=== PATIENT | female | born 1930 | race Hispanic/Latino ===

== ENCOUNTER 2016-12-17 11:24 | Inpatient (IN) | payer MEDICARE, OTHER ==
[2016-12-17 11:29] VITALS: BMI 26.4
[2016-12-17] MEDS ORDERED: Sodium Chloride 0.9% 500 ML IV STA (11:52)
--- NOTE | 2016-12-17 12:02 | ED PDOC ---
HPI: Back Time Seen by Provider: 12/17/16 11:39 Chief Complaint (Nursing): Back Pain Chief Complaint (Provider): Back Pain History Per: Patient, Family History/Exam Limitations: no limitations Onset/Duration Of Symptoms: Hrs Current Symptoms Are (Timing): Still Present Quality Of Discomfort: "Pain" Severity: Moderate Previous Symptoms: Back Pain Associated Symptoms: None Additional Complaint(s): Patient is a 86 year old female who presents to ED via EMS and accompanied by daughter for evaluation of back pain s/p fall today. Patient states she bent forward to pick something up, felt sudden onset dizziness which resulted in her falling backwards. Reports she struck her lower back on the ground and had her head lodged between a wine rack and chair. Denies LOC, vision changes, numbness or headache. Notes a few day history of generalized weakness and fatigue which patient attributes to not sleeping right due to pain. As per daughter, several weeks of pelvic pain evaluated by PMD and referred to U/S for possible pelvic prolapse. Had chest pain burning yesterday. Took ativan and went to sleep for it. Of note, daughter is requesting that patient receive her pelvic ultrasound ordered by PMD " seeing how she is in the ED anyways." Past Medical History Reviewed: Historical Data, Nursing Documentation, Vital Signs Vital Signs: Last Vital Signs Temp 98.2 F 12/17/16 11:27 Pulse 56 L 12/17/16 11:27 Resp 16 12/17/16 11:27 BP 123/57 L 12/17/16 11:27 Pulse Ox 95 12/17/16 11:27 - Medical History PMH: Anemia, Anxiety, Arthritis, Asthma, CAD, CHF, COPD, Depression, Diverticulitis, GERD, HTN, Hypercholesterolemia, Hypothyroidism, Malignancy ( Colon Cancer), Chronic Kidney Disease Denies: HIV - Surgical History Surgical History: Appendectomy, Cholecystectomy, 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, 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), 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 - Family History Family History: States: Unknown Family Hx - Living Arrangements Living Arrangements: With Family - Social History Alcohol: None Drugs: Denies - Immunization History Hx Tetanus Toxoid Vaccination: No Hx Influenza Vaccination: Yes (04/2014) Hx Pneumococcal Vaccination: Yes (2010) - Home Medications Home Medications: Ambulatory Orders Medication Instructions Recorded Albuterol HFA [Ventolin HFA 90 1 puff INH RQ6 PRN #0 inhaler 10/22/15 mcg/actuation (8 g)] Aspirin [Aspirin Chewable] 81 mg PO DAILY #0 chew 10/22/15 Clopidogrel [Plavix] 75 mg PO DAILY #0 tab 10/22/15 Docusate [Colace] 100 mg PO BID #0 cap 10/22/15 Fluticasone/Salmeterol 100/50 1 puff IH RQ12 #0 puff 10/22/15 [Advair Diskus 100/50] Metoprolol Tartrate [Lopressor] 12.5 mg PO DAILY #0 tab 10/22/15 Atorvastatin [Lipitor] 40 mg PO HS 06/27/16 Dexlansoprazole [Dexilant] 60 mg PO DAILY 06/27/16 LORazepam [Ativan] 1 mg PO HS PRN 06/27/16 Oxycodone HCl/Acetaminophen 1 tab PO Q8 PRN 06/27/16 [Percocet 10-325 mg Tablet] cefTRIAXone 1 gm [Rocephin 1 gram 1 gm IVPB DAILY #5 bag 06/29/16 IVPB] Levothyroxine [Synthroid] 150 mcg PO ACB tab 06/30/16 Montelukast [Singulair] 10 mg PO DAILY tab 06/30/16 - Allergies Allergies/Adverse Reactions: Allergies Allergy/AdvReac Type Severity Reaction Status Date / Time No Known Allergies Allergy Verified 06/27/16 18:19 Review of Systems ROS Statement: Except As Marked, All Systems Reviewed And Found Negative Constitutional: Positive for: Weakness (generalized ) Eyes: Negative for: Vision Change Cardiovascular: Positive for: Chest Pain. Negative for: Palpitations Respiratory: Negative for: Shortness of Breath Gastrointestinal: Negative for: Nausea, Vomiting, Abdominal Pain Musculoskeletal: Positive for: Back Pain. Negative for: Neck Pain Neurological: Positive for: Weakness, Dizziness (resolved ). Negative for: Numbness, Headache Physical Exam - Reviewed Nursing Documentation Reviewed: Yes Vital Signs Reviewed: Yes - Physical Exam Appears: Positive for: Non-toxic, No Acute Distress Head Exam: Positive for: ATRAUMATIC, NORMAL INSPECTION, NORMOCEPHALIC Skin: Positive for: Normal Color, Warm, DRY Eye Exam: Positive for: Normal appearance, PERRL ENT: Positive for: Normal ENT Inspection. Negative for: Nasal Congestion, Pharyngeal Erythema Neck: Positive for: Normal, Painless ROM, Supple Cardiovascular/Chest: Positive for: Regular Rate, Rhythm. Negative for: Murmur Respiratory: Positive for: Normal Breath Sounds. Negative for: Respiratory Distress Gastrointestinal/Abdominal: Positive for: Normal Exam, Soft. Negative for: Tenderness Back: Positive for: Normal Inspection, Other (mild lower lumbar tenderness ). Negative for: L CVA Tenderness, R CVA Tenderness Extremity: Positive for: Normal ROM, Other (4/5 strength of all extremities). Negative for: Tenderness, Pedal Edema, Deformity Neurologic/Psych: Positive for: Alert, tool setter II-XII (grossly intact ), Oriented. Negative for: Motor/Sensory Deficits - Laboratory Results Result Diagrams: 12/17/16 12:21 12/17/16 12:21 Interpretation Of Abn Labs: 43/2.2 bun/cr - ECG ECG: Positive for: Interpreted By Me, Viewed By Me ECG Rhythm: Positive for: Sinus Bradycardia O2 Sat by Pulse Oximetry: 95 (RA) Pulse Ox Interpretation: Normal - Radiology X-Ray: Read By Radiologist X-Ray Interpretation: No Acute Disease - CT Scan/US ct Other Rad Studies (CT/US): Read By Radiologist Other Rad Interpretation: no acute - Progress ED Course And Treament: 1411: Stable. Pain free. Tolerated PO. Will need admit for dizziness and bradycardia. Chest pain atypical eval as well. Dr. Orion Hendrickson aware and will admit. Medical Decision Making Medical Decision Making: Time: 1145 Initial impression: Fall r/o fracture Initial plan: -- CT-head -- EKG -- CMP -- Troponin -- CBC -- PT/PTT -- CXR -- Lumbar Spine -- NSF -- U/S Scribe Attestation: Documented by Patricia Bullock acting as a scribe for Bobo Adorno MD. Scribe Attestation: All medical record entries made by the Scribe were at my direction and personally dictated by me. I have reviewed the chart and agree that the record accurately reflects my personal performance of the history, physical exam, medical decision making, and the department course for this patient. I have also personally directed, reviewed, and agree with the discharge instructions and disposition. Disposition - Clinical Impression Clinical Impression: Dizziness, Chest pain, Bradycardia - Patient ED Disposition Is Patient to be Admitted: Yes Counseled Patient/Family Regarding: Studies Performed, Diagnosis - Disposition Disposition Time: 14:12 Condition: FAIR - Pt Status Changed To: Hospital Disposition Of: Observation - POA Present On Arrival: None, Falls Or Trauma
[2016-12-17 12:36] LABS: BASO % 0.8 % (0.0-2.0); EOS # 0.2 K/uL (0.0-0.7); EOS % 3.2 % (0.0-4.0); HEMATOCRIT 33.6 % (34.0-47.0); LYMPH # 2.3 K/uL (1.0-4.3); LYMPH % 36.3 % (20.0-40.0); MEAN CELL VOLUME 89.9 fl (81.0-99.0); MEAN CORPUSCULAR HEMOGLOBIN 29.4 pg (27.0-31.0); MEAN CORPUSCULAR HGB CONC 32.7 g/dL (33.0-37.0); MEAN PLATELET VOLUME 7.9 fl (7.2-11.7); MONO # 0.7 K/uL (0.0-0.8); MONO % 10.6 % (0.0-10.0); NEUT # 3.1 K/uL (1.8-7.0); NEUT % 49.1 % (50.0-75.0); NRBC % 0.1 % (0.0-0.0); RED CELL DISTRIBUTION WIDTH 17.8 % (11.5-14.5); WHITE BLOOD COUNT 6.2 K/uL (4.8-10.8)
[2016-12-17 12:48] LABS: ALB/GLOB RATIO 1.1 (1.0-2.1); ALKALINE PHOSPHATASE 75 U/L (38-126); ALT/SGPT 18 U/L (9-52); AST/SGOT 46 U/L (14-36); BLOOD UREA NITROGEN 43 mg/dl (7-17); CALCIUM 8.9 mg/dL (8.4-10.2); CARBON DIOXIDE 21 mmol/L (22-30); CHLORIDE 107 mmol/L (98-107); GFR AFRICAN-AMERICAN 26; GLUCOSE,RANDOM 101 mg/dL (65-105); SODIUM 141 mmol/l (132-148); TOTAL PROTEIN 8.2 G/DL (6.3-8.2)
[2016-12-17 12:50] LABS: POTASSIUM 5.7 MMOL/L (3.6-5.0)
[2016-12-17 12:54] LABS: PARTIAL THROMBOPLASTIN TIME 28.2 Seconds (25.6-37.1)
--- NOTE | 2016-12-17 13:20 | RAD ---
HISTORY: Trauma. Portable study 12:05. COMPARISON: 06/27/2016. FINDINGS: LUNGS: No active pulmonary disease. PLEURA: No significant pleural effusion identified, no pneumothorax apparent. CARDIOVASCULAR: No radiographic findings to suggest acute or significant cardiovascular disease. OSSEOUS STRUCTURES: No significant abnormalities. VISUALIZED UPPER ABDOMEN: Normal. OTHER FINDINGS: None. IMPRESSION: No active disease. No significant interval change compared to the prior examination(s).
--- NOTE | 2016-12-17 13:21 | RAD ---
PROCEDURE: Radiographs of the Lumbar Spine. HISTORY: Posttraumatic back pain COMPARISON: No prior. FINDINGS: BONES: Normal alignment. No listhesis. No fracture. DISC SPACES: Unremarkable. OTHER FINDINGS: Multilevel facet arthropathy. Calcified nonaneurysmal abdominal aorta. IMPRESSION: No acute findings related to/accounting for the clinical presentation.
--- NOTE | 2016-12-17 13:33 | CT ---
PROCEDURE: CT HEAD WITHOUT CONTRAST. HISTORY: headache COMPARISON: Noncontrast head CT performed 06/09/16 TECHNIQUE: Axial computed tomography images were obtained through the head/brain without intravenous contrast. Radiation dose: Total exam DLP = 734.20 mGy-cm. This CT exam was performed using one or more of the following dose reduction techniques: Automated exposure control, adjustment of the mA and/or kV according to patient size, and/or use of iterative reconstruction technique. FINDINGS: HEMORRHAGE: No intracranial hemorrhage. BRAIN: Diffuse atrophy with prominence of the ventricles and sulci noted. No mass effect or edema. Intracranial atherosclerotic calcifications. Moderate scattered periventricular and subcortical white matter hypodensities, which are nonspecific, but often seen with chronic microvascular ischemic disease. Please note that MRI with diffusion imaging is more sensitive in the detection of acute ischemic event. VENTRICLES: No hydrocephalus. CALVARIUM: Unremarkable. PARANASAL SINUSES: Partial opacification of the posterior left ethmoid air cells and limited included portions of the left maxillary sinus. The visualized paranasal sinuses appear otherwise clear. MASTOID AIR CELLS: Unremarkable as visualized. No inflammatory changes. OTHER FINDINGS: None. IMPRESSION: Generalized atrophy. Moderate nonspecific white matter changes. Opacification of the posterior left ethmoid air cells and limited included portions of the left maxillary sinus. The paranasal sinuses appear otherwise clear.
[2016-12-17] MEDS ORDERED: Oxycodone/Acetaminophen 5/325 mg Tab PO ONE ×2 (13:58→22:13)
--- NOTE | 2016-12-17 16:55 | CP.PCM.HP ---
History of Present Illness - History of Present Illness History of Present Illness: Hospitalist Admission H&P (Patient was seen at 3:30 PM 12/17/16 ER Bed #20 with Daughter Eve present) PMD: Dr. Nolasco CODE STATUS: DNR/DNI. NO living will/advance directive. Daughter Eve has been designated by patient as her Health Care Proxy CHIEF COMPLAINT: Fall, Chest Pain, Dizziness, Pelvic Pain 86 year old female with an extensive medical history (please see medical history below) who presents via EMS with chief complaint of having fall, chest pain, dizziness, and pelvic pain. Patient explains that for the past few weeks now she has been experiencing pain in the pelvic area and had blood coming out of her vagina a few weeks ago (but did not tell her daughter and did not come to the hospital). She states that in the past she has had a procedure done to "lift" her bladder. Whenever she feels this pain in the pelvic area this causes dizziness which she describes as unsteadiness on her feet like being on boat ( she uses a walker at home to get around). She went to see her Pig Furnace Operator on 12/16/16 and had a H[employer] exam performed and was given a prescription to have an Ultrasound done and explains that after the exam her pain worsened. This morning the patient was bending forward to knot picker cloth something off the floor and this caused dizziness which lead to the unsteadiness on her feet/sensation of being on boat that lead to her falling backwards onto her back with hitting her head between a chair and a wine rack. There was NO loss of consciousness. She pressed the emergency services button on the mechanism around her neck. Twenty minutes later, EMS arrived at her door but could not get through therefore patient was able to crawl on her knees and open the door. She was then brought here to [facility] ER. Also of note patient stated that she was having nausea and dry heaving last night with burning in the center of her chest that was nonradiating and Daughter explains that this was a similar type of presentation when the patient had prior DE back in June 2016. Currently upon FULL ROS there is NO chest pain, NO palpitations, NO SOB/Cough/ Wheezing, NO abdominal pain, NO n/v/d/c (has bowel movements everyday and they are hard but not black/bloody), NO lightheadedness/dizzines at the time of my exam, NO headaches, NO new changes in vision (but explains that she has bilateral cataracts), NO eye pain, NO new changes in hearing/ear pain, NO edema , NO paresthesias PMHx: CAD (DE in June 2016 with stent x 1 at [facility] and stents x 2 in 2010), COPD/Asthma, CHF?, Diverticulosis, HTN, HLD, Hypothyroidism (s/p Thyroidectomy) , Anxiety/Depression, Colon CA (treated with resection only, NO Chemo/Radiation) , Anemia of Chronic Disease, GERD, CKD Stage 3, Hemorrhagic Cystitis (for which she was admitted to [facility] on 06/27/16 through 06/30/16), Urinary Incontinence, Bowel Incontinence PSHx: Thyroidectomy (for multiple thyroid nodules), Appendectomy, Colectomy, Cholecystectomy, 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, Bladder Procedure, B/L Knee Replacement ALL: NKDA Medications: Singulair 10 mg PO 1x/day, Synthroid 200 mcg PO 1x/day, Lobetolol/ HCTZ 50/12.5 mg PO 1x/day, Ativan 1 mg PO QHS PRN Anxiety/Insomnia, Advair 100/ 50 mcg 1 puff Q12H, Colace 100 mg PO 1x/day, Dexilant 60 mg PO 1x/day, Plavix 75 mg PO 1x/day, Lipitor 40 mg PO QHS, ASA 325 mg PO 1x/day, Albuterol HFA 1 puff Q6H PRN SOB/Wheezing Social Hx:Lives alone, NO tobacco, NO alcohol, NO illicit drugs Present on Admission - Present on Admission Any Indicators Present on Admission: Yes History of DVT/PE: No History of Uncontrolled Diabetes: No Urinary Catheter: No Decubitus Ulcer Present: No Review of Systems - Review of Systems Review of Systems: Please see HPI above Past Patient History - Infectious Disease Hx of Infectious Diseases: None - Past Medical History & Family History Past Medical History?: Yes - Past Social History Smoking Status: Former Smoker - CARDIAC Hx Congestive Heart Failure: Yes Hx Hypercholesterolemia: Yes Hx Hypertension: Yes - PULMONARY Hx Asthma: Yes Hx Chronic Obstructive Pulmonary Disease (COPD): Yes - NEUROLOGICAL Hx Neurological Disorder: No - HEENT Other/Comment: HARD OF HEARING - RENAL Hx Chronic Kidney Disease: Yes - ENDOCRINE/METABOLIC Hx Hypothyroidism: Yes - HEMATOLOGICAL/ONCOLOGICAL Hx Anemia: Yes Hx Human Immunodeficiency Virus (HIV): No - INTEGUMENTARY Hx Dermatological Problems: No - MUSCULOSKELETAL/RHEUMATOLOGICAL Hx Arthritis: Yes - GASTROINTESTINAL Hx Diverticulitis: Yes - GENITOURINARY/GYNECOLOGICAL Hx Genitourinary Disorders: Yes - PSYCHIATRIC Hx Anxiety: Yes Hx Depression: Yes Hx Substance Use: No - SURGICAL HISTORY Hx Appendectomy: Yes Hx Cholecystectomy: Yes 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, 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) Hx 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: Yes - ANESTHESIA Hx Anesthesia: Yes Hx Anesthesia Reactions: No Hx Malignant Hyperthermia: No Meds Allergies/Adverse Reactions: Allergies Allergy/AdvReac Type Severity Reaction Status Date / Time No Known Allergies Allergy Verified 06/27/16 18:19 Physical Exam - Constitutional Appears: Non-toxic, No Acute Distress - Head Exam Head Exam: ATRAUMATIC, NORMAL INSPECTION, NORMOCEPHALIC - Eye Exam Eye Exam: EOMI, Normal appearance, PERRL Pupil Exam: NORMAL ACCOMODATION, PERRL Additional comments: Pupils were pinpoint but were reactive to light - ENT Exam ENT Exam: Mucous Membranes Moist, Normal Exam, Normal External Ear Exam, Normal Oropharynx - Neck Exam Additional comments: NO cervical/supraclavicular/submandibular lymphadenopathy NO bilateral carotid bruits - Respiratory Exam Additional comments: RML to RLL AND LLL field inspiratory crackles - Cardiovascular Exam Additional comments: HEART SOUNDS COULD NOT BE APPRECIATED AT THE TIME OF MY EXAM EKG shows NSR at 50 bpm as read by me and the EKG is unchanged to one done on . - GI/Abdominal Exam Additional comments: BSx4, Soft, NT, ND, NO HSM, NO guarding/rebound tenderness - Extremities Exam Additional comments: Pulses are strong and equal NO edema Capillary refill is 2 seconds NO cyanosis Severely deformed toes bilaterally Results - Vital Signs Recent Vital Signs: Last Vital Signs Temp 98.2 F 12/17/16 11:27 Pulse 56 L 12/17/16 11:27 Resp 16 12/17/16 11:27 BP 123/57 L 12/17/16 11:27 Pulse Ox 95 12/17/16 14:13 - Labs Result Diagrams: 12/17/16 12:21 12/17/16 14:10 Labs: Laboratory Results - last 24 hr 12/17/16 14:10 Potassium 4.9 Assessment & Plan (1) Atypical chest pain Assessment and Plan: Observe in the telemetry unit F/U Troponin and EKG at 6:30 PM and 1:30 AM Consult Grape Grower Dr. Columba Patton whom Daughter states patient sees as an outpatient Status: Acute (2) Fall Assessment and Plan: Likely secondary to the dizziness secondary to the Pelvic Pain Lumbar Spine X Ray showed NO acute findings CT Head showed generalized atrophy, moderate nonspecific white matter changes, opacification of the posterior left ethmoid air cells and left maxillary sinus Chest X Ray did not show any active disease F/U Bilateral Carotid U/S Status: Acute (3) Prolapse of bladder Status: Acute (4) Bladder prolapse Assessment and Plan: F/U Pelvic/Vaginal U/S F/U recommendations Pig Furnace Operator Dr. Lujan Status: Chronic (5) Acute on chronic renal insufficiency Assessment and Plan: Patient is being followed by [employer] Coordinator Dr. Carranza as an outpatient but she does not come to [facility] F/U Nephrology Consult Dr. Tucker F/U Bilateral Renal U/S, Urine Protein/Cr, Phosphorous, Uric Acid, Vitamin D level: studies that Dr. Carranza wanted patient to have done as per Rx given to patient NS at 75 mL per hour Status: Acute (6) History of COPD Status: Acute (7) COPD (chronic obstructive pulmonary disease) Assessment and Plan: Advair 100/50 mcg 1 puff 2x/day Albuterol 1 puff Q6H PRN SOB/Wheezing Singulair 10 mg PO 1x/day Status: Chronic (8) CAD (coronary artery disease) Assessment and Plan: Hold the Lopressor/HCTZ for now considering the elevated BUN/Cr Metoprolol 50 mg PO 1x/day and HOLD for SBP < 100 and/or HR < 60 Plavix 75 mg PO 1x/day Lipitor 40 mg PO QHS ASA 325 mg PO 1x/day Status: Chronic (9) Hypertension Assessment and Plan: Metoprolol 50 mg PO 1x/day and HOLD for SBP < 100 and/or HR < 60 Status: Chronic Priority: Medium (10) Hyperlipidemia Assessment and Plan: Lipitor 40 mg PO QHS F/U Lipid Panel Status: Chronic (11) Hypothyroid Assessment and Plan: Synthroid 200 mcg PO 1x/day F/U TSH and T4 Status: Chronic (12) GERD (gastroesophageal reflux disease) Assessment and Plan: Patient is on Dexilant at home however this is not carried here Pepcid 20 mg PO 2x/day (NO Protonix as this would interfere with the Plavix that the patient is on) Status: Chronic (13) Anemia of chronic disease Assessment and Plan: Monitor Hgb/Hct Status: Chronic (14) Prophylactic measure Assessment and Plan: Colace 100 mg PO 2x/day Pepcid 20 mg PO 2x/day NO anticoagulation for DVT Prophylaxis considering the history of Hematuria, Anemia of Chronic Disease, therefore Bilateral SCDs Heart Healthy 2 gm Na Diet Status: Acute
--- NOTE | 2016-12-17 17:29 | US ---
Carotid ultrasound Indication: Fall and dizziness Technique: Grayscale, color, and duplex Doppler imaging of the bilateral carotid and vertebral arteries. Findings: Tortuous vasculature. There is soft calcified plaque present bilaterally. Peak systolic velocities are as follows (cm/sec) Right: CCA - proximal 61.7 CCA- distal 59.5 ECA 80.4 ICA - proximal 78.1 ICA - mid 94.7 ICA - distal 69.2 Vertebral- antegrade 48.9 ICA/CCA- 1.6 Left: CCA - proximal 82.8 CCA- distal 57.3 ECA 86.2 ICA - proximal 90.9 ICA - mid 67.1 ICA - distal 74.9 Vertebral- antegrade 37.5 ICA/CCA- 1.6 Impression: No evidence of hemodynamically significant stenosis. Findings as above. Measurement of carotid stenosis is based on velocity parameters that correlate measurement of carotid stenosis is based on velocity parameters that correlate the residual internal carotid diameter with that of the more distal vessel in accordance with the [place] symptomatic carotid endarterectomy Trial (NASCET).
--- NOTE | 2016-12-17 17:33 | US ---
PROCEDURE: Ultrasound of the Kidneys HISTORY: Acute on Chronic Renal Failure COMPARISON: CT abdomen pelvis without oral or IV contrast performed 10/17/15 TECHNIQUE: Sonogram of the kidneys. FINDINGS: RIGHT KIDNEY: Measures: 7.6 x 3.1 x 3.5 cm. Echogenic renal parenchyma. No hydronephrosis, extracting renal calculus, or cyst identified. LEFT KIDNEY: Measures: 8.4 x 3.4 x 3.8 cm. Echogenic renal parenchyma. No hydronephrosis, extracting renal calculus, or cyst identified. OTHER FINDINGS: Decompressed urinary bladder precludes adequate evaluation. Bilateral ureteral jets are not identified. IMPRESSION: Diminutive echogenic bilateral kidneys; correlate for medical renal disease. Decompressed urinary bladder precludes adequate evaluation. Bilateral ureteral jets are not identified.
--- NOTE | 2016-12-17 17:37 | US ---
HISTORY: pelvic pain; uterine prolapse COMPARISON: None available. TECHNIQUE: Transabdominal pelvic ultrasound FINDINGS: UTERUS: Measures 5.5 x 1.7 x 2.8 cm. Anteverted. Uterus is located very low within the pelvis inferior to the urinary bladder compatible with provided history of prolapse. ENDOMETRIUM: Not well-visualized, measures approximately 3 mm in diameter. RIGHT OVARY: Not visualized. LEFT OVARY: Not visualized. FREE FLUID: No significant free fluid noted. OTHER FINDINGS: None. IMPRESSION: Markedly limited transabdominal study. Evidence of uterine prolapse. Bilateral ovaries are not visualized.
--- NOTE | 2016-12-17 19:26 | CARD ---
APPROVED REPORT EKG Measurement Heart [id number] CO [id number] <Conclusion> Sinus bradycardia Otherwise normal ECG
[2016-12-17] MEDS: Fluticasone-Salmeterol 100-50mcg Diskus IH SCH ×2 (19:37→21:17)
[2016-12-17] MEDS: Sodium Chloride 0.9% 1,000 ML IV SCH (19:40)
[2016-12-18] MEDS ORDERED: Oxycodone/Acetaminophen 5/325 mg Tab PO ONE ×2 (01:04→14:02)
[2016-12-18] MEDS ORDERED: Levothyroxine 100 MCG TAB PO SCH (06:30)
[2016-12-18 07:20] LABS: BASO % 0.6 % (0.0-2.0); EOS # 0.2 K/uL (0.0-0.7); EOS % 2.6 % (0.0-4.0); HEMATOCRIT 28.8 % (34.0-47.0); LYMPH # 3.2 K/uL (1.0-4.3); LYMPH % 45.3 % (20.0-40.0); MEAN CELL VOLUME 90.7 fl (81.0-99.0); MEAN CORPUSCULAR HEMOGLOBIN 29.3 pg (27.0-31.0); MEAN CORPUSCULAR HGB CONC 32.3 g/dL (33.0-37.0); MEAN PLATELET VOLUME 7.5 fl (7.2-11.7); MONO # 0.6 K/uL (0.0-0.8); MONO % 8.3 % (0.0-10.0); NEUT % 43.2 % (50.0-75.0); RED CELL DISTRIBUTION WIDTH 17.7 % (11.5-14.5)
[2016-12-18 07:33] LABS: BLOOD UREA NITROGEN 39 mg/dl (7-17); CALCIUM 8.1 mg/dL (8.4-10.2); CARBON DIOXIDE 22 mmol/L (22-30); CHLORIDE 108 mmol/L (98-107); CHOLESTEROL 103 mg/dL (0-199); GFR AFRICAN-AMERICAN 22; GLUCOSE,RANDOM 109 mg/dL (65-105); PHOSPHOROUS 4.3 mg/dl (2.5-4.5); POTASSIUM 4.4 MMOL/L (3.6-5.0); SODIUM 141 mmol/l (132-148); URIC ACID 7.2 mg/Dl (2.2-7.5)
--- NOTE | 2016-12-18 07:50 | CP.PCM.CON ---
History of Present Illness - History of Present Illness History of Present Illness: Full Note Dictated. Pelvic Pain (recent vaginal bleeding) H/O Recurrent UTIs (for years) H/O Diverticulitis Stable CAD (S/P Cor Stenting, on ASA+Clopidogrel) COPD Depression Stable from cardiac point of view Past Patient History - Infectious Disease Hx of Infectious Diseases: None - Past Medical History & Family History Past Medical History?: Yes - Past Social History Smoking Status: Former Smoker - CARDIAC Hx Congestive Heart Failure: Yes Hx Hypercholesterolemia: Yes Hx Hypertension: Yes - PULMONARY Hx Asthma: Yes Hx Chronic Obstructive Pulmonary Disease (COPD): Yes - NEUROLOGICAL Hx Neurological Disorder: No - HEENT Other/Comment: HARD OF HEARING - RENAL Hx Chronic Kidney Disease: Yes - ENDOCRINE/METABOLIC Hx Hypothyroidism: Yes - HEMATOLOGICAL/ONCOLOGICAL Hx Anemia: Yes Hx Human Immunodeficiency Virus (HIV): No - INTEGUMENTARY Hx Dermatological Problems: No - MUSCULOSKELETAL/RHEUMATOLOGICAL Hx Arthritis: Yes - GASTROINTESTINAL Hx Diverticulitis: Yes - GENITOURINARY/GYNECOLOGICAL Hx Genitourinary Disorders: Yes - PSYCHIATRIC Hx Anxiety: Yes Hx Depression: Yes Hx Substance Use: No - SURGICAL HISTORY Hx Appendectomy: Yes Hx Cholecystectomy: Yes 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, 10 years [employer]) Hx 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: Yes - ANESTHESIA Hx Anesthesia: Yes Hx Anesthesia Reactions: No Hx Malignant Hyperthermia: No Meds Allergies/Adverse Reactions: Allergies Allergy/AdvReac Type Severity Reaction Status Date / Time No Known Allergies Allergy Verified 06/27/16 18:19 - Medications Medications: Current Medications Albuterol (Ventolin Hfa 90 Mcg/Actuation (8 G)) 1 puff INH RQ6 PRN PRN Reason: Wheezing Aspirin (Ecotrin) 325 mg PO DAILY [facility] Atorvastatin Calcium (Lipitor) 40 mg PO [facility] Last Admin: 12/17/16 21:19 Dose: 40 mg Clopidogrel Bisulfate (Plavix) 75 mg PO DAILY [facility] Last Admin: 12/17/16 17:29 Dose: 75 mg Docusate Sodium (Colace) 100 mg PO BID [facility] Last Admin: 12/17/16 21:18 Dose: 100 mg Sodium Chloride (Sodium Chloride 0.9%) 1,000 mls @ 75 mls/hr IV .[id number] [facility] Stop: 12/18/16 16:01 Last Admin: 12/17/16 19:40 Dose: 75 mls/hr Levothyroxine Sodium (Synthroid) 200 mcg PO DAILY@0630 [facility] Lorazepam (Ativan) 1 mg PO HS PRN PRN Reason: Insomnia Last Admin: 12/17/16 22:05 Dose: 1 mg Metoprolol Tartrate (Lopressor) 50 mg PO DAILY [facility] Montelukast Sodium (Singulair) 10 mg PO HS [facility] Fluticasone/Salmeterol (Advair Diskus 100/50) 1 puff IH Q12 [facility] Last Admin: 12/17/16 21:17 Dose: 1 puff Results - Vital Signs Recent Vital Signs: Last Vital Signs Temp 97.6 F 12/18/16 05:14 Pulse 61 12/18/16 05:14 Resp 20 12/18/16 05:14 BP 102/66 12/18/16 05:14 Pulse Ox 96 12/18/16 05:14 - Labs Result Diagrams: 12/18/16 06:30 12/18/16 06:30 Labs: Laboratory Results - last 24 hr 12/17/16 12/17/16 12/18/16 14:10 18:30 00:30 WBC RBC Hgb Hct MCV MCH MCHC RDW Plt Count MPV Neut % (Auto) Lymph % (Auto) [place] % (Auto) Eos % (Auto) Baso % (Auto) Neut # Lymph # [place] # Eos # Baso # Sodium Potassium 4.9 Chloride Carbon Dioxide Anion Gap BUN Creatinine Est GFR ( Amer) Est GFR (Non-Af Amer) Random Glucose Uric Acid Calcium Phosphorus Troponin I < 0.0120 < 0.0120 Triglycerides Cholesterol HDL Cholesterol 12/18/16 12/18/16 06:30 06:30 WBC 7.0 RBC 3.17 L Hgb 9.3 L Hct 28.8 L MCV 90.7 MCH 29.3 MCHC 32.3 L RDW 17.7 H Plt Count 216 MPV 7.5 Neut % (Auto) 43.2 L Lymph % (Auto) 45.3 H [place] % (Auto) 8.3 Eos % (Auto) 2.6 Baso % (Auto) 0.6 Neut # 3.0 Lymph # 3.2 [place] # 0.6 Eos # 0.2 Baso # 0.0 Sodium 141 Potassium 4.4 Chloride 108 H Carbon Dioxide 22 Anion Gap 15 BUN 39 H Creatinine 2.5 H Est GFR ( Amer) 22 Est GFR (Non-Af Amer) 18 Random Glucose 109 H Uric Acid 7.2 Calcium 8.1 L Phosphorus 4.3 Troponin I Triglycerides 56 Cholesterol 103 HDL Cholesterol 52
[2016-12-18] MEDS ORDERED: Oxycodone/Acetaminophen 5/325 mg Tab PO PRN (09:02)
--- NOTE | 2016-12-18 09:13 | CP.PCM.PCO ---
Physician Communication Note - Physician Communication Note Physician Communication Note: Bilateral Hip/Pelvis X Ray Ordered.Percocet 1 tab Q8H PRN Pain Hips Ordered
[2016-12-18] MEDS: Fluticasone-Salmeterol 100-50mcg Diskus IH SCH ×2 (09:55→21:20)
[2016-12-18] MEDS: Aspirin 325 mg EC Tablets PO SCH (09:55)
[2016-12-18] MEDS: Sodium Chloride 0.9% 1,000 ML IV SCH (09:58)
--- NOTE | 2016-12-18 10:25 | CON ---
DATE: 12/18/2016 She is hospitalized under the hospitalist's care in room 407, bed 1. HISTORY OF PRESENT ILLNESS: This 86-year-old female is known to me over 6-7 years. She came to the Emergency Room after having fallen at home. She gives history of severe lower abdominal pain and als o gives history of having had some vaginal bleeding for 4-5 days preceding this event. She had seen her residence counselor about 2 days before arriving in the ER and was told to get an ultrasound of the abd omen. She has a prior history of recurrent urinary tract infections for a number of years and sofia hospitalizations and multiple procedures. She also has a history of diverticulitis in the past. She is an ex-smoker with a history of hypertension who required urgent coronary stenting 5-6 years ba ck when she arrived in the hospital having an acute myocardial infarction. She subsequently has requ ired further coronary stenting in June of last year and she has been taking an aspirin and clopid ogrel on a daily basis following insertion of a stent in June. The patient also has severe COPD and history of hypertension. She has never manifested congestive cardiac failure. She is despondent after her has after a protracted illness during which he was virtually bed bound . At times, she has been erratic in taking her medications, has bilateral cataracts, but is extremel y scared of having cataract surgery. She also is erratic with her food intake and has lost a fair am ount of weight and has general debility with unsteady gait as a result of it. PHYSICAL EXAMINATION: GENERAL: Shows an elderly lady who is alert and awake, recognizes me readily and is able to communic ate readily. VITAL SIGNS: Afebrile with a pulse rate of 70 beats per minute, regular and a blood pressure of 126/ 80 mmHg. NECK: Her jugular venous pressure was not elevated. EXTREMITIES: There was no edema of the lower extremities. The pedal pulses were extremely feeble. Extremities were warm. Nailbeds were pink. There was no central or peripheral cyanosis. There was no clubbing. HEART: The apex was palpable vaguely in the fifth space. The first and second heart sounds were nor mal. There was no murmur or gallop. LUNGS: There were no rales. ABDOMEN: Soft. There was no guarding or rigidity. There was a vague sense of tenderness in the sup rapubic area. No masses were palpable. There were no abdominal bruits. Her electrocardiogram showed sinus rhythm with a normal EKG pattern. There were no ST-T abnormalitie s or Q-waves. LABORATORY DATA: Showed hemoglobin and hematocrit were 9.3 g and 28.8%, respectively. Her MCV was n ormal. BUN and creatinine were 43 and 2.2 mg%. Her troponins were consistently negative x 3 for any evidence of myocyte injury. Review of her creatinine over the last multiple visits stretching back to 2013 shows a consistently elevated creatinine, mostly in the range of 1.6-2.5. Her GFR is 21 mL p er minute. Review of this as well shows that it has been as low as 19 mL in the past which could be a result of poor fluid intake. The patient accordingly has been hydrated and a followup estimate of BUN, creatinine would be obtained. In the meantime, there is no evidence of acute coronary syndrome or ongoing myocardial ischemia and the patient is stable from cardiovascular point of view. Kali Patton MD cc: 23 TT: 12/18/2016 10:24:51 Confirmation # [id number] Dictation # [id number] tn
--- NOTE | 2016-12-18 11:48 | CP.PCM.PN ---
Subjective - Date & Time of Evaluation Date of Evaluation: 12/18/16 Time of Evaluation: 11:00 - Subjective Subjective: No fever Chest pain resolved no cough no SOB complains of hip pain and pelvic pain + dysuria no vaginal bleeding at present no abd pain, no N/V Objective - Vital Signs/Intake and Output Vital Signs (last 24 hours): Temp Pulse Resp BP Pulse Ox 98.0 F 64 20 118/78 98 12/18/16 08:01 12/18/16 08:01 12/18/16 08:01 12/18/16 08:01 12/18/16 08:01 - Medications Medications: Current Medications Albuterol (Ventolin Hfa 90 Mcg/Actuation (8 G)) 1 puff INH RQ6 PRN PRN Reason: Wheezing Aspirin (Ecotrin) 325 mg PO DAILY [facility] Last Admin: 12/18/16 09:55 Dose: 325 mg Atorvastatin Calcium (Lipitor) 40 mg PO HS [facility] Last Admin: 12/17/16 21:19 Dose: 40 mg Clopidogrel Bisulfate (Plavix) 75 mg PO DAILY [facility] Last Admin: 12/18/16 09:56 Dose: 75 mg Docusate Sodium (Colace) 100 mg PO BID [facility] Last Admin: 12/18/16 09:55 Dose: 100 mg Sodium Chloride (Sodium Chloride 0.9%) 1,000 mls @ 75 mls/hr IV .[id number] [facility] Stop: 12/18/16 16:01 Last Admin: 12/18/16 09:58 Dose: 75 mls/hr Levothyroxine Sodium (Synthroid) 225 mcg PO DAILY@0630 [facility] Lorazepam (Ativan) 1 mg PO HS PRN PRN Reason: Insomnia Last Admin: 12/17/16 22:05 Dose: 1 mg Metoprolol Tartrate (Lopressor) 50 mg PO DAILY [facility] Montelukast Sodium (Singulair) 10 mg PO HS [facility] Oxycodone/Acetaminophen (Percocet 5/325 Mg Tab) 1 tab PO Q8 PRN PRN Reason: Pain, severe (8-10) Stop: 12/21/16 17:01 Last Admin: 12/18/16 09:53 Dose: 1 tab Fluticasone/Salmeterol (Advair Diskus 100/50) 1 puff IH Q12 [facility] Last Admin: 12/18/16 09:55 Dose: 1 puff - Labs Labs: 12/18/16 06:30 12/18/16 06:30 PT 11.3 Seconds (9.8-13.1) 12/17/16 12:21 INR 1.0 (0.9-1.2) 12/17/16 12:21 APTT 28.2 Seconds (25.6-37.1) 12/17/16 12:21 - Constitutional Appears: No Acute Distress, Chronically Ill - Head Exam Head Exam: NORMAL INSPECTION - Eye Exam Eye Exam: EOMI, Normal appearance Pupil Exam: NORMAL ACCOMODATION - ENT Exam ENT Exam: Mucous Membranes Moist, Normal External Ear Exam - Neck Exam Neck Exam: Full ROM. absent: Meningismus - Respiratory Exam Respiratory Exam: NORMAL BREATHING PATTERN. absent: Rales, Wheezes, Respiratory Distress - Cardiovascular Exam Cardiovascular Exam: REGULAR RHYTHM, +S1, +S2 - GI/Abdominal Exam GI & Abdominal Exam: Soft, Normal Bowel Sounds. absent: Tenderness - Extremities Exam Extremities Exam: Normal Capillary Refill. absent: Calf Tenderness, Pedal Edema - Back Exam Back Exam: Full ROM. absent: CVA tenderness (L), CVA tenderness (R) - Neurological Exam Neurological Exam: Alert, Awake, CN II-XII Intact, Oriented x3 Neuro motor strength exam: Left Upper Extremity: 5, Right Upper Extremity: 5, Left Lower Extremity: 5, Right Lower Extremity: 5 - Psychiatric Exam Psychiatric exam: Normal Affect, Normal Mood - Skin Skin Exam: Dry, Normal Color, Warm Assessment and Plan - Assessment and Plan (Free Text) Assessment: 86 year old female with an extensive medical history who presents via EMS with chief complaint of having fall, chest pain, dizziness, and pelvic pain. Patient explains that for the past few weeks now she has been experiencing pain in the pelvic area and had blood coming out of her vagina a few weeks ago (but did not tell her daughter and did not come to the hospital). She states that in the past she has had a procedure done to "lift" her bladder. Whenever she feels this pain in the pelvic area this causes dizziness which she describes as unsteadiness on her feet like being on boat (she uses a walker at home to get around). (1) Atypical chest pain, ACS ruled out , CP prob musculoskeltal pain from fall no EKG change Trop x 3 negative Consult Needle Loom Operator Helper Dr. 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 Lujan Status: Chronic (4) Acute on chronic renal insufficiency Patient is being followed by Social Services Counselor Dr. Carranza as an outpatient but she does not come to [facility] Nephrology Consult Dr. Tucker Renal Sonogram : medical renal dis (5) COPD (chronic obstructive pulmonary disease), chronic Advair 100/50 mcg 1 puff 2x/day Albuterol 1 puff Q6H PRN SOB/Wheezing Singulair 10 mg PO 1x/day Status: Chronic (6) CAD (coronary artery disease) Hold the Lopressor/HCTZ for now considering the elevated BUN/Cr Metoprolol 50 mg PO 1x/day and HOLD for SBP < 100 and/or HR < 60 Plavix 75 mg PO 1x/day Lipitor 40 mg PO QHS ASA 325 mg PO 1x/day Status: Chronic (7) Hypertension Metoprolol 50 mg PO 1x/day and HOLD for SBP < 100 and/or HR < 60 Status: Chronic Priority: Medium (8) Hyperlipidemia Lipitor 40 mg PO QHS (9) Hypothyroid Synthroid 200 mcg PO 1x/day TSH 28 Status: Chronic (10) GERD (gastroesophageal reflux disease) Patient is on Dexilant at home however this is not carried here Pepcid 20 mg PO 2x/day (NO Protonix as this would interfere with the Plavix that the patient is on) Status: Chronic (11) Anemia of chronic disease Monitor Hgb/Hct Status: Chronic (14) Prophylactic measure Colace 100 mg PO 2x/day Pepcid 20 mg PO 2x/day NO anticoagulation for DVT Prophylaxis considering the history of Hematuria, Anemia of Chronic Disease, therefore Bilateral SCDs Heart Healthy 2 gm Na Diet Status: Acute
--- NOTE | 2016-12-18 13:02 | CP.PCM.CON ---
History of Present Illness - History of Present Illness History of Present Illness: 86 y/o female with Hx/o CAD,coronary artery stenting, CHF, HTN, Hypothyroidism. HLD was brought to ER after she fell at home & developed low back pain. Renal consult is requested for evaluation of abnormal kidney function. Pt denied any kidney problem in the past except for frequent urinary tract infections No Hx/o DM Past Patient History - Infectious Disease Hx of Infectious Diseases: None - Past Medical History & Family History Past Medical History?: Yes - Past Social History Smoking Status: Former Smoker - CARDIAC Hx Congestive Heart Failure: Yes Hx Hypercholesterolemia: Yes Hx Hypertension: Yes - PULMONARY Hx Asthma: Yes Hx Chronic Obstructive Pulmonary Disease (COPD): Yes - NEUROLOGICAL Hx Neurological Disorder: No - HEENT Other/Comment: HARD OF HEARING - RENAL Hx Chronic Kidney Disease: Yes - ENDOCRINE/METABOLIC Hx Hypothyroidism: Yes - HEMATOLOGICAL/ONCOLOGICAL Hx Anemia: Yes Hx Human Immunodeficiency Virus (HIV): No - INTEGUMENTARY Hx Dermatological Problems: No - MUSCULOSKELETAL/RHEUMATOLOGICAL Hx Arthritis: Yes - GASTROINTESTINAL Hx Diverticulitis: Yes - GENITOURINARY/GYNECOLOGICAL Hx Genitourinary Disorders: Yes - PSYCHIATRIC Hx Anxiety: Yes Hx Depression: Yes Hx Substance Use: No - SURGICAL HISTORY Hx Appendectomy: Yes Hx Cholecystectomy: Yes 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, 10 years [employer]) Hx 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: Yes - ANESTHESIA Hx Anesthesia: Yes Hx Anesthesia Reactions: No Hx Malignant Hyperthermia: No Meds Allergies/Adverse Reactions: Allergies Allergy/AdvReac Type Severity Reaction Status Date / Time No Known Allergies Allergy Verified 06/27/16 18:19 - Medications Medications: Current Medications Albuterol (Ventolin Hfa 90 Mcg/Actuation (8 G)) 1 puff INH RQ6 PRN PRN Reason: Wheezing Aspirin (Ecotrin) 325 mg PO DAILY [facility] Last Admin: 12/18/16 09:55 Dose: 325 mg Atorvastatin Calcium (Lipitor) 40 mg PO HS [facility] Last Admin: 12/17/16 21:19 Dose: 40 mg Clopidogrel Bisulfate (Plavix) 75 mg PO DAILY [facility] Last Admin: 12/18/16 09:56 Dose: 75 mg Docusate Sodium (Colace) 100 mg PO BID [facility] Last Admin: 12/18/16 09:55 Dose: 100 mg Sodium Chloride (Sodium Chloride 0.9%) 1,000 mls @ 75 mls/hr IV .[id number] [facility] Stop: 12/18/16 16:01 Last Admin: 12/18/16 09:58 Dose: 75 mls/hr Levothyroxine Sodium (Synthroid) 225 mcg PO DAILY@0630 [facility] Lorazepam (Ativan) 1 mg PO HS PRN PRN Reason: Insomnia Last Admin: 12/17/16 22:05 Dose: 1 mg Metoprolol Tartrate (Lopressor) 50 mg PO DAILY [facility] Montelukast Sodium (Singulair) 10 mg PO HS [facility] Oxycodone/Acetaminophen (Percocet 5/325 Mg Tab) 1 tab PO Q8 PRN PRN Reason: Pain, severe (8-10) Stop: 12/21/16 17:01 Last Admin: 12/18/16 09:53 Dose: 1 tab Fluticasone/Salmeterol (Advair Diskus 100/50) 1 puff IH Q12 [facility] Last Admin: 12/18/16 09:55 Dose: 1 puff Physical Exam - Constitutional Appears: No Acute Distress - Head Exam Head Exam: ATRAUMATIC, NORMOCEPHALIC - Eye Exam Additional comments: sclera anicteric - ENT Exam ENT Exam: Mucous Membranes Dry - Neck Exam Additional comments: Neck supple - Respiratory Exam Additional comments: Lungs clear B/L - Cardiovascular Exam Cardiovascular Exam: REGULAR RHYTHM - GI/Abdominal Exam GI & Abdominal Exam: Soft Additional comments: Nontender - Extremities Exam Additional comments: No edema or cyanosis Results - Vital Signs Recent Vital Signs: Last Vital Signs Temp 97.8 F 12/18/16 12:27 Pulse 71 12/18/16 12:27 Resp 20 12/18/16 12:27 BP 118/68 12/18/16 12:27 Pulse Ox 100 12/18/16 12:27 - Labs Result Diagrams: 12/18/16 06:30 12/18/16 06:30 Labs: Laboratory Results - last 24 hr 12/17/16 12/17/16 12/18/16 14:10 18:30 00:30 WBC RBC Hgb Hct MCV MCH MCHC RDW Plt Count MPV Neut % (Auto) Lymph % (Auto) [place] % (Auto) Eos % (Auto) Baso % (Auto) Neut # Lymph # [place] # Eos # Baso # Sodium Potassium 4.9 Chloride Carbon Dioxide Anion Gap BUN Creatinine Est GFR ( Amer) Est GFR (Non-Af Amer) Random Glucose Uric Acid Calcium Phosphorus Troponin I < 0.0120 < 0.0120 Triglycerides Cholesterol LDL Cholesterol Direct HDL Cholesterol Thyroxine (T4) TSH 3rd Generation 12/18/16 12/18/16 06:30 06:30 WBC 7.0 RBC 3.17 L Hgb 9.3 L Hct 28.8 L MCV 90.7 MCH 29.3 MCHC 32.3 L RDW 17.7 H Plt Count 216 MPV 7.5 Neut % (Auto) 43.2 L Lymph % (Auto) 45.3 H [place] % (Auto) 8.3 Eos % (Auto) 2.6 Baso % (Auto) 0.6 Neut # 3.0 Lymph # 3.2 [place] # 0.6 Eos # 0.2 Baso # 0.0 Sodium 141 Potassium 4.4 Chloride 108 H Carbon Dioxide 22 Anion Gap 15 BUN 39 H Creatinine 2.5 H Est GFR ( Amer) 22 Est GFR (Non-Af Amer) 18 Random Glucose 109 H Uric Acid 7.2 Calcium 8.1 L Phosphorus 4.3 Troponin I Triglycerides 56 Cholesterol 103 LDL Cholesterol Direct < 30 HDL Cholesterol 52 Thyroxine (T4) 5.20 L TSH 3rd Generation 28.70 H Assessment & Plan - Assessment and Plan (Free Text) Assessment: Azotemia. Not sure at this time if this acute or CRF There is no documented hypotensive episode on arrival to ER Hyothyroidism uncontrolled/?noncompliance CAD, CHF stable Plan: urine spot lyted Renal US Agree with IV fluids. pt appears dry.
--- NOTE | 2016-12-18 13:13 | RAD ---
HISTORY: S/P Fall. Continued Pain in the Hips COMPARISON: No prior FINDINGS: BONES: Normal. No fracture. JOINTS: Mild bilateral degenerative changes with spur formation and joint space narrowing. SOFT TISSUE: Normal. OTHER FINDINGS: None . IMPRESSION: No acute fracture. Degenerative changes.
[2016-12-18] MEDS ORDERED: Oxycodone/Acetaminophen 5/325 mg Tab PO SCH (16:00)
[2016-12-18] MEDS: Albuterol HFA 90 mcg/actuation (8 g) INH PRN (18:40)
[2016-12-18 22:03] LABS: RBC URINE 5 /hpf (0-3); URINE BACTERIA MANY (<OCC); URINE BILIRUBIN NEGATIVE (NEGATIVE); URINE BLOOD MODERATE (NEGATIVE); URINE COLOR AMBER (YELLOW); URINE GLUCOSE (UA) NEG (Normal); URINE KETONE NEGATIVE (NEGATIVE); URINE LEUKOCYTE ESTERASE LARGE Leu/uL (Negative); URINE PROTEIN 30 mg/dL (NEGATIVE); URINE UROBILINOGEN 0.2-1.0 mg/dL (0.2-1.0); WBC CLUMPS MANY /hpf; WBC URINE 965 /hpf (0-5)
[2016-12-18] MEDS: Oxycodone/Acetaminophen 5/325 mg Tab PO PRN (22:08)
[2016-12-19] MEDS: Levothyroxine 75 MCG TAB PO SCH (05:54)
[2016-12-19] MEDS: Oxycodone/Acetaminophen 5/325 mg Tab PO PRN (06:14)
[2016-12-19 08:50] LABS: HEMATOCRIT 27.1 % (34.0-47.0); MEAN CELL VOLUME 90.1 fl (81.0-99.0); MEAN CORPUSCULAR HEMOGLOBIN 29.3 pg (27.0-31.0); MEAN CORPUSCULAR HGB CONC 32.5 g/dL (33.0-37.0); RED CELL DISTRIBUTION WIDTH 17.9 % (11.5-14.5); WHITE BLOOD COUNT 5.5 K/uL (4.8-10.8)
[2016-12-19] MEDS: Fluticasone-Salmeterol 100-50mcg Diskus IH SCH ×2 (08:50→21:24)
[2016-12-19] MEDS: Aspirin 325 mg EC Tablets PO SCH (08:52)
[2016-12-19 09:00] LABS: POTASSIUM 4.1 MMOL/L (3.6-5.0)
--- NOTE | 2016-12-19 10:46 | CP.PCM.PN ---
Subjective - Date & Time of Evaluation Date of Evaluation: 12/19/16 Time of Evaluation: 10:00 - Subjective Subjective: No fever still some hip discomfort complains of intermittent pelvic pain/perineal pain no vaginal bleeding no abd pain no SOB no CP Objective - Vital Signs/Intake and Output Vital Signs (last 24 hours): Temp Pulse Resp BP Pulse Ox 97.6 F 53 L 18 103/58 L 96 12/19/16 08:00 12/19/16 08:55 12/19/16 08:00 12/19/16 08:55 12/19/16 08:00 - Medications Medications: Current Medications Albuterol (Ventolin Hfa 90 Mcg/Actuation (8 G)) 1 puff INH RQ6 PRN PRN Reason: Wheezing Last Admin: 12/18/16 18:40 Dose: 1 puff Aspirin (Ecotrin) 325 mg PO DAILY [facility] Last Admin: 12/19/16 08:52 Dose: 325 mg Atorvastatin Calcium (Lipitor) 40 mg PO HS [facility] Last Admin: 12/18/16 21:21 Dose: 40 mg Clopidogrel Bisulfate (Plavix) 75 mg PO DAILY [facility] Last Admin: 12/19/16 08:52 Dose: 75 mg Diphenhydramine HCl (Benadryl) 25 mg PO Q6 PRN PRN Reason: to give with percocet Last Admin: 12/19/16 06:14 Dose: 25 mg Docusate Sodium (Colace) 100 mg PO BID [facility] Last Admin: 12/19/16 08:50 Dose: 100 mg Ceftriaxone Sodium 1 gm/ (Sodium Chloride) 100 mls @ 100 mls/hr IVPB DAILY [facility] Levothyroxine Sodium (Synthroid) 225 mcg PO DAILY@0630 [facility] Last Admin: 12/19/16 05:54 Dose: 225 mcg Lorazepam (Ativan) 1 mg PO HS PRN PRN Reason: Insomnia Last Admin: 12/17/16 22:05 Dose: 1 mg Metoprolol Tartrate (Lopressor) 50 mg PO DAILY [facility] Last Admin: 12/19/16 08:55 Dose: 50 mg Montelukast Sodium (Singulair) 10 mg PO HS [facility] Last Admin: 12/18/16 21:21 Dose: 10 mg Morphine Sulfate (Morphine) 1 mg IVP Q6 PRN PRN Reason: Pain, severe (8-10) Last Admin: 12/18/16 16:58 Dose: 1 mg Oxycodone/Acetaminophen (Percocet 5/325 Mg Tab) 1 tab PO Q6 PRN PRN Reason: Pain, moderate (4-7) Stop: 12/21/16 16:01 Last Admin: 12/19/16 06:14 Dose: 1 tab Fluticasone/Salmeterol (Advair Diskus 100/50) 1 puff IH Q12 [facility] Last Admin: 12/19/16 08:50 Dose: 1 puff - Labs Labs: 12/19/16 06:30 12/19/16 06:30 PT 11.3 Seconds (9.8-13.1) 12/17/16 12:21 INR 1.0 (0.9-1.2) 12/17/16 12:21 APTT 28.2 Seconds (25.6-37.1) 12/17/16 12:21 - Constitutional Appears: No Acute Distress, Chronically Ill - Head Exam Head Exam: NORMAL INSPECTION - Eye Exam Eye Exam: EOMI, Normal appearance Pupil Exam: NORMAL ACCOMODATION - ENT Exam ENT Exam: Mucous Membranes Moist, Normal External Ear Exam - Neck Exam Neck Exam: Full ROM. absent: Meningismus - Respiratory Exam Respiratory Exam: NORMAL BREATHING PATTERN. absent: Rales, Wheezes, Respiratory Distress - Cardiovascular Exam Cardiovascular Exam: REGULAR RHYTHM, +S1, +S2 - GI/Abdominal Exam GI & Abdominal Exam: Soft, Normal Bowel Sounds. absent: Tenderness - Extremities Exam Extremities Exam: Normal Capillary Refill. absent: Calf Tenderness, Pedal Edema - Back Exam Back Exam: Full ROM. absent: CVA tenderness (L), CVA tenderness (R) - Neurological Exam Neurological Exam: Alert, Awake, CN II-XII Intact, Oriented x3 Neuro motor strength exam: Left Upper Extremity: 5, Right Upper Extremity: 5, Left Lower Extremity: 5, Right Lower Extremity: 5 - Psychiatric Exam Psychiatric exam: Normal Affect, Normal Mood - Skin Skin Exam: Dry, Normal Color, Warm Assessment and Plan - Assessment and Plan (Free Text) Assessment: 86 year old female with an extensive medical history who presents via EMS with chief complaint of having fall, chest pain, dizziness, and pelvic pain. Patient explains that for the past few weeks now she has been experiencing pain in the pelvic area and had blood coming out of her vagina a few weeks ago (but did not tell her daughter and did not come to the hospital). Whenever she feels this pain in the pelvic area this causes dizziness which she describes as unsteadiness on her feet like being on boat (she uses a walker at home to get around). (1) Atypical chest pain, ACS ruled out , CP prob musculoskeltal pain from fall no EKG change Trop x 3 negative Consult [employer] Supervisor Dr. Columba Patton- felt CP noncardiac (2) Fall Likely secondary to the dizziness secondary to the Pelvic Pain Lumbar Spine X Ray , Hip and Plevic Xray showed NO acute findings CT Head showed generalized atrophy, moderate nonspecific white matter changes, opacification of the posterior left ethmoid air cells and left maxillary sinus Chest X Ray did not show any active disease Bilateral Carotid U/S: negative PT consulted rec TCU (3) Uterine prolapse Pelvic Sono shows uterine prolapse hx of some vaginal bleeding a few wks ago, no further bleeding [employer] St[employer] Dr. Lujan- pt seen by Dr Canales - further work up as outpt (4) Acute on chronic renal insufficiency Patient is being followed by [employer] Dr. Carranza as an outpatient but she does not come to [facility] Nephrology Consult Dr. Tucker Renal Sonogram : medical renal dis (5) COPD (chronic obstructive pulmonary disease), chronic Advair 100/50 mcg 1 puff 2x/day Albuterol 1 puff Q6H PRN SOB/Wheezing Singulair 10 mg PO 1x/day Status: Chronic (6) CAD (coronary artery disease) Hold the Lopressor/HCTZ for now considering the elevated BUN/Cr Metoprolol 50 mg PO 1x/day and HOLD for SBP < 100 and/or HR < 60 Plavix 75 mg PO 1x/day Lipitor 40 mg PO QHS ASA 325 mg PO 1x/day Status: Chronic (7) Hypertension Metoprolol 50 mg PO 1x/day and HOLD for SBP < 100 and/or HR < 60 Status: Chronic Priority: Medium (8) Hyperlipidemia Lipitor 40 mg PO QHS (9) Hypothyroid Synthroid 200 mcg PO 1x/day- will increase to 225 mcg daily TSH 28 Status: Chronic (10) GERD (gastroesophageal reflux disease) Patient is on Dexilant at home however this is not carried here Pepcid 20 mg PO 2x/day (NO Protonix as this would interfere with the Plavix that the patient is on) Status: Chronic (11) Anemia of chronic disease Monitor Hgb/Hct Status: Chronic (14) Prophylactic measure Lovenox Colace 100 mg PO 2x/day Pepcid 20 mg PO 2x/day Heart Healthy 2 gm Na Diet Status: Acute
--- NOTE | 2016-12-19 12:09 | CP.PCM.PN ---
Subjective - Date & Time of Evaluation Date of Evaluation: 12/19/16 Time of Evaluation: 12:07 - Subjective Subjective: feels better still with on and off low pelvic pain but not right now, denies any vaginal bleeding Objective - Vital Signs/Intake and Output Vital Signs (last 24 hours): Temp Pulse Resp BP Pulse Ox 98.0 F 55 L 20 104/48 L 95 12/19/16 11:59 12/19/16 11:59 12/19/16 11:59 12/19/16 11:59 12/19/16 11:59 - Medications Medications: Current Medications Albuterol (Ventolin Hfa 90 Mcg/Actuation (8 G)) 1 puff INH RQ6 PRN PRN Reason: Wheezing Last Admin: 12/18/16 18:40 Dose: 1 puff Aspirin (Ecotrin) 325 mg PO DAILY [facility] Last Admin: 12/19/16 08:52 Dose: 325 mg Atorvastatin Calcium (Lipitor) 40 mg PO HS [facility] Last Admin: 12/18/16 21:21 Dose: 40 mg Clopidogrel Bisulfate (Plavix) 75 mg PO DAILY [facility] Last Admin: 12/19/16 08:52 Dose: 75 mg Diphenhydramine HCl (Benadryl) 25 mg PO Q6 PRN PRN Reason: to give with percocet Last Admin: 12/19/16 06:14 Dose: 25 mg Docusate Sodium (Colace) 100 mg PO BID [facility] Last Admin: 12/19/16 08:50 Dose: 100 mg Ceftriaxone Sodium 1 gm/ (Sodium Chloride) 100 mls @ 100 mls/hr IVPB DAILY [facility] Levothyroxine Sodium (Synthroid) 225 mcg PO DAILY@0630 [facility] Last Admin: 12/19/16 05:54 Dose: 225 mcg Lorazepam (Ativan) 1 mg PO HS PRN PRN Reason: Insomnia Last Admin: 12/17/16 22:05 Dose: 1 mg Metoprolol Tartrate (Lopressor) 50 mg PO DAILY [facility] Last Admin: 12/19/16 08:55 Dose: 50 mg Montelukast Sodium (Singulair) 10 mg PO HS [facility] Last Admin: 12/18/16 21:21 Dose: 10 mg Morphine Sulfate (Morphine) 1 mg IVP Q6 PRN PRN Reason: Pain, severe (8-10) Last Admin: 12/18/16 16:58 Dose: 1 mg Oxycodone/Acetaminophen (Percocet 5/325 Mg Tab) 1 tab PO Q6 PRN PRN Reason: Pain, moderate (4-7) Stop: 12/21/16 16:01 Last Admin: 12/19/16 06:14 Dose: 1 tab Phenazopyridine HCl (Pyridium) 100 mg PO TID [facility] Last Admin: 12/19/16 12:00 Dose: 100 mg Fluticasone/Salmeterol (Advair Diskus 100/50) 1 puff IH Q12 [facility] Last Admin: 12/19/16 08:50 Dose: 1 puff - Labs Labs: 12/19/16 06:30 12/19/16 06:30 PT 11.3 Seconds (9.8-13.1) 12/17/16 12:21 INR 1.0 (0.9-1.2) 12/17/16 12:21 APTT 28.2 Seconds (25.6-37.1) 12/17/16 12:21 - Constitutional Appears: No Acute Distress - Head Exam Head Exam: ATRAUMATIC - Neck Exam Neck Exam: Normal Inspection - Respiratory Exam Respiratory Exam: NORMAL BREATHING PATTERN - GI/Abdominal Exam Additional comments: Abd soft not distended no rebound and no guarding Old scar - Exam External exam: NORMAL EXTERNAL EXAM Additional comments: no sign of active bleeding - Extremities Exam Additional comments: no calf tenderness - Neurological Exam Neurological Exam: Awake Assessment and Plan - Assessment and Plan (Free Text) Plan: sono showing normal size uterus but low in pelvic area endometrium not thick, ovaries not visualized and no fluid in pelvic area. For possible EUA in near future once cleared from medical stand point Dr Lujan will re-evaluate in am.
--- NOTE | 2016-12-19 14:42 | CP.PCM.PN ---
Subjective - Date & Time of Evaluation Date of Evaluation: 12/19/16 Time of Evaluation: 01:45 - Subjective Subjective: Feels better today Objective - Vital Signs/Intake and Output Vital Signs (last 24 hours): Temp Pulse Resp BP Pulse Ox 98.0 F 55 L 20 104/48 L 95 12/19/16 11:59 12/19/16 11:59 12/19/16 11:59 12/19/16 11:59 12/19/16 11:59 - Medications Medications: Current Medications Albuterol (Ventolin Hfa 90 Mcg/Actuation (8 G)) 1 puff INH RQ6 PRN PRN Reason: Wheezing Last Admin: 12/18/16 18:40 Dose: 1 puff Aspirin (Ecotrin) 325 mg PO DAILY [facility] Last Admin: 12/19/16 08:52 Dose: 325 mg Atorvastatin Calcium (Lipitor) 40 mg PO HS [facility] Last Admin: 12/18/16 21:21 Dose: 40 mg Clopidogrel Bisulfate (Plavix) 75 mg PO DAILY [facility] Last Admin: 12/19/16 08:52 Dose: 75 mg Diphenhydramine HCl (Benadryl) 25 mg PO Q6 PRN PRN Reason: to give with percocet Last Admin: 12/19/16 06:14 Dose: 25 mg Docusate Sodium (Colace) 100 mg PO BID [facility] Last Admin: 12/19/16 08:50 Dose: 100 mg Ceftriaxone Sodium 1 gm/ (Sodium Chloride) 100 mls @ 100 mls/hr IVPB DAILY [facility] Last Admin: 12/19/16 12:36 Dose: 100 mls/hr Levothyroxine Sodium (Synthroid) 225 mcg PO DAILY@0630 [facility] Last Admin: 12/19/16 05:54 Dose: 225 mcg Lorazepam (Ativan) 1 mg PO HS PRN PRN Reason: Insomnia Last Admin: 12/17/16 22:05 Dose: 1 mg Metoprolol Tartrate (Lopressor) 50 mg PO DAILY [facility] Last Admin: 12/19/16 08:55 Dose: 50 mg Montelukast Sodium (Singulair) 10 mg PO HS [facility] Last Admin: 12/18/16 21:21 Dose: 10 mg Morphine Sulfate (Morphine) 1 mg IVP Q6 PRN PRN Reason: Pain, severe (8-10) Last Admin: 12/18/16 16:58 Dose: 1 mg Oxycodone/Acetaminophen (Percocet 5/325 Mg Tab) 1 tab PO Q6 PRN PRN Reason: Pain, moderate (4-7) Stop: 12/21/16 16:01 Last Admin: 12/19/16 06:14 Dose: 1 tab Phenazopyridine HCl (Pyridium) 100 mg PO TID [facility] Last Admin: 12/19/16 12:00 Dose: 100 mg Fluticasone/Salmeterol (Advair Diskus 100/50) 1 puff IH Q12 [facility] Last Admin: 12/19/16 08:50 Dose: 1 puff - Labs Labs: 12/19/16 06:30 12/19/16 06:30 PT 11.3 Seconds (9.8-13.1) 12/17/16 12:21 INR 1.0 (0.9-1.2) 12/17/16 12:21 APTT 28.2 Seconds (25.6-37.1) 12/17/16 12:21 - Respiratory Exam Additional comments: Lungs clear - Cardiovascular Exam Cardiovascular Exam: REGULAR RHYTHM - Extremities Exam Additional comments: No edema Assessment and Plan - Assessment and Plan (Free Text) Assessment: Acute on renal failure. Creat isfunction is improving CAD CHF stable Plan: Continue to monitor renal function
--- NOTE | 2016-12-19 14:43 | CARD ---
APPROVED REPORT EKG Measurement Heart [id number] <Conclusion> Sinus bradycardia Otherwise normal ECG
--- NOTE | 2016-12-19 14:47 | CARD ---
APPROVED REPORT EKG Measurement Heart [id number] VA [id number] <Conclusion> Poor data quality, interpretation may be adversely affected Normal sinus rhythm Normal ECG
[2016-12-19] MEDS ORDERED: Enoxaparin 30 mg Syringe SC STA (14:48)
[2016-12-20] MEDS: Levothyroxine 75 MCG TAB PO SCH (06:19)
--- NOTE | 2016-12-20 09:19 | CP.PCM.PN ---
Subjective - Date & Time of Evaluation Date of Evaluation: 12/20/16 Time of Evaluation: :17 - Subjective Subjective: pattient feels better today still has pain on urination Objective - Vital Signs/Intake and Output Vital Signs (last 24 hours): Temp Pulse Resp BP Pulse Ox 97.6 F 64 20 126/54 L 95 12/20/16 08:00 12/20/16 08:00 12/20/16 08:00 12/20/16 08:00 12/20/16 08:00 - Medications Medications: Current Medications Albuterol (Ventolin Hfa 90 Mcg/Actuation (8 G)) 1 puff INH RQ6 PRN PRN Reason: Wheezing Last Admin: 12/18/16 18:40 Dose: 1 puff Aspirin (Aspirin Chewable) 81 mg PO DAILY [facility] Atorvastatin Calcium (Lipitor) 40 mg PO HS [facility] Last Admin: 12/19/16 21:24 Dose: 40 mg Clopidogrel Bisulfate (Plavix) 75 mg PO DAILY [facility] Last Admin: 12/19/16 08:52 Dose: 75 mg Diphenhydramine HCl (Benadryl) 25 mg PO Q6 PRN PRN Reason: to give with percocet Last Admin: 12/19/16 06:14 Dose: 25 mg Docusate Sodium (Colace) 100 mg PO BID [facility] Last Admin: 12/19/16 17:09 Dose: 100 mg Enoxaparin Sodium (Lovenox) 30 mg SC DAILY [facility] PRN Reason: Protocol Ceftriaxone Sodium 1 gm/ (Sodium Chloride) 100 mls @ 100 mls/hr IVPB DAILY [facility] Last Admin: 12/19/16 12:36 Dose: 100 mls/hr Levothyroxine Sodium (Synthroid) 225 mcg PO DAILY@0630 [facility] Last Admin: 12/20/16 06:19 Dose: 225 mcg Lorazepam (Ativan) 1 mg PO HS PRN PRN Reason: Insomnia Last Admin: 12/17/16 22:05 Dose: 1 mg Metoprolol Tartrate (Lopressor) 50 mg PO DAILY [facility] Last Admin: 12/19/16 08:55 Dose: 50 mg Montelukast Sodium (Singulair) 10 mg PO HS [facility] Last Admin: 12/19/16 21:24 Dose: 10 mg Morphine Sulfate (Morphine) 1 mg IVP Q6 PRN PRN Reason: Pain, severe (8-10) Last Admin: 12/19/16 21:51 Dose: 1 mg Oxycodone/Acetaminophen (Percocet 5/325 Mg Tab) 1 tab PO Q6 PRN PRN Reason: Pain, moderate (4-7) Stop: 12/21/16 16:01 Last Admin: 12/19/16 06:14 Dose: 1 tab Phenazopyridine HCl (Pyridium) 100 mg PO TID [facility] Last Admin: 12/19/16 17:10 Dose: 100 mg Fluticasone/Salmeterol (Advair Diskus 100/50) 1 puff IH Q12 [facility] Last Admin: 12/19/16 21:24 Dose: 1 puff - Labs Labs: 12/19/16 06:30 12/19/16 06:30 PT 11.3 Seconds (9.8-13.1) 12/17/16 12:21 INR 1.0 (0.9-1.2) 12/17/16 12:21 APTT 28.2 Seconds (25.6-37.1) 12/17/16 12:21 - Eye Exam Additional comments: v.s stable afebrile. Assessment and Plan - Assessment and Plan (Free Text) Assessment: stable hd3 Plan: continue present care will continue meds and will attempt eua when cleared
[2016-12-20] MEDS: Fluticasone-Salmeterol 100-50mcg Diskus IH SCH ×2 (09:29→21:38)
[2016-12-20] MEDS: Enoxaparin 30 mg Syringe SC SCH (09:35)
--- NOTE | 2016-12-20 11:31 | CP.PCM.PN ---
Subjective - Date & Time of Evaluation Date of Evaluation: 12/20/16 Time of Evaluation: 11:29 - Subjective Subjective: Patient and bed not in acute distress Appeared to be comfortable No shortness of breath no difficulty breathing Objective - Vital Signs/Intake and Output Vital Signs (last 24 hours): Temp Pulse Resp BP Pulse Ox 97.6 F 64 20 126/54 L 95 12/20/16 08:00 12/20/16 08:00 12/20/16 08:00 12/20/16 08:00 12/20/16 08:00 - Medications Medications: Current Medications Albuterol (Ventolin Hfa 90 Mcg/Actuation (8 G)) 1 puff INH RQ6 PRN PRN Reason: Wheezing Last Admin: 12/18/16 18:40 Dose: 1 puff Aspirin (Aspirin Chewable) 81 mg PO DAILY [facility] Last Admin: 12/20/16 09:29 Dose: 81 mg Atorvastatin Calcium (Lipitor) 40 mg PO HS [facility] Last Admin: 12/19/16 21:24 Dose: 40 mg Clopidogrel Bisulfate (Plavix) 75 mg PO DAILY [facility] Last Admin: 12/20/16 09:29 Dose: 75 mg Diphenhydramine HCl (Benadryl) 25 mg PO Q6 PRN PRN Reason: to give with percocet Last Admin: 12/19/16 06:14 Dose: 25 mg Docusate Sodium (Colace) 100 mg PO BID [facility] Last Admin: 12/20/16 09:39 Dose: 100 mg Enoxaparin Sodium (Lovenox) 30 mg SC DAILY [facility] PRN Reason: Protocol Last Admin: 12/20/16 09:35 Dose: 30 mg Ceftriaxone Sodium 1 gm/ (Sodium Chloride) 100 mls @ 100 mls/hr IVPB DAILY [facility] Last Admin: 12/19/16 12:36 Dose: 100 mls/hr Levothyroxine Sodium (Synthroid) 225 mcg PO DAILY@0630 [facility] Last Admin: 12/20/16 06:19 Dose: 225 mcg Lorazepam (Ativan) 1 mg PO HS PRN PRN Reason: Insomnia Last Admin: 12/17/16 22:05 Dose: 1 mg Metoprolol Tartrate (Lopressor) 50 mg PO DAILY [facility] Last Admin: 12/19/16 08:55 Dose: 50 mg Montelukast Sodium (Singulair) 10 mg PO HS [facility] Last Admin: 12/19/16 21:24 Dose: 10 mg Morphine Sulfate (Morphine) 1 mg IVP Q6 PRN PRN Reason: Pain, severe (8-10) Last Admin: 12/19/16 21:51 Dose: 1 mg Oxycodone/Acetaminophen (Percocet 5/325 Mg Tab) 1 tab PO Q6 PRN PRN Reason: Pain, moderate (4-7) Stop: 12/21/16 16:01 Last Admin: 12/19/16 06:14 Dose: 1 tab Phenazopyridine HCl (Pyridium) 100 mg PO TID [facility] Last Admin: 12/20/16 09:36 Dose: 100 mg Fluticasone/Salmeterol (Advair Diskus 100/50) 1 puff IH Q12 [facility] Last Admin: 12/20/16 09:29 Dose: 1 puff - Labs Labs: 12/19/16 06:30 12/19/16 06:30 PT 11.3 Seconds (9.8-13.1) 12/17/16 12:21 INR 1.0 (0.9-1.2) 12/17/16 12:21 APTT 28.2 Seconds (25.6-37.1) 12/17/16 12:21 - Constitutional Appears: No Acute Distress - ENT Exam ENT Exam: Mucous Membranes Moist - Respiratory Exam Respiratory Exam: NORMAL BREATHING PATTERN. absent: Chest Wall Tenderness - Cardiovascular Exam Cardiovascular Exam: REGULAR RHYTHM. absent: Rubs - GI/Abdominal Exam GI & Abdominal Exam: Normal Bowel Sounds - Extremities Exam Extremities Exam: absent: Calf Tenderness - Back Exam Back Exam: absent: CVA tenderness (L), CVA tenderness (R) - Neurological Exam Neurological Exam: Alert Assessment and Plan (1) Acute on chronic renal insufficiency Assessment & Plan: Serum creatinine coming down slightly and showed some improvement in kidney function End of the Kidney Noted to Be Somewhat Echogenic Kidney Continue monitoring and with gentle forcing fluid by mouth. Patient and urine culture urinalysis showed bacteria among other things. Status: Acute
--- NOTE | 2016-12-20 11:39 | CP.PCM.PN ---
Subjective - Date & Time of Evaluation Date of Evaluation: 12/20/16 Time of Evaluation: 11:30 - Subjective Subjective: Patient seen and examined bedside . Complaining of pelvic pain , constipation . Denies any more vaginal bleeding, abdominal pain. Hemodynamically stable, afebrile. No acute issues overnight. Objective - Vital Signs/Intake and Output Vital Signs (last 24 hours): Temp Pulse Resp BP Pulse Ox 97.6 F 64 20 126/54 L 95 12/20/16 08:00 12/20/16 08:00 12/20/16 08:00 12/20/16 08:00 12/20/16 08:00 - Medications Medications: Current Medications Albuterol (Ventolin Hfa 90 Mcg/Actuation (8 G)) 1 puff INH RQ6 PRN PRN Reason: Wheezing Last Admin: 12/18/16 18:40 Dose: 1 puff Aspirin (Aspirin Chewable) 81 mg PO DAILY [facility] Last Admin: 12/20/16 09:29 Dose: 81 mg Atorvastatin Calcium (Lipitor) 40 mg PO HS [facility] Last Admin: 12/19/16 21:24 Dose: 40 mg Clopidogrel Bisulfate (Plavix) 75 mg PO DAILY [facility] Last Admin: 12/20/16 09:29 Dose: 75 mg Diphenhydramine HCl (Benadryl) 25 mg PO Q6 PRN PRN Reason: to give with percocet Last Admin: 12/19/16 06:14 Dose: 25 mg Docusate Sodium (Colace) 100 mg PO BID [facility] Last Admin: 12/20/16 09:39 Dose: 100 mg Enoxaparin Sodium (Lovenox) 30 mg SC DAILY [facility] PRN Reason: Protocol Last Admin: 12/20/16 09:35 Dose: 30 mg Ceftriaxone Sodium 1 gm/ (Sodium Chloride) 100 mls @ 100 mls/hr IVPB DAILY [facility] Last Admin: 12/19/16 12:36 Dose: 100 mls/hr Levothyroxine Sodium (Synthroid) 225 mcg PO DAILY@0630 [facility] Last Admin: 12/20/16 06:19 Dose: 225 mcg Lorazepam (Ativan) 1 mg PO HS PRN PRN Reason: Insomnia Last Admin: 12/17/16 22:05 Dose: 1 mg Metoprolol Tartrate (Lopressor) 50 mg PO DAILY [facility] Last Admin: 12/19/16 08:55 Dose: 50 mg Montelukast Sodium (Singulair) 10 mg PO HS [facility] Last Admin: 12/19/16 21:24 Dose: 10 mg Morphine Sulfate (Morphine) 1 mg IVP Q6 PRN PRN Reason: Pain, severe (8-10) Last Admin: 12/19/16 21:51 Dose: 1 mg Oxycodone/Acetaminophen (Percocet 5/325 Mg Tab) 1 tab PO Q6 PRN PRN Reason: Pain, moderate (4-7) Stop: 12/21/16 16:01 Last Admin: 12/19/16 06:14 Dose: 1 tab Phenazopyridine HCl (Pyridium) 100 mg PO TID [facility] Last Admin: 12/20/16 09:36 Dose: 100 mg Fluticasone/Salmeterol (Advair Diskus 100/50) 1 puff IH Q12 [facility] Last Admin: 12/20/16 09:29 Dose: 1 puff - Labs Labs: 12/19/16 06:30 12/19/16 06:30 PT 11.3 Seconds (9.8-13.1) 12/17/16 12:21 INR 1.0 (0.9-1.2) 12/17/16 12:21 APTT 28.2 Seconds (25.6-37.1) 12/17/16 12:21 - Constitutional Appears: Non-toxic, No Acute Distress - Head Exam Head Exam: ATRAUMATIC, NORMAL INSPECTION, NORMOCEPHALIC - Eye Exam Eye Exam: EOMI, Normal appearance, PERRL Pupil Exam: NORMAL ACCOMODATION - ENT Exam ENT Exam: Mucous Membranes Moist, Normal Exam - Neck Exam Neck Exam: Full ROM, Normal Inspection - Respiratory Exam Respiratory Exam: Clear to Ausculation Bilateral, NORMAL BREATHING PATTERN. absent: Rales, Rhonchi, Wheezes - Cardiovascular Exam Cardiovascular Exam: REGULAR RHYTHM, RRR, +S1, +S2. absent: JVD - GI/Abdominal Exam GI & Abdominal Exam: Soft, Normal Bowel Sounds. absent: Distended, Guarding, Tenderness, Rebound - Rectal Exam Rectal Exam: Deferred - Extremities Exam Extremities Exam: Full ROM, Normal Capillary Refill, Normal Inspection. absent : Calf Tenderness, Pedal Edema - Back Exam Back Exam: NORMAL INSPECTION - Neurological Exam Neurological Exam: Alert, Awake, CN II-XII Intact, Oriented x3 - Psychiatric Exam Psychiatric exam: Normal Affect, Normal Mood - Skin Skin Exam: Dry, Pallor, Warm Assessment and Plan - Assessment and Plan (Free Text) Assessment: 86 year old female with an extensive medical history presented via EMS with chief complaint of fall, chest pain, dizziness, and pelvic pain. Patient explains that for the past few weeks now she has been experiencing pain in the pelvic area and had blood coming out of her vagina a few weeks ago (but did not tell her daughter and did not come to the hospital). Whenever she feels this pain in the pelvic area this causes dizziness which she describes as unsteadiness on her feet like being on boat (she uses a walker at home to get around). She fell at home so decided to come to hospital for evaluation. All imaging including CT head , spine, pelvic xray showed no acute pathology or fracture. Her UA was significant for WBC clumps and bacteria so she was started on IV rocephin for UTI.Ob& area field worker consulted to evaluate her uterine prolapse and vaginal bleed .Planned for 1. Atypical chest pain, ACS ruled out , CP prob musculoskeltal pain from fall no EKG change Trop x 3 negative Consult Director Of Search Engine Marketing Dr. Columba Patton- felt CP noncardiac Continue ASA, plavix, statin 2.Fall Likely secondary to the dizziness secondary to the Pelvic Pain Lumbar Spine X Ray , Hip and Plevic Xray showed NO acute findings CT Head showed generalized atrophy, moderate nonspecific white matter changes, opacification of the posterior left ethmoid air cells and left maxillary sinus Chest X Ray did not show any active disease Bilateral Carotid U/S: negative PT consulted rec TCU 3. Uterine prolapse Pelvic Sono shows uterine prolapse hx of some vaginal bleeding a few wks ago, no further bleeding Soaker Meat consulted and plans to perform vaginal exam under general anesthesia 4. Acute on chronic renal insufficiency Stage IV Patient is being followed by Manager Trade Dr. Carranza as an outpatient but she does not come to [facility] Nephrology Consult Dr. Tucker Renal Sonogram : medical renal dis 5. COPD (chronic obstructive pulmonary disease), chronic stable Advair 100/50 mcg 1 puff 2x/day Albuterol 1 puff Q6H PRN SOB/Wheezing Singulair 10 mg PO 1x/day 6. CAD (coronary artery disease) stable Hold the Lopressor/HCTZ for now considering the elevated BUN/Cr on Metoprolol , ASa, plavix, lipitor 7. Hypertension controlled 8.Hyperlipidemia Lipitor 40 mg PO QHS 9. Hypothyroid uncontrolled TSH 28 increased synthroid to 225 mcg daily from 200 mcg 10 GERD (gastroesophageal reflux disease) Patient is on Dexilant at home however this is not carried here Pepcid 20 mg PO 2x/day 11. Anemia of chronic disease stable 12. Prophylactic measure Lovenox Colace 100 mg PO 2x/day Pepcid 20 mg PO 2x/day Heart Healthy 2 gm Na Diet Will give fleet enama for constipation
--- NOTE | 2016-12-20 13:20 | PQF GENQUE ---
This form is a permanent part of the medical record 12/20/16 Dr. Sanchez, Please clarify if the history of CHF is ruled in or ruled out. If ruled in please clarify the type. Documentation in the H&P under PMH states CHF ?. Medications include: Lopressor. ECHO from 10/18/2015: LV normal size, LV function normal, EF 55-60%, LV diastolic function is normal. Cardiology consult: " She has never manifested congestive cardiac failure" Clarification of your documentation is requested to better reflect the severity of illness and intensity of treatment of your patient. PHYSICIAN'S RESPONSE As per cardiology CHF is ruled out Based on your medical judgment of the clinical indicators outlined above please clarify the following: [] Practitioner response [] If unable to determine, please check the box, sign and date. Present On Admission (POA) Indicator: [] Present at the time of admission [] Not present at the time of admission [] Clinically Undetermined In responding to this query, please exercise your independent professional judgment. The fact that a question is asked does not imply that any particular answer is desired or expected. Thank you for your clarification on this documentation. If you have any questions please call:extension [phone] Medical Records Dept * Thank you, Katya Hooper RN CDMP MTDD
[2016-12-20] MEDS: Albuterol HFA 90 mcg/actuation (8 g) INH PRN (14:42)
[2016-12-20] MEDS ORDERED: Chlorhexidine Gluconate 1 APPL/PKT TP ONE (16:08)
[2016-12-21] MEDS: Levothyroxine 75 MCG TAB PO SCH (06:17)
[2016-12-21] MEDS: Fluticasone-Salmeterol 100-50mcg Diskus IH SCH (09:22)
[2016-12-21] MEDS ORDERED: Ferric Subsulfate Sol(60 mL) ONE (09:45)
[2016-12-21] MEDS ORDERED: Propofol 10 mg/ml Inj (20 ML) ONE (10:12)
[2016-12-21] MEDS ORDERED: Midazolam 2 MG/2 ML VIAL ONE (10:12)
[2016-12-21] MEDS ORDERED: Lidocaine Hydrochloride 5 ML INJ ONE (10:13)
[2016-12-21] MEDS ORDERED: Sodium Chloride 0.9% 500 ML IV ONE (10:26)
[2016-12-21] MEDS ORDERED: Sodium Chloride 0.9% 1,000 ML IV SCH (11:15)
--- NOTE | 2016-12-21 11:35 | CP.PCM.DIS ---
Provider - Provider Date of Admission: 12/18/16 14:14 Attending physician: Orion Hendrickson MD Primary care physician: Declan Xiong Consults: Cardiology consult Ob & central office repairer supervisor consult Nephrology consult Time Spent in preparation of Discharge (in minutes): 20 Hospital Course - Lab Results Lab Results: Micro Results 12/19/16 17:20 Urine,Clean Catch Urine Culture - Final Escherichia Coli Most Recent Lab Values WBC 5.5 K/uL (4.8-10.8) 12/19/16 06:30 RBC 3.01 Mil/uL (3.80-5.20) L 12/19/16 06:30 Hgb 8.8 g/dL (12.0-16.0) L 12/19/16 06:30 Hct 27.1 % (34.0-47.0) L 12/19/16 06:30 MCV 90.1 fl (81.0-99.0) 12/19/16 06:30 MCH 29.3 pg (27.0-31.0) 12/19/16 06:30 MCHC 32.5 g/dL (33.0-37.0) L 12/19/16 06:30 RDW 17.9 % (11.5-14.5) H 12/19/16 06:30 Plt Count 220 K/uL (130-400) 12/19/16 06:30 MPV 7.5 fl (7.2-11.7) 12/18/16 06:30 Neut % (Auto) 43.2 % (50.0-75.0) L 12/18/16 06:30 Lymph % (Auto) 45.3 % (20.0-40.0) H 12/18/16 06:30 [place] % (Auto) 8.3 % (0.0-10.0) 12/18/16 06:30 Eos % (Auto) 2.6 % (0.0-4.0) 12/18/16 06:30 Baso % (Auto) 0.6 % (0.0-2.0) 12/18/16 06:30 Neut # 3.0 K/uL (1.8-7.0) 12/18/16 06:30 Lymph # 3.2 K/uL (1.0-4.3) 12/18/16 06:30 [place] # 0.6 K/uL (0.0-0.8) 12/18/16 06:30 Eos # 0.2 K/uL (0.0-0.7) 12/18/16 06:30 Baso # 0.0 K/uL (0.0-0.2) 12/18/16 06:30 PT 11.3 Seconds (9.8-13.1) 12/17/16 12:21 INR 1.0 (0.9-1.2) 12/17/16 12:21 APTT 28.2 Seconds (25.6-37.1) 12/17/16 12:21 Sodium 139 mmol/l (132-148) 12/19/16 06:30 Potassium 4.1 MMOL/L (3.6-5.0) 12/19/16 06:30 Chloride 109 mmol/L (98-107) H 12/19/16 06:30 Carbon Dioxide 21 mmol/L (22-30) L 12/19/16 06:30 Anion Gap 13 (10-20) 12/19/16 06:30 BUN 31 mg/dl (7-17) H 12/19/16 06:30 Creatinine 2.2 mg/dL (0.7-1.2) H 12/19/16 06:30 Est GFR ( Amer) 26 12/19/16 06:30 Est GFR (Non-Af Amer) 21 12/19/16 06:30 Random Glucose 83 mg/dL (65-105) 12/19/16 06:30 Uric Acid 7.2 mg/Dl (2.2-7.5) 12/18/16 06:30 Calcium 8.0 mg/dL (8.4-10.2) L 12/19/16 06:30 Phosphorus 4.3 mg/dl (2.5-4.5) 12/18/16 06:30 Total Bilirubin 1.0 mg/dl (0.2-1.3) 12/17/16 12:21 AST 46 U/L (14-36) H D 12/17/16 12:21 ALT 18 U/L (9-52) 12/17/16 12:21 Alkaline Phosphatase 75 U/L (38-126) 12/17/16 12:21 Troponin I < 0.0120 ng/mL (0.00-0.120) 12/18/16 00:30 Total Protein 8.2 G/DL (6.3-8.2) 12/17/16 12:21 Albumin 4.4 g/dL (3.5-5.0) 12/17/16 12:21 Globulin 3.9 gm/dL (2.2-3.9) 12/17/16 12:21 Albumin/Globulin Ratio 1.1 (1.0-2.1) 12/17/16 12:21 Triglycerides 56 mg/DL (0-149) 12/18/16 06:30 Cholesterol 103 mg/dL (0-199) 12/18/16 06:30 LDL Cholesterol Direct < 30 mg/dL (0-129) 12/18/16 06:30 HDL Cholesterol 52 MG/DL (30-70) 12/18/16 06:30 25-OH Vitamin D Total 13.9 NG/ML (30.0-100.0) L 12/18/16 06:30 Thyroxine (T4) 5.20 ug/dl (5.5-11.0) L 12/18/16 06:30 TSH 3rd Generation 21.70 mIU/ML (0.46-4.68) H 12/20/16 06:30 Urine Color Colleen (YELLOW) 12/18/16 21:40 Urine Clarity Turbid (Clear) 12/18/16 21:40 Urine pH 6.0 (5.0-8.0) 12/18/16 21:40 Ur Specific [place] 1.008 (1.003-1.030) 12/18/16 21:40 Urine Protein 30 mg/dL (NEGATIVE) 12/18/16 21:40 Urine Glucose (UA) Neg mg/dL (Normal) 12/18/16 21:40 Urine Ketones Negative mg/dL (NEGATIVE) 12/18/16 21:40 Urine Blood Moderate (NEGATIVE) 12/18/16 21:40 Urine Nitrate Negative (NEGATIVE) 12/18/16 21:40 Urine Bilirubin Negative (NEGATIVE) 12/18/16 21:40 Urine Urobilinogen 0.2-1.0 mg/dL (0.2-1.0) 12/18/16 21:40 Ur Leukocyte Esterase Large Ingrid/uL (Negative) 12/18/16 21:40 Urine RBC (Auto) 5 /hpf (0-3) H 12/18/16 21:40 Urine WBC Clumps (Auto) Many /hpf (NONE) H 12/18/16 21:40 Urine Microscopic WBC 965 /hpf (0-5) H 12/18/16 21:40 Ur Squamous Epith Cells 5 /hpf (0-5) 12/18/16 21:40 Urine Bacteria Many (<OCC) H 12/18/16 21:40 Urine Yeast (Budding) Few /hpf (NEGATIVE) H 12/18/16 21:40 - Hospital Course Hospital Course: 86 year old female with an extensive medical history presented via EMS with chief complaint of fall, chest pain, dizziness, and pelvic pain. Patient explained that for the past few weeks she has been experiencing pain in the pelvic area and had blood coming out of her vagina a few weeks ago (but did not tell her daughter and did not come to the hospital). Whenever she feels this pain in the pelvic area she feels dizzy which she describes as unsteadiness on her feet like being on boat (she uses a walker at home to get around). She fell at home so decided to come to hospital for evaluation. All imaging including CT head , spine, pelvic xray showed no acute pathology or fracture. Her UA was significant for WBC clumps and bacteria so she was started on IV rocephin for UTI.Ob& special investigator consulted to evaluate for possible uterine prolapse and vaginal bleed .Patient underwent Vaginal exam under general anesthesia today that revealed normal size uterus, no bleeding but severe bladder prolapse.At present patient is stable. Will consult urologist Dr. Harrison . Continue Rocephin IV for UTI. Will transfer patient to TCU for physical therapy and IV antibiotics 1. Atypical chest pain, ACS ruled out , CP prob musculoskeltal pain from fall no EKG change Trop x 3 negative Consult Electrical Systems Drafter Dr. Columba Patton- nicolás CP noncardiac Continue ASA, plavix, statin 2.Fall Likely secondary to the dizziness secondary to the Pelvic Pain Lumbar Spine X Ray , Hip and Plevic Xray showed NO acute findings CT Head showed generalized atrophy, moderate nonspecific white matter changes, opacification of the posterior left ethmoid air cells and left maxillary sinus Chest X Ray did not show any active disease Bilateral Carotid U/S: negative PT consulted rec TCU 3. Uterine prolapse ruled out --- Urinary bladder prolapse identified Pelvic Sono showed uterine prolapse hx of some vaginal bleeding a few wks ago, no further bleeding Deep Submergence Vehicle Operator consulted and performed vaginal exam under general anesthesia that showed urinary bladder prolapse Will call evaluation with DR. Harrison her urologist Will continue IV rocephin for her UTI 4. UTI urine cultures positive for E. Coli sensitive to rocephin Continue IV rocephin 5. Acute on chronic renal insufficiency Stage IV Patient is being followed by Manager [employer] Dr. Carranza as an outpatient but she does not come to [facility] Nephrology Consult Dr. Tucker Renal Sonogram : medical renal dis 6. COPD (chronic obstructive pulmonary disease), chronic stable Advair 100/50 mcg 1 puff 2x/day Albuterol 1 puff Q6H PRN SOB/Wheezing Singulair 10 mg PO 1x/day 7. CAD (coronary artery disease) stable Hold the Lopressor/HCTZ for now considering the elevated BUN/Cr on Metoprolol , ASa, plavix, lipitor 8. Hypertension controlled 9.Hyperlipidemia Lipitor 40 mg PO QHS 10. Hypothyroid uncontrolled TSH 28 increased synthroid to 225 mcg daily from 200 mcg 11 GERD (gastroesophageal reflux disease) Patient is on Dexilant at home however this is not carried here Pepcid 20 mg PO 2x/day 12. Anemia of chronic disease stable 13. Prophylactic measure Lovenox Colace 100 mg PO 2x/day Pepcid 20 mg PO 2x/day Heart Healthy 2 gm Na Diet fleet enema for constipation given Discharge Exam - Head Exam Head Exam: ATRAUMATIC, NORMAL INSPECTION, NORMOCEPHALIC - Eye Exam Eye Exam: EOMI, Normal appearance, PERRL Pupil Exam: NORMAL ACCOMODATION - ENT Exam ENT Exam: Mucous Membranes Moist, Normal Exam - Neck Exam Neck exam: Full Rom, Normal Inspection - Respiratory Exam Respiratory Exam: Clear to PA & Lateral, NORMAL BREATHING PATTERN. absent: Rhonchi, Wheezes - Cardiovascular Exam Cardiovascular Exam: REGULAR RHYTHM, RRR, +S1, +S2. absent: JVD - GI/Abdominal Exam GI & Abdominal Exam: Normal Bowel Sounds, Soft. absent: Distended, Guarding, Rebound, Tenderness - Rectal Exam Rectal Exam: Deferred - Extremities Exam Extremities exam: normal inspection, pedal pulses present - Back Exam Back exam: NORMAL INSPECTION - Neurological Exam Neurological exam: Alert, CN II-XII Intact, Oriented x3 - Psychiatric Exam Psychiatric exam: Normal Affect - Skin Skin Exam: Dry, Pallor, Warm Discharge Plan - Follow Up Plan Condition: STABLE Disposition: TRANSF TO SNF Patient education suggested?: No Referrals: Elva Harrison MD [Medical Doctor] -
[2016-12-21 12:05] VITALS: O2SAT 95
[2016-12-21 12:12] VITALS: TEMP 97.4
--- NOTE | 2016-12-21 13:04 | CP.PCM.PN ---
Subjective - Date & Time of Evaluation Date of Evaluation: 12/21/16 Time of Evaluation: 13:03 - Subjective Subjective: Patient and bed appeared to be comfortable With her daughter at the bedside No chest pain Physical exam Chest clear no rales Heart no rubs Abdomen soft Extremity no edema Patient and plan Kidney function improving slightly patient need follow-up as outpatient. The daughter is aware that her mother has a chronic kidney disease and she will have to [place] for follow-up Objective - Vital Signs/Intake and Output Vital Signs (last 24 hours): Temp Pulse Resp BP Pulse Ox 97.4 F L 53 L 20 134/54 L 95 12/21/16 12:00 12/21/16 12:00 12/21/16 12:00 12/21/16 12:00 12/21/16 12:00 Intake and Output: 12/21/16 12/21/16 06:59 18:59 Intake Total 250 300 Output Total 200 Balance 250 100 - Medications Medications: Current Medications Albuterol (Ventolin Hfa 90 Mcg/Actuation (8 G)) 1 puff INH RQ6 PRN PRN Reason: Wheezing Last Admin: 12/20/16 14:42 Dose: 1 puff Aspirin (Aspirin Chewable) 81 mg PO DAILY [facility] Last Admin: 12/20/16 09:29 Dose: 81 mg Atorvastatin Calcium (Lipitor) 40 mg PO HS [facility] Last Admin: 12/20/16 21:38 Dose: 40 mg Clopidogrel Bisulfate (Plavix) 75 mg PO DAILY [facility] Last Admin: 12/20/16 09:29 Dose: 75 mg Diphenhydramine HCl (Benadryl) 25 mg PO Q6 PRN PRN Reason: to give with percocet Last Admin: 12/19/16 06:14 Dose: 25 mg Docusate Sodium (Colace) 100 mg PO BID [facility] Last Admin: 12/21/16 08:58 Dose: 100 mg Enoxaparin Sodium (Lovenox) 30 mg SC DAILY [facility] PRN Reason: Protocol Last Admin: 12/20/16 09:35 Dose: 30 mg Ceftriaxone Sodium 1 gm/ (Sodium Chloride) 100 mls @ 100 mls/hr IVPB DAILY [facility] Last Admin: 12/21/16 08:58 Dose: 100 mls/hr Sodium Chloride (Sodium Chloride 0.9%) 1,000 mls @ 100 mls/hr IV .Q10H [facility] Levothyroxine Sodium (Synthroid) 225 mcg PO DAILY@0630 [facility] Last Admin: 12/21/16 06:17 Dose: Not Given Lorazepam (Ativan) 1 mg PO HS PRN PRN Reason: Insomnia Last Admin: 12/17/16 22:05 Dose: 1 mg Metoprolol Tartrate (Lopressor) 50 mg PO DAILY [facility] Last Admin: 12/21/16 09:01 Dose: 50 mg Montelukast Sodium (Singulair) 10 mg PO HS [facility] Last Admin: 12/20/16 21:38 Dose: 10 mg Morphine Sulfate (Morphine) 1 mg IVP Q6 PRN PRN Reason: Pain, severe (8-10) Last Admin: 12/19/16 21:51 Dose: 1 mg Oxycodone/Acetaminophen (Percocet 5/325 Mg Tab) 1 tab PO Q6 PRN PRN Reason: Pain, moderate (4-7) Stop: 12/21/16 16:01 Last Admin: 12/19/16 06:14 Dose: 1 tab Phenazopyridine HCl (Pyridium) 100 mg PO TID [facility] Last Admin: 12/21/16 08:59 Dose: 100 mg Fluticasone/Salmeterol (Advair Diskus 100/50) 1 puff IH Q12 [facility] Last Admin: 12/21/16 09:22 Dose: 1 puff - Labs Labs: 12/19/16 06:30 12/19/16 06:30 PT 11.3 Seconds (9.8-13.1) 12/17/16 12:21 INR 1.0 (0.9-1.2) 12/17/16 12:21 APTT 28.2 Seconds (25.6-37.1) 12/17/16 12:21 Assessment and Plan (1) Acute on chronic renal insufficiency Status: Acute
[2016-12-21] MEDS: Enoxaparin 30 mg Syringe SC SCH (13:12)
[2016-12-21 13:16] VITALS: BP 117/69; PULSE 55; RESP 18
[2016-12-21 14:45] LABS: CREATININE, RANDOM URINE 40.7 mg/dL
[2016-12-21 14:49] LABS: RBC URINE 160 /hpf (0-3); URINE BACTERIA MOD (<OCC); URINE BILIRUBIN NEGATIVE (NEGATIVE); URINE BLOOD LARGE (NEGATIVE); URINE COLOR AMBER (YELLOW); URINE GLUCOSE (UA) NEG (Normal); URINE KETONE NEGATIVE (NEGATIVE); URINE LEUKOCYTE ESTERASE LARGE Leu/uL (Negative); URINE PROTEIN NEGATIVE (NEGATIVE); WBC CLUMPS FEW /hpf; WBC URINE 202 /hpf (0-5)
[2016-12-22 10:28] LABS: CHLORIDE URINE 115 mmol/L (32-290)
--- NOTE | 2016-12-23 15:08 | OP ---
PROCEDURE DATE: 12/21/2016 PREOPERATIVE DIAGNOSES: 1. Pelvic pain. 2. Enlarged bladder, possible neurogenic bladder. PROCEDURE: Examination under anesthesia. No other procedure was done. FINDINGS: Enlarged bladder. SURGEON: Mk Lujan M.D. STAKING PRESS OPERATOR: Dr. Stinson. DESCRIPTION OF PROCEDURE: With the patient in the dorsal lithotomy position under general anesthesia , the patient was prepped and draped in usual sterile manner. There was no Hernandez at the time. The p atient was examined under anesthesia and in doing so, the bladder was found to be enlarged. After th at finding, the bladder was drained and there was about 200 mL of urine which was very cloudy. After this was done, the procedure was finished and the patient was awakened. There was no evidence of an y prolapsed uterus. Her bladder was just very distended and appeared to be a neurogenic bladder. Mk Lujan MD cc: 22 TT: 12/23/2016 15:07:30 tn
== END 2016-12-21 15:49 | DRG 760 ==
LOC: H.ER 11:24 → OBSVTOIN 14:09 → H.ERHOLD 14:09 → INTOOBSV 14:09 → H.TEL 17:57 → OBSVTOIN 12-18 14:14 → H.TEL 12-19 20:15
PROVIDERS: ADMIT Family Medicine; ATTEND Family Medicine
PROC: 0TJB8ZZ Inspection of Bladder, Via Natural or Artificial Opening Endoscopic (ICD-10-PCS; principal; 2016-12-21 10:00)
DX: N81.10 Cystocele, unspecified (principal); N39.0 Urinary tract infection, site not specified; J44.9 Chronic obstructive pulmonary disease, unspecified; N18.4 Chronic kidney disease, stage 4 (severe); N17.9 Acute kidney failure, unspecified; N31.9 Neuromuscular dysfunction of bladder, unspecified; D63.8 Anemia in other chronic diseases classified elsewhere; B96.20 Unspecified Escherichia coli [E. coli] as the cause of diseases classified elsewhere; E78.00 Pure hypercholesterolemia, unspecified; E89.0 Postprocedural hypothyroidism; F32.9 Major depressive disorder, single episode, unspecified; I12.9 Hypertensive chronic kidney disease with stage 1 through stage 4 chronic kidney disease, or unspecified chronic kidney disease; I25.10 Atherosclerotic heart disease of native coronary artery without angina pectoris; Z95.5 Presence of coronary angioplasty implant and graft; I25.2 Old myocardial infarction; E78.5 Hyperlipidemia, unspecified; K21.9 Gastro-esophageal reflux disease without esophagitis; Z85.038 Personal history of other malignant neoplasm of large intestine; F41.9 Anxiety disorder, unspecified; J45.909 Unspecified asthma, uncomplicated; R07.89 Other chest pain; R79.89 Other specified abnormal findings of blood chemistry

== ENCOUNTER 2016-12-21 15:41 | Inpatient (IN) | payer OTHER ==
[2016-12-21] MEDS ORDERED: Oxycodone/Acetaminophen 5/325 mg Tab PO PRN (16:50)
[2016-12-21] MEDS ORDERED: Albuterol HFA 90 mcg/actuation (8 g) INH PRN (16:50)
[2016-12-21] MEDS ORDERED: Tuberculin 5 Units/0.1 ml Inj ID ONE (16:58)
[2016-12-21 20:02] VITALS: RESP 20
[2016-12-21] MEDS: Fluticasone-Salmeterol 100-50mcg Diskus IH SCH (21:30)
[2016-12-22] MEDS: Levothyroxine 75 MCG TAB PO SCH (06:33)
[2016-12-22 06:43] LABS: BASO # 0.1 K/uL (0.0-0.2); EOS # 0.2 K/uL (0.0-0.7); EOS % 4.4 % (0.0-4.0); HEMATOCRIT 30.5 % (34.0-47.0); LYMPH # 2.6 K/uL (1.0-4.3); LYMPH % 46.6 % (20.0-40.0); MEAN CELL VOLUME 90.5 fl (81.0-99.0); MEAN CORPUSCULAR HEMOGLOBIN 28.9 pg (27.0-31.0); MEAN PLATELET VOLUME 7.3 fl (7.2-11.7); MONO # 0.5 K/uL (0.0-0.8); MONO % 8.8 % (0.0-10.0); NEUT # 2.2 K/uL (1.8-7.0); NEUT % 39.2 % (50.0-75.0); NRBC % 0.1 % (0.0-0.0); RED CELL DISTRIBUTION WIDTH 17.8 % (11.5-14.5); WHITE BLOOD COUNT 5.6 K/uL (4.8-10.8)
[2016-12-22 07:19] LABS: CALCIUM 8.8 mg/dL (8.4-10.2); POTASSIUM 4.2 MMOL/L (3.6-5.0)
[2016-12-22] MEDS: Enoxaparin 30 mg Syringe SC SCH (08:51)
[2016-12-22] MEDS: Fluticasone-Salmeterol 100-50mcg Diskus IH SCH ×2 (08:52→22:21)
[2016-12-22] MEDS ORDERED: cefTRIAXone IV 1 gm in Dextros 50 ML BAG IVPB SCH (09:00)
[2016-12-22] MEDS: cefTRIAXone IV 1 gm in Dextros 50 ML IVPB SCH (09:12)
--- NOTE | 2016-12-22 12:55 | CP.PCM.HP ---
History of Present Illness - History of Present Illness History of Present Illness: 86 yo female with history of COPD, CAD, HTN, HLD, Anemia, CKD, Urinary and Bladder incontinence initially admitted because of a fall, chest pain and pelvic pain. Work ups were positive for UTI. Gyne consult was called to rule out uterine prolapse and transient vaginal bleed in the history. Pelvic exam revealed severe bladder prolapse and negative uterine bleeding. Patient was put on IV Rocephin and transferred to TCU for continuation of IV antibiotics and PT. Will get urology consult. Present on Admission - Present on Admission Any Indicators Present on Admission: No History of DVT/PE: No History of Uncontrolled Diabetes: No Urinary Catheter: No Decubitus Ulcer Present: No Review of Systems - Review of Systems All systems: reviewed and no additional remarkable complaints except (aside from those mentioned above, 12 point system review were negative by me) Past Patient History - Infectious Disease Hx of Infectious Diseases: None - Past Medical History & Family History Past Medical History?: Yes - Past Social History Smoking Status: Former Smoker Chewing Tobacco Use: No Cigar Use: No Alcohol: None Drugs: Denies - CARDIAC Hx Congestive Heart Failure: Yes Hx Hypercholesterolemia: Yes Hx Hypertension: Yes - PULMONARY Hx Asthma: Yes Hx Chronic Obstructive Pulmonary Disease (COPD): Yes - NEUROLOGICAL Hx Neurological Disorder: No - HEENT Other/Comment: HARD OF HEARING - RENAL Hx Chronic Kidney Disease: Yes Other/Comment: blader prolapse - ENDOCRINE/METABOLIC Hx Hypothyroidism: Yes - HEMATOLOGICAL/ONCOLOGICAL Hx AIDS: No Hx Anemia: Yes Hx Human Immunodeficiency Virus (HIV): No - INTEGUMENTARY Hx Dermatological Problems: No - MUSCULOSKELETAL/RHEUMATOLOGICAL Hx Arthritis: Yes Hx Falls: Yes - GASTROINTESTINAL Hx Diverticulitis: Yes - GENITOURINARY/GYNECOLOGICAL Hx Genitourinary Disorders: Yes - PSYCHIATRIC Hx Anxiety: Yes Hx Depression: Yes Hx Substance Use: No - SURGICAL HISTORY Hx Appendectomy: Yes Hx Cholecystectomy: Yes 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 absent: Rhonchi, Wheezes - Cardiovascular Exam Cardiovascular Exam: REGULAR RHYTHM, +S1, +S2 - GI/Abdominal Exam GI & Abdominal Exam: Soft. absent: Tenderness - Rectal Exam Rectal Exam: Deferred - Extremities Exam Extremities exam: Negative for: calf tenderness - Back Exam Back exam: absent: tenderness - Neurological Exam Neurological exam: Alert, Oriented x3 - Psychiatric Exam Psychiatric exam: Normal Affect - Skin Skin Exam: Dry, Intact Results - Vital Signs Recent Vital Signs: Last Vital Signs Temp 97.9 F 12/22/16 10:00 Pulse 62 12/22/16 10:47 Resp 20 12/22/16 10:00 BP 110/56 L 12/22/16 10:47 Pulse Ox 98 12/22/16 10:47 - Labs Result Diagrams: 12/22/16 06:29 12/22/16 06:29 Labs: Laboratory Results - last 24 hr 12/22/16 12/22/16 06:29 06:29 WBC 5.6 RBC 3.37 L Hgb 9.8 L Hct 30.5 L MCV 90.5 MCH 28.9 MCHC 32.0 L RDW 17.8 H Plt Count 264 MPV 7.3 Neut % (Auto) 39.2 L Lymph % (Auto) 46.6 H Edmunds % (Auto) 8.8 Eos % (Auto) 4.4 H Baso % (Auto) 1.0 Neut # 2.2 Lymph # 2.6 Edmunds # 0.5 Eos # 0.2 Baso # 0.1 Sodium 142 Potassium 4.2 Chloride 109 H Carbon Dioxide 22 Anion Gap 15 BUN 23 H Creatinine 1.9 H Est GFR ( Amer) 30 Est GFR (Non-Af Amer) 25 Random Glucose 82 Calcium 8.8 Assessment & Plan (1) Atypical chest pain Status: Acute (2) Fall Status: Acute (3) Bladder prolapse Status: Acute (4) UTI (urinary tract infection) Status: Acute (5) Acute on chronic renal insufficiency Status: Acute (6) COPD (chronic obstructive pulmonary disease) Status: Chronic (7) CAD (coronary artery disease) Status: Chronic (8) HTN (hypertension) Status: Chronic (9) HLD (hyperlipidemia) Status: Chronic (10) Hypothyroid Status: Chronic (11) GERD (gastroesophageal reflux disease) Status: Chronic (12) Anemia Status: Chronic Priority: Medium (13) DVT prophylaxis Status: Acute - Assessment and Plan (Free Text) Assessment: 86 yo female with history of COPD, CAD, HTN, HLD, Anemia, CKD, Urinary and Bladder incontinence initially admitted because of a fall, chest pain and pelvic pain. Work ups were positive for UTI. Gyne consult was called to rule out uterine prolapse and transient vaginal bleed in the history. Pelvic exam revealed severe bladder prolapse and negative uterine bleeding. Patient was put on IV Rocephin and transferred to TCU for continuation of IV antibiotics and PT. Will get urology consult. 1. Atypical chest pain, ACS ruled out no ischemic EKG changes 3 sets of Trops negative for ischemic event as per cardiology consult, Dr. Sandoval, CP noncardiac Continue ASA, Plavix and statin 2.Fall Likely secondary to the dizziness and pelvic pain LS Spine, Hip and Plevic Xrays showed no acute findings CT Head showed generalized atrophy, moderate nonspecific white matter changes, opacification of the posterior left ethmoid air cells and left maxillary sinus Chest X Ray did not show any active disease Bilateral Carotid U/S: negative continue PT 3. Urinary bladder prolapse Supervisor Offset Plate Preparation consulted and performed vaginal exam under general anesthesia and revealed urinary bladder prolapse Will call urology consult with Dr Harrison 4. UTI urine cultures positive for E. Coli sensitive to Rocephin Continue IV Rocephin 5. Acute on chronic renal insufficiency Stage IV on nephrology consult with Dr. Carranza as an outpatient nephrology consult with Dr. Tucker appreciated Renal Sonogram: medical renal dis 6. COPD (chronic obstructive pulmonary disease) asymptomatic Advair 100/50 mcg 1 puff 2x/day Albuterol 1 puff Q6H PRN SOB/Wheezing Singulair 10 mg PO daily 7. CAD (coronary artery disease) asymptomatic on Metoprolol, ASA, Plavix, Lipitor 8. Hypertension BP controlled continue Metoprolol Lisinopril and HCTZ DC because of renal insufficiency 9.Hyperlipidemia Lipitor 40 mg PO QHS 10. Hypothyroid uncontrolled TSH 28 Synthroid increased to 225 mcg daily from 200 mcg 11. GERD (gastroesophageal reflux disease) Patient was on Dexilant at home which is NF Pepcid 20 mg PO BID 12. Anemia of chronic disease stable 13. DVT prophylaxis Lovenox 30mg SC daily
[2016-12-23] MEDS: Levothyroxine 75 MCG TAB PO SCH (06:25)
[2016-12-23] MEDS: cefTRIAXone IV 1 gm in Dextros 50 ML IVPB SCH (08:41)
[2016-12-23] MEDS: Enoxaparin 30 mg Syringe SC SCH (08:42)
[2016-12-23] MEDS: Fluticasone-Salmeterol 100-50mcg Diskus IH SCH ×2 (08:44→21:51)
[2016-12-24] MEDS: Levothyroxine 75 MCG TAB PO SCH (06:26)
[2016-12-24] MEDS: cefTRIAXone IV 1 gm in Dextros 50 ML IVPB SCH (08:58)
[2016-12-24] MEDS: Enoxaparin 30 mg Syringe SC SCH (08:58)
[2016-12-24] MEDS: Fluticasone-Salmeterol 100-50mcg Diskus IH SCH ×2 (08:58→22:01)
[2016-12-24] MEDS ORDERED: Oxycodone/Acetaminophen 5/325 mg Tab PO PRN (20:46)
[2016-12-25] MEDS: Levothyroxine 75 MCG TAB PO SCH (06:00)
[2016-12-25] MEDS: cefTRIAXone IV 1 gm in Dextros 50 ML IVPB SCH (09:25)
[2016-12-25] MEDS: Enoxaparin 30 mg Syringe SC SCH (09:26)
[2016-12-25] MEDS: Fluticasone-Salmeterol 100-50mcg Diskus IH SCH ×2 (09:28→21:04)
[2016-12-26] MEDS: Levothyroxine 75 MCG TAB PO SCH (06:35)
[2016-12-26] MEDS: Fluticasone-Salmeterol 100-50mcg Diskus IH SCH ×2 (08:52→22:00)
[2016-12-26] MEDS: cefTRIAXone IV 1 gm in Dextros 50 ML IVPB SCH (08:53)
[2016-12-26] MEDS: Enoxaparin 30 mg Syringe SC SCH (18:23)
[2016-12-27] MEDS: Levothyroxine 75 MCG TAB PO SCH (06:36)
[2016-12-27] MEDS: Fluticasone-Salmeterol 100-50mcg Diskus IH SCH ×2 (09:39→21:27)
[2016-12-27] MEDS: Enoxaparin 30 mg Syringe SC SCH (09:39)
[2016-12-27] MEDS: cefTRIAXone IV 1 gm in Dextros 50 ML IVPB SCH (09:45)
[2016-12-27] MEDS ORDERED: Alum-Mag Hydrox-Simethicone Susp (30 mL) PO ONE (13:33)
[2016-12-28] MEDS: Levothyroxine 75 MCG TAB PO SCH (06:15)
[2016-12-28] MEDS: Enoxaparin 30 mg Syringe SC SCH ×2 (08:27→08:30)
[2016-12-28] MEDS: Fluticasone-Salmeterol 100-50mcg Diskus IH SCH ×2 (08:27→21:28)
[2016-12-28] MEDS ORDERED: Oxycodone/Acetaminophen 5/325 mg Tab PO PRN (14:51)
[2016-12-28] MEDS ORDERED: Alum-Mag Hydrox-Simethicone Susp (30 mL) PO PRN (18:35)
--- NOTE | 2016-12-28 18:50 | CP.PCM.PN ---
Subjective - Date & Time of Evaluation Date of Evaluation: 12/28/16 Time of Evaluation: 14:30 - Subjective Subjective: Hospitalist Progress Note (Patient was seen and examined at 2:30 PM 12/28/16 [id number]) 86 year old female with an extensive medical history presented to [facility] via EMS with chief complaint of fall, chest pain, dizziness, and pelvic pain. Patient explained at that time that for the past few weeks she has been experiencing pain in the pelvic area and had blood coming out of her vagina a few weeks ago (but did not tell her daughter and did not come to the hospital). Whenever she feels this pain in the pelvic area she feels dizzy which she describes as unsteadiness on her feet like being on boat (she uses a walker at home to get around). She fell at home so decided to come to hospital for evaluation. All imaging including CT head, spine, pelvic xray showed no acute pathology or fracture. Her UA was significant for WBC clumps and bacteria so she was started on IV Rocephin for UTI. Student Accounts Manager was consulted to evaluate for possible uterine prolapse and vaginal bleed. Patient underwent vaginal exam under general anesthesia that revealed normal size uterus, no bleeding, but severe bladder prolapse. She remained stable and was therefore discharged to [facility] TCU for further management and PT/OT on 12/21/16. Please see individual Assessment and Plan below for further details. Review of Systems: Moved her bowels yesterday and they were NON bloody/NON black Substernal burning sensation after her meals: further questioning reveals that patient lays back down in bed after her meals and she was instructed to remain upright in bedside chair for at least 1 hour and this was also explained today to Nurse Ríos NO burning/pain with urination NO other complaints upon FULL ROS Physical Exam - Constitutional Appears: Non-toxic, No Acute Distress - Head Exam Head Exam: ATRAUMATIC, NORMAL INSPECTION, NORMOCEPHALIC - Eye Exam Eye Exam: EOMI, Normal appearance, PERRL Pupil Exam: NORMAL ACCOMODATION, PERRL Additional comments: Pupils were pinpoint but were reactive to light - ENT Exam ENT Exam: Mucous Membranes Moist, Normal Exam, Normal External Ear Exam, Normal Oropharynx - Neck Exam Additional comments: NO cervical/supraclavicular/submandibular lymphadenopathy NO bilateral carotid bruits - Respiratory Exam Additional comments: RML to RLL AND LLL field inspiratory crackles - Cardiovascular Exam Additional comments: HEART SOUNDS ARE FAINT: NS1 and NS2, NO M/R/G - GI/Abdominal Exam Additional comments: BSx4, Soft, NT, ND, NO HSM, NO guarding/rebound tenderness - Extremities Exam Additional comments: Pulses are strong and equal NO edema Capillary refill is 2 seconds NO cyanosis Severely deformed toes bilaterally 1. Hx Atypical Chest Pain, ACS ruled out , CP prob musculoskeltal pain from fall , Hx of CAD No EKG change Trop x [address] Columba Patton evaluated patient and felt that the chest pain was non- cardiac ASA 81 mg PO 1x/day Plavix 75 mg PO 1x/day Atorvastatin 40 mg PO QHS Metoprolol 50 mg PO 1x/day 2. Hx Fall Likely secondary to the dizziness secondary to the Pelvic Pain Lumbar Spine X Ray , Hip and Plevic Xray showed NO acute findings CT Head showed generalized atrophy, moderate nonspecific white matter changes, opacification of the posterior left ethmoid air cells and left maxillary sinus Chest X Ray did not show any active disease Bilateral Carotid U/S: negative PT/OT in TCU 3. Uterine prolapse ruled out and Urinary bladder prolapse identified Pelvic Sono showed uterine prolapse Hx of some vaginal bleeding a few weeks ago, no further bleeding, and Hgb/Hct stable Student Accounts Manager Dr. Lujan was consulted and performed vaginal exam under general anesthesia that showed urinary bladder prolapse I spoke with my colleague Hospitalist Dr. Robertson who confirmed that she had an extensive conversation with the patient and her family prior to her discharge to [facility] TCU, and patient at the time declined further treatment/procedure for this issue and at the time of my exam is still holding off for now but would like to follow up with up Robotic CASE LINER Surgeon after her discharge from TCU. 4. Hx UTI Urine culture positive for E. Coli sensitive to Rocephin with which patient was treated from 12/19/16 through 12/26/16. 5. 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 Carranza as an outpatient but she does not come to [facility] Nephrology Dr. Tucker saw patient during her admission to medical floor Renal Sonogram : medical renal disease Follow up with Dr. Carranza after discharge from TCU 6. Hx COPD (chronic obstructive pulmonary disease), chronic Advair 100/50 mcg 1 puff 2x/day Albuterol 1 puff Q6H PRN SOB/Wheezing Singulair 10 mg PO 1x/day 7. Hx CAD (coronary artery disease) Please see Assessment and Plan #1 above 8. Hx Hypertension Metoprolol 50 mg PO 1x/day Home medication of Losartan/HCTZ was held secondary to the elevated BUN/Cr upon admission and as blood pressure has been under control on Metoprolol they were not restarted. 9. Hx Hyperlipidemia Atorvastatin 40 mg PO QHS 10. Hx Hypothyroid Uncontrolled as TSH was elevated at 28.70 and T4 was low at 5.20 Therefore Synthroid was increased from 200 mcg PO 1x/day to 225 mcg PO 1x/day She will need to have TSH and T4 repeated roughly 2 to 3 weeks after discharge from TCU 11. Hx GERD (gastroesophageal reflux disease) Patient is on Dexilant at home however this is not carried here Pepcid 20 mg PO 2x/day 12. Anemia of Chronic Disease HgB/Hct are stable 13. Prophylactic measure Lovenox 40 mg SC 1x/day Colace 100 mg PO 2x/day Pepcid 20 mg PO 2x/day Heart Healthy 2 gm Na Diet Percocet 5/325 mg PO Q6H PRN Pelvic Pain Ativan 1 mg PO QHS PRN Sleep Zofran 4 mg IV Q6H PRN N/V Orion Hendrickson D.O. Objective - Vital Signs/Intake and Output Vital Signs (last 24 hours): Temp Pulse Resp BP Pulse Ox 98.4 F 68 20 120/65 95 12/28/16 16:58 12/28/16 16:58 12/28/16 16:58 12/28/16 16:58 12/28/16 16:58 - Medications Medications: Current Medications Al Hydrox/Mg Hydrox/Simethicone (Maalox Plus 30 Ml) 30 ml PO PRN PRN PRN Reason: Indigestion / Heartburn Albuterol (Ventolin Hfa 90 Mcg/Actuation (8 G)) 1 puff INH RQ6 PRN PRN Reason: Wheezing Aspirin (Aspirin Chewable) 81 mg PO DAILY TAY Last Admin: 12/28/16 08:28 Dose: 81 mg Atorvastatin Calcium (Lipitor) 40 mg PO HS TAY Last Admin: 12/27/16 21:28 Dose: 40 mg Clopidogrel Bisulfate (Plavix) 75 mg PO DAILY [facility] Last Admin: 12/28/16 08:28 Dose: 75 mg Diphenhydramine HCl (Benadryl) 25 mg PO Q6 PRN PRN Reason: to give with percocet Last Admin: 12/25/16 10:09 Dose: 25 mg Docusate Sodium (Colace) 100 mg PO BID [facility] Last Admin: 12/28/16 16:44 Dose: 100 mg Enoxaparin Sodium (Lovenox) 30 mg SC DAILY [facility] PRN Reason: Protocol Last Admin: 12/28/16 08:30 Dose: Not Given Levothyroxine Sodium (Synthroid) 225 mcg PO DAILY@0630 [facility] Last Admin: 12/28/16 06:15 Dose: 225 mcg Lorazepam (Ativan) 1 mg PO HS PRN PRN Reason: Sleep Last Admin: 12/27/16 21:28 Dose: 1 mg Metoprolol Tartrate (Lopressor) 50 mg PO DAILY [facility] Last Admin: 12/28/16 08:26 Dose: 50 mg Montelukast Sodium (Singulair) 10 mg PO HS [facility] Last Admin: 12/27/16 21:28 Dose: 10 mg Ondansetron HCl (Zofran Inj) 4 mg IVP Q6 PRN PRN Reason: Nausea/Vomiting Last Admin: 12/23/16 13:45 Dose: 4 mg Oxycodone/Acetaminophen (Percocet 5/325 Mg Tab) 1 tab PO Q6 PRN PRN Reason: Pain, moderate (4-7) Stop: 12/31/16 14:52 Phenazopyridine HCl (Pyridium) 100 mg PO TID [facility] Last Admin: 12/28/16 16:45 Dose: 100 mg Fluticasone/Salmeterol (Advair Diskus 100/50) 1 puff IH Q12 [facility] Last Admin: 12/28/16 08:27 Dose: 1 puff - Labs Labs: 12/22/16 06:29 12/22/16 06:29
[2016-12-29] MEDS: Levothyroxine 75 MCG TAB PO SCH (06:18)
[2016-12-29 08:35] VITALS: TEMP 97.7; O2SAT 98
[2016-12-29] MEDS: Fluticasone-Salmeterol 100-50mcg Diskus IH SCH (08:46)
[2016-12-29] MEDS: Enoxaparin 30 mg Syringe SC SCH ×2 (08:49→08:55)
[2016-12-29 08:50] VITALS: BP 103/59; PULSE 68
--- NOTE | 2016-12-29 11:20 | CP.PCM.DIS ---
Provider - Provider Date of Admission: 12/21/16 16:21 Attending physician: Bella Sanchez MD Primary care physician: Dr. Nolasco Time Spent in preparation of Discharge (in minutes): 40 Hospital Course - Lab Results Lab Results: Most Recent Lab Values WBC 5.6 K/uL (4.8-10.8) 12/22/16 06:29 RBC 3.37 Mil/uL (3.80-5.20) L 12/22/16 06:29 Hgb 9.8 g/dL (12.0-16.0) L 12/22/16 06:29 Hct 30.5 % (34.0-47.0) L 12/22/16 06:29 MCV 90.5 fl (81.0-99.0) 12/22/16 06:29 MCH 28.9 pg (27.0-31.0) 12/22/16 06:29 MCHC 32.0 g/dL (33.0-37.0) L 12/22/16 06:29 RDW 17.8 % (11.5-14.5) H 12/22/16 06:29 Plt Count 264 K/uL (130-400) 12/22/16 06:29 MPV 7.3 fl (7.2-11.7) 12/22/16 06:29 Neut % (Auto) 39.2 % (50.0-75.0) L 12/22/16 06:29 Lymph % (Auto) 46.6 % (20.0-40.0) H 12/22/16 06:29 [place] % (Auto) 8.8 % (0.0-10.0) 12/22/16 06:29 Eos % (Auto) 4.4 % (0.0-4.0) H 12/22/16 06:29 Baso % (Auto) 1.0 % (0.0-2.0) 12/22/16 06:29 Neut # 2.2 K/uL (1.8-7.0) 12/22/16 06:29 Lymph # 2.6 K/uL (1.0-4.3) 12/22/16 06:29 [place] # 0.5 K/uL (0.0-0.8) 12/22/16 06:29 Eos # 0.2 K/uL (0.0-0.7) 12/22/16 06:29 Baso # 0.1 K/uL (0.0-0.2) 12/22/16 06:29 Sodium 142 mmol/l (132-148) 12/22/16 06:29 Potassium 4.2 MMOL/L (3.6-5.0) 12/22/16 06:29 Chloride 109 mmol/L (98-107) H 12/22/16 06:29 Carbon Dioxide 22 mmol/L (22-30) 12/22/16 06:29 Anion Gap 15 (10-20) 12/22/16 06:29 BUN 23 mg/dl (7-17) H 12/22/16 06:29 Creatinine 1.9 mg/dL (0.7-1.2) H 12/22/16 06:29 Est GFR ( Amer) 30 12/22/16 06:29 Est GFR (Non-Af Amer) 25 12/22/16 06:29 Random Glucose 82 mg/dL (65-105) 12/22/16 06:29 Calcium 8.8 mg/dL (8.4-10.2) 12/22/16 06:29 - Hospital Course Hospital Course: Hospitalist Discharge Summary (Patient was seen and examined at 10:30 AM 706-1) 86 year old female with an extensive medical history presented to [facility] via EMS with chief complaint of fall, chest pain, dizziness, and pelvic pain. Patient explained at that time that for the past few weeks she has been experiencing pain in the pelvic area and had blood coming out of her vagina a few weeks ago (but did not tell her daughter and did not come to the hospital). Whenever she feels this pain in the pelvic area she feels dizzy which she describes as unsteadiness on her feet like being on boat (she uses a walker at home to get around). She fell at home so decided to come to hospital for evaluation. All imaging including CT head, spine, pelvic xray showed no acute pathology or fracture. Her UA was significant for WBC clumps and bacteria so she was started on IV Rocephin for UTI. Paper Sample Clerk was consulted to evaluate for possible uterine prolapse and vaginal bleed. Patient underwent vaginal exam under general anesthesia that revealed normal size uterus, no bleeding, but severe bladder prolapse. She remained stable and was therefore discharged to [facility] TCU for further management and PT/OT on 12/21/16. Please see individual Assessment and Plan below for further details. Review of Systems: Moved her bowels this morning and they were NON bloody/NON black Substernal burning sensation after her meals: further questioning reveals that patient lays back down in bed after her meals and she was instructed to remain upright in bedside chair for at least 1 hour, no more episodes since 12/28/16 NO burning/pain with urination NO other complaints upon FULL ROS Physical Exam - Constitutional Appears: Non-toxic, No Acute Distress - Head Exam Head Exam: ATRAUMATIC, NORMAL INSPECTION, NORMOCEPHALIC - Eye Exam Eye Exam: EOMI, Normal appearance, PERRL Pupil Exam: NORMAL ACCOMODATION, PERRL Additional comments: Pupils were pinpoint but were reactive to light - ENT Exam ENT Exam: Mucous Membranes Moist, Normal Exam, Normal External Ear Exam, Normal Oropharynx - Neck Exam Additional comments: NO cervical/supraclavicular/submandibular lymphadenopathy NO bilateral carotid bruits - Respiratory Exam Additional comments: RML to RLL AND LLL field inspiratory crackles - Cardiovascular Exam Additional comments: HEART SOUNDS ARE FAINT: NS1 and NS2, NO M/R/G - GI/Abdominal Exam Additional comments: BSx4, Soft, NT, ND, NO HSM, NO guarding/rebound tenderness - Extremities Exam Additional comments: Pulses are strong and equal NO edema Capillary refill is 2 seconds NO cyanosis Severely deformed toes bilaterally 1. Hx Atypical Chest Pain, ACS ruled out , CP prob musculoskeltal pain from fall , Hx of CAD No EKG change Trop x [address] Columba Patton evaluated patient and felt that the chest pain was non- cardiac She will continue the following: ASA 81 mg PO 1x/day Plavix 75 mg PO 1x/day Atorvastatin 40 mg PO QHS Metoprolol 50 mg PO 1x/day 2. Hx Fall Likely secondary to the dizziness secondary to the Pelvic Pain Lumbar Spine X Ray , Hip and Plevic Xray showed NO acute findings CT Head showed generalized atrophy, moderate nonspecific white matter changes, opacification of the posterior left ethmoid air cells and left maxillary sinus Chest X Ray did not show any active disease Bilateral Carotid U/S: negative PT/OT in TCU She has been referred to [facility] for Home Health Aide and Home PT 3. Uterine prolapse ruled out and Urinary bladder prolapse identified Pelvic Sonogram showed uterine prolapse Hx of some vaginal bleeding a few weeks ago, no further bleeding, and Hgb/Hct stable Paper Sample Clerk Dr. Lujan was consulted and performed vaginal exam under general anesthesia that showed urinary bladder prolapse I spoke with my colleague Hospitalist Dr. Robertson who confirmed that she had an extensive conversation with the patient and her family prior to her discharge to [facility] TCU, and patient at the time declined further treatment/procedure for this issue and at the time of my exam is still holding off for now but would like to follow up with up Robotic MANAGER CATEGORY Surgeon Dr. Gallegos after her discharge from TCU to discuss this issue further. 4. Hx UTI Urine culture positive for E. Coli sensitive to Rocephin with which patient was treated from 12/19/16 through 12/26/16. NO more burning/pain with urination She will continue the Pyridium 100 mg PO 3x/day 5. Hx Acute on Chronic Renal Insufficiency Stage IV Patient is being followed by Cordage Sales Representative Dr. Carranza as an outpatient but she does not come to [facility] Nephrology Dr. Tucker saw patient during her admission to medical floor Renal Sonogram : medical renal disease Follow up with Dr. Carranza after discharge from TCU 6. Hx COPD (chronic obstructive pulmonary disease), chronic She will continue the following: Advair 100/50 mcg 1 puff 2x/day Albuterol 1 puff Q6H PRN SOB/Wheezing Singulair 10 mg PO 1x/day 7. Hx CAD (coronary artery disease) Please see Assessment and Plan #1 above 8. Hx Hypertension Metoprolol 50 mg PO 1x/day Home medication of Losartan/HCTZ was held secondary to the elevated BUN/Cr upon admission and as blood pressure has been under control on Metoprolol they were not restarted and patient instructed to discontinue the Losartan/HCTZ 9. Hx Hyperlipidemia Atorvastatin 40 mg PO QHS 10. Hx Hypothyroid Uncontrolled as TSH was elevated at 28.70 and T4 was low at 5.20 Therefore Synthroid was increased from 200 mcg PO 1x/day to 225 mcg PO 1x/day She will need to have TSH and T4 repeated roughly 2 to 3 weeks after discharge from TCU through her PMD Dr. Nolasco's office 11. Hx GERD (gastroesophageal reflux disease) She will continue Dexilant 60 mg PO 1x/day 12. Anemia of Chronic Disease HgB/Hct are stable 13. Prophylactic measure Percocet 5/325 mg PO Q12H PRN Pelvic Pain Benadryl 25 mg PO Q12H PRN itchiness after Percocet Ativan 1 mg PO QHS PRN Sleep The following instructions were provided to patient in the form of this Discharge Summary: 1). Schedule follow up with Primary Care Physician Dr. Nolasco to take place in the next 7 to 10 days. Please bring this Discharge Summary with you to your appointment for Dr. Nolasco's review. 2). Schedule follow up with you Kidney Physician Dr. Carranza to take place in the next 7 to 10 days. Please bring this Discharge Summary with you to your appointment for Dr. Carranza's review. 3). Schedule appointment with MANAGER CATEGORY Surgeon Dr. Gallegos to take place in the next 7 to 10 days by calling his office at [phone] for an appointment to discuss options for Bladder Prolapse correction. 4). grinder set up operator jig the following prescriptions from your [facility] [phone] located at [address] [place] [address] [place] [address]. Further refills must be obtained through your Primary Care Physician Dr. Nolasco: Plavix 75 mg 1 tablet by mouth 1x/day Atorvastatin 40 mg 1 tablet by mouth 1x/day in the evening Metoprolol 50 mg 1 tablet by mouth 1x/day Advair 100/50 mcg 1 puff inhalation by mouth 2x/day Albuterol Inhaler 1 puff inhalation by mouth every 6 hours only as needed for shortness of breath and/or wheezing Singulair 10 mg 1 tablet by mouth 1x/day Synthroid 225 mcg 1 tablet by mouth 1x/day in the morning Pyridium 100 mg 1 tablet by mouth 3x/day 5). The following medications were given to as prescriptions to be filled your pharmacy as they could not be transmitted to the pharmacy electronically: Percocet 5/325 mg 1 tablet by mouth every 12 hours ONLY NEEDED FOR SEVERE PAIN Aspirin 325 mg 1 tablet by mouth 1x/day Dexilant 60 mg 1 tablet by mouth 1x/day Ativan 1 mg 1 tablet by mouth at bedtime only as needed for sleep 6). You may take over the counter Benadryl 25 mg 1 tablet as needed for itchiness if it occurs after taking Percocet 7). DO NOT TAKE Losartan/HCTZ that you have at home. 8). All of the medications that you need to take have been provided to you through your pharmacy and/or prescription. 9). Some one from [facility] will be contacting you in the next few days to help set up Home Physical Therapy and Home Health Aid. If you do not hear from them in a few days please call [phone]. 10). Please take care and be well. Orion Hendrickson D.O. Discharge Exam - Head Exam Head Exam: ATRAUMATIC Discharge Plan - Discharge Medications Prescriptions: Albuterol HFA [Ventolin HFA 90 mcg/actuation (8 g)] 1 puff INH RQ6 PRN #1 inhaler PRN Reason: Wheezing Aspirin [Aspirin Chewable] 325 mg PO DAILY #30 Atorvastatin [Lipitor] 40 mg PO HS #30 tab Clopidogrel [Plavix] 75 mg PO DAILY #30 tab Fluticasone/Salmeterol 100/50 [Advair Diskus 100/50] 1 puff IH Q12 #1 puff Levothyroxine [Synthroid] 225 mcg PO DAILY@0630 #30 tab LORazepam [Ativan] 1 mg PO HS PRN #30 tab PRN Reason: Sleep Metoprolol Tartrate [Lopressor] 50 mg PO DAILY #30 tab Montelukast [Singulair] 10 mg PO DAILY #30 tab Phenazopyridine [Pyridium] 100 mg PO TID #90 tab - Follow Up Plan Condition: GOOD Disposition: HOME/ ROUTINE Instructions: Chest Pain (DC), Urinary Tract Infection in Women (DC), Urinary Tract Infection in Men (DC), Renal Failure Diet (DC), Open Herniorrhaphy (DC), Laparoscopic Herniorrhaphy (DC), Fall Prevention for Older Adults (GEN), Inguinal Hernia (DC), Dysuria (GEN), Hypertension (DC), Hypertension (GEN), Fall Prevention (DC)
== END 2016-12-29 15:40 | disposition home or self-care (01) | DRG 690 ==
LOC: H.TCU 16:21
PROVIDERS: ADMIT Hospitalist; ATTEND Hospitalist
PROC: F07Z9FZ Gait Training/Functional Ambulation Treatment using Assistive, Adaptive, Supportive or Protective Equipment (ICD-10-PCS; principal; 2016-12-21)
PROC: F07L6FZ Therapeutic Exercise Treatment of Musculoskeletal System - Lower Back / Lower Extremity using Assistive, Adaptive, Supportive or Protective Equipment (ICD-10-PCS; 2016-12-21)
PROC: F08Z4ZZ Home Management Treatment (ICD-10-PCS; 2016-12-21)
DX: N39.0 Urinary tract infection, site not specified (principal); N18.4 Chronic kidney disease, stage 4 (severe); D63.8 Anemia in other chronic diseases classified elsewhere; J44.9 Chronic obstructive pulmonary disease, unspecified; I12.9 Hypertensive chronic kidney disease with stage 1 through stage 4 chronic kidney disease, or unspecified chronic kidney disease; B96.20 Unspecified Escherichia coli [E. coli] as the cause of diseases classified elsewhere; E03.9 Hypothyroidism, unspecified; E78.5 Hyperlipidemia, unspecified; I25.10 Atherosclerotic heart disease of native coronary artery without angina pectoris; K21.9 Gastro-esophageal reflux disease without esophagitis; N81.10 Cystocele, unspecified; Z95.5 Presence of coronary angioplasty implant and graft; R07.89 Other chest pain; R32 Unspecified urinary incontinence

== ENCOUNTER 2017-01-02 12:02 | Inpatient (IN) | payer MEDICARE, OTHER ==
[2017-01-02 12:02] VITALS: BMI 26.4
[2017-01-02] MEDS ORDERED: Sodium Chloride 0.9% 1,000 ML IV STA (12:18)
[2017-01-02 12:52] LABS: VENOUS BLOOD GAS BASE EXCESS 2.4 mmol/L (0.0-2.0); VENOUS BLOOD GAS PCO2 49 mmHg (40-60); VENOUS BLOOD PH 7.37 (7.32-7.43)
[2017-01-02 12:52] LABS: ALB/GLOB RATIO 1.2 (1.0-2.1); BILIRUBIN,TOTAL 0.9 mg/dl (0.2-1.3); CALCIUM 9.1 mg/dL (8.4-10.2); MAGNESIUM 2.2 MG/DL (1.6-2.3); PHOSPHOROUS 4.1 mg/dl (2.5-4.5); POTASSIUM 4.4 MMOL/L (3.6-5.0); TOTAL PROTEIN 8.2 G/DL (6.3-8.2)
[2017-01-02 12:54] LABS: BASO # 0.1 K/uL (0.0-0.2); BASO % 0.6 % (0.0-2.0); EOS # 0.1 K/uL (0.0-0.7); EOS % 0.5 % (0.0-4.0); HEMATOCRIT 31.4 % (34.0-47.0); LYMPH % 9.4 % (20.0-40.0); MEAN CELL VOLUME 91.4 fl (81.0-99.0); MEAN CORPUSCULAR HEMOGLOBIN 29.6 pg (27.0-31.0); MEAN CORPUSCULAR HGB CONC 32.4 g/dL (33.0-37.0); MEAN PLATELET VOLUME 7.3 fl (7.2-11.7); MONO # 0.7 K/uL (0.0-0.8); MONO % 6.7 % (0.0-10.0); NEUT # 8.6 K/uL (1.8-7.0); NEUT % 82.8 % (50.0-75.0); PLATELET COUNT 251 K/uL (130-400); RED CELL DISTRIBUTION WIDTH 17.7 % (11.5-14.5); WHITE BLOOD COUNT 10.3 K/uL (4.8-10.8)
[2017-01-02 13:06] LABS: PARTIAL THROMBOPLASTIN TIME 23.9 Seconds (25.6-37.1)
[2017-01-02 13:08] LABS: RBC URINE 42 /hpf (0-3); URINE BACTERIA MOD (<OCC); URINE BILIRUBIN NEGATIVE (NEGATIVE); URINE BLOOD MODERATE (NEGATIVE); URINE COLOR AMBER (YELLOW); URINE GLUCOSE (UA) NEG (Normal); URINE KETONE NEGATIVE (NEGATIVE); URINE LEUKOCYTE ESTERASE LARGE Leu/uL (Negative); URINE PROTEIN 100 mg/dL (NEGATIVE); WBC CLUMPS MANY /hpf; WBC URINE 1496 /hpf (0-5)
--- NOTE | 2017-01-02 13:14 | ED PDOC ---
HPI: General Adult Time Seen by Provider: 01/02/17 12:07 Chief Complaint (Nursing): Trauma Chief Complaint (Provider): fall, fever History Per: Patient, Family History/Exam Limitations: no limitations Current Symptoms Are (Timing): Still Present Severity: Moderate Recently: Hospitalized Additional Complaint(s): 86yo female recently hospitalized for UTI, presents to ED with daughter who found patient on floor this morning. Patient states she fell around 10am but precise timeline unclear. Denies hitting head but poor recall of events. Feels weak and thirsty, denies abd pain, neck pain, chest pain, SOB, cough or back pain. Past Medical History Reviewed: Historical Data, Nursing Documentation, Vital Signs Vital Signs: Last Vital Signs Temp 98.7 F 01/04/17 08:07 Pulse 79 01/04/17 09:19 Resp 19 01/04/17 08:07 BP 113/66 01/04/17 09:19 Pulse Ox 95 01/04/17 08:07 - Medical History PMH: Anemia, Anxiety, Arthritis, Asthma, CAD, CHF, COPD, Depression, Diverticulitis, GERD, HTN, Hypercholesterolemia, Hypothyroidism, Malignancy ( Colon Cancer), Chronic Kidney Disease Denies: HIV - Surgical History Surgical History: Appendectomy, Cholecystectomy, 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, 10 years [employer]), 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 - Family History Family History: States: Unknown Family Hx - Living Arrangements Living Arrangements: Alone - Social History Current smoker - smoking cessation education provided: No Alcohol: None - Immunization History Hx Tetanus Toxoid Vaccination: No Hx Influenza Vaccination: Yes (04/2014) Hx Pneumococcal Vaccination: Yes (2010) - Home Medications Home Medications: Ambulatory Orders Medication Instructions Recorded Albuterol HFA [Ventolin HFA 90 1 puff INH RQ6 PRN #1 inhaler 12/29/16 mcg/actuation (8 g)] Aspirin [Aspirin Chewable] 325 mg PO DAILY #30 12/29/16 Atorvastatin [Lipitor] 40 mg PO HS #30 tab 12/29/16 Clopidogrel [Plavix] 75 mg PO DAILY #30 tab 12/29/16 Fluticasone/Salmeterol 100/50 1 puff IH Q12 #1 puff 12/29/16 [Advair Diskus 100/50] LORazepam [Ativan] 1 mg PO HS PRN #30 tab 06/21/17 Levothyroxine [Synthroid] 225 mcg PO DAILY@0630 #30 tab 12/29/16 Metoprolol Tartrate [Lopressor] 50 mg PO DAILY #30 tab 12/29/16 Montelukast [Singulair] 10 mg PO DAILY #30 tab 12/29/16 Phenazopyridine [Pyridium] 100 mg PO TID #90 tab 12/29/16 - Allergies Allergies/Adverse Reactions: Allergies Allergy/AdvReac Type Severity Reaction Status Date / Time No Known Allergies Allergy Verified 12/21/16 16:18 Review of Systems Constitutional: Positive for: Chills, Weakness, Malaise Eyes: Negative for: Pain, Vision Change ENT: Negative for: Nose Pain, Nose Discharge, Throat Pain Cardiovascular: Negative for: Chest Pain, Palpitations Gastrointestinal: Negative for: Nausea, Vomiting, Abdominal Pain Genitourinary Female: Positive for: Pelvic Pain. Negative for: Dysuria, Frequency Musculoskeletal: Positive for: Arm Pain. Negative for: Neck Pain, Shoulder Pain , Back Pain, Leg Pain Skin: Negative for: Rash, Lesions, Jaundice Neurological: Positive for: Weakness, Confusion (mild per family), Dizziness. Negative for: Numbness, Altered Mental Status, Headache Psych: Positive for: Anxiety. Negative for: Depression Physical Exam - Reviewed Nursing Documentation Reviewed: Yes Vital Signs Reviewed: Yes - Physical Exam Appears: Positive for: Non-toxic (elderly, dry appearing), No Acute Distress Head Exam: Positive for: ATRAUMATIC, NORMAL INSPECTION, NORMOCEPHALIC Skin: Positive for: Normal Color, Warm, DRY Eye Exam: Positive for: EOMI, Normal appearance, PERRL ENT: Positive for: Normal ENT Inspection, Other (dry mucous membranes) Neck: Positive for: Normal, Painless ROM Cardiovascular/Chest: Positive for: Regular Rate, Rhythm Respiratory: Positive for: CNT, Normal Breath Sounds Pulses-Radial (L): 2+ Pulses-Radial (R): 2+ Gastrointestinal/Abdominal: Positive for: Bowel Sounds, Soft. Negative for: Tenderness, Guarding Back: Positive for: Normal Inspection Extremity: Positive for: Normal ROM, Other (no pelvic tenderness) Neurologic/Psych: Positive for: Alert. Negative for: Oriented (mildly confused) , Motor/Sensory Deficits, Aphasia - Laboratory Results Result Diagrams: 01/04/17 05:20 01/04/17 05:20 - ECG O2 Sat by Pulse Oximetry: 95 Medical Decision Making Medical Decision Making: Workup was initiated for sepsis given recent hospitalization and now fever. Lactate/bloodwork, cultures, IVF and CXR ordered. Head CT ordered given fall/ found on floor. Results reviewed. Labs reveal ongoing anemia, worsening renal function, evidence of UTI with lactate >1.5 Rocephin initiated for UTI. D/w Dr Almanzar for admission. Repeat lactate pending at time of admission. Disposition - Clinical Impression Clinical Impression: UTI (urinary tract infection), Renal insufficiency, Fall, Sepsis - Patient ED Disposition Is Patient to be Admitted: Yes Counseled Patient/Family Regarding: Studies Performed, Diagnosis - Disposition Disposition Time: 13:20 Condition: GUARDED - Pt Status Changed To: Hospital Disposition Of: Inpatient - Admit Certification Admit to Inpatient:: After my assessment, the patient will require hospitalization for at least two midnights. This is because of the severity of symptoms shown, intensity of services needed, and/or the medical risk in this patient being treated as an outpatient. - POA Present On Arrival: Poor Glycemic Control
[2017-01-02 13:28] LABS: EOSINOPHIL 2 % (0-7); NEUTROPHIL 79 % (42-75); TOTAL CELLS COUNTED 100
--- NOTE | 2017-01-02 14:02 | RAD ---
HISTORY: Fever COMPARISON: Comparison chest 12/17/2016 FINDINGS: LUNGS: The interstitial markings are slightly increased and coarsened possibly in part due to low lung volumes however concomitant mild sequela of reactive/inflammatory airway disease and or viral illness not excluded. There may also be some minimal bibasilar atelectasis. PLEURA: No significant pleural effusion identified, no pneumothorax apparent. CARDIOVASCULAR: Normal. OSSEOUS STRUCTURES: Mild degenerative changes both shoulder girdles. VISUALIZED UPPER ABDOMEN: Normal. OTHER FINDINGS: None. IMPRESSION: The interstitial markings are slightly increased and coarsened possibly in part due to low lung volumes however concomitant mild sequela of reactive/inflammatory airway disease and or viral illness not excluded. There may also be some minimal bibasilar atelectasis.
--- NOTE | 2017-01-02 14:20 | RAD ---
PROCEDURE: Pelvis 01/02/2017 HISTORY: Status post fall COMPARISON: Comparison made with radiographs of the pelvis and both hips 12/18/2016 [address] made [address] CT scan of the abdomen and pelvis dated 07/25/2015. Findings: The current study reveals no evidence of acute displaced fracture nor dislocation. . Both femoral heads are appropriately located within the respective acetabula. Degenerative changes both hip joints with slight joint space narrowing, subchondral sclerosis and spurring along the acetabular rims. If symptoms persist or occult fracture suspected clinically consider followup on the CT scan or MRI. . SI joints are patent. Mild degenerative changes of the lower lumbar spine. Note again made of what appear to represent of elliptical shaped on ring of radiopaque sutures overlying the left left upper true pelvis. Impression: No acute fractures. Degenerative osteoarthritis both hip joints. See above discussion for additional findings and details. Impression: No evidence of acute displaced fracture nor dislocation. If symptoms persist or occult fracture suspected clinically consider followup CT scan or MRI. Arthritic changes both hips and degenerative spondylosis lumbar spine.
--- NOTE | 2017-01-02 14:20 | CP.PCM.HP ---
History of Present Illness - History of Present Illness History of Present Illness: 86 yo female with history of COPD, CAD, HTN, HLD, CKD, Anemia and Severe Bladder prolapse recently discharged on 12/29/2016 after getting managed for frequent falls and UTI brought back because of falling and unable to get up on her own. Patient had been falling daily since 2 days after getting back home. She claimed she has been falling because of dizziness and generalized weakness. She denied having fever or chills. Also denied dysuria or abdominal or back pain. She denied LOC but admitted unable to get up without assistance. Present on Admission - Present on Admission Any Indicators Present on Admission: No History of DVT/PE: No History of Uncontrolled Diabetes: No Urinary Catheter: No Decubitus Ulcer Present: No Review of Systems - Review of Systems All systems: reviewed and no additional remarkable complaints except (aside from those mentioned above, 12 point system review were negative by me) Past Patient History - Infectious Disease Hx of Infectious Diseases: None - Past Medical History & Family History Past Medical History?: Yes - Past Social History Smoking Status: Former Smoker Alcohol: None Home Situation {Lives}: Alone - CARDIAC Hx Congestive Heart Failure: Yes Hx Hypercholesterolemia: Yes Hx Hypertension: Yes - PULMONARY Hx Asthma: Yes Hx Chronic Obstructive Pulmonary Disease (COPD): Yes - NEUROLOGICAL Hx Neurological Disorder: No - HEENT Other/Comment: HARD OF HEARING - RENAL Hx Chronic Kidney Disease: Yes - ENDOCRINE/METABOLIC Hx Hypothyroidism: Yes - HEMATOLOGICAL/ONCOLOGICAL Hx Anemia: Yes Hx Human Immunodeficiency Virus (HIV): No - INTEGUMENTARY Hx Dermatological Problems: No - MUSCULOSKELETAL/RHEUMATOLOGICAL Hx Arthritis: Yes - GASTROINTESTINAL Hx Diverticulitis: Yes - GENITOURINARY/GYNECOLOGICAL Hx Genitourinary Disorders: Yes - PSYCHIATRIC Hx Anxiety: Yes Hx Depression: Yes - SURGICAL HISTORY Hx Appendectomy: Yes Hx Cholecystectomy: Yes 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, 10 years [employer]) Hx 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: Yes - ANESTHESIA Hx Anesthesia: Yes Hx Anesthesia Reactions: No Hx Malignant Hyperthermia: No Meds Allergies/Adverse Reactions: Allergies Allergy/AdvReac Type Severity Reaction Status Date / Time No Known Allergies Allergy Verified 12/21/16 16:18 Physical Exam - Constitutional Appears: No Acute Distress, Chronically Ill - Head Exam Head Exam: ATRAUMATIC - Eye Exam Eye Exam: absent: Scleral icterus - ENT Exam ENT Exam: Mucous Membranes Moist - Neck Exam Neck exam: Negative for: Meningismus - Respiratory Exam Respiratory Exam: absent: Rhonchi, Wheezes, Respiratory Distress - Cardiovascular Exam Cardiovascular Exam: REGULAR RHYTHM, +S1, +S2 - GI/Abdominal Exam GI & Abdominal Exam: Soft. absent: Tenderness - Rectal Exam Rectal Exam: Deferred - Extremities Exam Extremities exam: Negative for: calf tenderness - Back Exam Back exam: absent: tenderness - Neurological Exam Neurological exam: Alert, Oriented x3 - Psychiatric Exam Psychiatric exam: Normal Affect - Skin Skin Exam: Dry, Intact Results - Vital Signs Recent Vital Signs: Last Vital Signs Temp 99.1 F 01/02/17 13:24 Pulse 83 01/02/17 12:06 Resp 18 01/02/17 12:06 BP 109/49 L 01/02/17 12:06 Pulse Ox 95 01/02/17 13:16 - Labs Result Diagrams: 01/02/17 12:31 01/02/17 12:31 Labs: Laboratory Results - last 24 hr 01/02/17 01/02/17 01/02/17 12:21 12:31 12:31 WBC 10.3 D RBC 3.43 L Hgb 10.2 L Hct 31.4 L MCV 91.4 MCH 29.6 MCHC 32.4 L RDW 17.7 H Plt Count 251 MPV 7.3 Neut % (Auto) 82.8 H Lymph % (Auto) 9.4 L [place] % (Auto) 6.7 Eos % (Auto) 0.5 Baso % (Auto) 0.6 Neut # 8.6 H Lymph # 1.0 [place] # 0.7 Eos # 0.1 Baso # 0.1 Neutrophils % (Manual) 79 H Lymphocytes % (Manual) 11 L Monocytes % (Manual) 8 Eosinophils % (Manual) 2 Platelet Estimate Normal Hypochromasia (manual) Slight Anisocytosis (manual) Slight PT INR APTT pO2 16 L VBG pH 7.37 VBG pCO2 49 VBG HCO3 25.3 VBG Total CO2 29.8 H VBG O2 Sat (Calc) 26.1 L VBG Base Excess 2.4 H VBG Potassium 4.2 A-a O2 Difference 72.0 Sodium 136.0 140 Chloride 104.0 102 Glucose 131 H Lactate 2.1 FiO2 21.0 Crit Value Called To Jody pyle Crit Value Called By 15 Crit Value Read Back Y Blood Gas Notified Time 1252 Potassium 4.4 Carbon Dioxide 23 Anion Gap 19 BUN 54 H Creatinine 2.3 H Est GFR ( Amer) 24 Est GFR (Non-Af Amer) 20 Random Glucose 130 H Calcium 9.1 Phosphorus 4.1 Magnesium 2.2 Total Bilirubin 0.9 AST 29 ALT 31 Alkaline Phosphatase 92 Total Protein 8.2 Albumin 4.5 Globulin 3.8 Albumin/Globulin Ratio 1.2 Lipase 205 Venous Blood Potassium 4.2 Urine Color Urine Clarity Urine pH Ur Specific [place] Urine Protein Urine Glucose (UA) Urine Ketones Urine Blood Urine Nitrate Urine Bilirubin Urine Urobilinogen Ur Leukocyte Esterase Urine RBC (Auto) Urine WBC Clumps (Auto) Urine Microscopic WBC Ur Squamous Epith Cells Urine Bacteria 01/02/17 01/02/17 12:31 12:55 WBC RBC Hgb Hct MCV MCH MCHC RDW Plt Count MPV Neut % (Auto) Lymph % (Auto) [place] % (Auto) Eos % (Auto) Baso % (Auto) Neut # Lymph # [place] # Eos # Baso # Neutrophils % (Manual) Lymphocytes % (Manual) Monocytes % (Manual) Eosinophils % (Manual) Platelet Estimate Hypochromasia (manual) Anisocytosis (manual) PT 11.8 INR 1.0 APTT 23.9 L pO2 VBG pH VBG pCO2 VBG HCO3 VBG Total CO2 VBG O2 Sat (Calc) VBG Base Excess VBG Potassium A-a O2 Difference Sodium Chloride Glucose Lactate FiO2 Crit Value Called To Crit Value Called By Crit Value Read Back Blood Gas Notified Time Potassium Carbon Dioxide Anion Gap BUN Creatinine Est GFR ( Amer) Est GFR (Non-Af Amer) Random Glucose Calcium Phosphorus Magnesium Total Bilirubin AST ALT Alkaline Phosphatase Total Protein Albumin Globulin Albumin/Globulin Ratio Lipase Venous Blood Potassium Urine Color [place]leen Urine Clarity Cloudy Urine pH 6.0 Ur Specific [place] 1.010 Urine Protein 100 Urine Glucose (UA) Neg Urine Ketones Negative Urine Blood Moderate Urine Nitrate Positive H Urine Bilirubin Negative Urine Urobilinogen 2.0 H Ur Leukocyte Esterase Large Urine RBC (Auto) 42 H Urine WBC Clumps (Auto) Many H Urine Microscopic WBC 1496 H Ur Squamous Epith Cells 1 Urine Bacteria Mod H Assessment & Plan (1) Sepsis secondary to UTI Status: Acute Comment: admit in telemetry. blood and urine culture. continue Rocephin 1gm IV daily. recurrent UTI secondary to severe bladder prolapse (2) Recurrent falls Status: Acute Comment: frequent fall secondary to dizziness and weakness. PT evaluation and management (3) Bladder prolapse Status: Acute Comment: urology consult (4) Acute on chronic kidney failure Status: Acute Comment: stable (5) CAD (coronary artery disease) Status: Chronic Comment: asymptomatic. continue ASA, Plavix, Lipitor (6) COPD (chronic obstructive pulmonary disease) Status: Chronic Comment: asymptomatic. on Advair, Albuterol and Singulair (7) Hypertension Status: Chronic Priority: Medium Comment: BP stable. on Metoprolol (8) Hyperlipidemia Status: Chronic Comment: on Lipitor (9) Hypothyroid Status: Chronic Comment: on Levothyroxine (10) Anemia of chronic disease Status: Chronic Comment: stable (11) DVT prophylaxis Status: Acute Comment: Lovenox 30mg SC daily
[2017-01-02] MEDS ORDERED: Albuterol HFA 90 mcg/actuation (8 g) INH PRN (14:58)
[2017-01-02 15:28] LABS: VENOUS BLOOD GAS BASE EXCESS -0.4 mmol/L (0.0-2.0); VENOUS BLOOD GAS PCO2 45 mmHg (40-60); VENOUS BLOOD PH 7.36 (7.32-7.43)
--- NOTE | 2017-01-02 15:54 | CT ---
PROCEDURE: CT HEAD WITHOUT CONTRAST. HISTORY: fall, fever, ?syncope COMPARISON: Comparison made with CT scan brain 12/17/2016 TECHNIQUE: Axial computed tomography images were obtained through the head/brain without intravenous contrast. Radiation dose: Total exam DLP = 825.25 mGy-cm. This CT exam was performed using one or more of the following dose reduction techniques: Automated exposure control, adjustment of the mA and/or kV according to patient size, and/or use of iterative reconstruction technique. FINDINGS: HEMORRHAGE: No acute parenchymal, subarachnoid or extra-axial hemorrhage. Hemorrhage. BRAIN: Moderate to significant diffuse/confluent chronic white matter ischemic changes again seen extending peripherally into the deep and subcortical white matter both cerebral hemispheres. There is also some extension of these changes into the white matter tracts of both basal nuclei of. Note the possibility of a small hyperacute infarct may not be readily apparent on initial CT imaging. Clinical correlation recommended. Moderate to fairly significant generalized volume loss. Vascular calcifications are present. VENTRICLES: No evidence of obstructive hydrocephalus. CALVARIUM: There are no acute calvarial fracture seen. PARANASAL SINUSES: Unremarkable as visualized. No significant inflammatory changes. MASTOID AIR CELLS: Unremarkable as visualized. No inflammatory changes. OTHER FINDINGS: None. IMPRESSION: No acute intracranial hemorrhage. Moderate to significant confluent white matter ischemic changes extending peripherally into the basal nuclei as described above. Moderate to fairly significant generalized volume loss.
[2017-01-02] MEDS: Sodium Chloride 0.9% 1,000 ML IV SCH (16:43)
--- NOTE | 2017-01-02 19:21 | CARD ---
APPROVED REPORT EKG Measurement Heart [id number] OK [id number] <Conclusion> Normal sinus rhythm Normal ECG
[2017-01-02] MEDS ORDERED: Sodium Chloride 0.9% 250 ML IV SCH (20:15)
[2017-01-02] MEDS: Fluticasone-Salmeterol 100-50mcg Diskus IH SCH (20:45)
[2017-01-03 05:08] LABS: HEMATOCRIT 24.4 % (34.0-47.0); MEAN CELL VOLUME 92.7 fl (81.0-99.0); MEAN CORPUSCULAR HEMOGLOBIN 29.3 pg (27.0-31.0); MEAN CORPUSCULAR HGB CONC 31.6 g/dL (33.0-37.0); RED CELL DISTRIBUTION WIDTH 17.9 % (11.5-14.5)
[2017-01-03] MEDS: Sodium Chloride 0.9% 1,000 ML IV SCH ×2 (05:11→12:16)
[2017-01-03 05:19] LABS: CALCIUM 7.4 mg/dL (8.4-10.2); POTASSIUM 3.5 MMOL/L (3.6-5.0)
[2017-01-03] MEDS: Levothyroxine 75 MCG TAB PO SCH (07:12)
[2017-01-03] MEDS: Fluticasone-Salmeterol 100-50mcg Diskus IH SCH ×2 (09:08→21:57)
[2017-01-03] MEDS ORDERED: Potassium Chloride 20 mEq ER Tab PO ONE (09:57)
--- NOTE | 2017-01-03 10:37 | CP.PCM.PN ---
Subjective - Date & Time of Evaluation Date of Evaluation: 01/03/17 Time of Evaluation: 10:15 - Subjective Subjective: Pt seen and examined Had fever last night, no fever this morning feels better but still weak denies CP no SOB no abd pain Discussed CBC result - anemia and need for blood transfusion- pt agreed and signed consent Pt is DNR/DNI - surrogate decision maker is felicita Prado Objective - Vital Signs/Intake and Output Vital Signs (last 24 hours): Temp Pulse Resp BP Pulse Ox 97.8 F 59 L 18 99/59 L 96 01/03/17 08:06 01/03/17 09:11 01/03/17 08:06 01/03/17 09:11 01/03/17 08:06 - Medications Medications: Current Medications Acetaminophen (Tylenol 325mg Tab) 650 mg PO Q4 PRN PRN Reason: Fever >100.4 F Last Admin: 01/02/17 20:26 Dose: 650 mg Albuterol (Ventolin Hfa 90 Mcg/Actuation (8 G)) 1 puff INH RQ6 PRN PRN Reason: Wheezing Aspirin (Aspirin) 325 mg PO DAILY [facility] Last Admin: 01/03/17 09:16 Dose: 325 mg Atorvastatin Calcium (Lipitor) 40 mg PO HS [facility] Last Admin: 01/02/17 22:10 Dose: 40 mg Clopidogrel Bisulfate (Plavix) 75 mg PO DAILY [facility] Last Admin: 01/03/17 09:10 Dose: 75 mg Enoxaparin Sodium (Lovenox) 30 mg SC DAILY [facility] PRN Reason: Protocol Ceftriaxone Sodium 1 gm/ (Sodium Chloride) 100 mls @ 100 mls/hr IVPB DAILY [facility] Last Admin: 01/03/17 10:05 Dose: 100 mls/hr Sodium Chloride (Sodium Chloride 0.9%) 1,000 mls @ 100 mls/hr IV .Q10H [facility] Stop: 01/03/17 16:29 Last Admin: 01/03/17 05:11 Dose: 100 mls/hr Levothyroxine Sodium (Synthroid) 225 mcg PO DAILY@0630 [facility] Last Admin: 01/03/17 07:12 Dose: 225 mcg Lorazepam (Ativan) 1 mg PO HS PRN PRN Reason: Sleep Metoprolol Tartrate (Lopressor) 50 mg PO DAILY [facility] Last Admin: 06/26/17 09:11 Dose: Not Given Montelukast Sodium (Singulair) 10 mg PO DAILY [facility] Last Admin: 01/03/17 09:09 Dose: 10 mg Ondansetron HCl (Zofran Inj) 4 mg IVP Q6 PRN PRN Reason: Nausea/Vomiting Last Admin: 01/02/17 20:26 Dose: 4 mg Phenazopyridine HCl (Pyridium) 100 mg PO TID [facility] Last Admin: 01/03/17 09:09 Dose: 100 mg Fluticasone/Salmeterol (Advair Diskus 100/50) 1 puff IH Q12 [facility] Last Admin: 01/03/17 09:08 Dose: 1 puff - Labs Labs: 01/03/17 04:10 01/03/17 04:10 PT 11.8 Seconds (9.8-13.1) 01/02/17 12:31 INR 1.0 (0.9-1.2) 01/02/17 12:31 APTT 23.9 Seconds (25.6-37.1) L 01/02/17 12:31 - Constitutional Appears: No Acute Distress - Head Exam Head Exam: NORMAL INSPECTION, NORMOCEPHALIC - Eye Exam Eye Exam: EOMI, Normal appearance Pupil Exam: NORMAL ACCOMODATION - ENT Exam ENT Exam: Mucous Membranes Moist, Normal External Ear Exam - Neck Exam Neck Exam: Full ROM. absent: Meningismus - Respiratory Exam Respiratory Exam: NORMAL BREATHING PATTERN. absent: Wheezes, Respiratory Distress - Cardiovascular Exam Cardiovascular Exam: REGULAR RHYTHM, +S1, +S2 - GI/Abdominal Exam GI & Abdominal Exam: Soft, Normal Bowel Sounds. absent: Tenderness - Extremities Exam Extremities Exam: Full ROM, Normal Capillary Refill. absent: Calf Tenderness - Back Exam Back Exam: absent: CVA tenderness (L), CVA tenderness (R) - Neurological Exam Neurological Exam: Alert, Awake, CN II-XII Intact, Oriented x3 Neuro motor strength exam: Left Upper Extremity: 5, Right Upper Extremity: 5, Left Lower Extremity: 5, Right Lower Extremity: 5 - Psychiatric Exam Psychiatric exam: Normal Affect, Normal Mood - Skin Skin Exam: Dry, Pallor, Warm Assessment and Plan - Assessment and Plan (Free Text) Assessment: 86 y/o lady with extensive PMH - w/c includes CAD, COPD, CKD,HTN,Hypothyroidism , Anemia, recurrent falls, recurrent UTI, Bladder Prolapse, was brought in after a fall - pt states she has been feeling sick at home, Denies LOC. She was was noted to be febrile and found to have UTI. (1) Sepsis secondary to UTI Status: Acute Pt came in febrile 102.9 UA : marked pyuria blood and urine culture. continue Rocephin 1gm IV daily. lactic acid normal Pt has hx of Cystocoele predisposing her to recurrent UTI - discussed with pt need to ff up with Uro [employer] - DR Garcia after she is discharged (2) Recurrent falls Status: Acute frequent fall secondary to dizziness and weakness. PT evaluation and management Pelvic , Hip xray; no fracture CT of head : neg (3) Bladder prolapse Status: Acute Comment: urology- [employer] consult as outpt for poss repair (4) chronic kidney failure stage IV Status: Acute Comment: stable monitor and adjust meds accdg to GFR (5) Chronic Anemia sec to Renal Dis , acute blood loss prob hemodilution from IVF hydration no signs of bleeding at present pt had hx of sl vaginal bleed a month ago Hgb =10 on admission dropped to 7.7 ( 8.8 hbg on previous visit) Transfuse 1 unit PRBC- consent obtained from pt Stool Occult blood (6) CAD (coronary artery disease) Status: Chronic Comment: asymptomatic. continue ASA, Plavix, Lipitor and Metoprolol (7) COPD (chronic obstructive pulmonary disease) Status: Chronic asymptomatic. on Advair, Albuterol and Singulair (8) Hypertension Status: Chronic Priority: Medium BP low normal Held Metoprolol (9) Hypothyroid Status: Chronic Comment: on Levothyroxine (10) DVT prophylaxis Status: Acute Comment: Lovenox 30mg SC daily
[2017-01-03 11:00] LABS: HEMATOCRIT 25.3 % (34.0-47.0); MEAN CELL VOLUME 95.4 fl (81.0-99.0); MEAN CORPUSCULAR HEMOGLOBIN 29.7 pg (27.0-31.0); MEAN CORPUSCULAR HGB CONC 31.2 g/dL (33.0-37.0); RED CELL DISTRIBUTION WIDTH 18.4 % (11.5-14.5); WHITE BLOOD COUNT 11.5 K/uL (4.8-10.8)
[2017-01-03] MEDS: Enoxaparin 30 mg Syringe SC SCH ×2 (12:37→13:09)
[2017-01-04] MEDS: Levothyroxine 75 MCG TAB PO SCH (05:45)
[2017-01-04 07:21] LABS: BASO % 0.5 % (0.0-2.0); EOS # 0.1 K/uL (0.0-0.7); EOS % 1.3 % (0.0-4.0); HEMATOCRIT 29.6 % (34.0-47.0); LYMPH % 13.7 % (20.0-40.0); MEAN CELL VOLUME 91.8 fl (81.0-99.0); MEAN CORPUSCULAR HGB CONC 32.7 g/dL (33.0-37.0); MEAN PLATELET VOLUME 7.7 fl (7.2-11.7); MONO # 0.7 K/uL (0.0-0.8); MONO % 9.3 % (0.0-10.0); NEUT # 5.7 K/uL (1.8-7.0); NEUT % 75.2 % (50.0-75.0); RED CELL DISTRIBUTION WIDTH 17.5 % (11.5-14.5); WHITE BLOOD COUNT 7.6 K/uL (4.8-10.8)
[2017-01-04 07:30] LABS: CALCIUM 7.7 mg/dL (8.4-10.2)
[2017-01-04] MEDS: Enoxaparin 30 mg Syringe SC SCH (09:18)
[2017-01-04] MEDS: Fluticasone-Salmeterol 100-50mcg Diskus IH SCH ×2 (09:18→21:44)
--- NOTE | 2017-01-04 16:17 | CP.PCM.DIS ---
Provider - Provider Date of Admission: 01/02/17 13:29 Attending physician: Clinton Almanzar MD Time Spent in preparation of Discharge (in minutes): 20 Hospital Course - Lab Results Lab Results: Most Recent Lab Values WBC 7.6 K/uL (4.8-10.8) 01/04/17 05:20 RBC 3.23 Mil/uL (3.80-5.20) L 01/04/17 05:20 Hgb 9.7 g/dL (12.0-16.0) L 01/04/17 05:20 Hct 29.6 % (34.0-47.0) L 01/04/17 05:20 MCV 91.8 fl (81.0-99.0) D 01/04/17 05:20 MCH 30.0 pg (27.0-31.0) 01/04/17 05:20 MCHC 32.7 g/dL (33.0-37.0) L 01/04/17 05:20 RDW 17.5 % (11.5-14.5) H 01/04/17 05:20 Plt Count 166 K/uL (130-400) 01/04/17 05:20 MPV 7.7 fl (7.2-11.7) 01/04/17 05:20 Neut % (Auto) 75.2 % (50.0-75.0) H 01/04/17 05:20 Lymph % (Auto) 13.7 % (20.0-40.0) L 01/04/17 05:20 [place] % (Auto) 9.3 % (0.0-10.0) 01/04/17 05:20 Eos % (Auto) 1.3 % (0.0-4.0) 01/04/17 05:20 Baso % (Auto) 0.5 % (0.0-2.0) 01/04/17 05:20 Neut # 5.7 K/uL (1.8-7.0) 01/04/17 05:20 Lymph # 1.0 K/uL (1.0-4.3) 01/04/17 05:20 [place] # 0.7 K/uL (0.0-0.8) 01/04/17 05:20 Eos # 0.1 K/uL (0.0-0.7) 01/04/17 05:20 Baso # 0.0 K/uL (0.0-0.2) 01/04/17 05:20 Neutrophils % (Manual) 79 % (42-75) H 01/02/17 12:31 Lymphocytes % (Manual) 11 % (20-50) L 01/02/17 12:31 Monocytes % (Manual) 8 % (0-10) 01/02/17 12:31 Eosinophils % (Manual) 2 % (0-7) 01/02/17 12:31 Platelet Estimate Normal (NORMAL) 01/02/17 12:31 Hypochromasia (manual) Slight 01/02/17 12:31 Anisocytosis (manual) Slight 01/02/17 12:31 PT 11.8 Seconds (9.8-13.1) 01/02/17 12:31 INR 1.0 (0.9-1.2) 01/02/17 12:31 APTT 23.9 Seconds (25.6-37.1) L 01/02/17 12:31 pO2 21 mm/Hg (30-55) L 01/02/17 15:20 VBG pH 7.36 (7.32-7.43) 01/02/17 15:20 VBG pCO2 45 mmHg (40-60) 01/02/17 15:20 VBG HCO3 22.8 mmol/L 01/02/17 15:20 VBG Total CO2 26.8 mmol/L (22-28) 01/02/17 15:20 VBG O2 Sat (Calc) 41.3 % (40-65) 01/02/17 15:20 VBG Base Excess -0.4 mmol/L (0.0-2.0) L 01/02/17 15:20 VBG Potassium 4.4 mmol/L (3.6-5.2) 01/02/17 15:20 A-a O2 Difference 72.0 mm/Hg 01/02/17 12:21 Sodium 136.0 mmol/L (132-148) 01/02/17 15:20 Chloride 106.0 mmol/L (98-107) 01/02/17 15:20 Glucose 187 mg/dL (65-105) H 01/02/17 15:20 Lactate 1.5 mmol/L (0.7-2.1) 01/02/17 15:20 FiO2 21.0 % 01/02/17 15:20 Crit Value Called To Jody pyle 01/02/17 12:21 Crit Value Called By 15 01/02/17 12:21 Crit Value Read Back Y 01/02/17 12:21 Blood Gas Notified Time 1252 01/02/17 12:21 Sodium 138 mmol/l (132-148) 01/04/17 05:20 Potassium 4.0 MMOL/L (3.6-5.0) 01/04/17 05:20 Chloride 108 mmol/L (98-107) H 01/04/17 05:20 Carbon Dioxide 21 mmol/L (22-30) L 01/04/17 05:20 Anion Gap 13 (10-20) 01/04/17 05:20 BUN 38 mg/dl (7-17) H 01/04/17 05:20 Creatinine 2.1 mg/dL (0.7-1.2) H 01/04/17 05:20 Est GFR ( Amer) 01/04/17 05:20 Est GFR (Non-Af Amer) 01/04/17 05:20 Random Glucose 125 mg/dL (65-105) H 01/04/17 05:20 Calcium 7.7 mg/dL (8.4-10.2) L 01/04/17 05:20 Phosphorus 4.1 mg/dl (2.5-4.5) 01/02/17 12:31 Magnesium 2.2 MG/DL (1.6-2.3) 01/02/17 12:31 Total Bilirubin 0.9 mg/dl (0.2-1.3) 01/02/17 12:31 AST 29 U/L (14-36) 01/02/17 12:31 ALT 31 U/L (9-52) 01/02/17 12:31 Alkaline Phosphatase 92 U/L (38-126) 01/02/17 12:31 Total Protein 8.2 G/DL (6.3-8.2) 01/02/17 12:31 Albumin 4.5 g/dL (3.5-5.0) 01/02/17 12:31 Globulin 3.8 gm/dL (2.2-3.9) 01/02/17 12:31 Albumin/Globulin Ratio 1.2 (1.0-2.1) 01/02/17 12:31 Lipase 205 U/L (23-300) 01/02/17 12:31 Venous Blood Potassium 4.4 mmol/L (3.6-5.2) 01/02/17 15:20 Urine Color Colleen (YELLOW) 01/02/17 12:55 Urine Clarity Cloudy (Clear) 01/02/17 12:55 Urine pH 6.0 (5.0-8.0) 01/02/17 12:55 Ur Specific [place] 1.010 (1.003-1.030) 01/02/17 12:55 Urine Protein 100 mg/dL (NEGATIVE) 01/02/17 12:55 Urine Glucose (UA) Neg mg/dL (Normal) 01/02/17 12:55 Urine Ketones Negative mg/dL (NEGATIVE) 01/02/17 12:55 Urine Blood Moderate (NEGATIVE) 01/02/17 12:55 Urine Nitrate Positive (NEGATIVE) H 01/02/17 12:55 Urine Bilirubin Negative (NEGATIVE) 01/02/17 12:55 Urine Urobilinogen 2.0 mg/dL (0.2-1.0) H 01/02/17 12:55 Ur Leukocyte Esterase Large Ingrid/uL (Negative) 01/02/17 12:55 Urine RBC (Auto) 42 /hpf (0-3) H 01/02/17 12:55 Urine WBC Clumps (Auto) Many /hpf (NONE) H 01/02/17 12:55 Urine Microscopic WBC 1496 /hpf (0-5) H 01/02/17 12:55 Ur Squamous Epith Cells 1 /hpf (0-5) 01/02/17 12:55 Urine Bacteria Mod (<OCC) H 01/02/17 12:55 Blood Type O POSITIVE 01/03/17 10:45 Antibody Screen Negative 01/03/17 10:45 Crossmatch See Detail 01/03/17 10:45 BBK History Checked Patient has bt 01/03/17 10:45 - Hospital Course Hospital Course: 86 y/o lady with extensive PMH - w/c includes CAD, COPD, CKD,HTN,Hypothyroidism , Anemia, recurrent falls, recurrent UTI, Bladder Prolapse, was brought in after fall at home. Patient was discharged from hospital 2 days ago after staying in hospital for 10 days and being treated with Rocephin IV for UTI. As per patient she was not feeling well , fell multiple times with ambuklation so decidedd to come to ER for evaluation. In ER she was found to be febrile Tmax 102.9 with WBC 12 k. her UA was cloudy with many bacteria and LE +. She was admitted for sepsis secondary to UTI, started on IVF and Rocephin IV . Urine cx reported as ESBL positive but sensitive to Cipro Discussed with patient at length about following up with [employer] for possible laparascopic / robotic correction of bladder prolapse that seems to be the reason she getxs frequent UTI and patient agrees with follow up once discharged Will discharge patient to TCU to continue with IV antibiotics and Physical therapy . Will consult Dr. Bahena for antibiotic management ( case discussed ) 1. Sepsis secondary to UTI Acute Pt came in febrile 102.9, WBC 12 k, UA cloudy UA : marked pyuria urine culture positive for ESBL , sensitive to cipro Will change Rocephin to Cipro IV and discharge patient to TCU to finish IV antibiotic treatment ID consult with Dr. Bahena Will need follow up as outpatient for Cystocele with [employer] for any surgical correction 2. Recurrent falls Acute frequent fall secondary to dizziness and weakness. PT evaluation and management D/c to TCU for physical therapy 3.Bladder prolapse Chronic urology- [employer] consult as outpt for poss repair 4. Chronic kidney failure stage IV chronic , stable monitor and adjust meds accdg to GFR 5 Chronic Anemia sec to Renal Dis and prob hemodilution from IVF hydration no signs of bleeding at present pt had hx of sl vaginal bleed a month ago Hgb =10 on admission dropped to 7.7 ( 8.8 hbg on previous visit) Transfused 1 unit PRBC with Hgb 9.7 post transfusion Stool Occult blood sent 6.CAD (coronary artery disease) Chronic asymptomatic. continue ASA, Plavix, Lipitor and Metoprolol 7. COPD (chronic obstructive pulmonary disease) Chronic asymptomatic. on Advair, Albuterol and Singulair 8. Hypertension chronic BP low normal on Metoprolol 9. Hypothyroid Chronic on Levothyroxine 10DVT prophylaxis Lovenox 30mg SC daily Discharge Exam - Head Exam Head Exam: ATRAUMATIC, NORMAL INSPECTION, NORMOCEPHALIC - Eye Exam Eye Exam: EOMI, Normal appearance, PERRL Pupil Exam: NORMAL ACCOMODATION - ENT Exam ENT Exam: Mucous Membranes Moist, Normal Exam - Neck Exam Neck exam: Full Rom, Normal Inspection - Respiratory Exam Respiratory Exam: Clear to PA & Lateral, NORMAL BREATHING PATTERN. absent: Rhonchi, Wheezes, Respiratory Distress - Cardiovascular Exam Cardiovascular Exam: REGULAR RHYTHM, +S1, +S2. absent: JVD - GI/Abdominal Exam GI & Abdominal Exam: Normal Bowel Sounds, Soft. absent: Distended, Guarding, Rebound, Tenderness - Rectal Exam Rectal Exam: Deferred - Extremities Exam Extremities exam: normal capillary refill, normal inspection, pedal pulses present - Back Exam Back exam: NORMAL INSPECTION - Neurological Exam Neurological exam: Alert, CN II-XII Intact, Oriented x3, Reflexes Normal - Psychiatric Exam Psychiatric exam: Normal Affect - Skin Skin Exam: Dry, Pallor, Warm Discharge Plan - Discharge Medications Prescriptions: Ciprofloxacin Lactate [Ciprofloxacin] 400 mg IV BID #14 vial - Follow Up Plan Condition: STABLE Disposition: TRANSF TO SNF Patient education suggested?: No Referrals: Sivan Haddad MD [Medical Doctor] -
--- NOTE | 2017-01-04 17:52 | CP.PCM.PN ---
Subjective - Date & Time of Evaluation Date of Evaluation: 01/04/17 Time of Evaluation: 14:00 - Subjective Subjective: Patient seen and examined bedside . Felling better but still weak.Hemodynamically stable, afebriel.No acute issues overnight For discharge to TCU today to continue IV antibiotics. Objective - Vital Signs/Intake and Output Vital Signs (last 24 hours): Temp Pulse Resp BP Pulse Ox 99.9 F H 69 18 110/57 L 93 L 01/04/17 16:00 01/04/17 16:00 01/04/17 16:00 01/04/17 16:00 01/04/17 16:00 - Medications Medications: Current Medications Acetaminophen (Tylenol 325mg Tab) 650 mg PO Q4 PRN PRN Reason: Fever >100.4 F Last Admin: 01/02/17 20:26 Dose: 650 mg Acetaminophen (Tylenol 325mg Tab) 650 mg PO Q4 PRN PRN Reason: Headache Last Admin: 01/03/17 20:39 Dose: 650 mg Albuterol (Ventolin Hfa 90 Mcg/Actuation (8 G)) 1 puff INH RQ6 PRN PRN Reason: Wheezing Atorvastatin Calcium (Lipitor) 40 mg PO HS [facility] Last Admin: 01/03/17 21:58 Dose: 40 mg Clopidogrel Bisulfate (Plavix) 75 mg PO DAILY [facility] Last Admin: 01/04/17 09:20 Dose: 75 mg Enoxaparin Sodium (Lovenox) 30 mg SC DAILY TAY PRN Reason: Protocol Last Admin: 01/04/17 09:18 Dose: Not Given Famotidine (Pepcid) 20 mg PO BID [facility] Last Admin: 01/04/17 17:20 Dose: 20 mg Ciprofloxacin (Cipro 400mg/200ml Dsw) 400 mg in 200 mls @ 200 mls/hr IVPB Q12 [facility] Levothyroxine Sodium (Synthroid) 225 mcg PO DAILY@0630 [facility] Last Admin: 01/04/17 05:45 Dose: 225 mcg Lorazepam (Ativan) 1 mg PO HS PRN PRN Reason: Sleep Last Admin: 01/03/17 22:01 Dose: 1 mg Metoprolol Tartrate (Lopressor) 50 mg PO DAILY [facility] Last Admin: 01/04/17 09:19 Dose: 50 mg Montelukast Sodium (Singulair) 10 mg PO DAILY [facility] Last Admin: 01/04/17 09:21 Dose: 10 mg Ondansetron HCl (Zofran Inj) 4 mg IVP Q6 PRN PRN Reason: Nausea/Vomiting Last Admin: 01/02/17 20:26 Dose: 4 mg Phenazopyridine HCl (Pyridium) 100 mg PO TID [facility] Last Admin: 01/04/17 17:20 Dose: 100 mg Fluticasone/Salmeterol (Advair Diskus 100/50) 1 puff IH Q12 [facility] Last Admin: 01/04/17 09:18 Dose: 1 puff - Labs Labs: 01/04/17 05:20 01/04/17 05:20 PT 11.8 Seconds (9.8-13.1) 01/02/17 12:31 INR 1.0 (0.9-1.2) 01/02/17 12:31 APTT 23.9 Seconds (25.6-37.1) L 01/02/17 12:31 - Constitutional Appears: Non-toxic, No Acute Distress - Head Exam Head Exam: ATRAUMATIC, NORMAL INSPECTION, NORMOCEPHALIC - Eye Exam Eye Exam: EOMI, Normal appearance, PERRL Pupil Exam: NORMAL ACCOMODATION - ENT Exam ENT Exam: Mucous Membranes Moist, Normal Exam - Neck Exam Neck Exam: Full ROM, Normal Inspection - Respiratory Exam Respiratory Exam: Clear to Ausculation Bilateral, NORMAL BREATHING PATTERN. absent: Rales, Rhonchi, Wheezes - Cardiovascular Exam Cardiovascular Exam: REGULAR RHYTHM, RRR, +S1, +S2. absent: JVD - GI/Abdominal Exam GI & Abdominal Exam: Soft, Normal Bowel Sounds. absent: Guarding, Tenderness, Rebound - Rectal Exam Rectal Exam: Deferred - Extremities Exam Extremities Exam: Full ROM, Normal Capillary Refill, Normal Inspection - Neurological Exam Neurological Exam: Alert, Awake, CN II-XII Intact, Oriented x3 - Psychiatric Exam Psychiatric exam: Normal Affect - Skin Skin Exam: Dry, Pallor, Warm Assessment and Plan - Assessment and Plan (Free Text) Assessment: 86 y/o lady with extensive PMH - w/c includes CAD, COPD, CKD,HTN,Hypothyroidism , Anemia, recurrent falls, recurrent UTI, Bladder Prolapse, was brought in after fall at home. Patient was discharged from hospital 2 days ago after staying in hospital for 10 days and being treated with Rocephin IV for UTI. As per patient she was not feeling well , fell multiple times with ambuklation so decidedd to come to ER for evaluation. In ER she was found to be febrile Tmax 102.9 with WBC 12 k. her UA was cloudy with many bacteria and LE +. She was admitted for sepsis secondary to UTI, started on IVF and Rocephin IV . Urine cx reported as ESBL positive but sensitive to Cipro Discussed with patient at length about following up with [facility] [employer] for possible laparascopic / robotic correction of bladder prolapse that seems to be the reason she gets frequent UTI and patient agrees with follow up once discharged Will discharge patient to TCU to continue with IV antibiotics and Physical therapy .Informed by staff that there is no contact isolation beds available today so will hold d/c. Transfer to Med/surg ID consulted Dr. Bahena for antibiotic management ( case discussed ) 1. Sepsis secondary to UTI Acute Pt came in febrile 102.9, WBC 12 k, UA cloudy UA : marked pyuria urine culture positive for ESBL , sensitive to cipro Will change Rocephin to Cipro IV and plan for discharge to TCU to finish IV antibiotic treatment once bed is available ID consult with Dr. Bahena Will need follow up as outpatient for Cystocele with [employer] for any surgical correction 2. Recurrent falls Acute frequent fall secondary to dizziness and weakness. PT evaluation and management D/c to TCU for physical therapy 3.Bladder prolapse Chronic urology- [employer] consult as outpt for poss repair 4. Chronic kidney failure stage IV chronic , stable monitor and adjust meds accdg to GFR 5 Chronic Anemia sec to Renal Dis and prob hemodilution from IVF hydration no signs of bleeding at present pt had hx of sl vaginal bleed a month ago Hgb =10 on admission dropped to 7.7 ( 8.8 hbg on previous visit) Transfused 1 unit PRBC with Hgb 9.7 post transfusion Stool Occult blood sent 6.CAD (coronary artery disease) Chronic asymptomatic. continue ASA, Plavix, Lipitor and Metoprolol 7. COPD (chronic obstructive pulmonary disease) Chronic asymptomatic. on Advair, Albuterol and Singulair 8. Hypertension chronic BP low normal on Metoprolol 9. Hypothyroid Chronic on Levothyroxine 10DVT prophylaxis Lovenox 30mg SC daily
[2017-01-04] MEDS: Ciprofloxacin 400mg/200ml D5W 400 MG/200 ML BAG IVPB SCH (21:44)
[2017-01-05] MEDS: Levothyroxine 75 MCG TAB PO SCH (06:10)
[2017-01-05 08:16] VITALS: RESP 18
[2017-01-05] MEDS: Fluticasone-Salmeterol 100-50mcg Diskus IH SCH ×2 (09:06→21:18)
[2017-01-05] MEDS: Enoxaparin 30 mg Syringe SC SCH ×2 (09:07→09:38)
[2017-01-05] MEDS: Ciprofloxacin 400mg/200ml D5W 400 MG/200 ML BAG IVPB SCH (09:10)
--- NOTE | 2017-01-05 10:41 | CP.PCM.DIS ---
Provider - Provider Date of Admission: 01/02/17 13:29 Attending physician: Clinton Almanzar MD Primary care physician: Dr Haddad Consults: ID : Dr Bahena Time Spent in preparation of Discharge (in minutes): 25 Diagnosis - Discharge Diagnosis (1) Sepsis Status: Acute (2) UTI (urinary tract infection) Status: Acute (3) Cystocele Status: Chronic (4) CKD (chronic kidney disease) stage 4, GFR 15-29 ml/min Status: Chronic (5) Anemia in chronic kidney disease (CKD) Status: Chronic (6) Recurrent falls Status: Acute (7) History of COPD Status: Chronic (8) History of hypothyroidism Status: Chronic (9) Hx of coronary artery disease Status: Chronic Hospital Course - Lab Results Lab Results: Most Recent Lab Values WBC 7.6 K/uL (4.8-10.8) 01/04/17 05:20 RBC 3.23 Mil/uL (3.80-5.20) L 01/04/17 05:20 Hgb 9.7 g/dL (12.0-16.0) L 01/04/17 05:20 Hct 29.6 % (34.0-47.0) L 01/04/17 05:20 MCV 91.8 fl (81.0-99.0) D 01/04/17 05:20 MCH 30.0 pg (27.0-31.0) 01/04/17 05:20 MCHC 32.7 g/dL (33.0-37.0) L 01/04/17 05:20 RDW 17.5 % (11.5-14.5) H 01/04/17 05:20 Plt Count 166 K/uL (130-400) 01/04/17 05:20 MPV 7.7 fl (7.2-11.7) 01/04/17 05:20 Neut % (Auto) 75.2 % (50.0-75.0) H 01/04/17 05:20 Lymph % (Auto) 13.7 % (20.0-40.0) L 01/04/17 05:20 [place] % (Auto) 9.3 % (0.0-10.0) 01/04/17 05:20 Eos % (Auto) 1.3 % (0.0-4.0) 01/04/17 05:20 Baso % (Auto) 0.5 % (0.0-2.0) 01/04/17 05:20 Neut # 5.7 K/uL (1.8-7.0) 01/04/17 05:20 Lymph # 1.0 K/uL (1.0-4.3) 01/04/17 05:20 [place] # 0.7 K/uL (0.0-0.8) 01/04/17 05:20 Eos # 0.1 K/uL (0.0-0.7) 01/04/17 05:20 Baso # 0.0 K/uL (0.0-0.2) 01/04/17 05:20 Neutrophils % (Manual) 79 % (42-75) H 01/02/17 12:31 Lymphocytes % (Manual) 11 % (20-50) L 01/02/17 12:31 Monocytes % (Manual) 8 % (0-10) 01/02/17 12:31 Eosinophils % (Manual) 2 % (0-7) 01/02/17 12:31 Platelet Estimate Normal (NORMAL) 01/02/17 12:31 Hypochromasia (manual) Slight 01/02/17 12:31 Anisocytosis (manual) Slight 01/02/17 12:31 PT 11.8 Seconds (9.8-13.1) 01/02/17 12:31 INR 1.0 (0.9-1.2) 01/02/17 12:31 APTT 23.9 Seconds (25.6-37.1) L 01/02/17 12:31 pO2 21 mm/Hg (30-55) L 01/02/17 15:20 VBG pH 7.36 (7.32-7.43) 01/02/17 15:20 VBG pCO2 45 mmHg (40-60) 01/02/17 15:20 VBG HCO3 22.8 mmol/L 01/02/17 15:20 VBG Total CO2 26.8 mmol/L (22-28) 01/02/17 15:20 VBG O2 Sat (Calc) 41.3 % (40-65) 01/02/17 15:20 VBG Base Excess -0.4 mmol/L (0.0-2.0) L 01/02/17 15:20 VBG Potassium 4.4 mmol/L (3.6-5.2) 01/02/17 15:20 A-a O2 Difference 72.0 mm/Hg 01/02/17 12:21 Sodium 136.0 mmol/L (132-148) 01/02/17 15:20 Chloride 106.0 mmol/L (98-107) 01/02/17 15:20 Glucose 187 mg/dL (65-105) H 01/02/17 15:20 Lactate 1.5 mmol/L (0.7-2.1) 01/02/17 15:20 FiO2 21.0 % 01/02/17 15:20 Crit Value Called To Jody pyle 01/02/17 12:21 Crit Value Called By Tiffanie 01/02/17 12:21 Crit Value Read Back Y 01/02/17 12:21 Blood Gas Notified Time 1252 01/02/17 12:21 Sodium 138 mmol/l (132-148) 01/04/17 05:20 Potassium 4.0 MMOL/L (3.6-5.0) 01/04/17 05:20 Chloride 108 mmol/L (98-107) H 01/04/17 05:20 Carbon Dioxide 21 mmol/L (22-30) L 01/04/17 05:20 Anion Gap 13 (10-20) 01/04/17 05:20 BUN 38 mg/dl (7-17) H 01/04/17 05:20 Creatinine 2.1 mg/dL (0.7-1.2) H 01/04/17 05:20 Est GFR ( Amer) 01/04/17 05:20 Est GFR (Non-Af Amer) 01/04/17 05:20 Random Glucose 125 mg/dL (65-105) H 01/04/17 05:20 Calcium 7.7 mg/dL (8.4-10.2) L 01/04/17 05:20 Phosphorus 4.1 mg/dl (2.5-4.5) 01/02/17 12:31 Magnesium 2.2 MG/DL (1.6-2.3) 01/02/17 12:31 Total Bilirubin 0.9 mg/dl (0.2-1.3) 01/02/17 12:31 AST 29 U/L (14-36) 01/02/17 12:31 ALT 31 U/L (9-52) 01/02/17 12:31 Alkaline Phosphatase 92 U/L (38-126) 01/02/17 12:31 Total Protein 8.2 G/DL (6.3-8.2) 01/02/17 12:31 Albumin 4.5 g/dL (3.5-5.0) 01/02/17 12:31 Globulin 3.8 gm/dL (2.2-3.9) 01/02/17 12:31 Albumin/Globulin Ratio 1.2 (1.0-2.1) 01/02/17 12:31 Lipase 205 U/L (23-300) 01/02/17 12:31 Venous Blood Potassium 4.4 mmol/L (3.6-5.2) 01/02/17 15:20 Urine Color [place]leen (YELLOW) 01/02/17 12:55 Urine Clarity Cloudy (Clear) 01/02/17 12:55 Urine pH 6.0 (5.0-8.0) 01/02/17 12:55 Ur Specific [place] 1.010 (1.003-1.030) 01/02/17 12:55 Urine Protein 100 mg/dL (NEGATIVE) 01/02/17 12:55 Urine Glucose (UA) Neg mg/dL (Normal) 01/02/17 12:55 Urine Ketones Negative mg/dL (NEGATIVE) 01/02/17 12:55 Urine Blood Moderate (NEGATIVE) 01/02/17 12:55 Urine Nitrate Positive (NEGATIVE) H 01/02/17 12:55 Urine Bilirubin Negative (NEGATIVE) 01/02/17 12:55 Urine Urobilinogen 2.0 mg/dL (0.2-1.0) H 01/02/17 12:55 Ur Leukocyte Esterase Large Ingrid/uL (Negative) 01/02/17 12:55 Urine RBC (Auto) 42 /hpf (0-3) H 01/02/17 12:55 Urine WBC Clumps (Auto) Many /hpf (NONE) H 01/02/17 12:55 Urine Microscopic WBC 1496 /hpf (0-5) H 01/02/17 12:55 Ur Squamous Epith Cells 1 /hpf (0-5) 01/02/17 12:55 Urine Bacteria Mod (<OCC) H 01/02/17 12:55 Stool Occult Blood Negative (NEGATIVE) 01/04/17 14:45 Blood Type O POSITIVE 01/03/17 10:45 Antibody Screen Negative 01/03/17 10:45 Crossmatch See Detail 01/03/17 10:45 BBK History Checked Patient has bt 01/03/17 10:45 - Hospital Course Hospital Course: 86 y/o lady with extensive PMH - w/c includes CAD, COPD, CKD,HTN,Hypothyroidism , Anemia, recurrent falls, recurrent UTI, Bladder Prolapse, was brought in after fall at home. Patient was discharged from hospital 2 days ago after staying in hospital for 10 days and being treated with Rocephin IV for UTI. As per patient she was not feeling well , fell multiple times with ambuklation so decidedd to come to ER for evaluation. In ER she was found to be febrile Tmax 102.9 with WBC 12 k. her UA was cloudy with many bacteria and LE +. She was admitted for sepsis secondary to UTI, started on IVF and Rocephin IV . Urine cx reported as ESBL positive but sensitive to Cipro Discussed with patient at length about following up with [facility] for possible laparascopic / robotic correction of bladder prolapse that seems to be the reason she gets frequent UTI and patient agrees with follow up once discharged. Will discharge patient to TCU to continue with IV antibiotics and Physical therapy . ID consulted Dr. Bahena for antibiotic management. 1. Sepsis secondary to UTI Acute Pt came in febrile 102.9, WBC 12 k, UA cloudy UA : marked pyuria urine culture positive for ESBL , sensitive to cipro Will change Rocephin to Cipro IV and plan for discharge to TCU to finish IV antibiotic treatment once bed is available ID consult with Dr. Bahena Will need follow up as outpatient for Cystocele with [facility] for any surgical correction 2. Recurrent falls Acute frequent fall secondary to dizziness and weakness. PT evaluation and management D/c to TCU for physical therapy Ct of head : neg No fracture on Hip and Pelvic xray 3.Bladder prolapse Chronic urology- [facility] [facility] [facility] consult as outpt for poss repair- Dr Garcia 4. Chronic kidney failure stage IV chronic , stable monitor and adjust meds accdg to GFR 5 Chronic Anemia sec to Renal Dis and prob hemodilution from IVF hydration no signs of bleeding at present pt had hx of sl vaginal bleed a month ago Hgb =10 on admission dropped to 7.7 ( 8.8 hbg on previous visit) Transfused 1 unit PRBC with Hgb 9.7 post transfusion Stool Occult blood : negative 6.CAD (coronary artery disease) Chronic asymptomatic. continue ASA, Plavix, Lipitor and Metoprolol 7. COPD (chronic obstructive pulmonary disease) Chronic asymptomatic. on Advair, Albuterol and Singulair 8. Hypertension chronic BP low normal on Metoprolol 9. Hypothyroid Chronic on Levothyroxine 10. DVT prophylaxis Lovenox 30mg SC daily Discharge Exam - Head Exam Head Exam: ATRAUMATIC, NORMAL INSPECTION, NORMOCEPHALIC - Eye Exam Eye Exam: EOMI, Normal appearance Pupil Exam: NORMAL ACCOMODATION - ENT Exam ENT Exam: Mucous Membranes Moist, Normal External Ear Exam - Neck Exam Neck exam: Full Rom - Respiratory Exam Respiratory Exam: Decreased Breath Sounds, NORMAL BREATHING PATTERN. absent: Respiratory Distress - Cardiovascular Exam Cardiovascular Exam: REGULAR RHYTHM, +S1, +S2 - GI/Abdominal Exam GI & Abdominal Exam: Normal Bowel Sounds, Soft. absent: Tenderness - Extremities Exam Extremities exam: full ROM, normal capillary refill, pedal pulses present Additional comments: no calf tenderness - Back Exam Back exam: FULL ROM. absent: CVA tenderness (L), CVA tenderness (R), paraspinal tenderness - Neurological Exam Neurological exam: Alert, CN II-XII Intact, Oriented x3, Reflexes Normal - Psychiatric Exam Psychiatric exam: Normal Affect, Normal Mood - Skin Skin Exam: Dry, Normal Color, Warm Discharge Plan - Discharge Medications Prescriptions: Ciprofloxacin IV [Cipro] 400 mg IVPB DAILY 7 Days - Follow Up Plan Condition: GOOD Disposition: TRANSF TO SNF Instructions: Dehydration (DC), Urinary Tract Infection in Women (DC), Sepsis ( GEN), Fall Prevention (DC) Additional Instructions: d/c pt to TCU for 1 more week of IV antibiotics and for physical therapy Referrals: Sivan Haddad MD [Medical Doctor] -
[2017-01-05 19:05] VITALS: BP 140/65; PULSE 67; TEMP 98.3; O2SAT 96
[2017-01-06] MEDS ORDERED: Ciprofloxacin 400mg/200ml D5W 400 MG/200 ML BAG IVPB SCH (09:00)
== END 2017-01-05 21:30 | DRG 872 ==
LOC: H.ER 12:02 → H.ERHOLD 13:29 → H.TEL 15:45
PROC: 30233N1 Transfusion of Nonautologous Red Blood Cells into Peripheral Vein, Percutaneous Approach (ICD-10-PCS; principal; 2017-01-03)
DX: A41.9 Sepsis, unspecified organism (principal); N17.9 Acute kidney failure, unspecified; N18.4 Chronic kidney disease, stage 4 (severe); N39.0 Urinary tract infection, site not specified; I13.0 Hypertensive heart and chronic kidney disease with heart failure and stage 1 through stage 4 chronic kidney disease, or unspecified chronic kidney disease; I50.9 Heart failure, unspecified; J44.9 Chronic obstructive pulmonary disease, unspecified; D63.1 Anemia in chronic kidney disease; B96.20 Unspecified Escherichia coli [E. coli] as the cause of diseases classified elsewhere; N81.10 Cystocele, unspecified; E03.9 Hypothyroidism, unspecified; E78.00 Pure hypercholesterolemia, unspecified; E78.5 Hyperlipidemia, unspecified; I25.10 Atherosclerotic heart disease of native coronary artery without angina pectoris; Z95.5 Presence of coronary angioplasty implant and graft; R29.6 Repeated falls; K21.9 Gastro-esophageal reflux disease without esophagitis; Z85.038 Personal history of other malignant neoplasm of large intestine; J45.909 Unspecified asthma, uncomplicated; Z87.891 Personal history of nicotine dependence; F32.9 Major depressive disorder, single episode, unspecified; F41.9 Anxiety disorder, unspecified

== ENCOUNTER 2017-01-04 16:27 | Inpatient (IN) | payer OTHER ==
[2017-01-05 22:51] VITALS: RESP 20
[2017-01-06] MEDS: Levothyroxine 75 MCG TAB PO SCH (06:10)
[2017-01-06] MEDS ORDERED: Patient's Own Med (Ciprofloxacin Iv 400 MG) IVPB SCH (09:00)
[2017-01-06] MEDS: Fluticasone-Salmeterol 100-50mcg Diskus IH SCH ×2 (09:22→22:20)
[2017-01-06] MEDS: Enoxaparin 30 mg Syringe SC SCH (09:25)
--- NOTE | 2017-01-06 11:11 | CP.PCM.HP ---
History of Present Illness - History of Present Illness History of Present Illness: 86 yo female with history of COPD, CAD, HTN, HLD, CKD, Anemia and Severe Bladder prolapse recently discharged after getting managed for frequent falls and UTI brought back because of falling again and unable to get up on her own. Patient had been falling daily since 2 days after getting discharged. She was found to be febrile with leukocytosis. Her urine was significant for UTI. She was admitted for Sepsis secondary to UTI and started on IV Rocephin. Urine was positive for ESBL E Coli but sensitive to Cipro. Antibiotic was switched to IV Cipro and patient was transferred to TCU for PT. Pt agreed to follow up with [facility] as outpatient to correct bladder prolapsed which was probably the cause of recurrent UTI. Present on Admission - Present on Admission Any Indicators Present on Admission: No History of DVT/PE: No History of Uncontrolled Diabetes: No Urinary Catheter: No Decubitus Ulcer Present: No Review of Systems - Review of Systems All systems: reviewed and no additional remarkable complaints except (aside from those mentioned above, 12 point system review were negative by me) Past Patient History - Infectious Disease Hx of Infectious Diseases: None - Tetanus Immunizations Tetanus Immunization: Unknown - Past Medical History & Family History Past Medical History?: Yes Past Family History: Reviewed and not pertinent - Past Social History Smoking Status: Former Smoker Alcohol: None Drugs: Denies Home Situation {Lives}: Alone - CARDIAC Hx Congestive Heart Failure: Yes Hx Hypercholesterolemia: Yes Hx Hypertension: Yes - PULMONARY Hx Asthma: Yes Hx Chronic Obstructive Pulmonary Disease (COPD): Yes - NEUROLOGICAL Hx Neurological Disorder: No - HEENT Other/Comment: HARD OF HEARING - RENAL Hx Chronic Kidney Disease: Yes - ENDOCRINE/METABOLIC Hx Hypothyroidism: Yes - HEMATOLOGICAL/ONCOLOGICAL Hx AIDS: No Hx Anemia: Yes Hx Blood Transfusions: Yes Hx Blood Transfusion Reaction: No Hx Human Immunodeficiency Virus (HIV): No - INTEGUMENTARY Hx Dermatological Problems: No - MUSCULOSKELETAL/RHEUMATOLOGICAL Hx Arthritis: Yes Hx Falls: Yes - GASTROINTESTINAL Hx Diverticulitis: Yes - GENITOURINARY/GYNECOLOGICAL Hx Genitourinary Disorders: Yes - PSYCHIATRIC Hx Anxiety: Yes Hx Depression: Yes Hx Substance Use: No - SURGICAL HISTORY Hx Appendectomy: Yes Hx Cholecystectomy: Yes 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, 10 years [employer]) Hx 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: Yes - ANESTHESIA Hx Anesthesia: Yes Hx Anesthesia Reactions: No Hx Malignant Hyperthermia: No Meds Allergies/Adverse Reactions: Allergies Allergy/AdvReac Type Severity Reaction Status Date / Time No Known Allergies Allergy Verified 12/21/16 16:18 Physical Exam - Constitutional Appears: No Acute Distress - Head Exam Head Exam: ATRAUMATIC - Eye Exam Eye Exam: absent: Scleral icterus - ENT Exam ENT Exam: Mucous Membranes Moist - Neck Exam Neck exam: Negative for: Meningismus - Respiratory Exam Respiratory Exam: absent: Rhonchi, Wheezes, Respiratory Distress - Cardiovascular Exam Cardiovascular Exam: REGULAR RHYTHM, +S1, +S2 - GI/Abdominal Exam GI & Abdominal Exam: Soft. absent: Tenderness - Rectal Exam Rectal Exam: Deferred - Extremities Exam Extremities exam: Negative for: calf tenderness - Neurological Exam Neurological exam: Alert (a little sleepy this morning since she was transferred from [facility] to [facility] very late and was not able to sleep well last night) , Oriented x3 - Psychiatric Exam Psychiatric exam: Normal Affect - Skin Skin Exam: Dry, Intact Results - Vital Signs Recent Vital Signs: Last Vital Signs Temp 97.7 F 01/06/17 08:01 Pulse 84 01/06/17 09:24 Resp 20 01/06/17 08:01 BP 124/66 01/06/17 09:24 Pulse Ox 95 01/06/17 08:01 Assessment & Plan (1) Sepsis secondary to UTI Status: Acute Comment: continue Cipro 400mg IV q 12hrs. Dr Bahena on ID consult (2) Recurrent falls Status: Acute Comment: continue PT/OT (3) Bladder prolapse Status: Acute Comment: follow up on [facility] clinic for repair of bladder prolapse (4) CKD (chronic kidney disease) stage 4, GFR 15-29 ml/min Status: Chronic Comment: stable (5) Anemia Status: Chronic Priority: Medium Comment: received 1 unit of PRBC. Hgb: 9.7. stable (6) CAD (coronary artery disease) Status: Chronic Comment: asymptomatic. continue ASA, Plavix, Lipitor and Metoprolol (7) COPD (chronic obstructive pulmonary disease) Status: Chronic Comment: asymptomatic. continue Advair, Albuterol and Singulair (8) HTN (hypertension) Status: Chronic Comment: BP stable. continue Metoprolol (9) Hypothyroid Status: Chronic Comment: continue Levothyroxine (10) DVT prophylaxis Status: Acute Comment: Lovenox 30mg SC daily
[2017-01-06] MEDS: Ciprofloxacin 400mg/200ml D5W 400 MG/200 ML BAG IVPB SCH (16:54)
--- NOTE | 2017-01-06 18:41 | CP.PCM.CON ---
History of Present Illness - History of Present Illness History of Present Illness: recurrent UTI with sepsis failed prev regimens would grt on board Imaging if not done consider 6 weeks rx IV then PO 86 yo female with history of COPD, CAD, HTN, HLD, CKD, Anemia and Severe Bladder prolapse recently discharged after getting managed for frequent falls and UTI brought back because of falling again and unable to get up on her own. Patient had been falling daily since 2 days after getting discharged. She was found to be febrile with leukocytosis. Her urine was significant for UTI. She was admitted for Sepsis secondary to UTI and started on IV Rocephin. Urine was positive for ESBL E Coli but sensitive to Cipro. Antibiotic was switched to IV Cipro and patient was transferred to TCU for PT. Pt agreed to follow up with [employer] as outpatient to correct bladder prolapsed which was probably the cause of recurrent UTI. Review of Systems - Review of Systems All systems: reviewed and no additional remarkable complaints except - Constitutional Constitutional: As Per HPI - EENT Eyes: absent: As Per HPI, Blind Spots, Blurred Vision, Change in Vision, Decreased Night Vision, Diplopia, Discharge, Dry Eye, Exophthalmos, Floaters, Irritation, Itchy Eyes, Loss of Peripheral Vision, Pain, Photophobia, Requires Corrective Lenses, Sees Flashes, Spots in Vision, Tunnel Vision, Other Visual Disturbances, Loss of Vision, Other Ears: absent: As Per HPI, Decreased Hearing, Ear Discharge, Ear Pain, Tinnitus, Abnormal Hearing, Disequilibrium, Dizziness, Other Nose/Mouth/Throat: absent: As Per HPI, Epistaxis, Nasal Congestion, Nasal Discharge, Nasal Obstruction, Nasal Trauma, Nose Pain, Post Nasal Drip, Sinus Pain, Sinus Pressure, Bleeding Gums, Change in Voice, Dental Pain, Dry Mouth, Dysphagia, Halitosis, Hoarsness, Lip Swelling, Mouth Lesions, Mouth Pain, Odynophagia, Sore Throat, Throat Swelling, Tongue Swelling, Facial Pain, Neck Pain, Neck Mass, Other - Breasts Breasts: absent: As Per HPI, Change in Shape, Mass, Pain, Nipple Discharge, Nipple Inversion, Skin Changes, Swelling, Other - Cardiovascular Cardiovascular: absent: As Per HPI, Acrocyanosis, Chest Pain, Chest Pain at Rest , Chest Pain with Activity, Claudication, Diaphoresis, Dyspnea, Dyspnea on Exertion, Edema, Irregular Heart Rhythm, Pain Radiating to Arm/Neck/Jaw, Leg Edema, Leg Ulcers, Lightheadedness, Orthopnea, Palpitations, Paroxysmal Nocturnal Dyspnea, Pedal Edema, Radiating Pain, Rapid Heart Rate, Slow Heart Rate, Syncope, Other - Respiratory Respiratory: absent: As Per HPI, Cough, Dyspnea, Hemoptysis, Dyspnea on Exertion , Wheezing, Snoring, Stridor, Pain on Inspiration, Chest Congestion, Excessive Mucous Production, Change in Mucous Color, Pain with Coughing, Other - Gastrointestinal Gastrointestinal: absent: As Per HPI, Abdominal Pain, Belching, Bloating, Change in Bowel Habits, Change in Stool Character, Coffee Ground Emesis, Constipation, Cramping, Diarrhea, Dyspepsia, Dysphagia, Early Satiety, Excessive Flatus, Fecal Incontinence, Heartburn, Hematemesis, Hematochezia, Loose Stools, Melena, Nausea, Odynophagia, Temesmus, Vomiting, Other - Genitourinary Genitourinary: As Per HPI - Reproductive: Female Reproductive:Female: absent: As Per HPI, Amenorrhea, Amenorrhea/ Control, Currently Menstual, Cycle <21 Days, Cycle >35 Days, Cycle Variable, Menses 1-7 Days, Menses >/= 8 Days, Menses Variable, Cycle > 4 Weeks Between, No Menses for 6 Months, Heavy Menses, Light Menses, Normal Menses, Spotting Between Cycles , S/P Hysterectomy, Menopausal, Post Menopausal, Premenarche, Abnormal Vaginal Bleeding, Dysmenorrhea, Dyspareunia, Genital Lesions, Genital Pruritis, Pelvic Pain, Prolapse Symptoms, Sexual Dysfunction, Vaginal Discharge, Vaginal Dryness , Vaginal Odor, Vaginal Pruritis, Other - Menstruation Menstruation: absent: As Per HPI, Amenorrhea, Amenorrhea/ Control, Currently Menstual, Cycle <21 Days, Cycle >35 Days, Cycle Variable, Menses 1-7 Days, Menses >/= 8 Days, Menses Variable, Cycle > 4 Weeks Between, No Menses for 6 Months, Heavy Menses, Light Menses, Normal Menses, Spotting Between Cycles , S/P Hysterectomy, Menopausal, Post Menopausal, Premenarche, Abnormal Vaginal Bleeding, Dysmenorrhea, Other - Musculoskeletal Musculoskeletal: absent: As Per HPI, Abnormal Gait, Arthralgias, Atrophy, Back Pain, Deformity, Joint Swelling, Limited Range of Motion, Loss of Height, Muscle Cramps, Muscle Weakness, Myalgias, Neck Pain, Numbness, Radiating Pain into Limb, Stiffness, Tingling, Other - Integumentary Integumentary: absent: As Per HPI, Acne, Alopecia, Bleeding Lesions, Change in Hair, Change in Nails, Change in Pigmentation, Changing Lesions, Dry Skin, Erythema, Furuncle, Hirsutism, Lesions, New Lesions, Non-Healing Lesions, Photosensitivity, Pruritus, Rash, Skin Pain, Skin Ulcer, Sores, Striae, Swelling , Unusual Bruising, Wounds, Jaundice, Other - Neurological Neurological: absent: As Per HPI, Abnormal Gait, Abnormal Hearing, Abnormal Movements, Abnormal Speech, Behavioral Changes, Burning Sensations, Confusion, Convulsions, Disequilibrium, Dizziness, Numbness, Focal Weakness, Frequent Falls , Headaches, Lack of Coordination, Loss of Vision, Memory Loss, Paresthesias, Radicular Pain, Restless Legs, Sensory Deficit, Syncope, Tingling, Tremor, Vertigo, Weakness, Other Visual Disturbances, Other - Psychiatric Psychiatric: absent: As Per HPI, Abnormal Sleep Pattern, Anhedonia, Anxiety, Auditory Hallucinations, Behavioral Changes, Change in Appetite, Change in Libido, Confusion, Depression, Difficulty Concentrating, Hallucinations, Homicidal Ideation, Hopelessness, Irritability, Memory Loss, Mood Swings, Panic Attacks, Paranoia, Suicidal Ideation, Visual Hallucinations, Tactile Hallucinations, Other - Endocrine Endocrine: absent: As Per HPI, Change in Body Appearance, Change in Libido, Cold Intolorance, Deepening of Voice, Excessive Sweating, Fatigue, Flushing, Heat Intolorance, Increase in Ring/Shoe/Hat Size, Palpitations, Polydipsia, Polyphagia, Polyuria, Other - Hematologic/Lymphatic Hematologic: absent: As Per HPI, Easy Bleeding, Easy Bruising, Lymphadenopathy, Other Past Patient History - Infectious Disease Hx of Infectious Diseases: None - Tetanus Immunizations Tetanus Immunization: Unknown - Past Medical History & Family History Past Medical History?: Yes Past Family History: Reviewed and not pertinent - Past Social History Smoking Status: Former Smoker Alcohol: None Drugs: Denies Home Situation {Lives}: Alone - CARDIAC Hx Congestive Heart Failure: Yes Hx Hypercholesterolemia: Yes Hx Hypertension: Yes - PULMONARY Hx Asthma: Yes Hx Chronic Obstructive Pulmonary Disease (COPD): Yes - NEUROLOGICAL Hx Neurological Disorder: No - HEENT Other/Comment: HARD OF HEARING - RENAL Hx Chronic Kidney Disease: Yes - ENDOCRINE/METABOLIC Hx Hypothyroidism: Yes - HEMATOLOGICAL/ONCOLOGICAL Hx AIDS: No Hx Anemia: Yes Hx Blood Transfusions: Yes Hx Blood Transfusion Reaction: No Hx Human Immunodeficiency Virus (HIV): No - INTEGUMENTARY Hx Dermatological Problems: No - MUSCULOSKELETAL/RHEUMATOLOGICAL Hx Arthritis: Yes Hx Falls: Yes - GASTROINTESTINAL Hx Diverticulitis: Yes - GENITOURINARY/GYNECOLOGICAL Hx Genitourinary Disorders: Yes - PSYCHIATRIC Hx Anxiety: Yes Hx Depression: Yes Hx Substance Use: No - SURGICAL HISTORY Hx Appendectomy: Yes Hx Cholecystectomy: Yes 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, 10 years [employer]) Hx 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: Yes - ANESTHESIA Hx Anesthesia: Yes Hx Anesthesia Reactions: No Hx Malignant Hyperthermia: No Meds Allergies/Adverse Reactions: Allergies Allergy/AdvReac Type Severity Reaction Status Date / Time No Known Allergies Allergy Verified 12/21/16 16:18 - Medications Medications: Current Medications Acetaminophen (Tylenol 325mg Tab) 650 mg PO Q4 PRN PRN Reason: Fever >100.4 F Acetaminophen (Tylenol 325mg Tab) 650 mg PO Q4 PRN PRN Reason: Headache Aspirin (Aspirin) 325 mg PO DAILY [facility] Last Admin: 01/06/17 09:23 Dose: 325 mg Atorvastatin Calcium (Lipitor) 40 mg PO HS [facility] Clopidogrel Bisulfate (Plavix) 75 mg PO DAILY [facility] Last Admin: 01/06/17 09:23 Dose: 75 mg Enoxaparin Sodium (Lovenox) 30 mg SC DAILY [facility] PRN Reason: Protocol Last Admin: 01/06/17 09:25 Dose: 30 mg Famotidine (Pepcid) 20 mg PO BID [facility] Last Admin: 01/06/17 16:55 Dose: 20 mg Ciprofloxacin (Cipro 400mg/200ml Dsw) 400 mg in 200 mls @ 200 mls/hr IVPB DAILY @1700 [facility] Last Admin: 01/06/17 16:54 Dose: 200 mls/hr Levothyroxine Sodium (Synthroid) 225 mcg PO DAILY@0630 [facility] Last Admin: 01/06/17 06:10 Dose: 225 mcg Lorazepam (Ativan) 1 mg PO HS PRN PRN Reason: Sleep Last Admin: 01/05/17 23:17 Dose: 1 mg Metoprolol Tartrate (Lopressor) 50 mg PO DAILY [facility] Last Admin: 01/06/17 09:24 Dose: 50 mg Montelukast Sodium (Singulair) 10 mg PO DAILY [facility] Last Admin: 01/06/17 09:25 Dose: 10 mg Fluticasone/Salmeterol (Advair Diskus 100/50) 1 puff IH Q12 [facility] Last Admin: 01/06/17 09:22 Dose: 1 puff Physical Exam - Constitutional Appears: Non-toxic, Chronically Ill - Head Exam Head Exam: NORMOCEPHALIC - Eye Exam Eye Exam: PERRL. absent: Scleral icterus - ENT Exam ENT Exam: Mucous Membranes Dry, Normal External Ear Exam - Neck Exam Neck exam: Negative for: Lymphadenopathy - Respiratory Exam Respiratory Exam: Decreased Breath Sounds, Clear to Auscultation Bilateral - Cardiovascular Exam Cardiovascular Exam: REGULAR RHYTHM - GI/Abdominal Exam GI & Abdominal Exam: Diminished Bowel Sounds, Soft. absent: Tenderness - Rectal Exam Rectal Exam: Deferred - Exam Exam: absent: NORMAL INSPECTION - Extremities Exam Extremities exam: Positive for: pedal pulses present. Negative for: calf tenderness, pedal edema, tenderness - Back Exam Back exam: absent: CVA tenderness (L), CVA tenderness (R) - Neurological Exam Neurological exam: Alert, CN II-XII Intact, Oriented x3, Reflexes Normal - Psychiatric Exam Psychiatric exam: Normal Mood - Skin Skin Exam: Dry Results - Vital Signs Recent Vital Signs: Last Vital Signs Temp 97.7 F 01/06/17 16:33 Pulse 66 01/06/17 16:33 Resp 20 01/06/17 16:33 BP 100/52 L 01/06/17 16:33 Pulse Ox 96 01/06/17 16:33 Assessment & Plan (1) UTI (urinary tract infection) Status: Acute (2) ESBL (extended spectrum beta-lactamase) producing bacteria infection Status: Acute (3) ESBL (extended spectrum beta-lactamase) producing bacteria infection Status: Acute - Assessment and Plan (Free Text) Assessment: cont iv then po rx needs / [employer] eval
[2017-01-07] MEDS: Levothyroxine 75 MCG TAB PO SCH (05:45)
[2017-01-07] MEDS: Fluticasone-Salmeterol 100-50mcg Diskus IH SCH ×2 (09:01→21:22)
[2017-01-07] MEDS: Enoxaparin 30 mg Syringe SC SCH (09:05)
--- NOTE | 2017-01-07 13:06 | CP.PCM.PN ---
Subjective - Date & Time of Evaluation Date of Evaluation: 01/07/17 Time of Evaluation: 09:00 - Subjective Subjective: no fever on IV antibiotics alert/ oriented denies abd pain Objective - Vital Signs/Intake and Output Vital Signs (last 24 hours): Temp Pulse Resp BP Pulse Ox 97.7 F 68 20 124/60 98 01/07/17 08:21 01/07/17 09:04 01/07/17 08:21 01/07/17 09:04 01/07/17 08:21 - Medications Medications: Current Medications Acetaminophen (Tylenol 325mg Tab) 650 mg PO Q4 PRN PRN Reason: Fever >100.4 F Acetaminophen (Tylenol 325mg Tab) 650 mg PO Q4 PRN PRN Reason: Headache Aspirin (Aspirin) 325 mg PO DAILY [facility] Last Admin: 01/07/17 09:04 Dose: 325 mg Atorvastatin Calcium (Lipitor) 40 mg PO HS [facility] Last Admin: 01/06/17 22:21 Dose: 40 mg Clopidogrel Bisulfate (Plavix) 75 mg PO DAILY [facility] Last Admin: 01/07/17 09:06 Dose: 75 mg Enoxaparin Sodium (Lovenox) 30 mg SC DAILY [facility] PRN Reason: Protocol Last Admin: 01/07/17 09:05 Dose: 30 mg Famotidine (Pepcid) 20 mg PO 0900,2100 [facility] Last Admin: 01/07/17 09:06 Dose: 20 mg Ciprofloxacin (Cipro 400mg/200ml Dsw) 400 mg in 200 mls @ 200 mls/hr IVPB DAILY @1700 [facility] Last Admin: 01/06/17 16:54 Dose: 200 mls/hr Levothyroxine Sodium (Synthroid) 225 mcg PO DAILY@0630 [facility] Last Admin: 01/07/17 05:45 Dose: 225 mcg Lorazepam (Ativan) 1 mg PO HS PRN PRN Reason: Sleep Last Admin: 01/06/17 22:21 Dose: 1 mg Metoprolol Tartrate (Lopressor) 50 mg PO DAILY [facility] Last Admin: 01/07/17 09:04 Dose: 50 mg Montelukast Sodium (Singulair) 10 mg PO DAILY@1700 [facility] Fluticasone/Salmeterol (Advair Diskus 100/50) 1 puff IH Q12 [facility] Last Admin: 01/07/17 09:01 Dose: 1 puff - Constitutional Appears: Non-toxic, Chronically Ill - Head Exam Head Exam: NORMOCEPHALIC - Eye Exam Eye Exam: PERRL. absent: Scleral icterus - ENT Exam ENT Exam: Mucous Membranes Dry, Normal External Ear Exam - Neck Exam Neck Exam: absent: Lymphadenopathy - Respiratory Exam Respiratory Exam: Decreased Breath Sounds, Clear to Ausculation Bilateral - Cardiovascular Exam Cardiovascular Exam: REGULAR RHYTHM - GI/Abdominal Exam GI & Abdominal Exam: Distended, Soft - Rectal Exam Rectal Exam: Deferred - Exam Exam: absent: NORMAL INSPECTION - Extremities Exam Extremities Exam: absent: Pedal Edema - Back Exam Back Exam: absent: CVA tenderness (L), CVA tenderness (R) - Neurological Exam Neurological Exam: Alert, Awake, Normal Gait, Oriented x3 - Psychiatric Exam Psychiatric exam: Normal Mood - Skin Skin Exam: Dry Assessment and Plan (1) UTI (urinary tract infection) Status: Acute (2) ESBL (extended spectrum beta-lactamase) producing bacteria infection Status: Acute (3) ESBL (extended spectrum beta-lactamase) producing bacteria infection Status: Acute - Assessment and Plan (Free Text) Plan: cont iv then po rx needs eval and follow up
[2017-01-07] MEDS: Ciprofloxacin 400mg/200ml D5W 400 MG/200 ML BAG IVPB SCH (17:00)
[2017-01-08] MEDS: Levothyroxine 75 MCG TAB PO SCH (05:53)
[2017-01-08] MEDS ORDERED: Ciprofloxacin 400mg/200ml D5W IVPB ONE (09:00)
[2017-01-08] MEDS: Fluticasone-Salmeterol 100-50mcg Diskus IH SCH ×2 (09:29→21:32)
[2017-01-08] MEDS: Enoxaparin 30 mg Syringe SC SCH (09:32)
[2017-01-09] MEDS: Levothyroxine 75 MCG TAB PO SCH (06:12)
[2017-01-09] MEDS: Fluticasone-Salmeterol 100-50mcg Diskus IH SCH ×2 (09:43→21:05)
--- NOTE | 2017-01-09 12:47 | CP.PCM.PN ---
Subjective - Date & Time of Evaluation Date of Evaluation: 01/09/17 Time of Evaluation: 09:00 - Subjective Subjective: cipro reordered cultures reviewed labs ordered for am will need / [employer] follow up Objective - Vital Signs/Intake and Output Vital Signs (last 24 hours): Temp Pulse Resp BP Pulse Ox 97.7 F 78 20 129/78 96 01/09/17 08:53 01/09/17 09:43 01/09/17 08:53 01/09/17 09:43 01/09/17 08:53 - Medications Medications: Current Medications Acetaminophen (Tylenol 325mg Tab) 650 mg PO Q4 PRN PRN Reason: Fever >100.4 F Acetaminophen (Tylenol 325mg Tab) 650 mg PO Q4 PRN PRN Reason: Headache Aspirin (Aspirin) 325 mg PO DAILY [facility] Last Admin: 01/09/17 09:43 Dose: 325 mg Atorvastatin Calcium (Lipitor) 40 mg PO HS [facility] Last Admin: 01/08/17 21:31 Dose: 40 mg Clopidogrel Bisulfate (Plavix) 75 mg PO DAILY [facility] Last Admin: 01/09/17 09:44 Dose: 75 mg Docusate Sodium (Colace) 100 mg PO BID [facility] Famotidine (Pepcid) 20 mg PO 0900,2100 [facility] Last Admin: 01/09/17 09:44 Dose: 20 mg Ciprofloxacin (Cipro 400mg/200ml Dsw) 400 mg in 200 mls @ 200 mls/hr IVPB DAILY @1700 [facility] Last Admin: 01/07/17 17:00 Dose: 200 mls/hr Levothyroxine Sodium (Synthroid) 225 mcg PO DAILY@0630 [facility] Last Admin: 01/09/17 06:12 Dose: 225 mcg Metoprolol Tartrate (Lopressor) 50 mg PO DAILY [facility] Last Admin: 01/09/17 09:43 Dose: 50 mg Montelukast Sodium (Singulair) 10 mg PO DAILY@1700 [facility] Last Admin: 01/07/17 17:02 Dose: 10 mg Fluticasone/Salmeterol (Advair Diskus 100/50) 1 puff IH Q12 [facility] Last Admin: 01/09/17 09:43 Dose: 1 puff Assessment and Plan (1) UTI (urinary tract infection) Status: Acute (2) ESBL (extended spectrum beta-lactamase) producing bacteria infection Status: Acute (3) ESBL (extended spectrum beta-lactamase) producing bacteria infection Status: Acute
[2017-01-09] MEDS: Ciprofloxacin 400mg/200ml D5W 400 MG/200 ML BAG IVPB SCH (17:06)
[2017-01-09] MEDS: Enoxaparin 30 mg Syringe SC SCH (17:07)
[2017-01-09] MEDS: Lidocaine 5% Patch TD SCH (21:27)
[2017-01-10] MEDS: Levothyroxine 75 MCG TAB PO SCH (05:57)
[2017-01-10 06:25] LABS: ALB/GLOB RATIO 1.2 (1.0-2.1); ALBUMIN 3.7 g/dL (3.5-5.0); CALCIUM 8.9 mg/dL (8.4-10.2)
[2017-01-10 06:26] LABS: BASO # 0.1 K/uL (0.0-0.2); EOS # 0.3 K/uL (0.0-0.7); EOS % 4.2 % (0.0-4.0); HEMOGLOBIN 10.4 g/dL (12.0-16.0); LYMPH # 2.6 K/uL (1.0-4.3); LYMPH % 35.8 % (20.0-40.0); MEAN CELL VOLUME 91.8 fl (81.0-99.0); MEAN CORPUSCULAR HEMOGLOBIN 30.1 pg (27.0-31.0); MEAN CORPUSCULAR HGB CONC 32.8 g/dL (33.0-37.0); MEAN PLATELET VOLUME 7.1 fl (7.2-11.7); MONO # 0.6 K/uL (0.0-0.8); MONO % 8.2 % (0.0-10.0); NEUT # 3.8 K/uL (1.8-7.0); NEUT % 50.8 % (50.0-75.0); NRBC % 0.1 % (0.0-0.0); RBC 3.45 Mil/uL (3.80-5.20); RED CELL DISTRIBUTION WIDTH 17.2 % (11.5-14.5); WHITE BLOOD COUNT 7.4 K/uL (4.8-10.8)
[2017-01-10] MEDS: Fluticasone-Salmeterol 100-50mcg Diskus IH SCH ×2 (08:38→21:12)
[2017-01-10] MEDS: Ciprofloxacin 400mg/200ml D5W 400 MG/200 ML BAG IVPB SCH (18:24)
[2017-01-10] MEDS: Lidocaine 5% Patch TD SCH (21:12)
[2017-01-11 05:26] LABS: BASO # 0.1 K/uL (0.0-0.2); BASO % 0.8 % (0.0-2.0); EOS # 0.2 K/uL (0.0-0.7); EOS % 3.1 % (0.0-4.0); HEMOGLOBIN 9.9 g/dL (12.0-16.0); LYMPH # 2.6 K/uL (1.0-4.3); LYMPH % 37.5 % (20.0-40.0); MEAN CELL VOLUME 91.8 fl (81.0-99.0); MEAN CORPUSCULAR HEMOGLOBIN 29.6 pg (27.0-31.0); MEAN CORPUSCULAR HGB CONC 32.2 g/dL (33.0-37.0); MEAN PLATELET VOLUME 7.2 fl (7.2-11.7); MONO # 0.5 K/uL (0.0-0.8); MONO % 7.7 % (0.0-10.0); NEUT # 3.5 K/uL (1.8-7.0); NEUT % 50.9 % (50.0-75.0); RBC 3.34 Mil/uL (3.80-5.20)
[2017-01-11 05:32] LABS: ALB/GLOB RATIO 1.1 (1.0-2.1); ALBUMIN 3.5 g/dL (3.5-5.0); CALCIUM 8.5 mg/dL (8.4-10.2)
[2017-01-11] MEDS: Levothyroxine 75 MCG TAB PO SCH (06:29)
[2017-01-11] MEDS: Fluticasone-Salmeterol 100-50mcg Diskus IH SCH ×2 (08:48→20:20)
[2017-01-11 11:18] VITALS: BMI 25.7
[2017-01-11] MEDS: Ciprofloxacin 400mg/200ml D5W 400 MG/200 ML BAG IVPB SCH (16:24)
--- NOTE | 2017-01-11 19:59 | CP.PCM.PN ---
Subjective - Date & Time of Evaluation Date of Evaluation: 01/11/17 Time of Evaluation: 19:00 - Subjective Subjective: Pt seen and examined. Claimed she is doing okay. Objective - Vital Signs/Intake and Output Vital Signs (last 24 hours): Temp Pulse Resp BP Pulse Ox 98.1 F 60 20 106/51 L 96 01/11/17 16:25 01/11/17 16:25 01/11/17 16:25 01/11/17 16:25 01/11/17 16:25 - Medications Medications: Current Medications Acetaminophen (Tylenol 325mg Tab) 650 mg PO Q4 PRN PRN Reason: Fever >100.4 F Acetaminophen (Tylenol 325mg Tab) 650 mg PO Q4 PRN PRN Reason: Headache Aspirin (Aspirin) 325 mg PO DAILY [facility] Last Admin: 01/11/17 08:55 Dose: 325 mg Atorvastatin Calcium (Lipitor) 40 mg PO HS [facility] Last Admin: 01/10/17 21:12 Dose: 40 mg Clopidogrel Bisulfate (Plavix) 75 mg PO DAILY [facility] Last Admin: 01/11/17 08:52 Dose: 75 mg Docusate Sodium (Colace) 100 mg PO BID [facility] Last Admin: 01/11/17 16:24 Dose: 100 mg Famotidine (Pepcid) 20 mg PO 0900,2100 [facility] Last Admin: 01/11/17 08:49 Dose: 20 mg Ciprofloxacin (Cipro 400mg/200ml Dsw) 400 mg in 200 mls @ 200 mls/hr IVPB DAILY @1700 [facility] Last Admin: 01/11/17 16:24 Dose: 200 mls/hr Levothyroxine Sodium (Synthroid) 225 mcg PO DAILY@0630 [facility] Last Admin: 01/11/17 06:29 Dose: 225 mcg Lidocaine (Lidoderm) 1 ea TD DAILY@2100 [facility] Last Admin: 01/10/17 21:12 Dose: 1 ea Lorazepam (Ativan) 1 mg PO HS PRN PRN Reason: Sleep Last Admin: 01/10/17 22:04 Dose: 1 mg Metoprolol Tartrate (Lopressor) 50 mg PO DAILY [facility] Last Admin: 01/11/17 08:52 Dose: 50 mg Montelukast Sodium (Singulair) 10 mg PO DAILY@1700 [facility] Last Admin: 01/11/17 16:25 Dose: 10 mg Fluticasone/Salmeterol (Advair Diskus 100/50) 1 puff IH Q12 [facility] Last Admin: 01/11/17 08:48 Dose: 1 puff - Labs Labs: 01/11/17 05:07 01/11/17 05:07 - Constitutional Appears: No Acute Distress - Head Exam Head Exam: ATRAUMATIC - Eye Exam Eye Exam: absent: Scleral icterus - ENT Exam ENT Exam: Mucous Membranes Moist - Neck Exam Neck Exam: absent: Meningismus - Respiratory Exam Respiratory Exam: absent: Rhonchi, Wheezes, Respiratory Distress - Cardiovascular Exam Cardiovascular Exam: REGULAR RHYTHM, +S1, +S2 - GI/Abdominal Exam GI & Abdominal Exam: Soft. absent: Tenderness - Rectal Exam Rectal Exam: Deferred - Neurological Exam Neurological Exam: Alert, Oriented x3 - Psychiatric Exam Psychiatric exam: Normal Affect - Skin Skin Exam: Dry, Intact Assessment and Plan (1) Sepsis secondary to UTI Status: Acute (2) Recurrent falls Status: Acute (3) Bladder prolapse Status: Acute (4) CKD (chronic kidney disease) stage 4, GFR 15-29 ml/min Status: Chronic (5) Anemia Status: Chronic (6) CAD (coronary artery disease) Status: Chronic (7) COPD (chronic obstructive pulmonary disease) Status: Chronic (8) HTN (hypertension) Status: Chronic (9) Hypothyroid Status: Chronic (10) DVT prophylaxis Status: Acute - Assessment and Plan (Free Text) Assessment: 86 yo female with history of COPD, CAD, HTN, HLD, CKD, Anemia and Severe Bladder prolapse came back because of recurrent UTI and frequent falls. Urine grew ESBL E Coli sensitive to Cipro. Transferred to TCU for continuation of management, IV antibiotic and PT. Pt will need repair of bladder prolapsed to prevent recurrence of UTI. (1) UTI continue Cipro 400mg IV q 12hrs. Dr Bahena on ID consult (2) Recurrent falls continue PT/OT (3) Bladder prolapse follow up on [facility] clinic for repair of bladder prolapse (4) CKD (chronic kidney disease) stage 4, GFR 15-29 ml/min stable (5) Anemia received 1 unit of PRBC. Hgb: 9.9. stable (6) CAD (coronary artery disease) asymptomatic. continue ASA, Plavix, Lipitor and Metoprolol (7) COPD (chronic obstructive pulmonary disease) asymptomatic. continue Advair, Albuterol and Singulair (8) HTN (hypertension) BP stable. continue Metoprolol (9) Hypothyroid continue Levothyroxine
[2017-01-11] MEDS: Lidocaine 5% Patch TD SCH (20:25)
[2017-01-12] MEDS: Levothyroxine 75 MCG TAB PO SCH (05:31)
[2017-01-12] MEDS: Fluticasone-Salmeterol 100-50mcg Diskus IH SCH ×2 (09:41→21:39)
--- NOTE | 2017-01-12 13:41 | CP.PCM.PN ---
Subjective - Date & Time of Evaluation Date of Evaluation: 01/12/17 Time of Evaluation: 09:00 - Subjective Subjective: discussed on rounds as blood c/s negative ok to switch to po with 14 more days rx and follow up Objective - Vital Signs/Intake and Output Vital Signs (last 24 hours): Temp Pulse Resp BP Pulse Ox 97.9 F 61 20 110/52 L 95 01/12/17 07:51 01/12/17 09:42 01/12/17 07:51 01/12/17 09:42 01/12/17 07:51 - Medications Medications: Current Medications Acetaminophen (Tylenol 325mg Tab) 650 mg PO Q4 PRN PRN Reason: Fever >100.4 F Acetaminophen (Tylenol 325mg Tab) 650 mg PO Q4 PRN PRN Reason: Headache Aspirin (Aspirin) 325 mg PO DAILY [facility] Last Admin: 01/12/17 09:46 Dose: 325 mg Atorvastatin Calcium (Lipitor) 40 mg PO HS [facility] Last Admin: 01/11/17 22:14 Dose: 40 mg Clopidogrel Bisulfate (Plavix) 75 mg PO DAILY [facility] Last Admin: 01/12/17 09:41 Dose: 75 mg Docusate Sodium (Colace) 100 mg PO BID [facility] Last Admin: 01/12/17 09:42 Dose: 100 mg Enoxaparin Sodium (Lovenox) 30 mg SC DAILY [facility] PRN Reason: Protocol Famotidine (Pepcid) 20 mg PO 0900,2100 [facility] Last Admin: 01/12/17 09:41 Dose: 20 mg Ciprofloxacin (Cipro 400mg/200ml Dsw) 400 mg in 200 mls @ 200 mls/hr IVPB DAILY @1700 [facility] Last Admin: 01/11/17 16:24 Dose: 200 mls/hr Levothyroxine Sodium (Synthroid) 225 mcg PO DAILY@0630 [facility] Last Admin: 01/12/17 05:31 Dose: 225 mcg Lidocaine (Lidoderm) 1 ea TD DAILY@2100 [facility] Last Admin: 01/11/17 20:25 Dose: Not Given Lorazepam (Ativan) 1 mg PO HS PRN PRN Reason: Sleep Last Admin: 01/10/17 22:04 Dose: 1 mg Metoprolol Tartrate (Lopressor) 50 mg PO DAILY [facility] Last Admin: 01/12/17 09:42 Dose: 50 mg Montelukast Sodium (Singulair) 10 mg PO DAILY@1700 [facility] Last Admin: 01/11/17 16:25 Dose: 10 mg Fluticasone/Salmeterol (Advair Diskus 100/50) 1 puff IH Q12 [facility] Last Admin: 01/12/17 09:41 Dose: 1 puff - Labs Labs: 01/11/17 05:07 01/11/17 05:07 Assessment and Plan (1) UTI (urinary tract infection) Status: Acute (2) ESBL (extended spectrum beta-lactamase) producing bacteria infection Status: Acute (3) ESBL (extended spectrum beta-lactamase) producing bacteria infection Status: Acute
[2017-01-12 20:26] VITALS: O2SAT 99
[2017-01-12] MEDS: Lidocaine 5% Patch TD SCH (21:39)
[2017-01-13] MEDS: Levothyroxine 75 MCG TAB PO SCH (06:25)
[2017-01-13 08:12] VITALS: PULSE 64; TEMP 97.8
[2017-01-13] MEDS: Fluticasone-Salmeterol 100-50mcg Diskus IH SCH (08:38)
[2017-01-13 08:40] VITALS: BP 115/56
[2017-01-13] MEDS: Enoxaparin 30 mg Syringe SC SCH ×2 (08:40→09:00)
--- NOTE | 2017-01-13 11:56 | CP.PCM.DIS ---
Provider - Provider Date of Admission: 01/05/17 21:49 Attending physician: Jabari Bishop Time Spent in preparation of Discharge (in minutes): 30 Diagnosis - Discharge Diagnosis (1) UTI (urinary tract infection) Status: Acute (2) ACS (acute coronary syndrome) Status: Acute (3) Abdominal pain Status: Acute (4) Acute kidney injury Status: Acute (5) Acute on chronic kidney failure Status: Acute Hospital Course - Lab Results Lab Results: Most Recent Lab Values WBC 7.0 K/uL (4.8-10.8) 01/11/17 05:07 RBC 3.34 Mil/uL (3.80-5.20) L 01/11/17 05:07 Hgb 9.9 g/dL (12.0-16.0) L 01/11/17 05:07 Hct 30.7 % (34.0-47.0) L 01/11/17 05:07 MCV 91.8 fl (81.0-99.0) 01/11/17 05:07 MCH 29.6 pg (27.0-31.0) 01/11/17 05:07 MCHC 32.2 g/dL (33.0-37.0) L 01/11/17 05:07 RDW 17.0 % (11.5-14.5) H 01/11/17 05:07 Plt Count 258 K/uL (130-400) 01/11/17 05:07 MPV 7.2 fl (7.2-11.7) 01/11/17 05:07 Neut % (Auto) 50.9 % (50.0-75.0) 01/11/17 05:07 Lymph % (Auto) 37.5 % (20.0-40.0) 01/11/17 05:07 [place] % (Auto) 7.7 % (0.0-10.0) 01/11/17 05:07 Eos % (Auto) 3.1 % (0.0-4.0) 01/11/17 05:07 Baso % (Auto) 0.8 % (0.0-2.0) 01/11/17 05:07 Neut # 3.5 K/uL (1.8-7.0) 01/11/17 05:07 Lymph # 2.6 K/uL (1.0-4.3) 01/11/17 05:07 [place] # 0.5 K/uL (0.0-0.8) 01/11/17 05:07 Eos # 0.2 K/uL (0.0-0.7) 01/11/17 05:07 Baso # 0.1 K/uL (0.0-0.2) 01/11/17 05:07 Sodium 140 mmol/l (132-148) 01/11/17 05:07 Potassium 4.4 MMOL/L (3.6-5.0) 01/11/17 05:07 Chloride 110 mmol/L (98-107) H 01/11/17 05:07 Carbon Dioxide 21 mmol/L (22-30) L 01/11/17 05:07 Anion Gap 13 (10-20) 01/11/17 05:07 BUN 36 mg/dl (7-17) H 01/11/17 05:07 Creatinine 2.0 mg/dL (0.7-1.2) H 01/11/17 05:07 Est GFR ( Amer) 29 01/11/17 05:07 Est GFR (Non-Af Amer) 24 01/11/17 05:07 Random Glucose 107 mg/dL (65-105) H 01/11/17 05:07 Calcium 8.5 mg/dL (8.4-10.2) 01/11/17 05:07 Total Bilirubin 0.3 mg/dl (0.2-1.3) 01/11/17 05:07 AST 17 U/L (14-36) 01/11/17 05:07 ALT 27 U/L (9-52) 01/11/17 05:07 Alkaline Phosphatase 92 U/L (38-126) 01/11/17 05:07 Total Protein 6.7 G/DL (6.3-8.2) 01/11/17 05:07 Albumin 3.5 g/dL (3.5-5.0) 01/11/17 05:07 Globulin 3.2 gm/dL (2.2-3.9) 01/11/17 05:07 Albumin/Globulin Ratio 1.1 (1.0-2.1) 01/11/17 05:07 - Hospital Course Hospital Course: 6 yo female with history of COPD, CAD, HTN, HLD, CKD, Anemia and Severe Bladder prolapse came back because of recurrent UTI and frequent falls. Urine grew ESBL E Coli sensitive to Cipro. Transferred to TCU for continuation of management, IV antibiotic and PT. Pt will need repair of bladder prolapsed to prevent recurrence of UTI. (1) UTI continue Cipro 400mg IV q 12hrs. MAY BE DISCHARGED HOME WITH 2 MORE WEEKS OF CIPRO PO BID PER ID. Dr Bahena on ID consult (2) Recurrent falls continue PT/OT (3) Bladder prolapse follow up on [facility] for repair of bladder prolapse (4) CKD (chronic kidney disease) stage 4, GFR 15-29 ml/min stable (5) Anemia received 1 unit of PRBC. Hgb: 9.9. stable (6) CAD (coronary artery disease) asymptomatic. continue ASA, Plavix, Lipitor and Metoprolol (7) COPD (chronic obstructive pulmonary disease) asymptomatic. continue Advair, Albuterol and Singulair (8) HTN (hypertension) BP stable. continue Metoprolol (9) Hypothyroid continue Levothyroxine Discharge Exam - Head Exam Head Exam: ATRAUMATIC, NORMOCEPHALIC - Eye Exam Eye Exam: EOMI, Normal appearance, PERRL - ENT Exam ENT Exam: Mucous Membranes Moist - Neck Exam Neck exam: Full Rom, Normal Inspection - Respiratory Exam Respiratory Exam: Clear to PA & Lateral, NORMAL BREATHING PATTERN - Cardiovascular Exam Cardiovascular Exam: RRR, +S1, +S2 - GI/Abdominal Exam GI & Abdominal Exam: Normal Bowel Sounds, Soft. absent: Mass, Organomegaly, Tenderness - Extremities Exam Extremities exam: normal capillary refill, pedal pulses present - Back Exam Back exam: absent: CVA tenderness (L), CVA tenderness (R) - Neurological Exam Neurological exam: Alert, Oriented x3 - Psychiatric Exam Psychiatric exam: Normal Affect, Normal Mood - Skin Skin Exam: Dry, Warm Discharge Plan - Discharge Medications Prescriptions: Aspirin [Aspirin Chewable] 325 mg PO DAILY #30 Ciprofloxacin [Cipro] 500 mg PO Q12 #28 tab Clopidogrel [Plavix] 75 mg PO DAILY #30 tab Famotidine [Pepcid] 20 mg PO BID #60 tab Fluticasone/Salmeterol 100/50 [Advair Diskus 100/50] 1 puff IH Q12 #1 puff Levothyroxine [Synthroid] 225 mcg PO DAILY@0630 #30 tab Lidocaine 5% [Lidoderm] 1 ea TD DAILY@2100 #30 patch Metoprolol Tartrate [Lopressor] 50 mg PO DAILY #30 tab Montelukast [Singulair] 10 mg PO DAILY #30 tab - Follow Up Plan Condition: GOOD Disposition: HOME/ ROUTINE Instructions: Ciprofloxacin (By mouth), Urinary Tract Infection in Women (DC), Fall Prevention (DC) Additional Instructions: resume meds CIPRO for 2 weeks resume diet resume activity as tolerated follow up with PCP in one week follow up Dr. Harrison in one week return to ER if condition worsens or returns. Referrals: Elva Harrison MD [Medical Doctor] -
== END 2017-01-13 14:10 | disposition home or self-care (01) | DRG 690 ==
LOC: H.TCU 01-05 21:49
PROVIDERS: ADMIT Internal Medicine; ATTEND Internal Medicine
PROC: F08Z4ZZ Home Management Treatment (ICD-10-PCS; principal; 2017-01-05)
PROC: F07Z9FZ Gait Training/Functional Ambulation Treatment using Assistive, Adaptive, Supportive or Protective Equipment (ICD-10-PCS; 2017-01-05)
PROC: F07L6FZ Therapeutic Exercise Treatment of Musculoskeletal System - Lower Back / Lower Extremity using Assistive, Adaptive, Supportive or Protective Equipment (ICD-10-PCS; 2017-01-05)
DX: N39.0 Urinary tract infection, site not specified (principal); N18.4 Chronic kidney disease, stage 4 (severe); N17.9 Acute kidney failure, unspecified; J44.9 Chronic obstructive pulmonary disease, unspecified; D64.9 Anemia, unspecified; B96.20 Unspecified Escherichia coli [E. coli] as the cause of diseases classified elsewhere; I25.10 Atherosclerotic heart disease of native coronary artery without angina pectoris; Z95.5 Presence of coronary angioplasty implant and graft; E03.9 Hypothyroidism, unspecified; E78.00 Pure hypercholesterolemia, unspecified; E78.5 Hyperlipidemia, unspecified; N81.10 Cystocele, unspecified; R29.6 Repeated falls; I12.9 Hypertensive chronic kidney disease with stage 1 through stage 4 chronic kidney disease, or unspecified chronic kidney disease

== ENCOUNTER 2017-06-04 21:36 | Emergency (ER) | payer MEDICARE, OTHER ==
[2017-06-04 21:37] VITALS: BMI 25.7
[2017-06-04 21:44] VITALS: BP 122/56; PULSE 56; RESP 18; TEMP 97.6; O2SAT 96
--- NOTE | 2017-06-04 23:16 | ED PDOC ---
HPI: Female Pain Time Seen by Provider: 06/04/17 22:00 Chief Complaint (Nursing): Female Genitourinary Chief Complaint (Provider): Dysuria History Per: Patient History/Exam Limitations: no limitations Onset/Duration Of Symptoms: Days (x3) Current Symptoms Are (Timing): Still Present Additional Complaint(s): Dara is an 86-year-old female with a history of hypothyroidism, COPD, and frequent UTIs, who presents complaining of 3 days of dysuria described as burning. Also states shes had frequency and a sense of heaviness in vaginal area when she urinates. Denies fever, back pain, chills, nausea, vomiting, or diarrhea. Last had UTI 2 months ago. States she called her urologist Dr. Harrison , who advised her that he could not prescribe an antibiotic until she could be evaluated and a urine culture could be obtained. Urology: Elva Harrison Past Medical History Reviewed: Historical Data, Nursing Documentation, Vital Signs Vital Signs: Last Vital Signs Temp 97.6 F 06/04/17 21:40 Pulse 56 L 06/04/17 21:40 Resp 18 06/04/17 21:40 BP 122/56 L 06/04/17 21:40 Pulse Ox 96 06/04/17 21:40 - Medical History PMH: Anemia, Anxiety, Arthritis, Asthma, CAD, CHF, COPD, Depression, Diverticulitis, GERD, HTN, Hypercholesterolemia, Hypothyroidism, Malignancy ( Colon Cancer), Chronic Kidney Disease Denies: HIV - Surgical History Surgical History: Appendectomy, Cholecystectomy, 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, 10 years [employer]), 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 - Family History Family History: States: Unknown Family Hx - Social History Current smoker - smoking cessation education provided: No Alcohol: None Drugs: Denies - Immunization History Hx Tetanus Toxoid Vaccination: No Hx Influenza Vaccination: Yes (04/2014) Hx Pneumococcal Vaccination: Yes (2010) - Home Medications Home Medications: Ambulatory Orders Medication Instructions Recorded Albuterol HFA [Ventolin HFA 90 1 puff INH RQ6 PRN #1 inhaler 12/29/16 mcg/actuation (8 g)] Atorvastatin [Lipitor] 40 mg PO HS #30 tab 12/29/16 Aspirin [Aspirin Chewable] 325 mg PO DAILY #30 01/13/17 Ciprofloxacin [Cipro] 500 mg PO Q12 #28 tab 01/13/17 Clopidogrel [Plavix] 75 mg PO DAILY #30 tab 01/13/17 Famotidine [Pepcid] 20 mg PO BID #60 tab 01/13/17 Fluticasone/Salmeterol 100/50 1 puff IH Q12 #1 puff 01/13/17 [Advair Diskus 100/50] Levothyroxine [Synthroid] 225 mcg PO DAILY@0630 #30 tab 01/13/17 Lidocaine 5% [Lidoderm] 1 ea TD DAILY@2100 #30 patch 01/13/17 Metoprolol Tartrate [Lopressor] 50 mg PO DAILY #30 tab 01/13/17 Montelukast [Singulair] 10 mg PO DAILY #30 tab 01/13/17 Nitrofurantoin Macrocrystals 100 mg PO BID #20 cap 06/04/17 [Macrobid] Phenazopyridine HCl [Pyridium] 100 mg PO TID #6 tab 06/04/17 - Allergies Allergies/Adverse Reactions: Allergies Allergy/AdvReac Type Severity Reaction Status Date / Time No Known Allergies Allergy Verified 12/21/16 16:18 Review of Systems ROS Statement: Except As Marked, All Systems Reviewed And Found Negative Constitutional: Negative for: Fever, Chills Gastrointestinal: Negative for: Nausea, Vomiting, Diarrhea Genitourinary Female: Positive for: Dysuria (burning), Frequency Musculoskeletal: Negative for: Back Pain Physical Exam - Reviewed Nursing Documentation Reviewed: Yes Vital Signs Reviewed: Yes - Physical Exam Appears: Positive for: Non-toxic, No Acute Distress Head Exam: Positive for: ATRAUMATIC, NORMOCEPHALIC Skin: Positive for: Normal Color, Warm, Dry Eye Exam: Positive for: EOMI, Normal appearance, PERRL Neck: Positive for: Normal, Painless ROM, Supple Cardiovascular/Chest: Positive for: Regular Rate, Rhythm. Negative for: Murmur Respiratory: Positive for: Normal Breath Sounds. Negative for: Accessory Muscle Use, Respiratory Distress Gastrointestinal/Abdominal: Positive for: Normal Exam, Soft. Negative for: Tenderness (no suprapubic tenderness) Back: Positive for: Normal Inspection. Negative for: L CVA Tenderness, R CVA Tenderness, Vertebral Tenderness Extremity: Positive for: Normal ROM, Capillary Refill (< 2 sec). Negative for: Pedal Edema, Deformity Neurologic/Psych: Positive for: Alert, Oriented (x3) - ECG O2 Sat by Pulse Oximetry: 96 (RA) Pulse Ox Interpretation: Normal Medical Decision Making Medical Decision Making: Time: 22:02 Initial Impression: 86 year old female with dysuria, in setting of history of frequent UTIs Initial Plan: --Urine dip --Urinalysis --Urine Culture Time: 22:55 Urine reviewed is indicative of UTI. Previous urine cultures reviewed, and patient has been sensitive to Macrobid in the past. Given initial dose of Macrobid and pyridium in the ED, and provided with samples. Patient will follow up with urology on Tuesday. Scribe Attestation: Documented by Nel Belle, acting as a scribe for Ty Smiley MD Provider Scribe Attestation: All medical record entries made by the Scribe were at my direction and personally dictated by me. I have reviewed the chart and agree that the record accurately reflects my personal performance of the history, physical exam, medical decision making, and the department course for this patient. I have also personally directed, reviewed, and agree with the discharge instructions and disposition. Disposition - Clinical Impression Clinical Impression: UTI (urinary tract infection) - Patient ED Disposition Is Patient to be Admitted: No Counseled Patient/Family Regarding: Studies Performed, Diagnosis, Need For Followup, Rx Given - Disposition Referrals: Elva Harrison MD [Family Provider] - Disposition: Routine/Home Disposition Time: 22:54 Condition: STABLE Prescriptions: Nitrofurantoin Macrocrystals [Macrobid] 100 mg PO BID #20 cap Phenazopyridine HCl [Pyridium] 100 mg PO TID #6 tab Instructions: Urinary Tract Infection in Women (ED) Forms: [facility] ([place])
[2017-06-04 23:59] LABS: RBC URINE 19 /hpf (0-3); URINE BACTERIA MANY (<OCC); URINE BILIRUBIN NEGATIVE (NEGATIVE); URINE BLOOD MODERATE (NEGATIVE); URINE COLOR YELLOW (YELLOW); URINE GLUCOSE (UA) NEG (Normal); URINE KETONE NEGATIVE (NEGATIVE); URINE LEUKOCYTE ESTERASE LARGE Leu/uL (Negative); URINE PROTEIN 30 mg/dL (NEGATIVE); URINE UROBILINOGEN 0.2-1.0 mg/dL (0.2-1.0); WBC URINE 680 /hpf (0-5)
== END 2017-06-04 23:20 | disposition home or self-care (01) ==
LOC: SUPCPDRO 21:36 → H.ER 21:36
DX: N39.0 Urinary tract infection, site not specified (principal); Z87.440 Personal history of urinary (tract) infections; J44.9 Chronic obstructive pulmonary disease, unspecified; N18.9 Chronic kidney disease, unspecified; I50.9 Heart failure, unspecified; Z85.038 Personal history of other malignant neoplasm of large intestine; Z86.59 Personal history of other mental and behavioral disorders; Z79.82 Long term (current) use of aspirin; Z95.5 Presence of coronary angioplasty implant and graft; E78.00 Pure hypercholesterolemia, unspecified; E03.9 Hypothyroidism, unspecified

== ENCOUNTER 2017-12-01 18:13 | Observation (INO) | payer MEDICARE, OTHER ==
[2017-12-01 18:13] VITALS: BMI 25.7
[2017-12-01] MEDS ORDERED: Iohexol 240 (50 ml) PO ONE (19:55)
[2017-12-01] MEDS ORDERED: Sodium Chloride 0.9% 1,000 ML IV STA ×2 (19:56→19:57)
[2017-12-01] MEDS ORDERED: Iohexol 240 (50 ml) ONE (20:10)
[2017-12-01 20:13] LABS: BASO # 0.1 K/uL (0.0-0.2); BASO % 1.3 % (0.0-2.0); EOS # 0.1 K/uL (0.0-0.7); EOS % 1.6 % (0.0-4.0); HEMOGLOBIN 11.9 g/dL (12.0-16.0); LYMPH # 2.7 K/uL (1.0-4.3); LYMPH % 30.7 % (20.0-40.0); MEAN CELL VOLUME 90.5 fl (81.0-99.0); MEAN CORPUSCULAR HEMOGLOBIN 30.3 pg (27.0-31.0); MEAN CORPUSCULAR HGB CONC 33.5 g/dL (33.0-37.0); MEAN PLATELET VOLUME 7.4 fl (7.2-11.7); MONO # 0.9 K/uL (0.0-0.8); MONO % 9.8 % (0.0-10.0); NEUT % 56.6 % (50.0-75.0); RBC 3.92 Mil/uL (3.80-5.20); RED CELL DISTRIBUTION WIDTH 14.8 % (11.5-14.5); WHITE BLOOD COUNT 8.8 K/uL (4.8-10.8)
[2017-12-01 20:30] LABS: ALBUMIN 3.9 g/dL (3.5-5.0); CALCIUM 9.1 mg/dL (8.4-10.2)
--- NOTE | 2017-12-01 21:11 | ED PDOC ---
HPI: Abdomen Time Seen by Provider: 12/01/17 18:20 Chief Complaint (Nursing): Abdominal Pain Chief Complaint (Provider): Abdominal Pain History Per: Patient History/Exam Limitations: no limitations Onset/Duration Of Symptoms: Other (several months) Current Symptoms Are (Timing): Still Present Additional Complaint(s): 86 y/o female with a pmhx of hypothyroidism, COPD, CAD, CKD, HTN, anemia, and hyperlipidemia who presents to the ED for evaluation of LLQ abdominal pain ongoing for several months. Patient states her pain has gotten worse in the last few days and is now radiating to her left flank and back. She denies any urinary symptoms, hematuria, fever, vomiting, or rash. PMD: Sivan Haddad Past Medical History Reviewed: Historical Data, Nursing Documentation, Vital Signs Vital Signs: Last Vital Signs Temp 98.0 F 12/03/17 07:43 Pulse 75 12/03/17 08:41 Resp 20 12/03/17 07:43 BP 122/67 12/03/17 08:41 Pulse Ox 96 12/03/17 07:43 - Medical History PMH: Anemia, Anxiety, Arthritis, Asthma, CAD, CHF, COPD, Depression, Diverticulitis, GERD, HTN, Hypercholesterolemia, Hypothyroidism, Malignancy ( Colon Cancer), Chronic Kidney Disease Denies: HIV - Surgical History Surgical History: Appendectomy, Cholecystectomy, 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, 10 years [employer]), 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 Other surgeries: Thyroid surgery, knee surgery - Family History Family History: States: Unknown Family Hx - Social History Ex-Smoker (has not smoked in the last 12 months): Yes Alcohol: None Drugs: Denies - Immunization History Hx Tetanus Toxoid Vaccination: No Hx Influenza Vaccination: Yes (04/2014) Hx Pneumococcal Vaccination: Yes (2010) - Home Medications Home Medications: Ambulatory Orders Medication Instructions Recorded Albuterol HFA [Ventolin HFA 90 1 puff INH RQ6 PRN #1 inhaler 12/29/16 mcg/actuation (8 g)] Atorvastatin [Lipitor] 40 mg PO HS #30 tab 12/29/16 Clopidogrel [Plavix] 75 mg PO DAILY #30 tab 01/13/17 Fluticasone/Salmeterol 100/50 1 puff IH Q12 #1 puff 01/13/17 [Advair Diskus 100/50] Levothyroxine [Synthroid] 225 mcg PO DAILY@0630 #30 tab 01/13/17 Lidocaine 5% [Lidoderm] 1 ea TD DAILY@2100 #30 patch 01/13/17 Metoprolol Tartrate [Lopressor] 50 mg PO DAILY #30 tab 01/13/17 Montelukast [Singulair] 10 mg PO DAILY #30 tab 01/13/17 Esomeprazole Magnesium [Nexium] 40 mg PO DAILY 12/02/17 Acetaminophen [Tylenol 325mg tab] 650 mg PO Q6 PRN tab 12/03/17 Acetaminophen [Tylenol 325mg tab] 650 mg PO Q6 PRN tab 12/03/17 Ciprofloxacin [Cipro] 500 mg PO DAILY #10 tab 12/03/17 Famotidine [Pepcid] 20 mg PO BID tab 12/03/17 Metronidazole [Flagyl] 500 mg PO TID #30 tab 12/03/17 Sodium Bicarbonate Tab 650 mg PO DAILY #10 tab 12/03/17 - Allergies Allergies/Adverse Reactions: Allergies Allergy/AdvReac Type Severity Reaction Status Date / Time No Known Allergies Allergy Verified 12/21/16 16:18 Review of Systems ROS Statement: Except As Marked, All Systems Reviewed And Found Negative Constitutional: Negative for: Fever Gastrointestinal: Positive for: Abdominal Pain. Negative for: Vomiting Genitourinary Female: Negative for: Dysuria, Frequency, Incontinence, Hematuria Musculoskeletal: Positive for: Back Pain Skin: Negative for: Rash Physical Exam - Reviewed Nursing Documentation Reviewed: Yes Vital Signs Reviewed: Yes - Physical Exam Appears: Positive for: Non-toxic, No Acute Distress Head Exam: Positive for: ATRAUMATIC, NORMAL INSPECTION, NORMOCEPHALIC Skin: Positive for: Normal Color, Warm, Dry. Negative for: Rash Eye Exam: Positive for: EOMI, Normal appearance, PERRL Neck: Positive for: Normal, Painless ROM, Supple Cardiovascular/Chest: Positive for: Regular Rate, Rhythm. Negative for: Murmur Respiratory: Positive for: Normal Breath Sounds. Negative for: Respiratory Distress Gastrointestinal/Abdominal: Positive for: Tenderness (LLQ, mild) Back: Positive for: Other (left flank tenderness) Extremity: Positive for: Normal ROM. Negative for: Pedal Edema, Deformity Neurologic/Psych: Positive for: Alert, Oriented. Negative for: Motor/Sensory Deficits - Laboratory Results Result Diagrams: 12/03/17 06:30 12/03/17 06:30 - ECG O2 Sat by Pulse Oximetry: 97 (RA) Pulse Ox Interpretation: Normal Medical Decision Making Medical Decision Making: Initial Impression: flank and abdominal pain r/o diverticulitis, r/o stones, r/ o intra-abdominal infection, r/o pyelonephritis Plan: --CT abdomen and pelvis w/ IV contrast --CMP --Lipase --CBC --Morphine 1mg IV --1LNS --Iohexol 50ml IVP --Zofran ODT 4mg PO --Reevaluation 23:[address] scan. 23:23 CT abd/pelvis FINDINGS: LUNG BASES: Tiny bulla or pneumatoceles in the right lung base. MEDIASTINUM: Small hiatal hernia. ABDOMEN: LIVER: No acute abnormality of the liver identified. GALLBLADDER AND BILE DUCTS: Gallbladder is not seen, and is reportedly surgically absent. PANCREAS: No CT evidence of acute pancreatitis. SPLEEN: No acute abnormality of the spleen identified. ADRENALS: No acute abnormality of the adrenal glands identified. KIDNEYS AND URETERS: Bilateral hydroureteronephrosis, moderate to severe on the right and mild on the left, stable to mildly worsened compared to the previous exam. No causative obstructing stones are seen. Bilateral perinephric stranding, a nonspecific finding. No renal stones, hydronephrosis, or hydroureter seen. STOMACH AND BOWEL: Mild fat stranding and infiltration, consistent with inflammatory change, is seen in the fat adjacent to the mid descending colon. Segmental wall thickening of the colon is also noted in this same area. The inflammatory changes surround a colonic diverticulum. Findings are most compatible with acute diverticulitis. No evidence of significant focal fluid collection or abscess. No definite nearby extraluminal air seen to suggest perforation. Extensive colonic diverticulosis noted. Surgical suture line/surgical anatomosis is noted in the sigmoid colon. Otherwise, no significant abnormality of the bowel is identified. No evidence of small bowel obstruction. Otherwise, no significant abnormality of the bowel is identified. PELVIS: APPENDIX: Normal appendix is not seen, and there is a reported history of previous appendectomy. BLADDER: Bladder has a lobulated contour, suspicious for bladder diverticulosis , secondary to chronic bladder outlet obstruction. Its wall is mildly thickened, especially at the upper aspect of the bladder. No evidence of bladder calculi. REPRODUCTIVE:No acute abnormality of the reproductive organs is seen. No acute abnormality of the uterus identified. No evidence of large adnexal masses. ABDOMEN and PELVIS: INTRAPERITONEAL SPACE: No evidence of free fluid or free air. BONES/JOINTS: Bony structures appear demineralized. SOFT TISSUES: Umbilical hernia, containing only fat, measuring 3.[address] findings to suggest hernia incarceration, although clinical exam is more sensitive for detection of hernia incarceration. No evidence of bowel herniation. VASCULATURE: Extensive atherosclerotic calcification. No evidence of abdominal aortic aneurysm. LYMPH NODES: No evidence of diffuse lymphadenopathy. IMPRESSION: - Findings compatible with acute diverticulitis of the mid descending colon. No evidence of abscess formation or perforation. - Bilateral hydroureteronephrosis, greater on the right, cause not identified. Chronic bladder outlet obstruction is a possible etiology, as bilateral hydronephrosis was also seen on a prior CT, and there is evidence of bladder diverticulosis. - Bladder wall thickening. In an acute setting, this could be secondary to cystitis. Recommend clinical correlation. - See above for remaining findings. Patient will be admitted for acute diverticulitis. 00:28 Dr. Paz, hospitalist, consulted regarding patient. chairman president and chief executive officer consulted for GI and surgery crew leader/control room operator. Scribe Attestation: Documented by Toribio Sky and Thomas Romero, acting as a scribe for Demetrius Gaspar MD. Scribdieter Attestation: All medical record entries made by the Scribe were at my direction and personally dictated by me. I have reviewed the chart and agree that the record accurately reflects my personal performance of the history, physical exam, medical decision making, and the department course for this patient. I have also personally directed, reviewed, and agree with the discharge instructions and disposition. Disposition - Clinical Impression Clinical Impression: Diverticulitis - Patient ED Disposition Is Patient to be Admitted: Yes Counseled Patient/Family Regarding: Studies Performed, Diagnosis - Disposition Disposition Time: 22:00 Condition: STABLE
[2017-12-01] MEDS ORDERED: Famotidine 20mg/50ml 20 MG/50 ML BAG IVPB ONE (21:30)
[2017-12-01] MEDS ORDERED: Famotidine 20mg/50ml Premix IVPB STA (21:33)
--- NOTE | 2017-12-01 23:23 | CT ---
EXAM: CT Abdomen and Pelvis With Intravenous Contrast EXAM DATE/TIME: 12/01/2017 10:30 PM CLINICAL HISTORY: 86 years old, female; Pain; Abdominal pain; Localized; Left lower quadrant (llq); Prior surgery; Surgery date: 6+ months; Surgery type: Gb removed. Append. Removed; Patient HX: Colon ca. ; Additional info: Abd pain TECHNIQUE: Axial computed tomography images of the abdomen and pelvis with intravenous contrast. All CT scans at this facility use one or more dose reduction techniques, viz.: automated exposure control; ma/kV adjustment per patient size (including targeted exams where dose is matched to indication; i.e. head); or iterative reconstruction technique. Coronal and sagittal reformatted images were created and reviewed. COMPARISON: Prior CT abdomen and pelvis of 2015-10-17 FINDINGS: LUNG BASES: Tiny bulla or pneumatoceles in the right lung base. MEDIASTINUM: Small hiatal hernia. ABDOMEN: LIVER: No acute abnormality of the liver identified. GALLBLADDER AND BILE DUCTS: Gallbladder is not seen, and is reportedly surgically absent. PANCREAS: No CT evidence of acute pancreatitis. SPLEEN: No acute abnormality of the spleen identified. ADRENALS: No acute abnormality of the adrenal glands identified. KIDNEYS AND URETERS: Bilateral hydroureteronephrosis, moderate to severe on the right and mild on the left, stable to mildly worsened compared to the previous exam. No causative obstructing stones are seen. Bilateral perinephric stranding, a nonspecific finding. No renal stones, hydronephrosis, or hydroureter seen. STOMACH AND BOWEL: Mild fat stranding and infiltration, consistent with inflammatory change, is seen in the fat adjacent to the mid descending colon. Segmental wall thickening of the colon is also noted in this same area. The inflammatory changes surround a colonic diverticulum. Findings are most compatible with acute diverticulitis. No evidence of significant focal fluid collection or abscess. No definite nearby extraluminal air seen to suggest perforation. Extensive colonic diverticulosis noted. Surgical suture line/surgical anatomosis is noted in the sigmoid colon. Otherwise, no significant abnormality of the bowel is identified. No evidence of small bowel obstruction. Otherwise, no significant abnormality of the bowel is identified. PELVIS: APPENDIX: Normal appendix is not seen, and there is a reported history of previous appendectomy. BLADDER: Bladder has a lobulated contour, suspicious for bladder diverticulosis, secondary to chronic bladder outlet obstruction. Its wall is mildly thickened, especially at the upper aspect of the bladder. No evidence of bladder calculi. REPRODUCTIVE:No acute abnormality of the reproductive organs is seen. No acute abnormality of the uterus identified. No evidence of large adnexal masses. ABDOMEN and PELVIS: INTRAPERITONEAL SPACE: No evidence of free fluid or free air. BONES/JOINTS: Bony structures appear demineralized. SOFT TISSUES: Umbilical hernia, containing only fat, measuring 3.[address] findings to suggest hernia incarceration, although clinical exam is more sensitive for detection of hernia incarceration. No evidence of bowel herniation. VASCULATURE: Extensive atherosclerotic calcification. No evidence of abdominal aortic aneurysm. LYMPH NODES: No evidence of diffuse lymphadenopathy. IMPRESSION: - Findings compatible with acute diverticulitis of the mid descending colon. No evidence of abscess formation or perforation. - Bilateral hydroureteronephrosis, greater on the right, cause not identified. Chronic bladder outlet obstruction is a possible etiology, as bilateral hydronephrosis was also seen on a prior CT, and there is evidence of bladder diverticulosis. - Bladder wall thickening. In an acute setting, this could be secondary to cystitis. Recommend clinical correlation. - See above for remaining findings.
[2017-12-01 23:55] LABS: URINE BACTERIA MANY (<OCC); URINE BILIRUBIN NEGATIVE (NEGATIVE); URINE BLOOD SMALL (NEGATIVE); URINE CLARITY SLIGHTY-CLOUDY (Clear); URINE COLOR YELLOW (YELLOW); URINE GLUCOSE (UA) NEG (Normal); URINE LEUKOCYTE ESTERASE LARGE Leu/uL (Negative); URINE PROTEIN 30 mg/dL (NEGATIVE); URINE UROBILINOGEN 0.2-1.0 mg/dL (0.2-1.0)
[2017-12-02] MEDS ORDERED: metroNIDAZOLE 500mg/100ml NS 100 ML IVPB STA (00:08)
--- NOTE | 2017-12-02 00:08 | CP.PCM.HP ---
History of Present Illness - History of Present Illness History of Present Illness: CC: LLQ pain HPI: This is an 86 y/o female with multiple chronic medical problems as noted below and multiple prior admissions for diverticulitis, who comes in with several days of LLQ pain radiating to the back. Denies f/c/n/v/d. Denies blood in stool. Nothing makes her symptoms better or worse. She has no other complaints or concerns at this time. ROS: 14 point ROS negative other than HPI MHx: CAD s/p 2 stents, Asthma/COPD, HTN, hyperlipidemia, hypothyroid, chronic UTIs, diverticulosis; hx of colon cancer SHx: cardiac stents, partial colectomy, b/l knee replacement, bladder lift then a reversal, repair of rectal prolapse, thyroidectomy, cholecystecomy, appendectomy Allergies: She claims none; states oxycodone is not a real allergy Medications: See below Family Hx: None Social Hx: Lives at home, no EtOH, no tobacco Surrogate Decision Maker: Son, Present on Admission - Present on Admission Any Indicators Present on Admission: No Past Patient History - Infectious Disease Hx of Infectious Diseases: None - Tetanus Immunizations Tetanus Immunization: Unknown - Past Medical History & Family History Past Medical History?: Yes - Past Social History Alcohol: None Drugs: Denies - CARDIAC Hx Congestive Heart Failure: Yes Hx Hypercholesterolemia: Yes Hx Hypertension: Yes - PULMONARY Hx Asthma: Yes Hx Chronic Obstructive Pulmonary Disease (COPD): Yes - NEUROLOGICAL Hx Neurological Disorder: No - HEENT Other/Comment: HARD OF HEARING - RENAL Hx Chronic Kidney Disease: Yes - ENDOCRINE/METABOLIC Hx Hypothyroidism: Yes - HEMATOLOGICAL/ONCOLOGICAL Hx Anemia: Yes Hx Human Immunodeficiency Virus (HIV): No - INTEGUMENTARY Hx Dermatological Problems: No - MUSCULOSKELETAL/RHEUMATOLOGICAL Hx Arthritis: Yes - GASTROINTESTINAL Hx Diverticulitis: Yes - GENITOURINARY/GYNECOLOGICAL Hx Genitourinary Disorders: Yes - PSYCHIATRIC Hx Anxiety: Yes Hx Depression: Yes - SURGICAL HISTORY Hx Appendectomy: Yes Hx Cholecystectomy: Yes 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, 10 years [employer]) Hx 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: Yes - ANESTHESIA Hx Anesthesia: Yes Hx Anesthesia Reactions: No Hx Malignant Hyperthermia: No Meds Allergies/Adverse Reactions: Allergies Allergy/AdvReac Type Severity Reaction Status Date / Time No Known Allergies Allergy Verified 12/21/16 16:18 Physical Exam - Constitutional Appears: No Acute Distress - Head Exam Head Exam: ATRAUMATIC, NORMOCEPHALIC - Eye Exam Eye Exam: EOMI, PERRL - ENT Exam ENT Exam: Mucous Membranes Dry - Neck Exam Neck exam: Positive for: Full Rom - Respiratory Exam Respiratory Exam: Clear to Auscultation Bilateral, NORMAL BREATHING PATTERN - Cardiovascular Exam Cardiovascular Exam: REGULAR RHYTHM, +S1, +S2 - GI/Abdominal Exam GI & Abdominal Exam: Normal Bowel Sounds, Soft, Tenderness - Extremities Exam Extremities exam: Positive for: full ROM, normal inspection - Neurological Exam Neurological exam: Alert, CN II-XII Intact, Oriented x3 - Psychiatric Exam Psychiatric exam: Normal Affect, Normal Mood - Skin Skin Exam: Dry, Warm Results - Vital Signs Recent Vital Signs: Last Vital Signs Temp 99.1 F 12/01/17 18:15 Pulse 82 12/01/17 18:15 Resp 18 12/01/17 18:15 BP 128/78 12/01/17 18:15 Pulse Ox 97 12/02/17 00:06 - Labs Result Diagrams: 12/01/17 19:55 12/01/17 19:55 Labs: Laboratory Results - last 24 hr 12/01/17 12/01/17 12/01/17 19:55 19:55 23:50 WBC 8.8 RBC 3.92 Hgb 11.9 L D Hct 35.5 MCV 90.5 MCH 30.3 MCHC 33.5 RDW 14.8 H Plt Count 267 MPV 7.4 Neut % (Auto) 56.6 Lymph % (Auto) 30.7 [place] % (Auto) 9.8 Eos % (Auto) 1.6 Baso % (Auto) 1.3 Neut # (Auto) 5.0 Lymph # (Auto) 2.7 [place] # (Auto) 0.9 H Eos # (Auto) 0.1 Baso # (Auto) 0.1 Sodium 142 Potassium 4.3 Chloride 102 Carbon Dioxide 24 Anion Gap 20 BUN 36 H Creatinine 2.3 H Est GFR ( Amer) 24 Est GFR (Non-Af Amer) 20 Random Glucose 112 H Calcium 9.1 Total Bilirubin 0.6 AST 44 H ALT 24 Alkaline Phosphatase 97 Total Protein 7.7 Albumin 3.9 Globulin 3.8 Albumin/Globulin Ratio 1.0 Lipase 232 Urine Color Yellow Urine Clarity Slighty-cloudy Urine pH 6.0 Ur Specific [place] 1.011 Urine Protein 30 Urine Glucose (UA) Neg Urine Ketones Negative Urine Blood Small Urine Nitrate Negative Urine Bilirubin Negative Urine Urobilinogen 0.2-1.0 Ur Leukocyte Esterase Large Urine RBC (Auto) 6 H Urine Microscopic WBC 227 H Urine Bacteria Many H - Imaging and Cardiology CT scan - abdomen Status: Image reviewed by me, Report reviewed by me (acute diverticulitis, hydroureteronephrosis R>L, bladder thickening) Assessment & Plan (1) Diverticulitis Assessment and Plan: 86 y/o female with multiple past episodes of diverticulitis, again presenting with diverticulitis. 1) Diverticulitis -Continue Ceftriaxone and Flagyl IV -Pain control per scale PRN -GI and surgery consults placed by ED 2) UTI -obtain urine culture -Ceftriaxone will cover 2) AoC Renal insufficiency -- Cr looks somewhat worse than prior -Gentle hydration overnight -Dose medications renally -Hydronephrosis may be chronic, but consider Urology consult given worsening Cr 4) DVT PPx -- SCDs for now Status: Acute (2) Acute on chronic renal insufficiency Status: Acute (3) UTI (urinary tract infection) Status: Acute (4) DVT prophylaxis Status: Acute
[2017-12-02] MEDS ORDERED: metroNIDAZOLE 500mg/100ml NS 100 ML IVPB SCH (00:15)
[2017-12-02] MEDS ORDERED: cefTRIAXone (Rocephin) 1 gm Inj ONE (00:16)
[2017-12-02] MEDS ORDERED: Oxycodone/Acetaminophen 5/325 mg Tab PO PRN (00:18)
[2017-12-02] MEDS ORDERED: Albuterol HFA 90 mcg/actuation (8 g) INH PRN (00:21)
[2017-12-02] MEDS: Sodium Chloride 0.9% 1,000 ML IV SCH ×2 (02:45→16:56)
--- NOTE | 2017-12-02 02:45 | CP.PCM.CON ---
Addendum entered and electronically signed by Levi Dale DO 12/02/17 10:42: Pt is tolerating regular diet. Pain improved. No leukocytosis. Afebrile -No surgical intervention. -Pt is high risk for surgery. -GI follow up for out pt colonoscopy -Recommend high fiber diet. -fiber supplement/ stool softer for constipation -We will sign off DW Dr. Hendrickson Original Note: <Jordon Bardales - Last Filed: 12/02/17 06:05> History of Present Illness - History of Present Illness History of Present Illness: General Surgery Consult Note: Dr. Hendrickson 86F with PMHx of HTN, COPD, asthma, CAD s/p 2 stents, chronic UTIs, diverticulosis, colon CA s/p sigmoid resection (20+years ago), presented to [facility] ED with complaints of abdominal pain. Patient reports abdominal pain began about 2 days ago. Reports pain as cramping in nature. Patient states pain began along her left lower quadrant and proceeded to radiate towards her back. She denies having fever/chills, nausea/vomiting/diarrhea. Patient also denied hematochezia. At time of examination patient's vitals were reviewed and within normal limits. Patient cannot remember the last time she had a colonoscopy. PMHx: as stated above SurgHx: partial colectomy,thyroidectomy, cholecystecomy,appendectomy,b/l knee replacement, repair of rectal prolapse Allergies: NKDA Fam Hx: non-contributory Review of Systems - Review of Systems Review of Systems: 12 pt ROS reviewed, unremarkable, except as stated in HPI Past Patient History - Infectious Disease Hx of Infectious Diseases: None - Tetanus Immunizations Tetanus Immunization: Unknown - Past Medical History & Family History Past Medical History?: Yes - Past Social History Alcohol: None Drugs: Denies - CARDIAC Hx Cardiac Disorders: Yes - PULMONARY Hx Respiratory Disorders: Yes - NEUROLOGICAL Hx Neurological Disorder: No - HEENT Other/Comment: HARD OF HEARING - RENAL Hx Chronic Kidney Disease: Yes - ENDOCRINE/METABOLIC Hx Hypothyroidism: Yes - HEMATOLOGICAL/ONCOLOGICAL Hx Anemia: Yes Hx Human Immunodeficiency Virus (HIV): No - INTEGUMENTARY Hx Dermatological Problems: No - MUSCULOSKELETAL/RHEUMATOLOGICAL Hx Arthritis: Yes - GASTROINTESTINAL Hx Diverticulitis: Yes - GENITOURINARY/GYNECOLOGICAL Hx Genitourinary Disorders: Yes - PSYCHIATRIC Hx Psychophysiologic Disorder: Yes - SURGICAL HISTORY Hx Appendectomy: Yes Hx Cholecystectomy: Yes 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, 10 years [employer]) Hx 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: Yes - ANESTHESIA Hx Anesthesia: Yes Hx Anesthesia Reactions: No Hx Malignant Hyperthermia: No Meds Allergies/Adverse Reactions: Allergies Allergy/AdvReac Type Severity Reaction Status Date / Time No Known Allergies Allergy Verified 12/21/16 16:18 - Medications Medications: Current Medications Acetaminophen (Tylenol 325mg Tab) 650 mg PO Q6 PRN PRN Reason: Pain, Mild (1-3) Acetaminophen (Tylenol 325mg Tab) 650 mg PO Q6 PRN PRN Reason: Fever >100.4 F Albuterol (Ventolin Hfa 90 Mcg/Actuation (8 G)) 1 puff INH RQ6 PRN PRN Reason: Wheezing Aspirin (Aspirin) 325 mg PO DAILY TAY Atorvastatin Calcium (Lipitor) 40 mg PO HS TAY Clopidogrel Bisulfate (Plavix) 75 mg PO DAILY TAY Famotidine (Pepcid) 20 mg PO BID [facility] Metronidazole (Flagyl 500mg/100ml Ns) 100 mls @ 100 mls/hr IVPB Q8 TAY PRN Reason: Protocol Ceftriaxone Sodium 1 gm/ (Sodium Chloride) 100 mls @ 100 mls/hr IVPB DAILY TAY PRN Reason: Protocol Levothyroxine Sodium (Synthroid) 225 mcg PO DAILY@0630 [facility] Lidocaine (Lidoderm) 1 ea TD DAILY@2100 [facility] Metoprolol Tartrate (Lopressor) 50 mg PO DAILY [facility] Montelukast Sodium (Singulair) 10 mg PO DAILY [facility] Ondansetron HCl (Zofran Odt) 4 mg PO Q8H PRN PRN Reason: Nausea/Vomiting Oxycodone/Acetaminophen (Percocet 5/325 Mg Tab) 1 tab PO Q6 PRN PRN Reason: Pain, moderate (4-7) Stop: 12/05/17 00:19 Fluticasone/Salmeterol (Advair Diskus 100/50) 1 puff IH Q12 TAY Physical Exam - Constitutional Appears: No Acute Distress - Head Exam Head Exam: NORMAL INSPECTION, NORMOCEPHALIC - Eye Exam Eye Exam: Normal appearance - ENT Exam ENT Exam: Mucous Membranes Dry - Respiratory Exam Respiratory Exam: NORMAL BREATHING PATTERN - Cardiovascular Exam Cardiovascular Exam: +S1, +S2 - GI/Abdominal Exam GI & Abdominal Exam: Rebound, Soft, Tenderness. absent: Distended, Firm, Guarding, Rigid Additional comments: +LLQ tenderness to deep palpation +rebound - Neurological Exam Neurological exam: Alert, Oriented x3 - Psychiatric Exam Psychiatric exam: Normal Mood - Skin Skin Exam: Dry, Intact, Warm Results - Vital Signs Recent Vital Signs: Last Vital Signs Temp 97.9 F 12/02/17 02:26 Pulse 56 L 12/02/17 02:26 Resp 18 12/02/17 02:26 BP 134/60 12/02/17 02:26 Pulse Ox 98 12/02/17 02:26 - Labs Result Diagrams: 12/01/17 19:55 12/01/17 19:55 Labs: Laboratory Results - last 24 hr 12/01/17 12/01/17 12/01/17 19:55 19:55 23:50 WBC 8.8 RBC 3.92 Hgb 11.9 L D Hct 35.5 MCV 90.5 MCH 30.3 MCHC 33.5 RDW 14.8 H Plt Count 267 MPV 7.4 Neut % (Auto) 56.6 Lymph % (Auto) 30.7 [place] % (Auto) 9.8 Eos % (Auto) 1.6 Baso % (Auto) 1.3 Neut # (Auto) 5.0 Lymph # (Auto) 2.7 [place] # (Auto) 0.9 H Eos # (Auto) 0.1 Baso # (Auto) 0.1 Sodium 142 Potassium 4.3 Chloride 102 Carbon Dioxide 24 Anion Gap 20 BUN 36 H Creatinine 2.3 H Est GFR ( Amer) 24 Est GFR (Non-Af Amer) 20 Random Glucose 112 H Calcium 9.1 Total Bilirubin 0.6 AST 44 H ALT 24 Alkaline Phosphatase 97 Total Protein 7.7 Albumin 3.9 Globulin 3.8 Albumin/Globulin Ratio 1.0 Lipase 232 Urine Color Yellow Urine Clarity Slighty-cloudy Urine pH 6.0 Ur Specific [place] 1.011 Urine Protein 30 Urine Glucose (UA) Neg Urine Ketones Negative Urine Blood Small Urine Nitrate Negative Urine Bilirubin Negative Urine Urobilinogen 0.2-1.0 Ur Leukocyte Esterase Large Urine RBC (Auto) 6 H Urine Microscopic WBC 227 H Urine Bacteria Many H Assessment & Plan - Assessment and Plan (Free Text) Assessment: 86F with diverticulitis Plan: NPO IVF ABx Analgesic/Anti-emetic prn Serial abdominal exams F/u GI recs Further recs per Dr. Emeka THAKKAR PGY2 <Hector Hendrickson - Last Filed: 12/03/17 13:26> Meds - Medications Medications: Current Medications Acetaminophen (Tylenol 325mg Tab) 650 mg PO Q6 PRN PRN Reason: Pain, Mild (1-3) Last Admin: 12/02/17 20:23 Dose: 650 mg Acetaminophen (Tylenol 325mg Tab) 650 mg PO Q6 PRN PRN Reason: Fever >100.4 F Albuterol (Ventolin Hfa 90 Mcg/Actuation (8 G)) 1 puff INH RQ6 PRN PRN Reason: Wheezing Aspirin (Aspirin) 325 mg PO DAILY [facility] Last Admin: 12/02/17 08:38 Dose: 325 mg Atorvastatin Calcium (Lipitor) 40 mg PO HS [facility] Last Admin: 12/02/17 21:28 Dose: 40 mg Clopidogrel Bisulfate (Plavix) 75 mg PO DAILY [facility] Last Admin: 12/03/17 08:38 Dose: 75 mg Famotidine (Pepcid) 20 mg PO BID [facility] Last Admin: 12/03/17 08:38 Dose: 20 mg Metronidazole (Flagyl 500mg/100ml Ns) 100 mls @ 100 mls/hr IVPB Q8 [facility] PRN Reason: Protocol Last Admin: 12/03/17 08:35 Dose: 100 mls/hr Ceftriaxone Sodium 1 gm/ (Sodium Chloride) 100 mls @ 100 mls/hr IVPB DAILY [facility] PRN Reason: Protocol Last Admin: 12/03/17 08:30 Dose: 100 mls/hr Levothyroxine Sodium (Synthroid) 225 mcg PO DAILY@0630 [facility] Last Admin: 12/03/17 05:35 Dose: 225 mcg Lidocaine (Lidoderm) 1 ea TD DAILY@2100 [facility] Last Admin: 12/02/17 21:41 Dose: 1 ea Metoprolol Tartrate (Lopressor) 50 mg PO DAILY [facility] Last Admin: 12/03/17 08:41 Dose: 50 mg Montelukast Sodium (Singulair) 10 mg PO DAILY [facility] Last Admin: 12/03/17 08:37 Dose: 10 mg Ondansetron HCl (Zofran Odt) 4 mg PO Q8H PRN PRN Reason: Nausea/Vomiting Last Admin: 05/25/18 08:37 Dose: 4 mg Oxycodone/Acetaminophen (Percocet 5/325 Mg Tab) 1 tab PO Q6 PRN PRN Reason: Pain, moderate (4-7) Stop: 12/05/17 00:19 Last Admin: 12/02/17 05:53 Dose: 1 tab Fluticasone/Salmeterol (Advair Diskus 100/50) 1 puff IH Q12 TAY Last Admin: 12/03/17 08:37 Dose: 1 puff Sodium Bicarbonate (Sodium Bicarbonate Tab) 650 mg PO Q6 TAY Results - Vital Signs Recent Vital Signs: Last Vital Signs Temp 98.0 F 12/03/17 07:43 Pulse 75 12/03/17 08:41 Resp 20 12/03/17 07:43 BP 122/67 12/03/17 08:41 Pulse Ox 96 12/03/17 07:43 - Labs Result Diagrams: 12/03/17 06:30 12/03/17 06:30 Labs: Laboratory Results - last 24 hr 12/03/17 12/03/17 06:30 06:30 WBC 5.6 RBC 3.26 L Hgb 9.9 L Hct 29.9 L MCV 91.7 MCH 30.3 MCHC 33.1 RDW 15.1 H Plt Count 199 MPV 7.2 Neut % (Auto) 57.5 Lymph % (Auto) 29.6 [place] % (Auto) 8.8 Eos % (Auto) 3.2 Baso % (Auto) 0.9 Neut # (Auto) 3.2 Lymph # (Auto) 1.7 [place] # (Auto) 0.5 Eos # (Auto) 0.2 Baso # (Auto) 0.1 Sodium 139 Potassium 3.9 Chloride 108 H Carbon Dioxide 16 L Anion Gap 19 BUN 23 H Creatinine 1.8 H Est GFR ( Amer) 32 Est GFR (Non-Af Amer) 27 Random Glucose 97 Calcium 7.4 L Assessment & Plan - Assessment and Plan (Free Text) Plan: I personally saw and examined the patient at bedside with the resident staff and agree with the above assessment and plan. CT abd and pelvis images and reports personally reviewed. 86 F >20 years s/p left colon resection for colon CA (no operative reports available), denies and adjuvant therapy back then, has not had surveillance imaging or colonoscopy in > 5 years per her report, currently with left sided diverticulitis. This am she feels significantly better and had already been eating soft diet as i walked into room, tolerating without issues. CEA level is above high limit of normal and concerning. However we do not have prior values to compare. Instructed to follow up with GI for colonoscopy as outpatient once inflammations subsides, and further workup based upon those findings. She can see me in clinic as outpatient as well after GI work-up completed if needed. - Date & Time Date: 12/02/17
[2017-12-02] MEDS: Levothyroxine 75 MCG TAB PO SCH (05:52)
[2017-12-02 06:08] LABS: HEMOGLOBIN 10.6 g/dL (12.0-16.0); MEAN CELL VOLUME 91.5 fl (81.0-99.0); MEAN CORPUSCULAR HEMOGLOBIN 30.7 pg (27.0-31.0); MEAN CORPUSCULAR HGB CONC 33.6 g/dL (33.0-37.0); RBC 3.45 Mil/uL (3.80-5.20); RED CELL DISTRIBUTION WIDTH 14.7 % (11.5-14.5); WHITE BLOOD COUNT 8.5 K/uL (4.8-10.8)
[2017-12-02] MEDS: Fluticasone-Salmeterol 100-50mcg Diskus IH SCH ×2 (08:36→21:28)
--- NOTE | 2017-12-02 09:18 | CP.PCM.CON ---
<Bairon Moncada - Last Filed: 12/02/17 10:33> History of Present Illness - History of Present Illness History of Present Illness: PGY5 GI Fellow Consult Note Patient is an 86yo female with PMHx significant for colon cancer s/p curative partial colectomy (sigmoid) ~20 years ago, HTN, COPD, CKD, asthma, CAD s/p 2 stents, chronic UTIs, diverticulosis who presented to the ER with abdominal pain. Patient admits that for the last few weeks she has noted intermittent LLQ abdominal cramping pains. Symptoms would resolve without any intervention, thus she did not seek any medical care. Yesterday, pain became more constant and severe in the LLQ thus she came to the ED for evaluation. On CT imaging she is noted to have some mild descending diverticulitis as well as B/L hydroureteronephrosis and possible cystitis. She admits to ongoing constipation with last BM 1 day prior to arrival. Denies any weight loss, hematochezia, melena, diarrhea, fever, chills, nausea, vomiting. At present, symptoms have mostly resolved. 12 system ROS performed and negative except where stated PMHx: See HPI PSHx: Partial sigmoidectomy for colon cancer with reanastamosis, thyroidectomy, cholecystecomy, appendectomy, B/L knee replacement, repair of bladder prolapse with mesh and subsequent removal of mesh FHx: Reviewed, patient denies any significant history Social: Denies tobacco, EtOH or illicit drug use Endo: Colonoscopy over 20 years ago following surgical resection for cancer Past Patient History - Infectious Disease Hx of Infectious Diseases: None - Tetanus Immunizations Tetanus Immunization: Unknown - Past Medical History & Family History Past Medical History?: Yes - Past Social History Alcohol: None Drugs: Denies - CARDIAC Hx Cardiac Disorders: Yes - PULMONARY Hx Respiratory Disorders: Yes - NEUROLOGICAL Hx Neurological Disorder: No - HEENT Other/Comment: HARD OF HEARING - RENAL Hx Chronic Kidney Disease: Yes - ENDOCRINE/METABOLIC Hx Hypothyroidism: Yes - HEMATOLOGICAL/ONCOLOGICAL Hx Anemia: Yes Hx Human Immunodeficiency Virus (HIV): No - INTEGUMENTARY Hx Dermatological Problems: No - MUSCULOSKELETAL/RHEUMATOLOGICAL Hx Arthritis: Yes - GASTROINTESTINAL Hx Diverticulitis: Yes - GENITOURINARY/GYNECOLOGICAL Hx Genitourinary Disorders: Yes - PSYCHIATRIC Hx Psychophysiologic Disorder: Yes - SURGICAL HISTORY Hx Appendectomy: Yes Hx Cholecystectomy: Yes 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, 10 years [employer]) Hx 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: Yes - ANESTHESIA Hx Anesthesia: Yes Hx Anesthesia Reactions: No Hx Malignant Hyperthermia: No Meds Allergies/Adverse Reactions: Allergies Allergy/AdvReac Type Severity Reaction Status Date / Time No Known Allergies Allergy Verified 12/21/16 16:18 - Medications Medications: Current Medications Acetaminophen (Tylenol 325mg Tab) 650 mg PO Q6 PRN PRN Reason: Pain, Mild (1-3) Acetaminophen (Tylenol 325mg Tab) 650 mg PO Q6 PRN PRN Reason: Fever >100.4 F Albuterol (Ventolin Hfa 90 Mcg/Actuation (8 G)) 1 puff INH RQ6 PRN PRN Reason: Wheezing Aspirin (Aspirin) 325 mg PO DAILY [facility] Last Admin: 12/02/17 08:38 Dose: 325 mg Atorvastatin Calcium (Lipitor) 40 mg PO HS [facility] Clopidogrel Bisulfate (Plavix) 75 mg PO DAILY [facility] Last Admin: 12/02/17 08:38 Dose: 75 mg Famotidine (Pepcid) 20 mg PO BID [facility] Last Admin: 12/02/17 08:38 Dose: 20 mg Metronidazole (Flagyl 500mg/100ml Ns) 100 mls @ 100 mls/hr IVPB Q8 [facility] PRN Reason: Protocol Ceftriaxone Sodium 1 gm/ (Sodium Chloride) 100 mls @ 100 mls/hr IVPB DAILY [facility] PRN Reason: Protocol Sodium Chloride (Sodium Chloride 0.9%) 1,000 mls @ 75 mls/hr IV .[id number] [facility] Stop: 12/03/17 02:44 Last Admin: 12/02/17 02:45 Dose: Not Given Levothyroxine Sodium (Synthroid) 225 mcg PO DAILY@0630 [facility] Last Admin: 12/02/17 05:52 Dose: 225 mcg Lidocaine (Lidoderm) 1 ea TD DAILY@2100 [facility] Metoprolol Tartrate (Lopressor) 50 mg PO DAILY [facility] Last Admin: 12/02/17 08:38 Dose: 50 mg Montelukast Sodium (Singulair) 10 mg PO DAILY [facility] Last Admin: 12/02/17 08:38 Dose: 10 mg Ondansetron HCl (Zofran Odt) 4 mg PO Q8H PRN PRN Reason: Nausea/Vomiting Last Admin: 12/02/17 08:37 Dose: 4 mg Oxycodone/Acetaminophen (Percocet 5/325 Mg Tab) 1 tab PO Q6 PRN PRN Reason: Pain, moderate (4-7) Stop: 12/05/17 00:19 Last Admin: 12/02/17 05:53 Dose: 1 tab Fluticasone/Salmeterol (Advair Diskus 100/50) 1 puff IH Q12 [facility] Last Admin: 12/02/17 08:36 Dose: 1 puff Physical Exam - Constitutional Appears: Non-toxic, No Acute Distress - Eye Exam Eye Exam: EOMI, PERRL - ENT Exam ENT Exam: Mucous Membranes Moist - Respiratory Exam Respiratory Exam: Clear to Auscultation Bilateral. absent: Rales, Rhonchi, Wheezes - Cardiovascular Exam Cardiovascular Exam: RRR, +S1, +S2 - GI/Abdominal Exam GI & Abdominal Exam: Normal Bowel Sounds, Soft. absent: Distended, Firm, Guarding, Hernia, Organomegaly, Rigid, Tenderness Additional comments: healed surgical scars noted - Extremities Exam Extremities exam: Positive for: normal inspection. Negative for: pedal edema - Neurological Exam Neurological exam: Alert, Oriented x3 - Psychiatric Exam Psychiatric exam: Normal Affect, Normal Mood - Skin Skin Exam: Dry, Warm Results - Vital Signs Recent Vital Signs: Last Vital Signs Temp 98.1 F 12/02/17 09:00 Pulse 56 L 12/02/17 08:38 Resp 18 12/02/17 09:00 BP 103/58 L 12/02/17 09:00 Pulse Ox 95 12/02/17 09:00 - Labs Result Diagrams: 12/02/17 05:45 12/02/17 05:45 Labs: Laboratory Results - last 24 hr 12/01/17 12/01/17 12/01/17 19:55 19:55 23:50 WBC 8.8 RBC 3.92 Hgb 11.9 L D Hct 35.5 MCV 90.5 MCH 30.3 MCHC 33.5 RDW 14.8 H Plt Count 267 MPV 7.4 Neut % (Auto) 56.6 Lymph % (Auto) 30.7 [place] % (Auto) 9.8 Eos % (Auto) 1.6 Baso % (Auto) 1.3 Neut # (Auto) 5.0 Lymph # (Auto) 2.7 [place] # (Auto) 0.9 H Eos # (Auto) 0.1 Baso # (Auto) 0.1 Sodium 142 Potassium 4.3 Chloride 102 Carbon Dioxide 24 Anion Gap 20 BUN 36 H Creatinine 2.3 H Est GFR ( Amer) 24 Est GFR (Non-Af Amer) 20 Random Glucose 112 H Calcium 9.1 Total Bilirubin 0.6 AST 44 H ALT 24 Alkaline Phosphatase 97 Total Protein 7.7 Albumin 3.9 Globulin 3.8 Albumin/Globulin Ratio 1.0 Lipase 232 Carcinoembryonic Ag Urine Color Yellow Urine Clarity Slighty-cloudy Urine pH 6.0 Ur Specific [place] 1.011 Urine Protein 30 Urine Glucose (UA) Neg Urine Ketones Negative Urine Blood Small Urine Nitrate Negative Urine Bilirubin Negative Urine Urobilinogen 0.2-1.0 Ur Leukocyte Esterase Large Urine RBC (Auto) 6 H Urine Microscopic WBC 227 H Urine Bacteria Many H 12/02/17 12/02/17 12/02/17 05:45 05:45 07:50 WBC 8.5 RBC 3.45 L Hgb 10.6 L Hct 31.6 L MCV 91.5 MCH 30.7 MCHC 33.6 RDW 14.7 H Plt Count 225 MPV Neut % (Auto) Lymph % (Auto) [place] % (Auto) Eos % (Auto) Baso % (Auto) Neut # (Auto) Lymph # (Auto) [place] # (Auto) Eos # (Auto) Baso # (Auto) Sodium 143 Potassium 4.4 Chloride 108 H Carbon Dioxide 21 L Anion Gap 18 BUN 28 H Creatinine 2.0 H Est GFR ( Amer) 29 Est GFR (Non-Af Amer) 24 Random Glucose 90 Calcium 8.0 L Total Bilirubin AST ALT Alkaline Phosphatase Total Protein Albumin Globulin Albumin/Globulin Ratio Lipase Carcinoembryonic Ag 3.7 H Urine Color Urine Clarity Urine pH Ur Specific [place] Urine Protein Urine Glucose (UA) Urine Ketones Urine Blood Urine Nitrate Urine Bilirubin Urine Urobilinogen Ur Leukocyte Esterase Urine RBC (Auto) Urine Microscopic WBC Urine Bacteria Assessment & Plan - Assessment and Plan (Free Text) Assessment: Patient is an 86yo female with PMHx significant for colon cancer s/p curative partial colectomy (sigmoid) ~20 years ago, HTN, COPD, CKD, asthma, CAD s/p 2 stents, chronic UTIs, diverticulosis who presented to the ER with abdominal pain -Acute diverticulitis -H/O sigmoid colon cancer s/p curative resection 20+ years ago Plan: -Agree with current antibiotic coverage -Can advance to liquid diet and continue to advance as tolerated -Will require colonoscopy 6-8 weeks after acute illness resolves, outpatient follow up requested -If patient to be D/C recommend 7-10 days of oral antibiotics with Cipro/Flagyl - Date & Time Date: 12/02/17 Time: 07:45 <Twan Rasmussen - Last Filed: 12/02/17 10:53> Meds - Medications Medications: Current Medications Acetaminophen (Tylenol 325mg Tab) 650 mg PO Q6 PRN PRN Reason: Pain, Mild (1-3) Acetaminophen (Tylenol 325mg Tab) 650 mg PO Q6 PRN PRN Reason: Fever >100.4 F Albuterol (Ventolin Hfa 90 Mcg/Actuation (8 G)) 1 puff INH RQ6 PRN PRN Reason: Wheezing Aspirin (Aspirin) 325 mg PO DAILY [facility] Last Admin: 12/02/17 08:38 Dose: 325 mg Atorvastatin Calcium (Lipitor) 40 mg PO HS [facility] Clopidogrel Bisulfate (Plavix) 75 mg PO DAILY [facility] Last Admin: 12/02/17 08:38 Dose: 75 mg Famotidine (Pepcid) 20 mg PO BID [facility] Last Admin: 12/02/17 08:38 Dose: 20 mg Metronidazole (Flagyl 500mg/100ml Ns) 100 mls @ 100 mls/hr IVPB Q8 [facility] PRN Reason: Protocol Ceftriaxone Sodium 1 gm/ (Sodium Chloride) 100 mls @ 100 mls/hr IVPB DAILY [facility] PRN Reason: Protocol Sodium Chloride (Sodium Chloride 0.9%) 1,000 mls @ 75 mls/hr IV .[id number] [facility] Stop: 12/03/17 02:44 Last Admin: 12/02/17 02:45 Dose: Not Given Levothyroxine Sodium (Synthroid) 225 mcg PO DAILY@0630 [facility] Last Admin: 12/02/17 05:52 Dose: 225 mcg Lidocaine (Lidoderm) 1 ea TD DAILY@2100 [facility] Metoprolol Tartrate (Lopressor) 50 mg PO DAILY [facility] Last Admin: 12/02/17 08:38 Dose: 50 mg Montelukast Sodium (Singulair) 10 mg PO DAILY [facility] Last Admin: 12/02/17 08:38 Dose: 10 mg Ondansetron HCl (Zofran Odt) 4 mg PO Q8H PRN PRN Reason: Nausea/Vomiting Last Admin: 12/02/17 08:37 Dose: 4 mg Oxycodone/Acetaminophen (Percocet 5/325 Mg Tab) 1 tab PO Q6 PRN PRN Reason: Pain, moderate (4-7) Stop: 12/05/17 00:19 Last Admin: 12/02/17 05:53 Dose: 1 tab Fluticasone/Salmeterol (Advair Diskus 100/50) 1 puff IH Q12 [facility] Last Admin: 12/02/17 08:36 Dose: 1 puff Results - Vital Signs Recent Vital Signs: Last Vital Signs Temp 98.1 F 12/02/17 09:00 Pulse 56 L 12/02/17 08:38 Resp 18 12/02/17 09:00 BP 103/58 L 12/02/17 09:00 Pulse Ox 95 12/02/17 09:00 - Labs Result Diagrams: 12/02/17 05:45 12/02/17 05:45 Labs: Laboratory Results - last 24 hr 12/01/17 12/01/17 12/01/17 19:55 19:55 23:50 WBC 8.8 RBC 3.92 Hgb 11.9 L D Hct 35.5 MCV 90.5 MCH 30.3 MCHC 33.5 RDW 14.8 H Plt Count 267 MPV 7.4 Neut % (Auto) 56.6 Lymph % (Auto) 30.7 [place] % (Auto) 9.8 Eos % (Auto) 1.6 Baso % (Auto) 1.3 Neut # (Auto) 5.0 Lymph # (Auto) 2.7 [place] # (Auto) 0.9 H Eos # (Auto) 0.1 Baso # (Auto) 0.1 Sodium 142 Potassium 4.3 Chloride 102 Carbon Dioxide 24 Anion Gap 20 BUN 36 H Creatinine 2.3 H Est GFR ( Amer) 24 Est GFR (Non-Af Amer) 20 Random Glucose 112 H Calcium 9.1 Total Bilirubin 0.6 AST 44 H ALT 24 Alkaline Phosphatase 97 Total Protein 7.7 Albumin 3.9 Globulin 3.8 Albumin/Globulin Ratio 1.0 Lipase 232 Carcinoembryonic Ag Urine Color Yellow Urine Clarity Slighty-cloudy Urine pH 6.0 Ur Specific [place] 1.011 Urine Protein 30 Urine Glucose (UA) Neg Urine Ketones Negative Urine Blood Small Urine Nitrate Negative Urine Bilirubin Negative Urine Urobilinogen 0.2-1.0 Ur Leukocyte Esterase Large Urine RBC (Auto) 6 H Urine Microscopic WBC 227 H Urine Bacteria Many H 12/02/17 12/02/17 12/02/17 05:45 05:45 07:50 WBC 8.5 RBC 3.45 L Hgb 10.6 L Hct 31.6 L MCV 91.5 MCH 30.7 MCHC 33.6 RDW 14.7 H Plt Count 225 MPV Neut % (Auto) Lymph % (Auto) [place] % (Auto) Eos % (Auto) Baso % (Auto) Neut # (Auto) Lymph # (Auto) [place] # (Auto) Eos # (Auto) Baso # (Auto) Sodium 143 Potassium 4.4 Chloride 108 H Carbon Dioxide 21 L Anion Gap 18 BUN 28 H Creatinine 2.0 H Est GFR ( Amer) 29 Est GFR (Non-Af Amer) 24 Random Glucose 90 Calcium 8.0 L Total Bilirubin AST ALT Alkaline Phosphatase Total Protein Albumin Globulin Albumin/Globulin Ratio Lipase Carcinoembryonic Ag 3.7 H Urine Color Urine Clarity Urine pH Ur Specific [place] Urine Protein Urine Glucose (UA) Urine Ketones Urine Blood Urine Nitrate Urine Bilirubin Urine Urobilinogen Ur Leukocyte Esterase Urine RBC (Auto) Urine Microscopic WBC Urine Bacteria Attending/Attestation - Attestation I have personally seen and examined this patient.: Yes I have fully participated in the care of the patient.: Yes I have reviewed all pertinent clinical information: Yes Notes (Text): 12/02/17 10:51 This is a 86 yr old female with PMHx significant for colon cancer s/p curative partial colectomy (sigmoid) ~20 years ago, HTN, COPD, CKD, asthma, CAD s/p 2 stents, chronic UTIs, diverticulosis who presented to the ER with abdominal pain in setting of acute diverticulitis. She is hemodynamically stable. Physical exam with no guarding, tenderness or distension. Passing flatus and bowels. Agree with current antibiotic coverage -Can advance to liquid diet and continue to advance as tolerated -Will require colonoscopy 6-8 weeks after acute illness resolves, outpatient follow up requested -If patient to be D/C recommend 7-10 days of oral antibiotics with Cipro/Flagyl - Discussed with the team. Thank you for letting us participate in the care of your patient
--- NOTE | 2017-12-02 10:39 | CP.PCM.PN ---
Subjective - Date & Time of Evaluation Date of Evaluation: 12/02/17 Time of Evaluation: 10:30 - Subjective Subjective: 86 year osd female admitted with abdominal pain Hx colon ca post colectomy more than [address] showe evidence of active diverticulitis,cystitis no free air within bladder. ua shows large amounts of wbc in urine. creatine is 2.0. A active diverticulitis,cystitis suggest continue antibiotics untill diverticulitis and cystitis resolved. Repeat ct scan after reasonable interval to re asses [place]. If hydro persists consider further eval. Arvind Objective - Vital Signs/Intake and Output Vital Signs (last 24 hours): Temp Pulse Resp BP Pulse Ox 98.1 F 56 L 18 103/58 L 95 12/02/17 09:00 12/02/17 08:38 12/02/17 09:00 12/02/17 09:00 12/02/17 09:00 - Medications Medications: Current Medications Acetaminophen (Tylenol 325mg Tab) 650 mg PO Q6 PRN PRN Reason: Pain, Mild (1-3) Acetaminophen (Tylenol 325mg Tab) 650 mg PO Q6 PRN PRN Reason: Fever >100.4 F Albuterol (Ventolin Hfa 90 Mcg/Actuation (8 G)) 1 puff INH RQ6 PRN PRN Reason: Wheezing Aspirin (Aspirin) 325 mg PO DAILY [facility] Last Admin: 12/02/17 08:38 Dose: 325 mg Atorvastatin Calcium (Lipitor) 40 mg PO HS [facility] Clopidogrel Bisulfate (Plavix) 75 mg PO DAILY [facility] Last Admin: 12/02/17 08:38 Dose: 75 mg Famotidine (Pepcid) 20 mg PO BID [facility] Last Admin: 12/02/17 08:38 Dose: 20 mg Metronidazole (Flagyl 500mg/100ml Ns) 100 mls @ 100 mls/hr IVPB Q8 [facility] PRN Reason: Protocol Ceftriaxone Sodium 1 gm/ (Sodium Chloride) 100 mls @ 100 mls/hr IVPB DAILY [facility] PRN Reason: Protocol Sodium Chloride (Sodium Chloride 0.9%) 1,000 mls @ 75 mls/hr IV .[id number] [facility] Stop: 12/03/17 02:44 Last Admin: 12/02/17 02:45 Dose: Not Given Levothyroxine Sodium (Synthroid) 225 mcg PO DAILY@0630 [facility] Last Admin: 12/02/17 05:52 Dose: 225 mcg Lidocaine (Lidoderm) 1 ea TD DAILY@2100 [facility] Metoprolol Tartrate (Lopressor) 50 mg PO DAILY [facility] Last Admin: 12/02/17 08:38 Dose: 50 mg Montelukast Sodium (Singulair) 10 mg PO DAILY [facility] Last Admin: 12/02/17 08:38 Dose: 10 mg Ondansetron HCl (Zofran Odt) 4 mg PO Q8H PRN PRN Reason: Nausea/Vomiting Last Admin: 12/02/17 08:37 Dose: 4 mg Oxycodone/Acetaminophen (Percocet 5/325 Mg Tab) 1 tab PO Q6 PRN PRN Reason: Pain, moderate (4-7) Stop: 12/05/17 00:19 Last Admin: 12/02/17 05:53 Dose: 1 tab Fluticasone/Salmeterol (Advair Diskus 100/50) 1 puff IH Q12 [facility] Last Admin: 12/02/17 08:36 Dose: 1 puff - Labs Labs: 12/02/17 05:45 12/02/17 05:45
[2017-12-02] MEDS: metroNIDAZOLE 500mg/100ml NS 100 ML IVPB SCH ×2 (12:00→17:35)
[2017-12-02] MEDS ORDERED: Lidocaine 5% Patch TD SCH (21:00)
[2017-12-03] MEDS: metroNIDAZOLE 500mg/100ml NS 100 ML IVPB SCH ×2 (00:32→08:35)
[2017-12-03] MEDS: Sodium Chloride 0.9% 1,000 ML IV SCH (00:33)
[2017-12-03] MEDS: Levothyroxine 75 MCG TAB PO SCH (05:35)
[2017-12-03 07:04] LABS: BASO # 0.1 K/uL (0.0-0.2); BASO % 0.9 % (0.0-2.0); EOS # 0.2 K/uL (0.0-0.7); EOS % 3.2 % (0.0-4.0); HEMOGLOBIN 9.9 g/dL (12.0-16.0); LYMPH # 1.7 K/uL (1.0-4.3); LYMPH % 29.6 % (20.0-40.0); MEAN CELL VOLUME 91.7 fl (81.0-99.0); MEAN CORPUSCULAR HEMOGLOBIN 30.3 pg (27.0-31.0); MEAN CORPUSCULAR HGB CONC 33.1 g/dL (33.0-37.0); MEAN PLATELET VOLUME 7.2 fl (7.2-11.7); MONO # 0.5 K/uL (0.0-0.8); MONO % 8.8 % (0.0-10.0); NEUT # 3.2 K/uL (1.8-7.0); NEUT % 57.5 % (50.0-75.0); RBC 3.26 Mil/uL (3.80-5.20); RED CELL DISTRIBUTION WIDTH 15.1 % (11.5-14.5); WHITE BLOOD COUNT 5.6 K/uL (4.8-10.8)
[2017-12-03 07:18] LABS: CALCIUM 7.4 mg/dL (8.4-10.2)
[2017-12-03 07:52] VITALS: BP 122/67; PULSE 75; RESP 20; TEMP 98
--- NOTE | 2017-12-03 08:19 | CP.PCM.DIS ---
Provider - Provider Date of Admission: 12/02/17 00:03 Attending physician: Kelly Paz MD Primary care physician: Dr Haddad Consults: GI : Dr Rasmussen Surg: DR Hendrickson Time Spent in preparation of Discharge (in minutes): 35 Diagnosis - Discharge Diagnosis (1) Diverticulitis Status: Acute (2) Hydronephrosis Status: Chronic (3) UTI (lower urinary tract infection) Status: Acute Priority: High (4) Acute on chronic renal insufficiency Status: Acute Hospital Course - Lab Results Lab Results: Micro Results 12/02/17 02:00 Blood Blood Culture - Preliminary NO GROWTH AFTER 24 HOURS 12/02/17 01:45 Blood Blood Culture - Preliminary NO GROWTH AFTER 24 HOURS Most Recent Lab Values WBC 5.6 K/uL (4.8-10.8) 12/03/17 06:30 RBC 3.26 Mil/uL (3.80-5.20) L 12/03/17 06:30 Hgb 9.9 g/dL (12.0-16.0) L 12/03/17 06:30 Hct 29.9 % (34.0-47.0) L 12/03/17 06:30 MCV 91.7 fl (81.0-99.0) 12/03/17 06:30 MCH 30.3 pg (27.0-31.0) 12/03/17 06:30 MCHC 33.1 g/dL (33.0-37.0) 12/03/17 06:30 RDW 15.1 % (11.5-14.5) H 12/03/17 06:30 Plt Count 199 K/uL (130-400) 12/03/17 06:30 MPV 7.2 fl (7.2-11.7) 12/03/17 06:30 Neut % (Auto) 57.5 % (50.0-75.0) 12/03/17 06:30 Lymph % (Auto) 29.6 % (20.0-40.0) 12/03/17 06:30 [place] % (Auto) 8.8 % (0.0-10.0) 12/03/17 06:30 Eos % (Auto) 3.2 % (0.0-4.0) 12/03/17 06:30 Baso % (Auto) 0.9 % (0.0-2.0) 12/03/17 06:30 Neut # (Auto) 3.2 K/uL (1.8-7.0) 12/03/17 06:30 Lymph # (Auto) 1.7 K/uL (1.0-4.3) 12/03/17 06:30 [place] # (Auto) 0.5 K/uL (0.0-0.8) 12/03/17 06:30 Eos # (Auto) 0.2 K/uL (0.0-0.7) 12/03/17 06:30 Baso # (Auto) 0.1 K/uL (0.0-0.2) 12/03/17 06:30 Sodium 139 mmol/l (132-148) 12/03/17 06:30 Potassium 3.9 MMOL/L (3.6-5.0) 12/03/17 06:30 Chloride 108 mmol/L (98-107) H 12/03/17 06:30 Carbon Dioxide 16 mmol/L (22-30) L 12/03/17 06:30 Anion Gap 19 (10-20) 12/03/17 06:30 BUN 23 mg/dl (7-17) H 12/03/17 06:30 Creatinine 1.8 mg/dl (0.7-1.2) H 12/03/17 06:30 Est GFR ( Amer) 32 12/03/17 06:30 Est GFR (Non-Af Amer) 27 12/03/17 06:30 Random Glucose 97 mg/dL (65-105) 12/03/17 06:30 Calcium 7.4 mg/dL (8.4-10.2) L 12/03/17 06:30 Total Bilirubin 0.6 mg/dl (0.2-1.3) 12/01/17 19:55 AST 44 U/L (14-36) H 12/01/17 19:55 ALT 24 U/L (9-52) 12/01/17 19:55 Alkaline Phosphatase 97 U/L (38-126) 12/01/17 19:55 Total Protein 7.7 G/DL (6.3-8.2) 12/01/17 19:55 Albumin 3.9 g/dL (3.5-5.0) 12/01/17 19:55 Globulin 3.8 gm/dL (2.2-3.9) 12/01/17 19:55 Albumin/Globulin Ratio 1.0 (1.0-2.1) 12/01/17 19:55 Lipase 232 U/L (23-300) 12/01/17 19:55 Carcinoembryonic Ag 3.7 ng/mL (0-3.0) H 12/02/17 07:50 Urine Color Yellow (YELLOW) 12/01/17 23:50 Urine Clarity Slighty-cloudy (Clear) 12/01/17 23:50 Urine pH 6.0 (5.0-8.0) 12/01/17 23:50 Ur Specific [place] 1.011 (1.003-1.030) 12/01/17 23:50 Urine Protein 30 mg/dL (NEGATIVE) 12/01/17 23:50 Urine Glucose (UA) Neg mg/dL (Normal) 12/01/17 23:50 Urine Ketones Negative mg/dL (NEGATIVE) 12/01/17 23:50 Urine Blood Small (NEGATIVE) 12/01/17 23:50 Urine Nitrate Negative (NEGATIVE) 12/01/17 23:50 Urine Bilirubin Negative (NEGATIVE) 12/01/17 23:50 Urine Urobilinogen 0.2-1.0 mg/dL (0.2-1.0) 12/01/17 23:50 Ur Leukocyte Esterase Large [place]/uL (Negative) 12/01/17 23:50 Urine RBC (Auto) 6 /hpf (0-3) H 12/01/17 23:50 Urine Microscopic WBC 227 /hpf (0-5) H 12/01/17 23:50 Urine Bacteria Many (<OCC) H 12/01/17 23:50 - Hospital Course Hospital Course: 86 y/o lady with known history of Diverticulosis, Chronic Hydronephrosis, CKD Stage III, HTN, Hypothyroidism, COPD, came because of abdominal pain x 4 days more on the Left lower quadrant. CT of the abdomen: Acute Diverticulitis mid descending colon, Bilateral hydronnephrosis (1) Acute Diverticulitis Status: Acute Pt was observed in Med Surg- Kept NPO , started on IV Ceftriaxone and Flagyl. GI consulted- rec to cont IV abx Surgery consulted- no surg intervention Pt's abd pain resolved- she was gradually started on PO diet. Tolerated PO diet , abd pain resolved - cleared by GI for d/c - rec PO Cipro and Flagyl (2) Hydronephrosis Status: Chronic hx of Hydronephrosis Urology - Dr Samuels consulted - rec rpt CT of abd/Pelvis after acute problems resolves advised pt to ff up with Dr Samuels in 2kws for rpt CT (3) UTI (lower urinary tract infection) Status: Acute Priority: High Urine c/s : Gram neg rods pt is afebrile, no leukocytosis Pt is on IV Ceftriaxone , will d/c home on PO Cipro ff up Urine c/s as outpt (4) Acute on chronic renal insufficiency ( CKD Stage III) Status: Acute improved with hydration, now back to baseline noted sl acidosis - started Sodium bicarb tabs ff up with Dr Haddad in 1 wk- monitor BMP, Bicarb 5. CAD, stable cont Plavix and Statin 6. COPD , stable, chronic -cont Advair and Duonebs Discharge Exam - Head Exam Head Exam: ATRAUMATIC, NORMAL INSPECTION, NORMOCEPHALIC - Eye Exam Eye Exam: EOMI, Normal appearance Pupil Exam: NORMAL ACCOMODATION - ENT Exam ENT Exam: Mucous Membranes Moist, Normal External Ear Exam - Neck Exam Neck exam: Full Rom - Respiratory Exam Respiratory Exam: NORMAL BREATHING PATTERN. absent: Rales, Wheezes, Respiratory Distress - Cardiovascular Exam Cardiovascular Exam: REGULAR RHYTHM, +S1, +S2 - GI/Abdominal Exam GI & Abdominal Exam: Normal Bowel Sounds, Soft. absent: Tenderness - Extremities Exam Extremities exam: full ROM, normal capillary refill, pedal pulses present - Back Exam Back exam: FULL ROM. absent: CVA tenderness (L), CVA tenderness (R) - Neurological Exam Neurological exam: Alert, Oriented x3, Reflexes Normal - Psychiatric Exam Psychiatric exam: Normal Affect, Normal Mood - Skin Skin Exam: Dry, Normal Color, Warm Discharge Plan - Discharge Medications Prescriptions: Ciprofloxacin [Cipro] 500 mg PO DAILY #10 tab Metronidazole [Flagyl] 500 mg PO TID #30 tab Sodium Bicarbonate Tab 650 mg PO DAILY #10 tab - Follow Up Plan Condition: GOOD Disposition: HOME/ ROUTINE Instructions: Low Fiber Diet, Diverticulitis (DC) Additional Instructions: -GI follow up for out pt colonoscopy with Dr Rasmussen -fiber supplement/ stool softer for constipation - appt with Resident Service Coordinator letitia- DR Tucker - ff up with Dr Samuels in 2 wks - will need rpt CT scan of the kidneys to ff up on Hydronephrosis - ff up with Dr Catie dong - Home Care eval, Home PT, RN Referrals: Martin Samuels Jr., MD [Staff Provider] - Sivan Haddad MD [Family Provider] - Hector Hendrickson MD [Staff Provider] - Warner Garcia MD [Medical Doctor] - Twan Rasmussen MD [Medical Doctor] - Zay Tucker MD [Staff Provider] -
[2017-12-03] MEDS: Fluticasone-Salmeterol 100-50mcg Diskus IH SCH (08:37)
--- NOTE | 2017-12-03 13:37 | CP.PCM.PN ---
Subjective - Date & Time of Evaluation Date of Evaluation: 12/03/17 Time of Evaluation: 13:35 - Subjective Subjective: Pt appears much improved,suggest gu re ecal w repeat ct once diverticulitis and uti maximally improved(opd). Arvind Objective - Vital Signs/Intake and Output Vital Signs (last 24 hours): Temp Pulse Resp BP Pulse Ox 98.0 F 75 20 122/67 96 12/03/17 07:43 12/03/17 08:41 12/03/17 07:43 12/03/17 08:41 12/03/17 07:43 - Medications Medications: Current Medications Acetaminophen (Tylenol 325mg Tab) 650 mg PO Q6 PRN PRN Reason: Fever >100.4 F Albuterol (Ventolin Hfa 90 Mcg/Actuation (8 G)) 1 puff INH RQ6 PRN PRN Reason: Wheezing Aspirin (Aspirin) 325 mg PO DAILY [facility] Last Admin: 12/02/17 08:38 Dose: 325 mg Atorvastatin Calcium (Lipitor) 40 mg PO HS [facility] Last Admin: 12/02/17 21:28 Dose: 40 mg Clopidogrel Bisulfate (Plavix) 75 mg PO DAILY [facility] Last Admin: 12/03/17 08:38 Dose: 75 mg Famotidine (Pepcid) 20 mg PO BID [facility] Last Admin: 12/03/17 08:38 Dose: 20 mg Levothyroxine Sodium (Synthroid) 225 mcg PO DAILY@0630 [facility] Last Admin: 12/03/17 05:35 Dose: 225 mcg Lidocaine (Lidoderm) 1 ea TD DAILY@2100 [facility] Last Admin: 12/02/17 21:41 Dose: 1 ea Metoprolol Tartrate (Lopressor) 50 mg PO DAILY [facility] Last Admin: 12/03/17 08:41 Dose: 50 mg Montelukast Sodium (Singulair) 10 mg PO DAILY [facility] Last Admin: 12/03/17 08:37 Dose: 10 mg Ondansetron HCl (Zofran Odt) 4 mg PO Q8H PRN PRN Reason: Nausea/Vomiting Last Admin: 12/02/17 08:37 Dose: 4 mg Fluticasone/Salmeterol (Advair Diskus 100/50) 1 puff IH Q12 [facility] Last Admin: 12/03/17 08:37 Dose: 1 puff Sodium Bicarbonate (Sodium Bicarbonate Tab) 650 mg PO Q6 [facility] - Labs Labs: 12/03/17 06:30 12/03/17 06:30
[2017-12-05 07:37] VITALS: O2SAT 97
== END 2017-12-03 13:35 | disposition home or self-care (01) ==
LOC: H.ER 18:13 → INTOOBSV 12-02 00:03 → H.ERHOLD 12-02 00:03 → H.MEDSURG1 12-02 02:09
PROVIDERS: ADMIT Internal Medicine; ATTEND Internal Medicine
DX: K57.92 Diverticulitis of intestine, part unspecified, without perforation or abscess without bleeding (principal); E03.9 Hypothyroidism, unspecified; J44.9 Chronic obstructive pulmonary disease, unspecified; I25.10 Atherosclerotic heart disease of native coronary artery without angina pectoris; D64.9 Anemia, unspecified; E78.5 Hyperlipidemia, unspecified; C18.9 Malignant neoplasm of colon, unspecified; I13.0 Hypertensive heart and chronic kidney disease with heart failure and stage 1 through stage 4 chronic kidney disease, or unspecified chronic kidney disease; N18.3 Chronic kidney disease, stage 3 (moderate); I50.9 Heart failure, unspecified; N39.0 Urinary tract infection, site not specified; N13.30 Unspecified hydronephrosis; Z96.653 Presence of artificial knee joint, bilateral; K21.9 Gastro-esophageal reflux disease without esophagitis; K59.00 Constipation, unspecified; E87.2 Acidosis; Z95.5 Presence of coronary angioplasty implant and graft; Z90.49 Acquired absence of other specified parts of digestive tract; Z87.891 Personal history of nicotine dependence; Z79.02 Long term (current) use of antithrombotics/antiplatelets; H91.90 Unspecified hearing loss, unspecified ear
CPT/HCPCS: 36415; 74176; 80048; 80053; 81003; 82378; 83690; 85025; 85027; 87040; 87086; 87181; 96361; 96365; 96366; 96367; 96375; 96376; 99285; G0378; J0696; J2270; J7040; Q9966

== ENCOUNTER 2018-01-06 13:29 | Inpatient (IN) | payer MEDICARE, OTHER ==
[2018-01-06 13:34] VITALS: BMI 23.8
[2018-01-06] MEDS ORDERED: Sodium Chloride 0.9% 1,000 ML IV STA (13:50)
[2018-01-06 15:11] LABS: BASO # 0.1 K/uL (0.0-0.2); BASO % 0.8 % (0.0-2.0); EOS # 0.2 K/uL (0.0-0.7); EOS % 2.1 % (0.0-4.0); HEMOGLOBIN 12.7 g/dL (12.0-16.0); LYMPH # 3.3 K/uL (1.0-4.3); LYMPH % 37.3 % (20.0-40.0); MEAN CELL VOLUME 91.8 fl (81.0-99.0); MEAN CORPUSCULAR HEMOGLOBIN 30.4 pg (27.0-31.0); MEAN CORPUSCULAR HGB CONC 33.1 g/dL (33.0-37.0); MEAN PLATELET VOLUME 7.5 fl (7.2-11.7); MONO % 11.4 % (0.0-10.0); NEUT # 4.3 K/uL (1.8-7.0); NEUT % 48.4 % (50.0-75.0); RBC 4.18 Mil/uL (3.80-5.20); RED CELL DISTRIBUTION WIDTH 15.2 % (11.5-14.5); WHITE BLOOD COUNT 8.9 K/uL (4.8-10.8)
[2018-01-06 15:11] LABS: URINE CLARITY Turbid (Clear); URINE COLOR YELLOW (YELLOW)
[2018-01-06 15:12] LABS: URINE BILIRUBIN NEGATIVE (NEGATIVE); URINE BLOOD SMALL (NEGATIVE); URINE GLUCOSE (UA) NEG (Normal); URINE PROTEIN 30 mg/dL (NEGATIVE); URINE UROBILINOGEN 0.2-1.0 mg/dL (0.2-1.0)
[2018-01-06 15:13] LABS: URINE BACTERIA FEW (<OCC); URINE LEUKOCYTE ESTERASE LARGE Leu/uL (Negative)
[2018-01-06] MEDS ORDERED: Iohexol 300 100 ML IJ ONE (15:35)
[2018-01-06] MEDS ORDERED: Sodium Chloride 0.9% 0 ML IV ONE (15:36)
[2018-01-06 16:06] LABS: ALB/GLOB RATIO 1.1 (1.0-2.1); ALBUMIN 4.2 g/dL (3.5-5.0); CALCIUM 9.3 mg/dL (8.4-10.2)
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
[2018-01-06] MEDS ORDERED: Albuterol HFA 90 mcg/actuation (8 g) INH PRN (18:36)
--- NOTE | 2018-01-06 18:36 | ED PDOC ---
HPI: Abdomen Time Seen by Provider: 01/06/18 13:49 Chief Complaint (Nursing): Abdominal Pain Chief Complaint (Provider): Abdominal Pain History Per: Patient, Family History/Exam Limitations: no limitations Onset/Duration Of Symptoms: Days (35 days), Persistent Outside of [place] travel?: No Current Symptoms Are (Timing): Still Present Location Of Pain/Discomfort: Diffuse Quality Of Discomfort: Unable To Describe Associated Symptoms: Nausea. denies: Fever, Chills Past Medical History Reviewed: Historical Data, Nursing Documentation, Vital Signs Vital Signs: Last Vital Signs Temp 98.6 F 01/06/18 13:32 Pulse 64 01/06/18 13:32 Resp 18 01/06/18 13:32 BP 120/61 01/06/18 15:21 Pulse Ox 96 01/06/18 13:32 - Medical History PMH: Anemia, Anxiety, Arthritis, Asthma, CAD, CHF, COPD, Depression, Diverticulitis, GERD, HTN, Hypercholesterolemia, Hypothyroidism, Malignancy ( Colon Cancer), Chronic Kidney Disease Denies: HIV - Surgical History Surgical History: Appendectomy, Cholecystectomy, 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, 10 years [employer]), 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 - Family History Family History: States: Unknown Family Hx - Immunization History Hx Tetanus Toxoid Vaccination: No Hx Influenza Vaccination: Yes (04/2014) Hx Pneumococcal Vaccination: Yes (2010) - Home Medications Home Medications: Ambulatory Orders Medication Instructions Recorded Albuterol HFA [Ventolin HFA 90 1 puff INH RQ6 PRN #1 inhaler 12/29/16 mcg/actuation (8 g)] Atorvastatin [Lipitor] 40 mg PO HS #30 tab 12/29/16 Clopidogrel [Plavix] 75 mg PO DAILY #30 tab 01/13/17 Fluticasone/Salmeterol 100/50 1 puff IH Q12 #1 puff 01/13/17 [Advair Diskus 100/50] Levothyroxine [Synthroid] 225 mcg PO DAILY@0630 #30 tab 01/13/17 Lidocaine 5% [Lidoderm] 1 ea TD DAILY@2100 #30 patch 01/13/17 Metoprolol Tartrate [Lopressor] 50 mg PO DAILY #30 tab 01/13/17 Montelukast [Singulair] 10 mg PO DAILY #30 tab 01/13/17 Esomeprazole Magnesium [Nexium] 40 mg PO DAILY 12/02/17 Acetaminophen [Tylenol 325mg tab] 650 mg PO Q6 PRN tab 12/03/17 Acetaminophen [Tylenol 325mg tab] 650 mg PO Q6 PRN tab 12/03/17 Ciprofloxacin [Cipro] 500 mg PO DAILY #10 tab 12/03/17 Famotidine [Pepcid] 20 mg PO BID tab 12/03/17 Metronidazole [Flagyl] 500 mg PO TID #30 tab 12/03/17 Sodium Bicarbonate Tab 650 mg PO DAILY #10 tab 12/03/17 - Allergies Allergies/Adverse Reactions: Allergies Allergy/AdvReac Type Severity Reaction Status Date / Time No Known Allergies Allergy Verified 12/21/16 16:18 Review of Systems ROS Statement: Except As Marked, All Systems Reviewed And Found Negative Gastrointestinal: Positive for: Nausea, Abdominal Pain Physical Exam - Reviewed Nursing Documentation Reviewed: Yes Vital Signs Reviewed: Yes - Physical Exam Appears: Positive for: Well, No Acute Distress. Negative for: Uncomfortable Head Exam: Positive for: ATRAUMATIC, NORMAL INSPECTION Skin: Positive for: Normal Color, Warm, Dry Neck: Positive for: Normal, Painless ROM, Supple, Decreased ROM Cardiovascular/Chest: Positive for: Regular Rate, Rhythm. Negative for: Bradycardia, Tachycardia Respiratory: Positive for: Normal Breath Sounds. Negative for: Decreased Breath Sounds, Accessory Muscle Use, Crackles, Rales, Rhonchi, Stridor, Wheezing , Respiratory Distress Pulses-Carotid (L): 2+ Pulses-Carotid (R): 2+ Pulses-Radial (L): 2+ Pulses-Radial (R): 2+ Gastrointestinal/Abdominal: Positive for: Bowel Sounds (active in all four quadrants), Soft. Negative for: Tenderness, Distended, Guarding, Rebound, Asicites Back: Positive for: L CVA Tenderness, R CVA Tenderness - Laboratory Results Result Diagrams: 01/06/18 15:03 01/06/18 15:03 - ECG O2 Sat by Pulse Oximetry: 96 Medical Decision Making Medical Decision Making: Pt has been on PO abx for one month after being admitted for diverticulosis and UTI Pt has failed PO abx no changes in condition since one month Discussed with hospitalist- Dr Gray will admit on IV abx to obs Disposition - Clinical Impression Clinical Impression: Pyelonephritis, Abdominal discomfort - Patient ED Disposition Is Patient to be Admitted: Yes Discussed With : Estuardo Gray Doctor Will See Patient In The: Hospital Counseled Patient/Family Regarding: Studies Performed, Diagnosis, Need For Followup - Disposition Disposition Time: 18:38 Condition: STABLE - Pt Status Changed To: Hospital Disposition Of: IP to OP/OBS (Code 44)
[2018-01-06] MEDS ORDERED: metroNIDAZOLE 500mg/100ml NS 100 ML IVPB SCH (18:45)
--- NOTE | 2018-01-06 19:05 | CP.PCM.HP ---
History of Present Illness - History of Present Illness History of Present Illness: CC: Abdominal pain This is an 87 year old female with pmh significant for colon cancer, status post curative partial sigmoid colectomy 25 years ago, essential hypertension, COPD, CKD stage III, CAD s/p 2 stents, MA x 2 with last being 1.5 years ago, chronic UTIs, GERD, diverticulosis with recent bout of diverticulitis last month when admitted to this hospital. She comes in today with the complaint of exacerbation of her previous lower left and right quadrant abdominal pain, characterized as dull, crampy, and associated with nausea x 1 day. In the ED, CT scan of abd/pelvis was performed which revealed cystitis and diverticulitosis as well as hydronephrosis bilaterally. Of note, the patient has been getting Cipro and Flagyl at home x 1 month for diverticulitis, which now appears to be resolved on CT scan. However, lab results show worsening of her renal function with GFR 23-> 19 since last month. She also has evidence of urinary tract infection, which has failed po antibiotics, given her pelvic pain along with + UTI. Patient has been having some constipation but last had BM yesterday. The patient is to be placed on observation for further workup and tx with IV antibiotics. Patient denies chest pain, shortness of breath, fevers, chills, vomiting, diarrhea, headache. All of the patient's and/or family's questions were answered at the bedside. Present on Admission - Present on Admission Any Indicators Present on Admission: No History of DVT/PE: No History of Uncontrolled Diabetes: No Review of Systems - Review of Systems Review of Systems: A 12 point review of systems was conducted and found to be negative other than what was mentioned in the HPI. Past Patient History - Infectious Disease Hx of Infectious Diseases: None - Tetanus Immunizations Tetanus Immunization: Unknown - Past Medical History & Family History Past Medical History?: Yes - Past Social History Smoking Status: Never Smoked Alcohol: None Drugs: Denies Home Situation {Lives}: With Family - CARDIAC Hx Congestive Heart Failure: Yes Hx Hypercholesterolemia: Yes Hx Hypertension: Yes - PULMONARY Hx Asthma: Yes Hx Chronic Obstructive Pulmonary Disease (COPD): Yes - NEUROLOGICAL Hx Neurological Disorder: No - HEENT Other/Comment: HARD OF HEARING - RENAL Hx Chronic Kidney Disease: Yes - ENDOCRINE/METABOLIC Hx Hypothyroidism: Yes - HEMATOLOGICAL/ONCOLOGICAL Hx Anemia: Yes Hx Human Immunodeficiency Virus (HIV): No - INTEGUMENTARY Hx Dermatological Problems: No - MUSCULOSKELETAL/RHEUMATOLOGICAL Hx Arthritis: Yes - GASTROINTESTINAL Hx Diverticulitis: Yes - GENITOURINARY/GYNECOLOGICAL Hx Genitourinary Disorders: Yes - PSYCHIATRIC Hx Anxiety: Yes Hx Depression: Yes - SURGICAL HISTORY Hx Appendectomy: Yes Hx Cholecystectomy: Yes 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, 10 years [employer]) Hx 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: Yes - ANESTHESIA Hx Anesthesia: Yes Hx Anesthesia Reactions: No Hx Malignant Hyperthermia: No Meds Allergies/Adverse Reactions: Allergies Allergy/AdvReac Type Severity Reaction Status Date / Time No Known Allergies Allergy Verified 12/21/16 16:18 Physical Exam - Additional Findings Additional findings: Physical exam: Constitutional- cooperative, awake, alert. appears chronically ill, uncomfortable Head- NCAT, PERRL Eye- PERRL, EOMI ENT- normal exam, MMM. Neck- normal inspection, supple, no JVD Respiratory- CTAB, no wheezes rales rhonchi Cardiovascular- RRR, +S1, +S2 no MRG GI/Abdominal- soft. Tenderness to bilateral lower quadrents, worse on the left. nondistended. Skin- warm, dry Extremities Exam- normal capillary refill, normal inspection Neurological Exam- alert, awake, oriented Psych- normal mood, normal affect Results - Vital Signs Recent Vital Signs: Last Vital Signs Temp 98.6 F 01/06/18 13:32 Pulse 64 01/06/18 13:32 Resp 18 01/06/18 13:32 BP 120/61 01/06/18 15:21 Pulse Ox 96 01/06/18 18:38 - Labs Result Diagrams: 01/06/18 15:03 01/06/18 15:03 Labs: Laboratory Results - last 24 hr 01/06/18 01/06/18 01/06/18 14:41 15:03 15:03 WBC 8.9 D RBC 4.18 Hgb 12.7 D Hct 38.4 MCV 91.8 MCH 30.4 MCHC 33.1 RDW 15.2 H Plt Count 219 MPV 7.5 Neut % (Auto) 48.4 L Lymph % (Auto) 37.3 [place] % (Auto) 11.4 H Eos % (Auto) 2.1 Baso % (Auto) 0.8 Neut # (Auto) 4.3 Lymph # (Auto) 3.3 [place] # (Auto) 1.0 H Eos # (Auto) 0.2 Baso # (Auto) 0.1 Sodium 142 Potassium 4.6 Chloride 106 Carbon Dioxide 22 Anion Gap 19 BUN 31 H Creatinine 2.4 H Est GFR ( Amer) 23 Est GFR (Non-Af Amer) 19 Random Glucose 110 H Calcium 9.3 Total Bilirubin 0.6 AST 20 ALT 12 Alkaline Phosphatase 82 Total Protein 8.1 Albumin 4.2 Globulin 3.9 Albumin/Globulin Ratio 1.1 Amylase 144 H Lipase 379 H Urine Color Yellow Urine Clarity Turbid Urine pH 6.0 Ur Specific [place] 1.010 Urine Protein 30 Urine Glucose (UA) Neg Urine Ketones Negative Urine Blood Small Urine Nitrate Positive H Urine Bilirubin Negative Urine Urobilinogen 0.2-1.0 Ur Leukocyte Esterase Large Urine RBC (Auto) 13 H Urine Microscopic WBC 2868 H Urine Bacteria Few H Assessment & Plan - Assessment and Plan (Free Text) Plan: ASSESSMENT/PLAN This is an 87 year old female with pmh significant for colon cancer, status post curative partial sigmoid colectomy 25 years ago, essential hypertension, COPD, CKD stage III, CAD s/p 2 stents, MA x 2 with last being 1.5 years ago, chronic UTIs, GERD, diverticulosis with recent bout of diverticulitis last month when admitted to this hospital. She comes in today with the complaint of exacerbation of her previous lower left and right quadrant abdominal pain, characterized as dull, crampy, and associated with nausea x 1 day. In the ED, CT scan of abd/pelvis was performed which revealed cystitis and diverticulitosis as well as hydronephrosis bilaterally. Of note, the patient has been getting Cipro and Flagyl at home x 1 month for diverticulitis, which now appears to be resolved on CT scan. However, lab results show worsening of her renal function with GFR 23-> 19 since last month. She also has evidence of urinary tract infection, which has failed po antibiotics, given her pelvic pain along with + UTI. The patient is to be placed on observation for further workup and tx with IV antibiotics. 1) Acute on chronic UTI with hydronephrosis, r/o pyelonephritis, failing outpatient po antibiotics - Obs med/surg - Last UCX revealed ESBL (-) E. coli sensitive to Zosyn, will start renally dosed dosyn - Consultation with Dr. Samuels, urology- saw pt on last admission - Consult ID, Dr. Reveles, for antibiotic guidance given resistance of the E. coli 2) Acute on chronic Stage III CKD, due to dehydration from decreased po intake - Gentle hydration at 85 cc/hour overnight - Encourage IV hydration - Recheck in AM - Continue Sodium bicarb tabs 3) Diverticulosis, s/p recent bout of diverticulitis 1 months ago - Monitor for worsening abdominal pain - Zosyn - Reglan PRN for N/V 4) CAD, stable - continue Plavix and statin 5) COPD, stable, chronic - continue Advair - Ventolin inhalier 6) DVT prophylaxis - Heparin
[2018-01-06] MEDS: Fluticasone-Salmeterol 100-50mcg Diskus IH SCH (22:11)
[2018-01-06] MEDS: Sodium Chloride 0.9% 1,000 ML IV SCH (22:14)
[2018-01-06] MEDS: Lidocaine 5% Patch TD SCH (22:44)
[2018-01-07] MEDS: Levothyroxine 75 MCG TAB PO SCH (06:31)
[2018-01-07] MEDS: Sodium Chloride 0.9% 1,000 ML IV SCH (06:36)
[2018-01-07 07:50] LABS: HEMOGLOBIN 10.8 g/dL (12.0-16.0); MEAN CELL VOLUME 92.1 fl (81.0-99.0); MEAN CORPUSCULAR HEMOGLOBIN 30.3 pg (27.0-31.0); MEAN CORPUSCULAR HGB CONC 32.9 g/dL (33.0-37.0); RBC 3.56 Mil/uL (3.80-5.20); RED CELL DISTRIBUTION WIDTH 15.2 % (11.5-14.5); WHITE BLOOD COUNT 6.5 K/uL (4.8-10.8)
[2018-01-07 08:07] LABS: CALCIUM 8.2 mg/dL (8.4-10.2)
[2018-01-07] MEDS: Fluticasone-Salmeterol 100-50mcg Diskus IH SCH ×2 (08:37→21:44)
[2018-01-07] MEDS: Pantoprazole 40 mg EC Tab PO SCH (08:37)
--- NOTE | 2018-01-07 09:38 | CP.PCM.PN ---
Subjective - Date & Time of Evaluation Date of Evaluation: 01/07/18 Time of Evaluation: 09:34 - Subjective Subjective: patient seen examined bedside states she feels only mildly better this morning continues to feel weak, urinating without issue. awaiting cultures, hd stable nad Objective - Vital Signs/Intake and Output Vital Signs (last 24 hours): Temp Pulse Resp BP Pulse Ox 98 F 70 18 121/71 96 01/07/18 08:28 01/07/18 08:40 01/07/18 08:28 01/07/18 08:40 01/07/18 08:28 - Medications Medications: Current Medications Acetaminophen (Tylenol 325mg Tab) 650 mg PO Q6 PRN PRN Reason: Pain, Mild (1-3) Acetaminophen (Tylenol 325mg Tab) 650 mg PO Q6 PRN PRN Reason: Fever >100.4 F Albuterol (Ventolin Hfa 90 Mcg/Actuation (8 G)) 1 puff INH RQ6 PRN PRN Reason: Wheezing Atorvastatin Calcium (Lipitor) 40 mg PO HS [facility] Last Admin: 01/06/18 22:13 Dose: 40 mg Clopidogrel Bisulfate (Plavix) 75 mg PO DAILY [facility] Last Admin: 01/07/18 08:38 Dose: 75 mg Famotidine (Pepcid) 20 mg PO BID [facility] Last Admin: 01/07/18 08:38 Dose: 20 mg Heparin Sodium (Porcine) (Heparin) 5,000 units SC Q12 [facility]AY PRN Reason: Protocol Last Admin: 01/07/18 08:37 Dose: 5,000 units Sodium Chloride (Sodium Chloride 0.9%) 1,000 mls @ 85 mls/hr IV .[id number] [facility] Last Admin: 01/07/18 06:36 Dose: Not Given Piperacillin Sod/Tazobactam (Sod 2.25 gm/ Sodium Chloride) 100 mls @ 100 mls/ hr IVPB Q6 [facility] PRN Reason: Protocol Last Admin: 01/07/18 04:24 Dose: 100 mls/hr Levothyroxine Sodium (Synthroid) 225 mcg PO DAILY@0630 [facility] Last Admin: 01/07/18 06:31 Dose: 225 mcg Lidocaine (Lidoderm) 1 ea TD DAILY@2100 [facility] Last Admin: 01/06/18 22:44 Dose: 1 ea Lorazepam (Ativan) 1 mg PO HS [facility] Last Admin: 01/07/18 01:15 Dose: 1 mg Metoclopramide HCl (Reglan) 10 mg IVP Q6 PRN PRN Reason: Nausea/Vomiting Metoprolol Tartrate (Lopressor) 50 mg PO DAILY [facility] Last Admin: 01/07/18 08:40 Dose: 50 mg Montelukast Sodium (Singulair) 10 mg PO DAILY [facility] Last Admin: 01/07/18 08:38 Dose: 10 mg Morphine Sulfate (Morphine) 1 mg IVP Q4 PRN PRN Reason: Pain 4-10 Pantoprazole Sodium (Protonix Ec Tab) 40 mg PO DAILY [facility] Last Admin: 01/07/18 08:37 Dose: 40 mg Fluticasone/Salmeterol (Advair Diskus 100/50) 1 puff IH Q12 [facility] Last Admin: 01/07/18 08:37 Dose: 1 puff Sodium Bicarbonate (Sodium Bicarbonate Tab) 650 mg PO DAILY [facility] Last Admin: 01/07/18 08:38 Dose: 650 mg - Labs Labs: 01/07/18 05:30 01/07/18 05:30 - Constitutional Appears: Non-toxic, No Acute Distress - Head Exam Head Exam: ATRAUMATIC, NORMOCEPHALIC - Eye Exam Eye Exam: EOMI, Normal appearance, PERRL Pupil Exam: NORMAL ACCOMODATION - ENT Exam ENT Exam: Mucous Membranes Moist, Normal Oropharynx - Neck Exam Neck Exam: Normal Inspection. absent: Lymphadenopathy - Respiratory Exam Respiratory Exam: Clear to Ausculation Bilateral, NORMAL BREATHING PATTERN - Cardiovascular Exam Cardiovascular Exam: RRR, +S1, +S2 - GI/Abdominal Exam GI & Abdominal Exam: Soft, Normal Bowel Sounds. absent: Tenderness, Organomegaly - Extremities Exam Extremities Exam: Normal Capillary Refill. absent: Calf Tenderness - Back Exam Back Exam: absent: CVA tenderness (L), CVA tenderness (R) - Neurological Exam Neurological Exam: Alert, Awake - Psychiatric Exam Psychiatric exam: Normal Affect, Normal Mood - Skin Skin Exam: Dry, Warm Assessment and Plan - Assessment and Plan (Free Text) Plan: 87F PMH colon cancer status post curative partial sigmoid colectomy 25 years ago, essential hypertension, COPD, CKD stage III, CAD s/p 2 stents, UT x 2, chronic UTIs, diverticulosis with recent diverticulitis last month. Pt presented with exacerbation of her lower left and right quadrant abdominal pain , associated with nausea x [address] scan of abd/pelvis revealed cystitis and diverticulitosis as well as hydronephrosis bilaterally. Patient was on Cipro and Flagyl at home x 1 month for diverticulitis, which now appears to be resolved on CT scan. However, lab results show worsening of her renal function with GFR 23-> 19 since last month. She is also positive for UTI, which failed PO antibiotics. The patient is admitted for further workup and tx with IV antibiotics. Acute on chronic UTI with hydronephrosis - concern for pyelonephritis, failed outpatient Cipro/Flagyl - CTAP + mild hydronephrosis bilaterally, cystitis - UA +LE, pyuria, however pt afebrile, no CVA tenderness - Awaiting cultures for directed antimicrobial therapy - Hx of multiple UTI, Hx ESBL+ in 2017 sensitive to Zosyn - Zosyn renally dosed - Consultation with Dr. Samuels, urology- saw pt on last admission - Consult ID, Dr. Reveles, for antibiotic guidance Acute on chronic Stage III CKD, due to dehydration from decreased po intake - Gentle hydration at 85 cc/hour - Encourage IV hydration - Recheck in AM - Continue Sodium bicarb tabs Weakness - pt states she feels weak, uses walker, no stairs at home, lives with son and - PT/OT for strength, deconditioning Diverticulosis, s/p recent bout of diverticulitis 1 months ago - Monitor for worsening abdominal pain - Zosyn - Reglan PRN for N/V CAD, stable - continue Plavix and statin COPD, stable, chronic - continue Advair - Ventolin inhalier DVT prophylaxis - Heparin
--- NOTE | 2018-01-07 15:19 | CP.PCM.PN ---
Subjective - Date & Time of Evaluation Date of Evaluation: 01/07/18 Time of Evaluation: 15:15 - Subjective Subjective: I D NOTE MDR UTI (e.coli ) in November await cultures :have started meropenem. patient c increased amylase/lipase have ordered urinary amylase consider ct scan pancreas Objective - Vital Signs/Intake and Output Vital Signs (last 24 hours): Temp Pulse Resp BP Pulse Ox 98 F 70 18 121/71 96 01/07/18 08:28 01/07/18 08:40 01/07/18 08:28 01/07/18 08:40 01/07/18 08:28 - Medications Medications: Current Medications Acetaminophen (Tylenol 325mg Tab) 650 mg PO Q6 PRN PRN Reason: Pain, Mild (1-3) Acetaminophen (Tylenol 325mg Tab) 650 mg PO Q6 PRN PRN Reason: Fever >100.4 F Albuterol (Ventolin Hfa 90 Mcg/Actuation (8 G)) 1 puff INH RQ6 PRN PRN Reason: Wheezing Atorvastatin Calcium (Lipitor) 40 mg PO [facility] Last Admin: 01/06/18 22:13 Dose: 40 mg Clopidogrel Bisulfate (Plavix) 75 mg PO DAILY [facility] Last Admin: 01/07/18 08:38 Dose: 75 mg Famotidine (Pepcid) 20 mg PO BID [facility] Last Admin: 01/07/18 08:38 Dose: 20 mg Heparin Sodium (Porcine) (Heparin) 5,000 units SC Q12 [facility] PRN Reason: Protocol Last Admin: 01/07/18 08:37 Dose: 5,000 units Sodium Chloride (Sodium Chloride 0.9%) 1,000 mls @ 85 mls/hr IV .[id number] [facility] Last Admin: 01/07/18 06:36 Dose: Not Given Meropenem 500 mg/ Sodium (Chloride) 100 mls @ 100 mls/hr IVPB Q8 [facility] PRN Reason: Protocol Levothyroxine Sodium (Synthroid) 225 mcg PO DAILY@0630 [facility] Last Admin: 01/07/18 06:31 Dose: 225 mcg Lidocaine (Lidoderm) 1 ea TD DAILY@2100 [facility] Last Admin: 01/06/18 22:44 Dose: 1 ea Lorazepam (Ativan) 1 mg PO [facility] Last Admin: 01/07/18 01:15 Dose: 1 mg Metoclopramide HCl (Reglan) 10 mg IVP Q6 PRN PRN Reason: Nausea/Vomiting Metoprolol Tartrate (Lopressor) 50 mg PO DAILY [facility] Last Admin: 01/07/18 08:40 Dose: 50 mg Montelukast Sodium (Singulair) 10 mg PO DAILY [facility] Last Admin: 01/07/18 08:38 Dose: 10 mg Morphine Sulfate (Morphine) 1 mg IVP Q4 PRN PRN Reason: Pain 4-10 Pantoprazole Sodium (Protonix Ec Tab) 40 mg PO DAILY [facility] Last Admin: 01/07/18 08:37 Dose: 40 mg Fluticasone/Salmeterol (Advair Diskus 100/50) 1 puff IH Q12 [facility] Last Admin: 01/07/18 08:37 Dose: 1 puff Sodium Bicarbonate (Sodium Bicarbonate Tab) 650 mg PO DAILY [facility] Last Admin: 01/07/18 08:38 Dose: 650 mg - Labs Labs: 01/07/18 05:30 01/07/18 05:30
[2018-01-07] MEDS: Meropenem 500 MG in Sodium Chloride 0.9% 100 ML IVPB SCH (16:52)
[2018-01-07] MEDS: Lidocaine 5% Patch TD SCH (21:53)
[2018-01-08] MEDS: Meropenem 500 MG in Sodium Chloride 0.9% 100 ML IVPB SCH ×3 (00:23→16:25)
[2018-01-08] MEDS: Sodium Chloride 0.9% 1,000 ML IV SCH ×2 (05:00→06:31)
[2018-01-08] MEDS: Levothyroxine 75 MCG TAB PO SCH (06:29)
[2018-01-08] MEDS: Pantoprazole 40 mg EC Tab PO SCH (08:48)
[2018-01-08] MEDS: Fluticasone-Salmeterol 100-50mcg Diskus IH SCH ×2 (09:30→20:47)
[2018-01-08 10:25] LABS: CALCIUM 7.8 mg/dL (8.4-10.2)
--- NOTE | 2018-01-08 10:27 | CP.PCM.PN ---
Subjective - Date & Time of Evaluation Date of Evaluation: 01/08/18 Time of Evaluation: 10:00 - Subjective Subjective: Pt has no fever no leukocytosis feels better still with dysuria nd frequency no flank pain no diarrhea no N/V denies CP no SOB Objective - Vital Signs/Intake and Output Vital Signs (last 24 hours): Temp Pulse Resp BP Pulse Ox 97.8 F 80 18 128/70 96 01/08/18 08:17 01/08/18 09:04 01/08/18 08:17 01/08/18 09:04 01/08/18 08:17 - Medications Medications: Current Medications Acetaminophen (Tylenol 325mg Tab) 650 mg PO Q6 PRN PRN Reason: Pain, Mild (1-3) Acetaminophen (Tylenol 325mg Tab) 650 mg PO Q6 PRN PRN Reason: Fever >100.4 F Albuterol (Ventolin Hfa 90 Mcg/Actuation (8 G)) 1 puff INH RQ6 PRN PRN Reason: Wheezing Atorvastatin Calcium (Lipitor) 40 mg PO HS [facility] Last Admin: 01/07/18 21:45 Dose: 40 mg Clopidogrel Bisulfate (Plavix) 75 mg PO DAILY [facility] Last Admin: 01/08/18 08:48 Dose: 75 mg Famotidine (Pepcid) 20 mg PO BID [facility] Last Admin: 01/08/18 08:48 Dose: 20 mg Heparin Sodium (Porcine) (Heparin) 5,000 units SC Q12 [facility] PRN Reason: Protocol Last Admin: 01/08/18 08:44 Dose: 5,000 units Sodium Chloride (Sodium Chloride 0.9%) 1,000 mls @ 85 mls/hr IV .[id number] [facility] Last Admin: 01/08/18 06:31 Dose: Not Given Meropenem 500 mg/ Sodium (Chloride) 100 mls @ 100 mls/hr IVPB Q8 [facility] PRN Reason: Protocol Last Admin: 01/08/18 09:01 Dose: 100 mls/hr Levothyroxine Sodium (Synthroid) 225 mcg PO DAILY@0630 [facility] Last Admin: 01/08/18 06:29 Dose: 225 mcg Lidocaine (Lidoderm) 1 ea TD DAILY@2100 [facility] Last Admin: 01/07/18 21:53 Dose: 1 ea Lorazepam (Ativan) 1 mg PO HS [facility] Last Admin: 01/07/18 21:45 Dose: 1 mg Metoclopramide HCl (Reglan) 10 mg IVP Q6 PRN PRN Reason: Nausea/Vomiting Metoprolol Tartrate (Lopressor) 50 mg PO DAILY [facility] Last Admin: 01/08/18 09:04 Dose: 50 mg Montelukast Sodium (Singulair) 10 mg PO DAILY [facility] Last Admin: 01/08/18 08:45 Dose: 10 mg Morphine Sulfate (Morphine) 1 mg IVP Q4 PRN PRN Reason: Pain 4-10 Pantoprazole Sodium (Protonix Ec Tab) 40 mg PO DAILY [facility] Last Admin: 01/08/18 08:48 Dose: 40 mg Fluticasone/Salmeterol (Advair Diskus 100/50) 1 puff IH Q12 [facility] Last Admin: 01/07/18 21:44 Dose: 1 puff Sodium Bicarbonate (Sodium Bicarbonate Tab) 650 mg PO DAILY [facility] Last Admin: 01/08/18 08:47 Dose: 650 mg - Labs Labs: 01/07/18 05:30 01/08/18 10:00 - Constitutional Appears: Non-toxic, No Acute Distress - Head Exam Head Exam: NORMAL INSPECTION, NORMOCEPHALIC - Eye Exam Eye Exam: EOMI, Normal appearance Pupil Exam: NORMAL ACCOMODATION - ENT Exam ENT Exam: Mucous Membranes Moist, Normal External Ear Exam - Neck Exam Neck Exam: Full ROM. absent: Meningismus - Respiratory Exam Respiratory Exam: NORMAL BREATHING PATTERN. absent: Wheezes, Respiratory Distress - Cardiovascular Exam Cardiovascular Exam: REGULAR RHYTHM, +S1, +S2 - GI/Abdominal Exam GI & Abdominal Exam: Soft, Normal Bowel Sounds. absent: Tenderness - Extremities Exam Extremities Exam: Normal Capillary Refill, Pedal Edema (trace). absent: Calf Tenderness - Back Exam Back Exam: absent: CVA tenderness (L), CVA tenderness (R) - Neurological Exam Neurological Exam: Alert, Awake, Oriented x3 - Psychiatric Exam Psychiatric exam: Normal Affect, Normal Mood - Skin Skin Exam: Dry, Normal Color, Warm Assessment and Plan - Assessment and Plan (Free Text) Assessment: 87F PMH colon cancer status post curative partial sigmoid colectomy 25 years ago, essential hypertension, COPD, CKD stage III, CAD s/p 2 stents, [place] x 2, chronic UTIs, diverticulosis with recent diverticulitis last month. Pt presented with exacerbation of her lower left and right quadrant abdominal pain , associated with nausea x [address] scan of abd/pelvis revealed cystitis and diverticulosis as well as hydronephrosis bilaterally. Patient was on Cipro and Flagyl at home x 1 month for diverticulitis, which now appears to be resolved on CT scan. However, lab results show worsening of her renal function with GFR 23-> 19 since last month. She is also positive for UTI, which failed PO antibiotics. The patient is admitted for further workup and tx with IV antibiotics. 1. UTI with Chronic hydronephrosis - failed outpatient Cipro/Flagyl - CTAP + mild hydronephrosis bilaterally, cystitis - UA +LE, pyuria, however pt afebrile, no CVA tenderness - Awaiting cultures for directed antimicrobial therapy - Hx of multiple UTI, Hx ESBL+ in 2017 - Consult ID, Dr. Reveles, for antibiotic guidance- rec IV Meropenem 2. Acute on chronic Stage III CKD, due to dehydration from decreased po intake - Gentle hydration at 85 cc/hour - Encourage IV hydration - Recheck in AM - Continue Sodium bicarb tabs 3. Weakness - pt states she feels weak, uses walker, no stairs at home, lives with son and - PT/OT for strength, deconditioning 4.Diverticulosis, s/p recent bout of diverticulitis 1 months ago - Monitor for worsening abdominal pain - Reglan PRN for N/V 5. CAD, stable - continue Plavix and statin 6. COPD, stable, chronic - continue Advair - Ventolin inhalier DVT prophylaxis - Heparin
[2018-01-08 10:28] LABS: HEMOGLOBIN 10.6 g/dL (12.0-16.0); MEAN CELL VOLUME 91.7 fl (81.0-99.0); MEAN CORPUSCULAR HEMOGLOBIN 30.3 pg (27.0-31.0); RBC 3.51 Mil/uL (3.80-5.20); RED CELL DISTRIBUTION WIDTH 15.3 % (11.5-14.5)
[2018-01-08] MEDS: Lidocaine 5% Patch TD SCH (21:16)
[2018-01-09] MEDS: Sodium Chloride 0.9% 1,000 ML IV SCH ×3 (00:06→17:56)
[2018-01-09] MEDS: Meropenem 500 MG in Sodium Chloride 0.9% 100 ML IVPB SCH ×3 (00:06→17:55)
[2018-01-09] MEDS: Levothyroxine 75 MCG TAB PO SCH (06:27)
[2018-01-09] MEDS: Pantoprazole 40 mg EC Tab PO SCH (09:45)
[2018-01-09] MEDS: Fluticasone-Salmeterol 100-50mcg Diskus IH SCH ×2 (09:46→21:17)
--- NOTE | 2018-01-09 09:58 | CP.PCM.PN ---
Subjective - Date & Time of Evaluation Date of Evaluation: 01/09/18 Time of Evaluation: 09:45 - Subjective Subjective: No fever still with some mild hypogastric discomfort no dysuria no abd pain no N/V tolerating Po diet no CP no SOB Objective - Vital Signs/Intake and Output Vital Signs (last 24 hours): Temp Pulse Resp BP Pulse Ox 98.2 F 79 18 139/72 95 01/09/18 07:54 01/09/18 09:44 01/09/18 07:54 01/09/18 09:44 01/09/18 07:54 - Medications Medications: Current Medications Acetaminophen (Tylenol 325mg Tab) 650 mg PO Q6 PRN PRN Reason: Pain, Mild (1-3) Acetaminophen (Tylenol 325mg Tab) 650 mg PO Q6 PRN PRN Reason: Fever >100.4 F Albuterol (Ventolin Hfa 90 Mcg/Actuation (8 G)) 1 puff INH RQ6 PRN PRN Reason: Wheezing Atorvastatin Calcium (Lipitor) 40 mg PO HS [facility] Last Admin: 01/08/18 21:17 Dose: 40 mg Clopidogrel Bisulfate (Plavix) 75 mg PO DAILY [facility] Last Admin: 01/09/18 09:45 Dose: 75 mg Docusate Sodium (Colace) 100 mg PO BID [facility] Last Admin: 01/09/18 09:45 Dose: 100 mg Famotidine (Pepcid) 20 mg PO BID [facility] Last Admin: 01/09/18 09:44 Dose: 20 mg Heparin Sodium (Porcine) (Heparin) 5,000 units SC Q12 [facility] PRN Reason: Protocol Last Admin: 01/09/18 09:49 Dose: 5,000 units Sodium Chloride (Sodium Chloride 0.9%) 1,000 mls @ 85 mls/hr IV .[id number] [facility] Last Admin: 01/09/18 05:35 Dose: Not Given Meropenem 500 mg/ Sodium (Chloride) 100 mls @ 100 mls/hr IVPB Q8 [facility] PRN Reason: Protocol Last Admin: 01/09/18 09:47 Dose: 100 mls/hr Levothyroxine Sodium (Synthroid) 225 mcg PO DAILY@0630 [facility] Last Admin: 01/09/18 06:27 Dose: 225 mcg Lidocaine (Lidoderm) 1 ea TD DAILY@2100 [facility] Last Admin: 01/08/18 21:16 Dose: 1 ea Lorazepam (Ativan) 1 mg PO HS [facility] Last Admin: 01/08/18 23:08 Dose: 1 mg Metoclopramide HCl (Reglan) 10 mg IVP Q6 PRN PRN Reason: Nausea/Vomiting Metoprolol Tartrate (Lopressor) 50 mg PO DAILY [facility] Last Admin: 01/09/18 09:44 Dose: 50 mg Montelukast Sodium (Singulair) 10 mg PO DAILY [facility] Last Admin: 01/09/18 09:44 Dose: 10 mg Morphine Sulfate (Morphine) 1 mg IVP Q4 PRN PRN Reason: Pain 4-10 Last Admin: 01/09/18 07:16 Dose: 1 mg Pantoprazole Sodium (Protonix Ec Tab) 40 mg PO DAILY [facility] Last Admin: 01/09/18 09:45 Dose: 40 mg Fluticasone/Salmeterol (Advair Diskus 100/50) 1 puff IH Q12 [facility] Last Admin: 01/09/18 09:46 Dose: 1 puff Sodium Bicarbonate (Sodium Bicarbonate Tab) 650 mg PO DAILY [facility] Last Admin: 01/09/18 09:43 Dose: 650 mg - Labs Labs: 01/08/18 10:00 01/08/18 10:00 - Constitutional Appears: Non-toxic, No Acute Distress - Head Exam Head Exam: NORMAL INSPECTION, NORMOCEPHALIC - Eye Exam Eye Exam: EOMI, Normal appearance Pupil Exam: NORMAL ACCOMODATION - ENT Exam ENT Exam: Mucous Membranes Moist, Normal External Ear Exam - Neck Exam Neck Exam: Full ROM. absent: Meningismus - Respiratory Exam Respiratory Exam: NORMAL BREATHING PATTERN. absent: Wheezes, Respiratory Distress - Cardiovascular Exam Cardiovascular Exam: REGULAR RHYTHM, +S1, +S2 - GI/Abdominal Exam GI & Abdominal Exam: Soft, Normal Bowel Sounds. absent: Tenderness - Extremities Exam Extremities Exam: Normal Capillary Refill, Pedal Edema (trace). absent: Calf Tenderness - Back Exam Back Exam: absent: CVA tenderness (L), CVA tenderness (R) - Neurological Exam Neurological Exam: Alert, Awake, Oriented x3 - Psychiatric Exam Psychiatric exam: Normal Affect, Normal Mood - Skin Skin Exam: Dry, Normal Color, Warm Assessment and Plan - Assessment and Plan (Free Text) Assessment: 87F PMH colon cancer status post curative partial sigmoid colectomy 25 years ago, essential hypertension, COPD, CKD stage III, CAD s/p 2 stents, [place] x 2, chronic UTIs, diverticulosis with recent diverticulitis last month. Pt presented with exacerbation of her lower left and right quadrant abdominal pain , associated with nausea x [address] scan of abd/pelvis revealed cystitis and diverticulosis as well as hydronephrosis bilaterally. Patient was on Cipro and Flagyl at home x 1 month for diverticulitis, which now appears to be resolved on CT scan. However, lab results show worsening of her renal function with GFR 23-> 19 since last month. She is also positive for UTI, which failed PO antibiotics. The patient is admitted for further workup and tx with IV antibiotics. 1. UTI with Chronic hydronephrosis - failed outpatient Cipro/Flagyl - CTAbd: + mild hydronephrosis bilaterally, cystitis - UA +LE, pyuria, however pt afebrile, no CVA tenderness - Awaiting cultures for directed antimicrobial therapy- Gram negative rods - Hx of multiple UTI, Hx ESBL+ in 2017 - Consult ID, Dr. Reveles, for antibiotic guidance- recommended IV Meropenem - will d/c to TCU for IV abx 2. Acute on chronic Stage III CKD, due to dehydration from decreased po intake - Gentle hydration - Encourage oral hydration - Continue Sodium bicarb tabs 3. Weakness - pt states she feels weak, uses walker, no stairs at home, lives with son and - PT/OT for strength, deconditioning-rec TCU - SW consulted for TCU placement 4.Diverticulosis, s/p recent bout of diverticulitis 1 month ago - Monitor for worsening abdominal pain - Reglan PRN for N/V 5. CAD, stable - continue Plavix and statin 6. COPD, stable, chronic - continue Advair - Ventolin inhaler DVT prophylaxis - Heparin
--- NOTE | 2018-01-09 19:03 | CP.PCM.PN ---
Subjective - Date & Time of Evaluation Date of Evaluation: 01/09/18 Time of Evaluation: 19:00 - Subjective Subjective: I D NOTE URINE CULTURE REPEAT ORDERED FOR TOMORROW URINE CULTURE POSITIVE FOR E.Coli THAT IS ESBL (-) EXCELLENT JOANN'S FOR MEROPENEM RENAL FUNCTION IMPROVED CONTINUE MEROPENEM Objective - Vital Signs/Intake and Output Vital Signs (last 24 hours): Temp Pulse Resp BP Pulse Ox 97.8 F 70 20 128/79 96 01/09/18 15:52 01/09/18 15:52 01/09/18 15:52 01/09/18 15:52 01/09/18 15:52 - Medications Medications: Current Medications Acetaminophen (Tylenol 325mg Tab) 650 mg PO Q6 PRN PRN Reason: Pain, Mild (1-3) Last Admin: 01/09/18 17:54 Dose: 650 mg Acetaminophen (Tylenol 325mg Tab) 650 mg PO Q6 PRN PRN Reason: Fever >100.4 F Albuterol (Ventolin Hfa 90 Mcg/Actuation (8 G)) 1 puff INH RQ6 PRN PRN Reason: Wheezing Atorvastatin Calcium (Lipitor) 40 mg PO HS [facility] Last Admin: 01/08/18 21:17 Dose: 40 mg Clopidogrel Bisulfate (Plavix) 75 mg PO DAILY [facility] Last Admin: 01/09/18 09:45 Dose: 75 mg Docusate Sodium (Colace) 100 mg PO BID [facility] Last Admin: 01/09/18 17:41 Dose: Not Given Famotidine (Pepcid) 20 mg PO BID [facility] Last Admin: 01/09/18 17:56 Dose: 20 mg Heparin Sodium (Porcine) (Heparin) 5,000 units SC Q12 [facility] PRN Reason: Protocol Last Admin: 01/09/18 09:49 Dose: 5,000 units Sodium Chloride (Sodium Chloride 0.9%) 1,000 mls @ 85 mls/hr IV .[id number] [facility] Last Admin: 01/09/18 17:56 Dose: Not Given Meropenem 500 mg/ Sodium (Chloride) 100 mls @ 100 mls/hr IVPB Q8 [facility] PRN Reason: Protocol Last Admin: 01/09/18 17:55 Dose: 100 mls/hr Levothyroxine Sodium (Synthroid) 225 mcg PO DAILY@0630 [facility] Last Admin: 01/09/18 06:27 Dose: 225 mcg Lidocaine (Lidoderm) 1 ea TD DAILY@2100 [facility] Last Admin: 01/08/18 21:16 Dose: 1 ea Lorazepam (Ativan) 1 mg PO HS [facility] Last Admin: 01/08/18 23:08 Dose: 1 mg Metoclopramide HCl (Reglan) 10 mg IVP Q6 PRN PRN Reason: Nausea/Vomiting Metoprolol Tartrate (Lopressor) 50 mg PO DAILY [facility] Last Admin: 01/09/18 09:44 Dose: 50 mg Montelukast Sodium (Singulair) 10 mg PO DAILY [facility] Last Admin: 01/09/18 09:44 Dose: 10 mg Pantoprazole Sodium (Protonix Ec Tab) 40 mg PO DAILY [facility] Last Admin: 01/09/18 09:45 Dose: 40 mg Fluticasone/Salmeterol (Advair Diskus 100/50) 1 puff IH Q12 [facility] Last Admin: 01/09/18 09:46 Dose: 1 puff Sodium Bicarbonate (Sodium Bicarbonate Tab) 650 mg PO DAILY [facility] Last Admin: 01/09/18 09:43 Dose: 650 mg - Labs Labs: 01/08/18 10:00 01/08/18 10:00
[2018-01-09] MEDS: Lidocaine 5% Patch TD SCH (21:17)
[2018-01-10] MEDS: Meropenem 500 MG in Sodium Chloride 0.9% 100 ML IVPB SCH ×3 (00:13→17:17)
[2018-01-10] MEDS: Sodium Chloride 0.9% 1,000 ML IV SCH ×2 (06:09→17:27)
[2018-01-10] MEDS: Levothyroxine 75 MCG TAB PO SCH (06:09)
[2018-01-10 06:35] LABS: HEMOGLOBIN 10.3 g/dL (12.0-16.0); MEAN CELL VOLUME 91.1 fl (81.0-99.0); MEAN CORPUSCULAR HEMOGLOBIN 30.2 pg (27.0-31.0); MEAN CORPUSCULAR HGB CONC 33.1 g/dL (33.0-37.0); RBC 3.4 Mil/uL (3.80-5.20); RED CELL DISTRIBUTION WIDTH 15.4 % (11.5-14.5); WHITE BLOOD COUNT 6.3 K/uL (4.8-10.8)
[2018-01-10] MEDS: Fluticasone-Salmeterol 100-50mcg Diskus IH SCH ×2 (10:04→21:38)
[2018-01-10] MEDS: Pantoprazole 40 mg EC Tab PO SCH (10:06)
--- NOTE | 2018-01-10 11:05 | CP.PCM.PN ---
Subjective - Date & Time of Evaluation Date of Evaluation: 01/10/18 Time of Evaluation: 11:05 - Subjective Subjective: mildly improved no complaints a tthis time hd stable nad Objective - Vital Signs/Intake and Output Vital Signs (last 24 hours): Temp Pulse Resp BP Pulse Ox 97.6 F 74 20 145/78 95 01/10/18 09:00 01/10/18 10:09 01/10/18 09:00 01/10/18 10:09 01/10/18 09:00 Intake and Output: EXAM: Vitals stable and reviewed GEN: WDWN, alert, cooperative HEENT: NCAT, PERRL, EOMI Neck: supple, no lymphadenopathy CARDIO: +S1S2, RRR, NO M/R/G LUNG: CTAB, NO W/R/R ABD: soft, NT, ND, no masses, no HSM EXT: no edema, pedal pulses Neuro: AAOx3, Strength equal, bilateral UE/LE Psych: normal mood, normal affect - Medications Medications: Current Medications Acetaminophen (Tylenol 325mg Tab) 650 mg PO Q6 PRN PRN Reason: Pain, Mild (1-3) Last Admin: 01/09/18 17:54 Dose: 650 mg Acetaminophen (Tylenol 325mg Tab) 650 mg PO Q6 PRN PRN Reason: Fever >100.4 F Albuterol (Ventolin Hfa 90 Mcg/Actuation (8 G)) 1 puff INH RQ6 PRN PRN Reason: Wheezing Atorvastatin Calcium (Lipitor) [address] [facility] Last Admin: 01/10/18 00:15 Dose: 40 mg Clopidogrel Bisulfate (Plavix) 75 mg PO DAILY [facility] Last Admin: 01/10/18 10:06 Dose: 75 mg Docusate Sodium (Colace) 100 mg PO BID [facility] Last Admin: 01/10/18 10:05 Dose: Not Given Famotidine (Pepcid) 20 mg PO BID [facility] Last Admin: 01/10/18 10:06 Dose: 20 mg Heparin Sodium (Porcine) (Heparin) 5,000 units SC Q12 [facility] PRN Reason: Protocol Last Admin: 01/10/18 10:05 Dose: 5,000 units Sodium Chloride (Sodium Chloride 0.9%) 1,000 mls @ 85 mls/hr IV .[id number] [facility] Last Admin: 01/10/18 06:09 Dose: 85 mls/hr Meropenem 500 mg/ Sodium (Chloride) 100 mls @ 100 mls/hr IVPB Q8 [facility] PRN Reason: Protocol Last Admin: 01/10/18 10:05 Dose: 100 mls/hr Levothyroxine Sodium (Synthroid) 225 mcg PO DAILY@0630 [facility] Last Admin: 01/10/18 06:09 Dose: 225 mcg Lidocaine (Lidoderm) 1 ea TD DAILY@2100 [facility] Last Admin: 01/09/18 21:17 Dose: 1 ea Lorazepam (Ativan) 1 mg PO HS [facility] Last Admin: 01/09/18 21:50 Dose: 1 mg Metoclopramide HCl (Reglan) 10 mg IVP Q6 PRN PRN Reason: Nausea/Vomiting Metoprolol Tartrate (Lopressor) 50 mg PO DAILY [facility] Last Admin: 01/10/18 10:09 Dose: 50 mg Montelukast Sodium (Singulair) 10 mg PO DAILY [facility] Last Admin: 01/10/18 10:06 Dose: 10 mg Pantoprazole Sodium (Protonix Ec Tab) 40 mg PO DAILY [facility] Last Admin: 01/10/18 10:06 Dose: 40 mg Fluticasone/Salmeterol (Advair Diskus 100/50) 1 puff IH Q12 [facility] Last Admin: 01/10/18 10:04 Dose: 1 puff Sodium Bicarbonate (Sodium Bicarbonate Tab) 650 mg PO DAILY [facility] Last Admin: 01/10/18 10:06 Dose: 650 mg - Labs Labs: 01/10/18 05:30 01/10/18 05:30 Assessment and Plan - Assessment and Plan (Free Text) Plan: 87F [facility] colon cancer status post curative partial sigmoid colectomy 25 years ago, essential hypertension, COPD, CKD stage III, CAD s/p 2 stents, [place] x 2, chronic UTIs, diverticulosis with recent diverticulitis last month. Pt presented with exacerbation of her lower left and right quadrant abdominal pain , associated with nausea x [address] scan of abd/pelvis revealed cystitis and diverticulosis as well as hydronephrosis bilaterally. Patient was on Cipro and Flagyl at home x 1 month for diverticulitis, which now appears to be resolved on CT scan. However, lab results show worsening of her renal function with GFR 23-> 19 since last month. She is also positive for UTI, which failed PO antibiotics. The patient is admitted for further workup and tx with IV antibiotics. 1. UTI with Chronic hydronephrosis - failed outpatient Cipro/Flagyl - CTAbd: + mild hydronephrosis bilaterally, cystitis - UA +LE, pyuria, however pt afebrile, no CVA tenderness - Awaiting cultures for directed antimicrobial therapy- Gram negative rods - Hx of multiple UTI, Hx ESBL+ in 2017 - Consult ID, Dr. Reveles, for antibiotic guidance- recommended IV Meropenem - will d/c to TCU for IV abx 2. Acute on chronic Stage III CKD, due to dehydration from decreased po intake - Gentle hydration - Encourage oral hydration - Continue Sodium bicarb tabs 3. Weakness - pt states she feels weak, uses walker, no stairs at home, lives with son and - PT/OT for strength, deconditioning-rec TCU - SW consulted for TCU placement 4.Diverticulosis, s/p recent bout of diverticulitis 1 month ago - Monitor for worsening abdominal pain - Reglan PRN for N/V 5. CAD, stable - continue Plavix and statin 6. COPD, stable, chronic - continue Advair - Ventolin inhaler DVT prophylaxis - Heparin
[2018-01-10] MEDS: Lidocaine 5% Patch TD SCH (21:38)
[2018-01-11] MEDS: Meropenem 500 MG in Sodium Chloride 0.9% 100 ML IVPB SCH ×2 (00:23→10:25)
[2018-01-11 00:57] VITALS: O2SAT 96
[2018-01-11] MEDS: Levothyroxine 75 MCG TAB PO SCH (05:33)
[2018-01-11] MEDS ORDERED: Sodium Chloride 0.9% 500 ML IV ONE (06:35)
[2018-01-11] MEDS ORDERED: Sodium Chloride 0.9% 1,000 ML IV SCH (06:45)
[2018-01-11 08:31] VITALS: BP 133/71; PULSE 72; RESP 20; TEMP 97.8
--- NOTE | 2018-01-11 10:03 | CP.PCM.DIS ---
Provider - Provider Date of Admission: 01/08/18 13:13 Attending physician: Kunal Gray DO Time Spent in preparation of Discharge (in minutes): 30 Diagnosis - Discharge Diagnosis (1) Abdominal discomfort Status: Acute (2) UTI (urinary tract infection) Status: Acute Hospital Course - Lab Results Lab Results: Micro Results 01/06/18 20:25 Blood-Venous Blood Culture - Preliminary NO GROWTH AFTER 4 DAYS 01/06/18 20:05 Blood-Venous Blood Culture - Preliminary NO GROWTH AFTER 4 DAYS 01/06/18 19:38 Urine,Clean Catch Urine Culture - Final Escherichia Coli Most Recent Lab Values WBC 6.3 K/uL (4.8-10.8) 01/10/18 05:30 RBC 3.40 Mil/uL (3.80-5.20) L 01/10/18 05:30 Hgb 10.3 g/dL (12.0-16.0) L 01/10/18 05:30 Hct 31.0 % (34.0-47.0) L 01/10/18 05:30 MCV 91.1 fl (81.0-99.0) 01/10/18 05:30 MCH 30.2 pg (27.0-31.0) 01/10/18 05:30 MCHC 33.1 g/dL (33.0-37.0) 01/10/18 05:30 RDW 15.4 % (11.5-14.5) H 01/10/18 05:30 Plt Count 197 K/uL (130-400) 01/10/18 05:30 MPV 7.5 fl (7.2-11.7) 01/06/18 15:03 Neut % (Auto) 48.4 % (50.0-75.0) L 01/06/18 15:03 Lymph % (Auto) 37.3 % (20.0-40.0) 01/06/18 15:03 [place] % (Auto) 11.4 % (0.0-10.0) H 01/06/18 15:03 Eos % (Auto) 2.1 % (0.0-4.0) 01/06/18 15:03 Baso % (Auto) 0.8 % (0.0-2.0) 01/06/18 15:03 Neut # (Auto) 4.3 K/uL (1.8-7.0) 01/06/18 15:03 Lymph # (Auto) 3.3 K/uL (1.0-4.3) 01/06/18 15:03 [place]ay # (Auto) 1.0 K/uL (0.0-0.8) H 01/06/18 15:03 Eos # (Auto) 0.2 K/uL (0.0-0.7) 01/06/18 15:03 Baso # (Auto) 0.1 K/uL (0.0-0.2) 01/06/18 15:03 Sodium 140 mmol/l (132-148) 01/10/18 05:30 Potassium 4.3 MMOL/L (3.6-5.0) 01/10/18 05:30 Chloride 108 mmol/L (98-107) H 01/10/18 05:30 Carbon Dioxide 25 mmol/L (22-30) 01/10/18 05:30 Anion Gap 11 (10-20) 01/10/18 05:30 BUN 18 mg/dl (7-17) H 01/10/18 05:30 Creatinine 1.8 mg/dl (0.7-1.2) H 01/10/18 05:30 Est GFR ( Amer) 32 01/10/18 05:30 Est GFR (Non-Af Amer) 27 01/10/18 05:30 Random Glucose 97 mg/dL (65-105) 01/10/18 05:30 Calcium 8.0 mg/dL (8.4-10.2) L 01/10/18 05:30 Total Bilirubin 0.6 mg/dl (0.2-1.3) 01/06/18 15:03 AST 20 U/L (14-36) 01/06/18 15:03 ALT 12 U/L (9-52) 01/06/18 15:03 Alkaline Phosphatase 82 U/L (38-126) 01/06/18 15:03 Total Protein 8.1 G/DL (6.3-8.2) 01/06/18 15:03 Albumin 4.2 g/dL (3.5-5.0) 01/06/18 15:03 Globulin 3.9 gm/dL (2.2-3.9) 01/06/18 15:03 Albumin/Globulin Ratio 1.1 (1.0-2.1) 01/06/18 15:03 Amylase 144 U/L (30-110) H 01/06/18 15:03 Lipase 355 U/L (23-300) H 01/08/18 10:00 Urine Color Yellow (YELLOW) 01/06/18 14:41 Urine Clarity Turbid (Clear) 01/06/18 14:41 Urine pH 6.0 (5.0-8.0) 01/06/18 14:41 Ur Specific [place] 1.010 (1.003-1.030) 01/06/18 14:41 Urine Protein 30 mg/dL (NEGATIVE) 01/06/18 14:41 Urine Glucose (UA) Neg mg/dL (Normal) 01/06/18 14:41 Urine Ketones Negative mg/dL (NEGATIVE) 01/06/18 14:41 Urine Blood Small (NEGATIVE) 01/06/18 14:41 Urine Nitrate Positive (NEGATIVE) H 01/06/18 14:41 Urine Bilirubin Negative (NEGATIVE) 01/06/18 14:41 Urine Urobilinogen 0.2-1.0 mg/dL (0.2-1.0) 01/06/18 14:41 Ur Leukocyte Esterase Large Ingrid/uL (Negative) 01/06/18 14:41 Urine RBC (Auto) 13 /hpf (0-3) H 01/06/18 14:41 Urine Microscopic WBC 2868 /hpf (0-5) H 01/06/18 14:41 Urine Bacteria Few (<OCC) H 01/06/18 14:41 Ur Random Amylase 96 U/L (32-641) 01/10/18 18:05 C. difficile Ag & Toxin Negative (NEGATIVE) 01/09/18 22:57 - Hospital Course Hospital Course: 87F PMH colon cancer status post curative partial sigmoid colectomy 25 years ago, essential hypertension, COPD, CKD stage III, CAD s/p 2 stents, [place] x 2, chronic UTIs, diverticulosis with recent diverticulitis last month. Pt presented with exacerbation of her lower left and right quadrant abdominal pain , associated with nausea x [address] scan of abd/pelvis revealed cystitis and diverticulosis as well as hydronephrosis bilaterally. Patient was on Cipro and Flagyl at home x 1 month for diverticulitis, which now appears to be resolved on CT scan. However, lab results show worsening of her renal function with GFR 23-> 19 since last month. She is also positive for UTI, which failed PO antibiotics. The patient is admitted for further workup and tx with IV antibiotics. Patient stable to be discharged to TCU for IV RX and PT/OT. 1. UTI with Chronic hydronephrosis - failed outpatient Cipro/Flagyl - CTAbd: + mild hydronephrosis bilaterally, cystitis - UA +LE, pyuria, however pt afebrile, no CVA tenderness - Awaiting cultures for directed antimicrobial therapy- Gram negative rods - Hx of multiple UTI, Hx ESBL+ in 2017 - Consult ID, Dr. Reveles, for antibiotic guidance- recommended IV Meropenem - will d/c to TCU for IV abx, PT OT 2. Acute on chronic Stage III CKD, due to dehydration from decreased po intake - Gentle hydration - Encourage oral hydration - Continue Sodium bicarb tabs 3. Weakness - pt states she feels weak, uses walker, no stairs at home, lives with son and - PT/OT for strength, deconditioning-rec TCU - SW consulted for TCU placement 4.Diverticulosis, s/p recent bout of diverticulitis 1 month ago - Monitor for worsening abdominal pain - Reglan PRN for N/V 5. CAD, stable - continue Plavix and statin 6. COPD, stable, chronic - continue Advair - Ventolin inhaler DVT prophylaxis - Heparin Discharge Exam - Head Exam Head Exam: NORMAL INSPECTION, NORMOCEPHALIC - Eye Exam Eye Exam: EOMI, Normal appearance, PERRL Pupil Exam: NORMAL ACCOMODATION - ENT Exam ENT Exam: Mucous Membranes Moist, Normal Oropharynx - Respiratory Exam Respiratory Exam: Clear to PA & Lateral, NORMAL BREATHING PATTERN - Cardiovascular Exam Cardiovascular Exam: RRR, +S1, +S2 - GI/Abdominal Exam GI & Abdominal Exam: Normal Bowel Sounds, Soft - Extremities Exam Extremities exam: normal capillary refill, pedal pulses present - Back Exam Back exam: absent: CVA tenderness (L), CVA tenderness (R) - Neurological Exam Neurological exam: Alert, Oriented x3 - Psychiatric Exam Psychiatric exam: Normal Affect, Normal Mood - Skin Skin Exam: Dry, Normal Color, Warm Discharge Plan - Follow Up Plan Condition: STABLE Disposition: TRANSF TO SNF Instructions: Acute Abdomen (Belly Pain), Adult (DC), Urinary Tract Infection in Women (DC) Additional Instructions: follow up with primary MD 1 week Referrals: Benitez Reveles MD [Medical Doctor] -
[2018-01-11] MEDS: Fluticasone-Salmeterol 100-50mcg Diskus IH SCH (10:21)
[2018-01-11] MEDS: Pantoprazole 40 mg EC Tab PO SCH (10:26)
== END 2018-01-11 15:15 | DRG 690 ==
LOC: H.ER 13:29 → INTOOBSV 18:09 → H.ERHOLD 18:09 → H.MEDSURG1 21:18 → OBSVTOIN 01-08 13:13
PROVIDERS: ADMIT Internal Medicine; ATTEND Internal Medicine
DX: N39.0 Urinary tract infection, site not specified (principal); N13.6 Pyonephrosis; B96.20 Unspecified Escherichia coli [E. coli] as the cause of diseases classified elsewhere; I13.0 Hypertensive heart and chronic kidney disease with heart failure and stage 1 through stage 4 chronic kidney disease, or unspecified chronic kidney disease; K57.92 Diverticulitis of intestine, part unspecified, without perforation or abscess without bleeding; N18.3 Chronic kidney disease, stage 3 (moderate); E86.0 Dehydration; E03.9 Hypothyroidism, unspecified; I25.10 Atherosclerotic heart disease of native coronary artery without angina pectoris; E78.00 Pure hypercholesterolemia, unspecified; K21.9 Gastro-esophageal reflux disease without esophagitis; J44.9 Chronic obstructive pulmonary disease, unspecified; F41.9 Anxiety disorder, unspecified; M19.90 Unspecified osteoarthritis, unspecified site; I25.2 Old myocardial infarction; Z79.02 Long term (current) use of antithrombotics/antiplatelets; Z85.038 Personal history of other malignant neoplasm of large intestine; Z95.5 Presence of coronary angioplasty implant and graft

== ENCOUNTER 2018-01-11 13:50 | Inpatient (IN) | payer OTHER ==
[2018-01-11 15:41] VITALS: RESP 20
[2018-01-11] MEDS ORDERED: Albuterol HFA 90 mcg/actuation (8 g) IH PRN (15:54)
[2018-01-11] MEDS: Lidocaine 5% Patch TD SCH (21:02)
[2018-01-11] MEDS: Fluticasone-Salmeterol 100-50mcg Diskus IH SCH (21:11)
[2018-01-11] MEDS: Meropenem 500 MG in Sodium Chloride 0.9% 100 ML IVPB SCH (21:13)
[2018-01-12] MEDS: Meropenem 500 MG in Sodium Chloride 0.9% 100 ML IVPB SCH ×3 (06:22→21:35)
[2018-01-12] MEDS: Levothyroxine 75 MCG TAB PO SCH (06:24)
[2018-01-12] MEDS: Pantoprazole 40 mg EC Tab PO SCH (09:03)
[2018-01-12] MEDS: Fluticasone-Salmeterol 100-50mcg Diskus IH SCH ×2 (09:03→21:36)
--- NOTE | 2018-01-12 11:22 | CP.PCM.HP ---
History of Present Illness - History of Present Illness History of Present Illness: 87 yo female with history of HTN, COPD, CKD stage III, CAD with 2 stents, recurrent UTI, diverticulosis with recent bout of diverticulitis and colon cancer with partial sigmoid colectomy presented with left lower quadrant abdominal pain. CT scan of abdomen/pelvis showed diverticulosis, bilateral hydronephrosis and thickening of the bladder wall consistent with cystitis. Initial urine culture grew E coli but subsequent urine culture grew gram + cocci. ID consult was called and advised to treat patient with Meropenem. Her condition improved. She then was transferred to TCU for continuation of IV antibiotics and therapy. Present on Admission - Present on Admission Any Indicators Present on Admission: No History of DVT/PE: No History of Uncontrolled Diabetes: No Urinary Catheter: No Decubitus Ulcer Present: No Review of Systems - Review of Systems All systems: reviewed and no additional remarkable complaints except (aside from those mentioned above, 12 point system review were negative by me) Past Patient History - Infectious Disease Hx of Infectious Diseases: None - Tetanus Immunizations Tetanus Immunization: Unknown - Past Medical History & Family History Past Medical History?: Yes - Past Social History Smoking Status: Never Smoked Alcohol: None Drugs: Denies Home Situation {Lives}: With Family - CARDIAC Hx Cardiac Disorders: Yes Hx Congestive Heart Failure: Yes Hx Hypercholesterolemia: Yes Hx Hypertension: Yes - PULMONARY Hx Asthma: Yes Hx Chronic Obstructive Pulmonary Disease (COPD): Yes - NEUROLOGICAL Hx Neurological Disorder: No - HEENT Hx HEENT Problems: Yes Other/Comment: HARD OF HEARING - RENAL Hx Chronic Kidney Disease: Yes - ENDOCRINE/METABOLIC Hx Hypothyroidism: Yes - HEMATOLOGICAL/ONCOLOGICAL Hx Blood Disorders: Yes Hx Anemia: Yes Hx Human Immunodeficiency Virus (HIV): No - INTEGUMENTARY Hx Dermatological Problems: No - MUSCULOSKELETAL/RHEUMATOLOGICAL Hx Arthritis: Yes Hx Falls: No - GASTROINTESTINAL Hx Gastrointestinal Disorders: Yes Hx Diverticulitis: Yes Hx Gastritis: Yes - GENITOURINARY/GYNECOLOGICAL Hx Genitourinary Disorders: Yes Hx Incontinence: Yes - PSYCHIATRIC Hx Psychophysiologic Disorder: Yes Hx Anxiety: Yes Hx Depression: Yes Hx Substance Use: No - SURGICAL HISTORY Hx Surgeries: Yes Hx Appendectomy: Yes Hx Cholecystectomy: Yes 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, 10 years [employer]) Hx 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: Yes - ANESTHESIA Hx Anesthesia: Yes Hx Anesthesia Reactions: No Hx Malignant Hyperthermia: No Meds Allergies/Adverse Reactions: Allergies Allergy/AdvReac Type Severity Reaction Status Date / Time No Known Allergies Allergy Verified 01/11/18 14:03 Physical Exam - Constitutional Appears: No Acute Distress - Head Exam Head Exam: ATRAUMATIC - Eye Exam Eye Exam: absent: Scleral icterus - ENT Exam ENT Exam: Mucous Membranes Moist - Neck Exam Neck exam: Negative for: Meningismus - Respiratory Exam Respiratory Exam: absent: Rales, Rhonchi, Wheezes, Respiratory Distress - Cardiovascular Exam Cardiovascular Exam: REGULAR RHYTHM, +S1, +S2 - GI/Abdominal Exam GI & Abdominal Exam: Soft. absent: Tenderness - Rectal Exam Rectal Exam: Deferred - Back Exam Back exam: absent: tenderness - Neurological Exam Neurological exam: Alert - Psychiatric Exam Psychiatric exam: Normal Affect - Skin Skin Exam: Dry, Intact Results - Vital Signs Recent Vital Signs: Last Vital Signs Temp 96.6 F L 01/12/18 09:06 Pulse 66 01/12/18 09:45 Resp 20 01/12/18 09:06 BP 144/68 01/12/18 09:06 Pulse Ox 96 01/12/18 09:45 Assessment & Plan - Assessment and Plan (Free Text) Assessment: 87 yo female with history of HTN, COPD, CKD stage III, CAD with 2 stents, recurrent UTI, diverticulosis with recent bout of diverticulitis and colon cancer with partial sigmoid colectomy presented with left lower quadrant abdominal pain. CT scan of abdomen/pelvis showed diverticulosis, bilateral hydronephrosis and thickening of the bladder wall consistent with cystitis. Initial urine culture grew E coli but subsequent urine culture grew gram + cocci. ID consult was called and advised to treat patient with Meropenem. Her condition improved. She then was transferred to TCU for continuation of IV antibiotics and therapy. 1. UTI with Chronic Hydronephrosis failed outpatient treatment with Cipro/Flagyl initial urine culture (01/06/18) grew E coli, sensitive to Meropenem latest urine culture (01/10/18) grew gram + cocci but < 100,000, probably a contaminant continue Meropenem patient refused to stay more than a week but also refused to have a PICC line 2. Acute on chronic Stage III CKD secondary to dehydration and poor intake continue gentle hydration continue oral sodium bicarb tabs 3. Weakness continue PT/OT 4.Diverticulosis diverticulitis resolved base on result of CT scan of abdomen/pelvis 5. CAD, stable continue Plavix and statin 6. COPD, stable, chronic continue Advair Ventolin inhaler prn 7. DVT prophylaxis on Heparin
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
[2018-01-12] MEDS: Lidocaine 5% Patch TD SCH (21:37)
[2018-01-13] MEDS: Meropenem 500 MG in Sodium Chloride 0.9% 100 ML IVPB SCH ×3 (05:00→20:17)
[2018-01-13] MEDS: Levothyroxine 75 MCG TAB PO SCH (06:28)
[2018-01-13 08:09] LABS: SQUAMOUS EPITHIAL < 1 /hpf (0-5); URINE BILIRUBIN NEGATIVE (NEGATIVE); URINE BLOOD SMALL (NEGATIVE); URINE CLARITY CLEAR (Clear); URINE COLOR STRAW (YELLOW); URINE GLUCOSE (UA) NEG (Normal); URINE LEUKOCYTE ESTERASE TRACE Leu/uL (Negative); URINE PROTEIN NEGATIVE (NEGATIVE); URINE UROBILINOGEN 0.2-1.0 mg/dL (0.2-1.0)
[2018-01-13] MEDS: Fluticasone-Salmeterol 100-50mcg Diskus IH SCH ×2 (09:01→20:14)
[2018-01-13] MEDS: Pantoprazole 40 mg EC Tab PO SCH (09:03)
[2018-01-13 16:59] LABS: BASO # 0.1 K/uL (0.0-0.2); BASO % 1.3 % (0.0-2.0); EOS # 0.3 K/uL (0.0-0.7); EOS % 3.8 % (0.0-4.0); HEMOGLOBIN 11.3 g/dL (12.0-16.0); LYMPH # 2.5 K/uL (1.0-4.3); LYMPH % 32.2 % (20.0-40.0); MEAN CORPUSCULAR HEMOGLOBIN 30.4 pg (27.0-31.0); MEAN CORPUSCULAR HGB CONC 33.4 g/dL (33.0-37.0); MEAN PLATELET VOLUME 7.2 fl (7.2-11.7); MONO # 0.9 K/uL (0.0-0.8); MONO % 11.3 % (0.0-10.0); NEUT # 4.1 K/uL (1.8-7.0); NEUT % 51.4 % (50.0-75.0); NRBC % 0.1 % (0.0-0.0); RBC 3.73 Mil/uL (3.80-5.20); RED CELL DISTRIBUTION WIDTH 15.3 % (11.5-14.5); WHITE BLOOD COUNT 7.9 K/uL (4.8-10.8)
[2018-01-13] MEDS: Proshield Plus GEL TOP SCH (17:20)
[2018-01-13 17:28] LABS: CALCIUM 8.5 mg/dL (8.4-10.2)
[2018-01-13] MEDS: Lidocaine 5% Patch TD SCH (21:15)
[2018-01-14] MEDS: Proshield Plus GEL TOP SCH ×3 (01:16→13:37)
[2018-01-14] MEDS: Levothyroxine 75 MCG TAB PO SCH (06:16)
[2018-01-14] MEDS: Meropenem 500 MG in Sodium Chloride 0.9% 100 ML IVPB SCH ×3 (06:40→20:36)
[2018-01-14] MEDS: Fluticasone-Salmeterol 100-50mcg Diskus IH SCH ×2 (08:40→20:38)
[2018-01-14] MEDS: Pantoprazole 40 mg EC Tab PO SCH (08:43)
[2018-01-14] MEDS: Lidocaine 5% Patch TD SCH (20:38)
[2018-01-15] MEDS: Proshield Plus GEL TOP SCH ×3 (05:44→21:53)
[2018-01-15] MEDS: Meropenem 500 MG in Sodium Chloride 0.9% 100 ML IVPB SCH ×3 (05:45→21:51)
[2018-01-15] MEDS: Levothyroxine 75 MCG TAB PO SCH (05:47)
[2018-01-15] MEDS: Fluticasone-Salmeterol 100-50mcg Diskus IH SCH ×2 (08:45→21:55)
[2018-01-15] MEDS: Pantoprazole 40 mg EC Tab PO SCH (08:48)
[2018-01-15] MEDS: Lidocaine 5% Patch TD SCH (21:56)
[2018-01-16] MEDS: Proshield Plus GEL TOP SCH ×2 (06:07→14:55)
[2018-01-16] MEDS: Levothyroxine 75 MCG TAB PO SCH (06:08)
[2018-01-16] MEDS: Fluticasone-Salmeterol 100-50mcg Diskus IH SCH (08:32)
[2018-01-16] MEDS: Pantoprazole 40 mg EC Tab PO SCH (08:35)
--- NOTE | 2018-01-16 13:33 | CP.PCM.DIS ---
Provider - Provider Date of Admission: 01/11/18 14:19 Attending physician: Kunal Gray DO Consults: Dr Reveles Time Spent in preparation of Discharge (in minutes): 25 Diagnosis - Discharge Diagnosis (1) UTI (urinary tract infection) Status: Acute Comment: resolved. completed 10 days of IV Meropenem (2) Acute on chronic kidney failure Status: Acute Comment: renal function stable (3) CAD (coronary artery disease) Status: Chronic Comment: asymptomatic. continue Plavix, statin and Metoprolol (4) COPD (chronic obstructive pulmonary disease) Status: Chronic Comment: continue Advair 1 puff q 12hrs. Ventolin inhaler 2 puffs q 4hrs prn. Montelukast 10mg PO HS Hospital Course - Lab Results Lab Results: Most Recent Lab Values WBC 7.9 K/uL (4.8-10.8) 01/13/18 16:14 RBC 3.73 Mil/uL (3.80-5.20) L 01/13/18 16:14 Hgb 11.3 g/dL (12.0-16.0) L 01/13/18 16:14 Hct 33.9 % (34.0-47.0) L 01/13/18 16:14 MCV 91.0 fl (81.0-99.0) 01/13/18 16:14 MCH 30.4 pg (27.0-31.0) 01/13/18 16:14 MCHC 33.4 g/dL (33.0-37.0) 01/13/18 16:14 RDW 15.3 % (11.5-14.5) H 01/13/18 16:14 Plt Count 259 K/uL (130-400) 01/13/18 16:14 MPV 7.2 fl (7.2-11.7) 01/13/18 16:14 Neut % (Auto) 51.4 % (50.0-75.0) 01/13/18 16:14 Lymph % (Auto) 32.2 % (20.0-40.0) 01/13/18 16:14 [place] % (Auto) 11.3 % (0.0-10.0) H 01/13/18 16:14 Eos % (Auto) 3.8 % (0.0-4.0) 01/13/18 16:14 Baso % (Auto) 1.3 % (0.0-2.0) 01/13/18 16:14 Neut # (Auto) 4.1 K/uL (1.8-7.0) 01/13/18 16:14 Lymph # (Auto) 2.5 K/uL (1.0-4.3) 01/13/18 16:14 [place] # (Auto) 0.9 K/uL (0.0-0.8) H 01/13/18 16:14 Eos # (Auto) 0.3 K/uL (0.0-0.7) 01/13/18 16:14 Baso # (Auto) 0.1 K/uL (0.0-0.2) 01/13/18 16:14 Sodium 138 mmol/l (132-148) 01/13/18 16:14 Potassium 4.3 MMOL/L (3.6-5.0) 01/13/18 16:14 Chloride 103 mmol/L (98-107) 01/13/18 16:14 Carbon Dioxide 24 mmol/L (22-30) 01/13/18 16:14 Anion Gap 15 (10-20) 01/13/18 16:14 BUN 37 mg/dl (7-17) H 01/13/18 16:14 Creatinine 2.1 mg/dl (0.7-1.2) H 01/13/18 16:14 Est GFR ( Amer) 27 01/13/18 16:14 Est GFR (Non-Af Amer) 22 01/13/18 16:14 Random Glucose 101 mg/dL (65-105) 01/13/18 16:14 Calcium 8.5 mg/dL (8.4-10.2) 01/13/18 16:14 Urine Color Straw (YELLOW) 01/13/18 07:00 Urine Clarity Clear (Clear) 01/13/18 07:00 Urine pH 7.0 (5.0-8.0) 01/13/18 07:00 Ur Specific [place] 1.008 (1.003-1.030) 01/13/18 07:00 Urine Protein Negative mg/dL (NEGATIVE) 01/13/18 07:00 Urine Glucose (UA) Neg mg/dL (Normal) 01/13/18 07:00 Urine Ketones Negative mg/dL (NEGATIVE) 01/13/18 07:00 Urine Blood Small (NEGATIVE) 01/13/18 07:00 Urine Nitrate Negative (NEGATIVE) 01/13/18 07:00 Urine Bilirubin Negative (NEGATIVE) 01/13/18 07:00 Urine Urobilinogen 0.2-1.0 mg/dL (0.2-1.0) 01/13/18 07:00 Ur Leukocyte Esterase Trace Ingrid/uL (Negative) 01/13/18 07:00 Urine RBC (Auto) 6 /hpf (0-3) H 01/13/18 07:00 Urine Microscopic WBC 10 /hpf (0-5) H 01/13/18 07:00 Ur Squamous Epith Cells < 1 /hpf (0-5) 01/13/18 07:00 - Hospital Course Hospital Course: 87 yo female with history of HTN, COPD, CKD stage III, CAD with 2 stents, recurrent UTI, diverticulosis with recent bout of diverticulitis and colon cancer with partial sigmoid colectomy presented with left lower quadrant abdominal pain. CT scan of abdomen/pelvis showed diverticulosis, bilateral hydronephrosis and thickening of the bladder wall consistent with cystitis. Initial urine culture grew E coli but subsequent urine culture grew gram + cocci. ID consult was called and advised to treat patient with Meropenem. Her condition improved. She then was transferred to TCU for continuation of IV antibiotics and therapy. Patient completed 10 days of IV Meropenem and discharged in stable condition. Discharge Exam - Head Exam Head Exam: ATRAUMATIC - Eye Exam Eye Exam: absent: Scleral icterus - ENT Exam ENT Exam: Mucous Membranes Moist - Respiratory Exam Respiratory Exam: absent: Rales, Rhonchi, Wheezes, Respiratory Distress - Cardiovascular Exam Cardiovascular Exam: REGULAR RHYTHM, +S1, +S2 - GI/Abdominal Exam GI & Abdominal Exam: Soft. absent: Tenderness - Rectal Exam Rectal Exam: Deferred - Neurological Exam Neurological exam: Alert, Oriented x3 - Psychiatric Exam Psychiatric exam: Normal Affect - Skin Skin Exam: Dry, Intact Discharge Plan - Discharge Medications Prescriptions: Atorvastatin [Lipitor] 40 mg PO HS #30 tab Clopidogrel [Plavix] 75 mg PO DAILY #30 tab Fluticasone/Salmeterol 100/50 [Advair Diskus 100/50] 1 puff IH Q12 #1 puff Levothyroxine [Synthroid] 225 mcg PO DAILY@0630 #30 tab Lidocaine 5% [Lidoderm] 1 % TOP DAILY #30 patch LORazepam [Ativan] 1 mg PO HS #30 tab Metoprolol Tartrate [Lopressor] 50 mg PO Q12 #30 tab Montelukast [Singulair] 10 mg PO DAILY #30 tab - Follow Up Plan Condition: GOOD Disposition: HOME/ ROUTINE Instructions: Urinary Tract Infections in Adults, Preventing Falls in the Older Adult Additional Instructions: follow up with PMD in one week Referrals: Martin Samuels Jr., MD [Staff Provider] - Benitez Reveles MD [Medical Doctor] -
[2018-01-16 15:55] VITALS: BP 109/56; PULSE 62; TEMP 97.9; O2SAT 96
== END 2018-01-16 16:20 | disposition home or self-care (01) | DRG 690 ==
LOC: H.TCU 14:19
PROVIDERS: ADMIT Internal Medicine; ATTEND Internal Medicine
PROC: F08Z1FZ Dressing Techniques Treatment using Assistive, Adaptive, Supportive or Protective Equipment (ICD-10-PCS; principal; 2018-01-11)
PROC: F07Z9FZ Gait Training/Functional Ambulation Treatment using Assistive, Adaptive, Supportive or Protective Equipment (ICD-10-PCS; 2018-01-11)
PROC: F07L6ZZ Therapeutic Exercise Treatment of Musculoskeletal System - Lower Back / Lower Extremity (ICD-10-PCS; 2018-01-11)
PROC: F07Z8FZ Transfer Training Treatment using Assistive, Adaptive, Supportive or Protective Equipment (ICD-10-PCS; 2018-01-11)
DX: N30.90 Cystitis, unspecified without hematuria (principal); I13.0 Hypertensive heart and chronic kidney disease with heart failure and stage 1 through stage 4 chronic kidney disease, or unspecified chronic kidney disease; N13.30 Unspecified hydronephrosis; E03.9 Hypothyroidism, unspecified; E78.00 Pure hypercholesterolemia, unspecified; E86.0 Dehydration; H91.90 Unspecified hearing loss, unspecified ear; I50.9 Heart failure, unspecified; N18.3 Chronic kidney disease, stage 3 (moderate); I25.10 Atherosclerotic heart disease of native coronary artery without angina pectoris; Z95.5 Presence of coronary angioplasty implant and graft; J44.9 Chronic obstructive pulmonary disease, unspecified; Z85.038 Personal history of other malignant neoplasm of large intestine; K21.9 Gastro-esophageal reflux disease without esophagitis; K44.9 Diaphragmatic hernia without obstruction or gangrene; B96.20 Unspecified Escherichia coli [E. coli] as the cause of diseases classified elsewhere; K57.90 Diverticulosis of intestine, part unspecified, without perforation or abscess without bleeding

== ENCOUNTER 2018-04-30 15:47 | Emergency (ER) | payer MEDICARE, OTHER ==
[2018-04-30 15:48] VITALS: BMI 23.8
[2018-04-30] MEDS ORDERED: Sodium Chloride 0.9% 1,000 ML IV STA (16:23)
[2018-04-30 16:36] LABS: BASO # 0.1 K/uL (0.0-0.2); BASO % 0.9 % (0.0-2.0); EOS # 0.2 K/uL (0.0-0.7); EOS % 2.8 % (0.0-4.0); HEMOGLOBIN 11.4 g/dL (12.0-16.0); LYMPH # 3.1 K/uL (1.0-4.3); LYMPH % 37.6 % (20.0-40.0); MEAN CELL VOLUME 90.8 fl (81.0-99.0); MEAN CORPUSCULAR HEMOGLOBIN 29.9 pg (27.0-31.0); MEAN CORPUSCULAR HGB CONC 32.9 g/dL (33.0-37.0); MONO # 0.6 K/uL (0.0-0.8); MONO % 7.4 % (0.0-10.0); NEUT # 4.3 K/uL (1.8-7.0); NEUT % 51.3 % (50.0-75.0); RBC 3.83 Mil/uL (3.80-5.20); RED CELL DISTRIBUTION WIDTH 15.2 % (11.5-14.5); WHITE BLOOD COUNT 8.3 K/uL (4.8-10.8)
--- NOTE | 2018-04-30 16:38 | ED PDOC ---
HPI: Abdomen Time Seen by Provider: 04/30/18 16:13 Chief Complaint (Nursing): Abdominal Pain Chief Complaint (Provider): Abdominal Pain History Per: Patient History/Exam Limitations: no limitations Onset/Duration Of Symptoms: Days (x2 weeks) Additional Complaint(s): Alexandria Combs, an 87 year old female with past medical history of UTI, diverticulitis, hypertension, colon cancer, coronary artery disease COPD and GERD, presents to the emergency department with left sided abdominal pain onset 2 weeks. Patient states that the pain lasted all last night and today, and she was originally constipated but laxatives helped though the pain persisted. She reports her last bowel movement was yesterday. Patient states she has been taking Percocet intermittently for the pain. She denies fever or vomiting. No further medical complaints. PMD: Dr. 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 [employer]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), 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 Other surgeries: colon resection - Family History Family History: States: Unknown Family Hx - Immunization History Hx Tetanus Toxoid Vaccination: No Hx Influenza Vaccination: Yes (04/2014) Hx Pneumococcal Vaccination: Yes (2010) - Home Medications Home Medications: Ambulatory Orders Medication Instructions Recorded RX: Albuterol HFA [Ventolin HFA 90 1 puff IH Q6 PRN 01/06/18 mcg/actuation (8 g)] RX: Esomeprazole Magnesium [Nexium] 40 mg PO DAILY 01/06/18 RX: Acetaminophen [Tylenol 325mg 650 mg PO Q6 PRN tab 01/11/18 tab] RX: Docusate [Colace] 100 mg PO BID cap 01/11/18 RX: Nystatin [Nystop Topical 1 applic TOP TID bottle 01/11/18 Powder] RX: Atorvastatin [Lipitor] 40 mg PO HS #30 tab 01/16/18 RX: Clopidogrel [Plavix] 75 mg PO DAILY #30 tab 01/16/18 RX: Fluticasone/Salmeterol 100/50 1 puff IH Q12 #1 puff 01/16/18 [Advair Diskus 100/50] RX: LORazepam [Ativan] 1 mg PO HS #30 tab 01/16/18 RX: Levothyroxine [Synthroid] 225 mcg PO DAILY@0630 #30 tab 01/16/18 RX: Lidocaine 5% [Lidoderm] 1 % TOP DAILY #30 patch 01/16/18 RX: Metoprolol Tartrate [Lopressor] 50 mg PO Q12 #30 tab 01/16/18 RX: Montelukast [Singulair] 10 mg PO DAILY #30 tab 01/16/18 Sulfamethoxazole/Trimethoprim 1 tab PO BID #20 tab 04/30/18 [Bactrim DS 800 mg-160 mg] - Allergies Allergies/Adverse Reactions: Allergies Allergy/AdvReac Type Severity Reaction Status Date / Time No Known Allergies Allergy Verified 01/11/18 14:03 Review of Systems ROS Statement: Except As Marked, All Systems Reviewed And Found Negative Constitutional: Negative for: Fever Gastrointestinal: Positive for: Abdominal Pain, Constipation. Negative for: Vomiting Physical Exam - Reviewed Nursing Documentation Reviewed: Yes Vital Signs Reviewed: Yes - Physical Exam Appears: Positive for: Well, Non-toxic, No Acute Distress Head Exam: Positive for: ATRAUMATIC, NORMAL INSPECTION, NORMOCEPHALIC Skin: Positive for: Normal Color, Warm, DRY Eye Exam: Positive for: EOMI, Normal appearance, PERRL ENT: Positive for: Normal ENT Inspection Neck: Positive for: Normal, Painless ROM Cardiovascular/Chest: Positive for: Regular Rate, Rhythm Respiratory: Positive for: Normal Breath Sounds. Negative for: Respiratory Distress Gastrointestinal/Abdominal: Positive for: Tenderness (mild to LLQ) Back: Positive for: Normal Inspection Extremity: Positive for: Normal ROM Neurologic/Psych: Positive for: Alert, Oriented - Laboratory Results Result Diagrams: 04/30/18 16:31 04/30/18 16:31 - ECG O2 Sat by Pulse Oximetry: 100 (RA) Pulse Ox Interpretation: Normal - Progress Re-evaluation Time: 19:00 Condition: Re-examined, Improved Medical Decision Making Medical Decision Making: Time: 16:13 Initial Impression: Initial Plan: --CT abd/pelvis --CMP --Urine dipstick --CBC w/ differential --Sodium chloride 1000 mL IV 125 mls/hr --Blood culture --Urinalysis Time: 1834 CT abd/pelvis: Impression: --No acute intra-abdominal or pelvic abnormality. Mild scarring at the lung bases. Hiatal hemia. Status post cholecystectomy. Bilateral extrarenal pelves. Advanced atherosclerotic changes. Mild bladder wall thickening. Scribe Attestation: Documented by Annette Lyn, acting as a scribe for Amna Husain MD. Provider Scribe Attestation: All medical record entries made by the Scribe were at my direction and personally dictated by me. I have reviewed the chart and agree that the record accurately reflects my personal performance of the history, physical exam, medical decision making, and the department course for this patient. I have also personally directed, reviewed, and agree with the discharge instructions and disposition. Disposition - Clinical Impression Clinical Impression: Urinary tract infection - Patient ED Disposition Is Patient to be Admitted: No Doctor Will See Patient In The: Office Counseled Patient/Family Regarding: Studies Performed, Diagnosis, Need For Followup - Disposition Referrals: Sivan Haddad MD [Medical Doctor] - Disposition: Routine/Home Disposition Time: 19:00 Condition: GOOD Additional Instructions: ALEXANDRIA COMBS, thank you for letting us take care of you today. Your provider was Amna Husain MD and you were treated for RT ABD PAIN. The emergency medical care you received today was directed at your acute symptoms. If you were prescribed any medication, please fill it and take as directed. It may take several days for your symptoms to resolve. Return to the Emergency Department if your symptoms worsen, do not improve, or if you have any other problems. Please contact your doctor or call one of the physicians/clinics you have been referred to that are listed on the Patient Visit Information form that is included in your discharge packet. Bring any paperwork you were given at discharge with you along with any medications you are taking to your follow up visit. Our treatment cannot replace ongoing medical care by a primary care provider outside of the emergency department. Thank you for [facility] team to be part of your care today. If you had an X-Ray or CT scan: A Radiologist will review the ED reading if any change in treatment is needed we will contact you. If you had a blood, urine, or wound culture: It will take several days for the results, if any change in treatment is needed we will contact you. If you had an STI test: It will take 48 hours for the results. Please call after 1 week if you have not heard back. Prescriptions: Sulfamethoxazole/Trimethoprim [Bactrim DS 800 mg-160 mg] 1 tab PO BID #20 tab Instructions: Urinary Tract Infection, Adult (DC)
[2018-04-30 16:44] LABS: ALBUMIN 3.6 g/dL (3.5-5.0); CALCIUM 9.3 mg/dL (8.4-10.2)
[2018-04-30 16:45] LABS: ALB/GLOB RATIO 0.9 (1.0-2.1)
[2018-04-30 17:06] LABS: SQUAMOUS EPITHIAL 7 /hpf (0-5); URINE BACTERIA MOD (<OCC); URINE BILIRUBIN NEGATIVE (NEGATIVE); URINE BLOOD MODERATE (NEGATIVE); URINE CLARITY TURBID (Clear); URINE COLOR AMBER (YELLOW); URINE GLUCOSE (UA) NEG (Normal); URINE LEUKOCYTE ESTERASE MOD Leu/uL (Negative); URINE PROTEIN 100 mg/dL (NEGATIVE); URINE UROBILINOGEN 0.2-1.0 mg/dL (0.2-1.0); WBC CLUMPS MANY /hpf
[2018-04-30] MEDS ORDERED: Piperacillin/Tazobact 3.375 GM in Sodium Chloride 0.9% 100 ML IVPB STA (19:17)
[2018-04-30 19:38] VITALS: BP 120/70; PULSE 78; RESP 20; TEMP 98
--- NOTE | 2018-05-01 09:55 | CT ---
Date of service: 04/30/2018 PROCEDURE: CT Abdomen and Pelvis without intravenous contrast HISTORY: abdominal pain COMPARISON: Noncontrast abdomen pelvis CT exam 01/06/2018. TECHNIQUE: Helical CT of the abdomen and pelvis was performed without oral or intravenous contrast as per referring physician request. Coronal and sagittal reformats were generated Contrast dose: None Radiation dose: Total exam DLP = 318.19 mGy-cm. This CT exam was performed using one or more of the following dose reduction techniques: Automated exposure control, adjustment of the mA and/or kV according to patient size, and/or use of iterative reconstruction technique. FINDINGS: LOWER THORAX: Tiny bulla reiterated at the right lower lobe is reiterated coronary artery calcifications and endobronchial calcifications as well. No infiltrate or pleural effusion bilaterally. Stable small hiatal hernia. LIVER: Unremarkable. No gross lesion or ductal dilatation. GALLBLADDER AND BILE DUCTS: Prior cholecystectomy reiterated. PANCREAS: An atrophic but nonfocal pancreas is again identified. SPLEEN: Unremarkable. ADRENALS: Unremarkable. No mass. KIDNEYS AND URETERS: Stable mild right hydronephrosis appears appreciated with essentially resolved left hydro nephrosis though prominent left extrarenal pelvis remains. Left ureter is normal in caliber. Moderate right hydroureter is reiterated.. No radiodense urolithiasis identified bilaterally. VASCULATURE: Nonaneurysmal abdominal aortic calcific atherosclerotic changes are identified. BOWEL: Stomach is stable appearing and remains collapse with poor evaluation of the wall. There is no bowel obstruction. Moderate fecal retention is seen throughout the large bowel diffusely with segmental resection reiterated at the mid sigmoid colon. Anastomotic suture line appears unremarkable. Extensive left colonic diverticular changes are stable without definite diverticulitis appreciated at this time. APPENDIX: No CT evidence to suggest appendicitis. PERITONEUM: Small umbilical hernia containing only a limited amount of mesenteric fat and no bowel. No free fluid. No free air. LYMPH NODES: Unremarkable. No enlarged lymph nodes. BLADDER: Moderate urinary bladder distention is appreciate with thickened urinary bladder and possible cystitis or even neoplasm not excluded. Lesion at the right ureterovesical junction or stricture may be the cause of persistent right hydroureteronephrosis with resolution of left hydronephrosis and hydroureter. REPRODUCTIVE: Unremarkable. BONES: No acute fracture. OTHER FINDINGS: None. IMPRESSION: 1. Persistent right hydroureteronephrosis with thickened urinary bladder potentially a result of cystitis or neoplasm. Distal right ureteral stricture or right UV junction stricture or neoplasm not excluded. Clinical follow-up advised. Apparent resolution of prior left hydronephrosis though extrarenal pelvis remains. 2. Stable left colonic diverticulosis without diverticulitis. Segmental resection at the sigmoid segment is identified with unremarkable anastomotic suture line. 3. Small hiatal hernia reiterated. Umbilical hernia reiterated without involving bowel once again. 4. Prior cholecystectomy. Discordant preliminary report from [facility] (right hydroureteronephrosis persistent), 04/30/2018.
[2018-05-02 15:25] VITALS: O2SAT 100
== END 2018-04-30 19:36 | disposition home or self-care (01) ==
LOC: H.ER 15:47
DX: N39.0 Urinary tract infection, site not specified (principal); E03.9 Hypothyroidism, unspecified; E78.00 Pure hypercholesterolemia, unspecified; I13.0 Hypertensive heart and chronic kidney disease with heart failure and stage 1 through stage 4 chronic kidney disease, or unspecified chronic kidney disease; K21.9 Gastro-esophageal reflux disease without esophagitis; Z85.038 Personal history of other malignant neoplasm of large intestine; Z95.5 Presence of coronary angioplasty implant and graft
CPT/HCPCS: 74176; 80053; 81003; 85025; 87040; 87086; 87181; 99285; J7030

== ENCOUNTER 2018-05-12 20:56 | Observation (INO) | payer MEDICARE, OTHER ==
[2018-05-12 20:57] VITALS: BMI 23.8
[2018-05-12] MEDS ORDERED: Sodium Chloride 0.9% 1,000 ML IV STA (21:41)
--- NOTE | 2018-05-12 22:30 | ED PDOC ---
HPI: Abdomen Time Seen by Provider: 05/12/18 21:09 Chief Complaint (Nursing): Back Pain Chief Complaint (Provider): Abominal Pain History Per: Patient History/Exam Limitations: no limitations Onset/Duration Of Symptoms: Days (x2) Current Symptoms Are (Timing): Still Present Quality Of Discomfort: Cramping Associated Symptoms: Diarrhea. denies: Fever, Chest Pain Additional Complaint(s): Dara Good is an 87 year old female with a past medical history of hypertension, hypercholesterolemia, CHF, CAD, and hypothyroidism who is presenting to the ED for evaluation of non-bloody, loose watery diarrhea and cr amping abdominal pain onset 2 days ago. Patient states that she was seen in the ED 10 days ago for abdominal pain and had a workup including a CT. At the time, she was discharged but she states that the diarrhea started after that initial ED visit. Patient denies any fevers, chest pain, or shortness of breath. 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), 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 - Family History Family History: States: Unknown Family Hx - Social History Current smoker - smoking cessation education provided: No Alcohol: None Drugs: Denies - Immunization History Hx Tetanus Toxoid Vaccination: No Hx Influenza Vaccination: Yes (04/2014) Hx Pneumococcal Vaccination: Yes (2010) - Home Medications Home Medications: Ambulatory Orders Medication Instructions Recorded RX: Albuterol HFA [Ventolin HFA 90 1 puff IH Q6 PRN 01/06/18 mcg/actuation (8 g)] RX: Esomeprazole Magnesium [Nexium] 40 mg PO DAILY 01/06/18 RX: Acetaminophen [Tylenol 325mg 650 mg PO Q6 PRN tab 01/11/18 tab] RX: Docusate [Colace] 100 mg PO BID cap 01/11/18 RX: Nystatin [Nystop Topical 1 applic TOP TID bottle 01/11/18 Powder] RX: Atorvastatin [Lipitor] 40 mg PO HS #30 tab 01/16/18 RX: Clopidogrel [Plavix] 75 mg PO DAILY #30 tab 01/16/18 RX: Fluticasone/Salmeterol 100/50 1 puff IH Q12 #1 puff 01/16/18 [Advair Diskus 100/50] RX: LORazepam [Ativan] 1 mg PO HS #30 tab 01/16/18 RX: Levothyroxine [Synthroid] 225 mcg PO DAILY@0630 #30 tab 01/16/18 RX: Lidocaine 5% [Lidoderm] 1 % TOP DAILY #30 patch 01/16/18 RX: Metoprolol Tartrate [Lopressor] 50 mg PO Q12 #30 tab 01/16/18 RX: Montelukast [Singulair] 10 mg PO DAILY #30 tab 01/16/18 Sulfamethoxazole/Trimethoprim 1 tab PO BID #20 tab 04/30/18 [Bactrim DS 800 mg-160 mg] - Allergies Allergies/Adverse Reactions: Allergies Allergy/AdvReac Type Severity Reaction Status Date / Time No Known Allergies Allergy Verified 05/12/18 21:01 Review of Systems ROS Statement: Except As Marked, All Systems Reviewed And Found Negative Constitutional: Negative for: Fever Cardiovascular: Negative for: Chest Pain Respiratory: Negative for: Shortness of Breath Gastrointestinal: Positive for: Abdominal Pain, Diarrhea Physical Exam - Reviewed Nursing Documentation Reviewed: Yes Vital Signs Reviewed: Yes - Physical Exam Appears: Positive for: Non-toxic, No Acute Distress Head Exam: Positive for: ATRAUMATIC, NORMAL INSPECTION, NORMOCEPHALIC Skin: Positive for: Normal Color, Warm, DRY Eye Exam: Positive for: EOMI, Normal appearance, PERRL ENT: Positive for: Other (dry mucous membranes) Neck: Positive for: Normal, Painless ROM, Supple Cardiovascular/Chest: Positive for: Regular Rate, Rhythm. Negative for: Murmur Respiratory: Positive for: Normal Breath Sounds. Negative for: Respiratory Distress Gastrointestinal/Abdominal: Positive for: Soft, Tenderness (left lower quadrant tenderness) Back: Positive for: Normal Inspection. Negative for: L CVA Tenderness, R CVA Tenderness, Vertebral Tenderness Extremity: Positive for: Normal ROM. Negative for: Deformity, Swelling Neurologic/Psych: Positive for: Alert, Oriented. Negative for: Motor/Sensory Deficits - Laboratory Results Result Diagrams: 05/12/18 22:35 05/12/18 22:35 - ECG O2 Sat by Pulse Oximetry: 93 (RA) Medical Decision Making Medical Decision Making: Time: 21:41 Impression: 87 year old female with abdominal pain and diarrheal illness Plan: --EKG--CMP --Lact Acid --ED Urine Dipstick --CBC --Coag --Bentyl 20 mg PO --IV Fluids --Zofran 4 mg PO --Blood Culture --Urine Culture --Urinalysis Labs reviewed sig for depressed CO2 level on CMP indicative of dehydration. no leukocytosis prsent. Will defer CT given afebrile and diarrheal illness c/w gastroenteritis. Case d/w Dr Bishop (hospitalist covering Dr Catie Xiong) who agrees with mgmnt plan. Patient will be placed on Obs status. Dx AGE, Dehydration Fair Scribe Attestation: Documented by, Sanjana Davenport acting as a scribe for Ty Smiley MD. Provider Scribe Attestation: All medical record entries made by the Scribe were at my direction and personally dictated by me. I have reviewed the chart and agree that the record accurately reflects my personal performance of the history, physical exam, medical decision making, and the department course for this patient. I have also personally directed, reviewed, and agree with the discharge instructions and disposition. Disposition - Clinical Impression Clinical Impression: Dehydration, Gastroenteritis - Patient ED Disposition Is Patient to be Admitted: Yes - Disposition Disposition Time: 00:00 Condition: FAIR
[2018-05-12 22:47] LABS: BASO # 0.1 K/uL (0.0-0.2); BASO % 0.6 % (0.0-2.0); EOS # 0.1 K/uL (0.0-0.7); EOS % 1.4 % (0.0-4.0); LYMPH % 31.3 % (20.0-40.0); MEAN CELL VOLUME 90.5 fl (81.0-99.0); MEAN CORPUSCULAR HGB CONC 33.2 g/dL (33.0-37.0); MONO # 0.9 K/uL (0.0-0.8); MONO % 9.4 % (0.0-10.0); NEUT # 5.5 K/uL (1.8-7.0); NEUT % 57.3 % (50.0-75.0); RBC 3.99 Mil/uL (3.80-5.20); RED CELL DISTRIBUTION WIDTH 15.4 % (11.5-14.5); WHITE BLOOD COUNT 9.6 K/uL (4.8-10.8)
[2018-05-12 22:52] LABS: PROTHROMBIN TIME 11.3 Seconds (9.8-13.1)
[2018-05-12 22:55] LABS: PARTIAL THROMBOPLASTIN TIME 26.2 Seconds (25.6-37.1)
[2018-05-12 23:00] LABS: ALBUMIN 3.9 g/dL (3.5-5.0); CALCIUM 9.2 mg/dL (8.4-10.2)
--- NOTE | 2018-05-13 00:24 | CP.PCM.HP ---
History of Present Illness - History of Present Illness History of Present Illness: PMD: Dr Haddad Chief Complaint: Abdominal pain /diarrhea The patient was seen and examined in the ED HPI: This is an 87 years old female with hx of COPD, CHF, recurrent UTI with hemorrhagic cystitis and Colon Cancer. She comes with 2 days of diarrhea associated with left lower quadrant crampy pain. She has some dysuria and is urine incontinent. She was seen in the ED 10 days earlier with work up for abdominal pain , including CT abdomen. No fever, nausea, vomits palpitation nor chest pain. PMH: Anemia, Anxiety, Arthritis, Asthma, CAD, CHF, COPD, Depression, Diverticulitis, Gastritis, GERD, HTN, Hypercholesterolemia, Hypothyroidism, Malignancy (Colon Cancer), Chronic Kidney Disease PSH: Appendectomy, Cholecystectomy, 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, 10 years [employer]), 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 SH: Former Smoker; No illegal drug use; No Alcohol FH: States: Unknown Family HxAllergies: NKDA Medication: Reviewed - Present on Admission - Present on Admission Any Indicators Present on Admission: No History of DVT/PE: No History of Uncontrolled Diabetes: No Urinary Catheter: No Decubitus Ulcer Present: No Review of Systems - Constitutional Constitutional: absent: Anorexia, Chills, Fatigue, Fever, Night Sweats - EENT Eyes: Requires Corrective Lenses. absent: Diplopia, Floaters Ears: absent: Decreased Hearing, Ear Pain, Tinnitus Nose/Mouth/Throat: absent: Epistaxis, Nasal Congestion, Nasal Discharge, Sinus Pain, Sinus Pressure - Cardiovascular Cardiovascular: absent: Chest Pain, Dyspnea, Edema - Respiratory Respiratory: absent: Dyspnea, Wheezing, Snoring, Stridor - Gastrointestinal Gastrointestinal: Diarrhea. absent: Constipation, Nausea, Vomiting - Genitourinary Genitourinary: Dysuria. absent: Flank Pain, Urinary Frequency - Musculoskeletal Musculoskeletal: Arthralgias, Myalgias - Integumentary Integumentary: absent: Pruritus, Rash, Sores, Striae, Swelling - Neurological Neurological: absent: Confusion, Dizziness, Focal Weakness, Headaches - Psychiatric Psychiatric: Depression. absent: Panic Attacks - Endocrine Endocrine: absent: Palpitations, Polydipsia, Polyphagia, Polyuria - Hematologic/Lymphatic Hematologic: absent: Easy Bleeding, Easy Bruising Past Patient History - Infectious Disease Hx of Infectious Diseases: None - Tetanus Immunizations Tetanus Immunization: Unknown - Past Medical History & Family History Past Medical History?: Yes - Past Social History Smoking Status: Former Smoker Chewing Tobacco Use: No Cigar Use: No Alcohol: None Drugs: Denies - CARDIAC Hx Congestive Heart Failure: Yes Hx Hypercholesterolemia: Yes Hx Hypertension: Yes - PULMONARY Hx Asthma: Yes Hx Chronic Obstructive Pulmonary Disease (COPD): Yes - NEUROLOGICAL Hx Neurological Disorder: No - HEENT Hx HEENT Problems: Yes Other/Comment: HARD OF HEARING - RENAL Hx Chronic Kidney Disease: Yes - ENDOCRINE/METABOLIC Hx Hypothyroidism: Yes - HEMATOLOGICAL/ONCOLOGICAL Hx Anemia: Yes Hx Human Immunodeficiency Virus (HIV): No - INTEGUMENTARY Hx Dermatological Problems: No - MUSCULOSKELETAL/RHEUMATOLOGICAL Hx Arthritis: Yes - GASTROINTESTINAL Hx Diverticulitis: Yes Hx Gastritis: Yes - GENITOURINARY/GYNECOLOGICAL Hx Genitourinary Disorders: Yes Hx Incontinence: Yes - PSYCHIATRIC Hx Anxiety: Yes Hx Depression: Yes - SURGICAL HISTORY Hx Appendectomy: Yes Hx Cholecystectomy: Yes 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, 10 years [employer]) Hx 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: Yes - ANESTHESIA Hx Anesthesia: Yes Hx Anesthesia Reactions: No Hx Malignant Hyperthermia: No Meds Allergies/Adverse Reactions: Allergies Allergy/AdvReac Type Severity Reaction Status Date / Time No Known Allergies Allergy Verified 05/12/18 21:01 Physical Exam - Constitutional Appears: No Acute Distress - Head Exam Head Exam: ATRAUMATIC, NORMAL INSPECTION, NORMOCEPHALIC - Eye Exam Eye Exam: EOMI, Normal appearance Pupil Exam: NORMAL ACCOMODATION, PERRL - ENT Exam ENT Exam: Mucous Membranes Moist, Normal Exam, Normal External Ear Exam - Neck Exam Neck exam: Positive for: Full Rom, Normal Inspection. Negative for: Lymphaden opathy, Tenderness - Respiratory Exam Respiratory Exam: Clear to Auscultation Bilateral. absent: Rales, Rhonchi, Wheezes - Cardiovascular Exam Cardiovascular Exam: REGULAR RHYTHM, RRR, +S1, +S2. absent: Gallop - GI/Abdominal Exam GI & Abdominal Exam: Normal Bowel Sounds, Soft. absent: Organomegaly Additional comments: Flat, soft, mild tenderness to the LLQ, no rebound - Rectal Exam Rectal Exam: Deferred - Extremities Exam Extremities exam: Positive for: full ROM, normal inspection. Negative for: calf tenderness - Back Exam Back exam: NORMAL INSPECTION. absent: CVA tenderness (L), CVA tenderness (R) - Neurological Exam Neurological exam: Alert, CN II-XII Intact, Oriented x3, Reflexes Normal - Psychiatric Exam Psychiatric exam: Normal Affect, Normal Mood - Skin Skin Exam: Dry, Intact, Normal Color, Warm Results - Vital Signs Recent Vital Signs: Last Vital Signs Temp 98.3 F 05/12/18 21:02 Pulse 72 05/12/18 21:02 Resp 16 05/12/18 21:02 BP 121/69 05/12/18 21:02 Pulse Ox 93 L 05/12/18 22:30 - Labs Result Diagrams: 05/12/18 22:35 05/12/18 22:35 Labs: Laboratory Results - last 24 hr 05/12/18 05/12/18 05/12/18 22:35 22:35 22:35 WBC 9.6 RBC 3.99 Hgb 12.0 Hct 36.1 MCV 90.5 MCH 30.0 MCHC 33.2 RDW 15.4 H Plt Count 305 MPV 7.0 L Neut % (Auto) 57.3 Lymph % (Auto) 31.3 [place] % (Auto) 9.4 Eos % (Auto) 1.4 Baso % (Auto) 0.6 Neut # (Auto) 5.5 Lymph # (Auto) 3.0 [place] # (Auto) 0.9 H Eos # (Auto) 0.1 Baso # (Auto) 0.1 PT INR APTT Sodium 135 Potassium 4.9 Chloride 106 Carbon Dioxide 16 L Anion Gap 18 BUN 40 H Creatinine 2.1 H Est GFR ( Amer) 27 Est GFR (Non-Af Amer) 22 Random Glucose 117 H Lactic Acid 1.2 Calcium 9.2 Total Bilirubin 0.6 AST 32 ALT 18 Alkaline Phosphatase 111 Total Protein 7.8 Albumin 3.9 Globulin 3.9 Albumin/Globulin Ratio 1.0 05/12/18 22:35 WBC RBC Hgb Hct MCV MCH MCHC RDW Plt Count MPV Neut % (Auto) Lymph % (Auto) [place] % (Auto) Eos % (Auto) Baso % (Auto) Neut # (Auto) Lymph # (Auto) [place] # (Auto) Eos # (Auto) Baso # (Auto) PT 11.3 INR 1.0 APTT 26.2 Sodium Potassium Chloride Carbon Dioxide Anion Gap BUN Creatinine Est GFR ( Amer) Est GFR (Non-Af Amer) Random Glucose Lactic Acid Calcium Total Bilirubin AST ALT Alkaline Phosphatase Total Protein Albumin Globulin Albumin/Globulin Ratio Assessment & Plan - Assessment and Plan (Free Text) Assessment: #. Abdominal pain #. Enterocolitis #. UTI #. Dehydration #. Acute on Chronic Kidney disease #. Hypothyroidism Plan: 87 years old female with hx of COPD, CHF, recurrent UTI with hemorrhagic cystitis and Colon Cancer. She comes with 2 days of diarrhea associated with left lower quadrant crampy pain. She has some dysuria and is urine incontinent. She was seen in the ED 10 days earlier with work up for abdominal pain , including CT abdomen. No fever, nausea, vomits palpitation nor chest pain. #. Abdominal pain with Enterocolitis - Pain management with ASA/Toradol - Stool for C difficile - IV fluids - Ceftriaxone - Flagyl #. UTI - Urine Culture - Ceftriaxone #. Dehydration - IV Fluid - Follow Renal labs #. Acute on Chronic Kidney disease - IV fluids #. Hypothyroidism - Synthroid - TSH #. DVT prophylaxis with Lovenox #. Code Status: Full - Date & Time Date: 05/13/18 Time: 00:20
[2018-05-13] MEDS ORDERED: Albuterol 0.083% Inhal Sol (2.5 mg/3 mL) UD INH PRN (00:56)
[2018-05-13] MEDS ORDERED: Ciprofloxacin 200mg/100ml D5W 100 ML IVPB SCH (01:30)
[2018-05-13 02:05] LABS: SQUAMOUS EPITHIAL 4 /hpf (0-5); URINE BACTERIA MANY (<OCC); URINE BILIRUBIN NEGATIVE (NEGATIVE); URINE BLOOD LARGE (NEGATIVE); URINE CLARITY TURBID (Clear); URINE COLOR RED (YELLOW); URINE GLUCOSE (UA) NEG (Normal); URINE LEUKOCYTE ESTERASE SMALL Leu/uL (Negative); URINE PROTEIN 100 mg/dL (NEGATIVE); URINE UROBILINOGEN 0.2-1.0 mg/dL (0.2-1.0)
[2018-05-13] MEDS: Sodium Chloride 0.9% 1,000 ML IV SCH ×3 (02:08→21:29)
[2018-05-13] MEDS: metroNIDAZOLE 500mg/100ml NS 100 ML IVPB SCH ×3 (02:08→18:48)
[2018-05-13] MEDS ORDERED: Levothyroxine 75 MCG TAB PO SCH (06:30)
--- NOTE | 2018-05-13 08:44 | CARD ---
APPROVED REPORT Date of service: 05/12/2018 EKG Measurement Heart [id number] <Conclusion> Normal sinus rhythm Normal ECG
[2018-05-13] MEDS: Fluticasone-Salmeterol 100-50mcg Diskus IH SCH ×2 (11:02→21:15)
[2018-05-13] MEDS: Enoxaparin 30 mg Syringe SC SCH (11:05)
[2018-05-13] MEDS: Sucralfate 1 gm/10 ml Oral Susp UD PO SCH ×3 (15:00→21:15)
[2018-05-14] MEDS: metroNIDAZOLE 500mg/100ml NS 100 ML IVPB SCH ×3 (01:10→16:38)
[2018-05-14] MEDS: Sucralfate 1 gm/10 ml Oral Susp UD PO SCH ×4 (08:46→21:20)
[2018-05-14] MEDS: Fluticasone-Salmeterol 100-50mcg Diskus IH SCH ×2 (08:47→21:20)
[2018-05-14] MEDS: Enoxaparin 30 mg Syringe SC SCH ×2 (08:47→09:00)
--- NOTE | 2018-05-14 10:17 | CP.PCM.DIS ---
Addendum entered by Kimberlee Waters MD 05/14/18 18:53: ff up with Dr Haddad in 2-3 days ff up final Urine c/s result Hold Levothyroxine - restart at lower dose 150mcg daily on Tuesday ( pt's TSH low on current home dose ) Original Note: <Tarik Muñoz - Last Filed: 05/14/18 15:12> Provider - Provider Date of Admission: 05/12/18 23:08 Attending physician: Jabari Bishop Time Spent in preparation of Discharge (in minutes): 33 Diagnosis - Discharge Diagnosis (1) UTI (urinary tract infection) Status: Acute (2) Dehydration Status: Resolved (3) Abdominal pain Status: Resolved Hospital Course - Lab Results Lab Results: Micro Results 05/13/18 01:30 Urine,Clean Catch Urine Culture - Preliminary Gram Negative Gael Most Recent Lab Values WBC 9.6 K/uL (4.8-10.8) 05/12/18 22:35 RBC 3.99 Mil/uL (3.80-5.20) 05/12/18 22:35 Hgb 12.0 g/dL (12.0-16.0) 05/12/18 22:35 Hct 36.1 % (34.0-47.0) 05/12/18 22:35 MCV 90.5 fl (81.0-99.0) 05/12/18 22:35 MCH 30.0 pg (27.0-31.0) 05/12/18 22:35 MCHC 33.2 g/dL (33.0-37.0) 05/12/18 22:35 RDW 15.4 % (11.5-14.5) H 05/12/18 22:35 Plt Count 305 K/uL (130-400) 05/12/18 22:35 MPV 7.0 fl (7.2-11.7) L 05/12/18 22:35 Neut % (Auto) 57.3 % (50.0-75.0) 05/12/18 22:35 Lymph % (Auto) 31.3 % (20.0-40.0) 05/12/18 22:35 [place] % (Auto) 9.4 % (0.0-10.0) 05/12/18 22:35 Eos % (Auto) 1.4 % (0.0-4.0) 05/12/18 22:35 Baso % (Auto) 0.6 % (0.0-2.0) 05/12/18 22:35 Neut # (Auto) 5.5 K/uL (1.8-7.0) 05/12/18 22:35 Lymph # (Auto) 3.0 K/uL (1.0-4.3) 05/12/18 22:35 [place] # (Auto) 0.9 K/uL (0.0-0.8) H 05/12/18 22:35 Eos # (Auto) 0.1 K/uL (0.0-0.7) 05/12/18 22:35 Baso # (Auto) 0.1 K/uL (0.0-0.2) 05/12/18 22:35 PT 11.3 Seconds (9.8-13.1) 05/12/18 22:35 INR 1.0 05/12/18 22:35 APTT 26.2 Seconds (25.6-37.1) 05/12/18 22:35 Sodium 135 mmol/l (132-148) 05/12/18 22:35 Potassium 4.9 MMOL/L (3.6-5.0) 05/12/18 22:35 Chloride 106 mmol/L (98-107) 05/12/18 22:35 Carbon Dioxide 16 mmol/L (22-30) L 05/12/18 22:35 Anion Gap 18 (10-20) 05/12/18 22:35 BUN 40 mg/dl (7-17) H 05/12/18 22:35 Creatinine 2.1 mg/dl (0.7-1.2) H 05/12/18 22:35 Est GFR ( Amer) 27 05/12/18 22:35 Est GFR (Non-Af Amer) 22 05/12/18 22:35 POC Glucose (mg/dL) 139 mg/dL (65-110) H 05/13/18 13:54 Random Glucose 117 mg/dL (65-105) H 05/12/18 22:35 Lactic Acid 1.2 MMOL/L (0.7-2.1) 05/12/18 22:35 Calcium 9.2 mg/dL (8.4-10.2) 05/12/18 22:35 Total Bilirubin 0.6 mg/dl (0.2-1.3) 05/12/18 22:35 AST 32 U/L (14-36) 05/12/18 22:35 ALT 18 U/L (9-52) 05/12/18 22:35 Alkaline Phosphatase 111 U/L (38-126) 05/12/18 22:35 Total Protein 7.8 G/DL (6.3-8.2) 05/12/18 22:35 Albumin 3.9 g/dL (3.5-5.0) 05/12/18 22:35 Globulin 3.9 gm/dL (2.2-3.9) 05/12/18 22:35 Albumin/Globulin Ratio 1.0 (1.0-2.1) 05/12/18 22:35 TSH 3rd Generation 0.02 mIU/ML (0.46-4.68) L 05/13/18 07:34 Urine Color Red (YELLOW) 05/13/18 01:30 Urine Clarity Turbid (Clear) 05/13/18 01:30 Urine pH 6.0 (5.0-8.0) 05/13/18 01:30 Ur Specific [place] 1.013 (1.003-1.030) 05/13/18 01:30 Urine Protein 100 mg/dL (NEGATIVE) 05/13/18 01:30 Urine Glucose (UA) Neg mg/dL (Normal) 05/13/18 01:30 Urine Ketones Negative mg/dL (NEGATIVE) 05/13/18 01:30 Urine Blood Large (NEGATIVE) 05/13/18 01:30 Urine Nitrate Positive (NEGATIVE) H 05/13/18 01:30 Urine Bilirubin Negative (NEGATIVE) 05/13/18 01:30 Urine Urobilinogen 0.2-1.0 mg/dL (0.2-1.0) 05/13/18 01:30 Ur Leukocyte Esterase Small Ingrid/uL (Negative) 05/13/18 01:30 Urine RBC (Auto) 82 /hpf (0-3) H 05/13/18 01:30 Urine Microscopic WBC 1178 /hpf (0-5) H 05/13/18 01:30 Ur Squamous Epith Cells 4 /hpf (0-5) 05/13/18 01:30 Urine Bacteria Many (<OCC) H 05/13/18 01:30 - Hospital Course Hospital Course: The patient is an 87 years old female with hx of COPD, CHF, recurrent UTI with hemorrhagic cystitis and Colon Cancer, who presented to the ED with c/o abdominal pain associated with diarrhea, also c/o dysuria and has urine incontinence. The patient was evaluated in the ED and decision was taking to admit to the hospital for observation with diagnosis of abdominal pain, dehydration and UTI after a thorough evaluation of labs and UA done in the ED. During her hospital stay patient received IVF hydration with NS, received treatment with Rocephin 1 G IV x 1 dose, also Flagyl IV was administered. Patient today reports a loose stool x 1 in AM and reports feeling better, she denies abdominal pain, GUAJARDO, fever, chills, or other acute medical complain at this time. Patient is evaluated and found improved, hemodinamically stable, chart and labs were reviewed (U culture final results pending), patient found stable to be d/c home. During this admission also TSH was checked and found low 0.02 IU/L and decision was taken to stop levothyroxine. Patient was initiated on treatment with Omnicef 300 PO BID for UTI to be continued as outpatient and f/u with PMD in 2 to 3 days. ED instructions given: F/u with PMD in 2 to 3 days, however if your symptoms recur, or you have symptoms like fever, abdominal pain, chest pain, or any other concerning symptom return to the ED for evaluation. Note: Patient will stay until tomorrow due to not having a family member to pick her up. Discharge Exam - Head Exam Head Exam: ATRAUMATIC, NORMAL INSPECTION, NORMOCEPHALIC - Eye Exam Eye Exam: EOMI, PERRL - ENT Exam ENT Exam: Mucous Membranes Moist - Neck Exam Neck exam: Full Rom - Respiratory Exam Respiratory Exam: Clear to PA & Lateral. absent: Wheezes - Cardiovascular Exam Cardiovascular Exam: RRR, +S1, +S2 - GI/Abdominal Exam GI & Abdominal Exam: Normal Bowel Sounds, Soft. absent: Mass, Tenderness - Back Exam Back exam: absent: CVA tenderness (L), CVA tenderness (R) - Neurological Exam Neurological exam: Alert, Oriented x3 - Psychiatric Exam Psychiatric exam: Normal Affect, Normal Mood - Skin Skin Exam: Normal Color, Warm Discharge Plan - Discharge Medications Prescriptions: Cefdinir [Omnicef] 300 mg PO BID #10 cap - Follow Up Plan Condition: IMPROVED Disposition: HOME/ ROUTINE Instructions: Dehydration, Adult (DC), Dehydration (DC), Urinary Tract Infection in Women (DC), Urinary Tract Infection in Men (DC), Gastroenteritis (DC), Dysuria (GEN) Additional Instructions: Follow up with your PMD in 2 to 3 days, however return to ED fro evaluation if your symptoms recurs, or you have fever, abdominal pain, chest pain or any other concerning symptoms. <Kimberlee Waters - Last Filed: 05/14/18 18:43> Provider - Provider Date of Admission: 05/12/18 23:08 Attending physician: Jabari Bishop [facility] Course - Lab Results Lab Results: Micro Results 05/13/18 01:30 Urine,Clean Catch Urine Culture - Preliminary Gram Negative Gael Most Recent Lab Values WBC 9.6 K/uL (4.8-10.8) 05/12/18 22:35 RBC 3.99 Mil/uL (3.80-5.20) 05/12/18 22:35 Hgb 12.0 g/dL (12.0-16.0) 05/12/18 22:35 Hct 36.1 % (34.0-47.0) 05/12/18 22:35 MCV 90.5 fl (81.0-99.0) 05/12/18 22:35 MCH 30.0 pg (27.0-31.0) 05/12/18 22:35 MCHC 33.2 g/dL (33.0-37.0) 05/12/18 22:35 RDW 15.4 % (11.5-14.5) H 05/12/18 22:35 Plt Count 305 K/uL (130-400) 05/12/18 22:35 MPV 7.0 fl (7.2-11.7) L 05/12/18 22:35 Neut % (Auto) 57.3 % (50.0-75.0) 05/12/18 22:35 Lymph % (Auto) 31.3 % (20.0-40.0) 05/12/18 22:35 [place] % (Auto) 9.4 % (0.0-10.0) 05/12/18 22:35 Eos % (Auto) 1.4 % (0.0-4.0) 05/12/18 22:35 Baso % (Auto) 0.6 % (0.0-2.0) 05/12/18 22:35 Neut # (Auto) 5.5 K/uL (1.8-7.0) 05/12/18 22:35 Lymph # (Auto) 3.0 K/uL (1.0-4.3) 05/12/18 22:35 [place] # (Auto) 0.9 K/uL (0.0-0.8) H 05/12/18 22:35 Eos # (Auto) 0.1 K/uL (0.0-0.7) 05/12/18 22:35 Baso # (Auto) 0.1 K/uL (0.0-0.2) 05/12/18 22:35 PT 11.3 Seconds (9.8-13.1) 05/12/18 22:35 INR 1.0 05/12/18 22:35 APTT 26.2 Seconds (25.6-37.1) 05/12/18 22:35 Sodium 135 mmol/l (132-148) 05/12/18 22:35 Potassium 4.9 MMOL/L (3.6-5.0) 05/12/18 22:35 Chloride 106 mmol/L (98-107) 05/12/18 22:35 Carbon Dioxide 16 mmol/L (22-30) L 05/12/18 22:35 Anion Gap 18 (10-20) 05/12/18 22:35 BUN 40 mg/dl (7-17) H 05/12/18 22:35 Creatinine 2.1 mg/dl (0.7-1.2) H 05/12/18 22:35 Est GFR ( Amer) 27 05/12/18 22:35 Est GFR (Non-Af Amer) 22 05/12/18 22:35 POC Glucose (mg/dL) 131 mg/dL (65-110) H 05/14/18 16:19 Random Glucose 117 mg/dL (65-105) H 05/12/18 22:35 Lactic Acid 1.2 MMOL/L (0.7-2.1) 05/12/18 22:35 Calcium 9.2 mg/dL (8.4-10.2) 05/12/18 22:35 Total Bilirubin 0.6 mg/dl (0.2-1.3) 05/12/18 22:35 AST 32 U/L (14-36) 05/12/18 22:35 ALT 18 U/L (9-52) 05/12/18 22:35 Alkaline Phosphatase 111 U/L (38-126) 05/12/18 22:35 Total Protein 7.8 G/DL (6.3-8.2) 05/12/18 22:35 Albumin 3.9 g/dL (3.5-5.0) 05/12/18 22:35 Globulin 3.9 gm/dL (2.2-3.9) 05/12/18 22:35 Albumin/Globulin Ratio 1.0 (1.0-2.1) 05/12/18 22:35 TSH 3rd Generation 0.02 mIU/ML (0.46-4.68) L 05/13/18 07:34 Urine Color Red (YELLOW) 05/13/18 01:30 Urine Clarity Turbid (Clear) 05/13/18 01:30 Urine pH 6.0 (5.0-8.0) 05/13/18 01:30 Ur Specific [place] 1.013 (1.003-1.030) 05/13/18 01:30 Urine Protein 100 mg/dL (NEGATIVE) 05/13/18 01:30 Urine Glucose (UA) Neg mg/dL (Normal) 05/13/18 01:30 Urine Ketones Negative mg/dL (NEGATIVE) 05/13/18 01:30 Urine Blood Large (NEGATIVE) 05/13/18 01:30 Urine Nitrate Positive (NEGATIVE) H 05/13/18 01:30 Urine Bilirubin Negative (NEGATIVE) 05/13/18 01:30 Urine Urobilinogen 0.2-1.0 mg/dL (0.2-1.0) 05/13/18 01:30 Ur Leukocyte Esterase Small Ingrid/uL (Negative) 05/13/18 01:30 Urine RBC (Auto) 82 /hpf (0-3) H 05/13/18 01:30 Urine Microscopic WBC 1178 /hpf (0-5) H 05/13/18 01:30 Ur Squamous Epith Cells 4 /hpf (0-5) 05/13/18 01:30 Urine Bacteria Many (<OCC) H 05/13/18 01:30 Attending/Attestation - Attestation I have personally seen and examined this patient.: Yes I have fully participated in the care of the patient.: Yes I have reviewed all pertinent clinical information, including history, physical exam and plan: Yes
[2018-05-15] MEDS: metroNIDAZOLE 500mg/100ml NS 100 ML IVPB SCH ×2 (01:14→09:01)
[2018-05-15 08:13] VITALS: BP 147/67; PULSE 72; RESP 19; TEMP 97.4; O2SAT 97
[2018-05-15] MEDS: Fluticasone-Salmeterol 100-50mcg Diskus IH SCH (08:58)
[2018-05-15] MEDS: Sucralfate 1 gm/10 ml Oral Susp UD PO SCH (08:59)
[2018-05-15] MEDS: Enoxaparin 30 mg Syringe SC SCH (09:01)
== END 2018-05-15 17:06 | disposition home or self-care (01) ==
LOC: H.ER 20:56 → H.ERHOLD 23:08 → H.MEDSURG1 05-13 01:36
PROVIDERS: ADMIT Internal Medicine; ATTEND Internal Medicine
DX: E86.0 Dehydration (principal); K52.9 Noninfective gastroenteritis and colitis, unspecified; N18.9 Chronic kidney disease, unspecified; N39.0 Urinary tract infection, site not specified; R32 Unspecified urinary incontinence; Z85.038 Personal history of other malignant neoplasm of large intestine; Z87.440 Personal history of urinary (tract) infections; Z87.891 Personal history of nicotine dependence; Z90.49 Acquired absence of other specified parts of digestive tract; Z95.5 Presence of coronary angioplasty implant and graft; D64.9 Anemia, unspecified; F32.9 Major depressive disorder, single episode, unspecified; F41.9 Anxiety disorder, unspecified; K29.70 Gastritis, unspecified, without bleeding; M19.90 Unspecified osteoarthritis, unspecified site; M54.9 Dorsalgia, unspecified; E03.9 Hypothyroidism, unspecified; E78.00 Pure hypercholesterolemia, unspecified; H91.90 Unspecified hearing loss, unspecified ear; I13.0 Hypertensive heart and chronic kidney disease with heart failure and stage 1 through stage 4 chronic kidney disease, or unspecified chronic kidney disease; I25.10 Atherosclerotic heart disease of native coronary artery without angina pectoris; I50.9 Heart failure, unspecified; J44.9 Chronic obstructive pulmonary disease, unspecified; K21.9 Gastro-esophageal reflux disease without esophagitis
CPT/HCPCS: 36415; 80053; 81003; 82948; 83605; 84443; 85025; 85610; 85730; 87040; 87086; 87181; 93005; 99285; G0378; J0696; J0744; J1650; J2405; J7030

== ENCOUNTER 2018-07-12 12:32 | Inpatient (IN) | payer MEDICARE, OTHER ==
[2018-07-12] MEDS ORDERED: Albuterol-Ipratrop 3 mg / 0.5 (3 ml) UD ONE (13:10)
[2018-07-12] MEDS ORDERED: cefTRIAXone (Rocephin) 1 gm Inj ONE (13:38)
[2018-07-12] MEDS ORDERED: Azithromycin 500 MG IV IVPB ONE (13:38)
[2018-07-12 16:11] VITALS: BMI 23.3
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
[2018-07-12 16:48] LABS: ABG ALLEN TEST YES; ARTERIAL BLOOD GAS HCO3 15.8 mmol/L (21-28); ARTERIAL BLOOD GAS O2 SAT 96.6 % (95-98); ARTERIAL BLOOD GAS PCO2 27 mm/Hg (35-45); ARTERIAL BLOOD GAS PO2 75 mm/Hg (80-100); ARTERIAL BLOOD GAS TCO2 14.1 mmol/L (22-28)
[2018-07-12 17:37] LABS: BASO % 0.3 % (0.0-2.0); EOS # 0.1 K/uL (0.0-0.7); HEMOGLOBIN 11.2 g/dL (12.0-16.0); LYMPH # 0.9 K/uL (1.0-4.3); MEAN CELL VOLUME 90.4 fl (81.0-99.0); MEAN CORPUSCULAR HEMOGLOBIN 29.2 pg (27.0-31.0); MEAN CORPUSCULAR HGB CONC 32.4 g/dL (33.0-37.0); MEAN PLATELET VOLUME 7.6 fl (7.2-11.7); MONO % 7.3 % (0.0-10.0); NEUT # 11.1 K/uL (1.8-7.0); NEUT % 84.4 % (50.0-75.0); PLATELET COUNT 230 K/uL (130-400); RBC 3.85 Mil/uL (3.80-5.20); RED CELL DISTRIBUTION WIDTH 15.9 % (11.5-14.5); WHITE BLOOD COUNT 13.2 K/uL (4.8-10.8)
[2018-07-12] MEDS ORDERED: Azithromycin 500 MG in Sodium Chloride 0.9% 250 ML IVPB STA (17:49)
[2018-07-12 18:30] LABS: ANISOCYTOSIS SLIGHT; BANDS 8 % (0-2); LYMPHOCYTE 7 % (20-50); MONOCYTE 11 % (0-10); NEUTROPHIL 74 % (42-75); PLATELET ESTIMATE NORMAL (NORMAL); POIKILOCYTOSIS SLIGHT; TOTAL CELLS COUNTED 100
--- NOTE | 2018-07-12 19:09 | ED PDOC ---
HPI: General Adult Time Seen by Provider: 07/12/18 13:10 Chief Complaint (Nursing): Flu-like Symptoms Chief Complaint (Provider): cough History Per: Patient (87 y/o female here with complaint of cough/sob x 3 days. Denies any fevers/chills/vomiting. 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 [employer]), 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 - Family History Family History: States: Unknown Family Hx - Immunization History Hx Tetanus Toxoid Vaccination: No Hx Influenza Vaccination: Yes (04/2014) Hx Pneumococcal Vaccination: Yes (2010) - Home Medications Home Medications: Ambulatory Orders Medication Instructions Recorded Acetaminophen/Oxycodone Hydr 1 tab PO Q6 PRN 07/12/18 [Percocet 10/325 mg Tab] Clopidogrel [Plavix] 75 mg PO DAILY 07/12/18 Dexlansoprazole [Dexilant] 60 mg PO DAILY 07/12/18 LORazepam [Ativan] 1 mg PO HS 07/12/18 Levothyroxine [Synthroid] 150 mcg PO DAILY 07/12/18 Lidocaine 5% [Lidoderm] 1 appl TOP DAILY PRN 07/12/18 Metoclopramide [Reglan] 5 mg PO Q8 PRN 07/12/18 Montelukast [Singulair] 10 mg PO HS 07/12/18 Oxybutynin [Ditropan Tab] 5 mg PO DAILY 07/12/18 Sucralfate [Carafate Tab] 1 gm PO Q8 PRN 07/12/18 oxyCODONE [oxyCODONE Immediate 10 mg PO Q6 PRN 07/12/18 Release Tab] - Allergies Allergies/Adverse Reactions: Allergies Allergy/AdvReac Type Severity Reaction Status Date / Time No Known Allergies Allergy Verified 05/12/18 21:01 Review of Systems ROS Statement: Except As Marked, All Systems Reviewed And Found Negative Respiratory: Positive for: Cough Physical Exam - Reviewed Nursing Documentation Reviewed: Yes Vital Signs Reviewed: Yes (repeat BP 98/45) - Physical Exam Appears: Positive for: Well, Non-toxic, In Acute Distress (appears mildly confused) Head Exam: Positive for: ATRAUMATIC, NORMAL INSPECTION, NORMOCEPHALIC Skin: Positive for: Normal Color, Warm, DRY Eye Exam: Positive for: EOMI, Normal appearance, PERRL ENT: Positive for: Normal ENT Inspection Neck: Positive for: Normal, Painless ROM Cardiovascular/Chest: Positive for: Regular Rate, Rhythm Respiratory: Positive for: Rales, Wheezing Gastrointestinal/Abdominal: Positive for: Normal Exam, Soft Back: Positive for: Normal Inspection Extremity: Positive for: Normal ROM Neurologic/Psych: Positive for: Alert, Oriented - Laboratory Results Result Diagrams: 07/12/18 13:18 - ECG O2 Sat by Pulse Oximetry: 95 - Progress ED Course And Treament: EKG NSR 71 BPM; Q WAVE 3; NO ACUTE CHANGES CXR: BILATERAL PULMONARY CONGESTION NOTED UNCLEAR IF INFILTRATE LLL BC X 2 ZITHROMAX 500MG IV X 1 DOSE; ROCEPHIN 1 GM IV X 1 DOSE VBG NOTES LACTATE 3.1 PH 7.17 NS 500 ML IV BOLUS, PATIENT APPEARS MORE COHERENT NOW. INFLUENZA A/B NEG CREATININE NOTED 3.1; BUN 71; D/W DR. MADRID. ADMITTED TO HER. Disposition - Clinical Impression Clinical Impression: Renal failure, CHF (congestive heart failure), Pulmonary infiltrate - Patient ED Disposition Is Patient to be Admitted: No - Disposition Disposition Time: 16:11 Condition: FAIR - Pt Status Changed To: Hospital Disposition Of: Inpatient - Admit Certification Admit to Inpatient:: After my assessment, the patient will require hospitalization for at least two midnights. This is because of the severity of symptoms shown, intensity of services needed, and/or the medical risk in this patient being treated as an outpatient.
[2018-07-12 19:16] LABS: INR 1.2; PARTIAL THROMBOPLASTIN TIME 22.6 Seconds (25.6-37.1); PROTHROMBIN TIME 14.1 Seconds (9.8-13.1)
[2018-07-12 21:12] LABS: BLOOD UREA NITROGEN 71 mg/dl (7-17); CALCIUM 7.6 mg/dL (8.4-10.2); GFR NON-AFRICAN AMERICAN 12
[2018-07-12 21:13] LABS: ALB/GLOB RATIO 0.9 (1.0-2.1); ALBUMIN 3.3 g/dL (3.5-5.0); B-TYPE NATRIURETIC PEPTIDE 8460 pg/ml (0-900)
[2018-07-12 21:14] LABS: ALT/SGPT 10 U/L (9-52); AST/SGOT 16 U/L (14-36)
[2018-07-12] MEDS: Sodium Chloride 0.9% 1,000 ML IV SCH (21:59)
[2018-07-13] MEDS ORDERED: Sodium Chloride 0.9% 500 ML IV ONE (05:38)
[2018-07-13 06:42] LABS: HEMOGLOBIN 10.1 g/dL (12.0-16.0); MEAN CELL VOLUME 93.2 fl (81.0-99.0); MEAN CORPUSCULAR HEMOGLOBIN 29.5 pg (27.0-31.0); MEAN CORPUSCULAR HGB CONC 31.7 g/dL (33.0-37.0); RBC 3.43 Mil/uL (3.80-5.20); RED CELL DISTRIBUTION WIDTH 16.2 % (11.5-14.5); WHITE BLOOD COUNT 12.5 K/uL (4.8-10.8)
[2018-07-13] MEDS ORDERED: Calcium Gluconate 4.65 mEq/10 ml Inj IV ONE (08:47)
[2018-07-13] MEDS ORDERED: Pantoprazole 40 mg EC Tab PO SCH (09:00)
[2018-07-13] MEDS ORDERED: Azithromycin 250 MG in Sodium Chloride 0.9% 250 ML IVPB SCH (09:00)
[2018-07-13] MEDS ORDERED: Azithromycin 500 MG IV IVPB ONE (09:09)
[2018-07-13] MEDS ORDERED: cefTRIAXone (Rocephin) 1 gm Inj ONE (09:09)
[2018-07-13] MEDS: Azithromycin 500 MG in Sodium Chloride 0.9% 250 ML IVPB SCH (09:17)
--- NOTE | 2018-07-13 09:31 | RAD ---
Date of service: 07/12/2018 HISTORY: Cough COMPARISON: No prior. FINDINGS: LUNGS: There are low lung volumes. There is confluent airspace disease in the lower lobes, worse on the left. PLEURA: No pleural effusions or pneumothorax. CARDIOVASCULAR: The heart is normal in size. No aortic atherosclerotic calcification present. OSSEOUS STRUCTURES: Within normal limits for the patient's age. VISUALIZED UPPER ABDOMEN: Normal. OTHER FINDINGS: None. IMPRESSION: Confluent airspace disease in the lower lobes, worse on the left may represent subsegmental atelectasis however superimposed pneumonia cannot be excluded, especially aspiration pneumonitis is a consideration. Follow-up after medical management is recommended to ensure complete resolution.
[2018-07-13] MEDS: Pantoprazole 40 mg EC Tab PO SCH (10:30)
[2018-07-13] MEDS: Levothyroxine 150 MCG TAB PO SCH (10:32)
[2018-07-13] MEDS: Sodium Chloride 0.9% 1,000 ML IV SCH (10:34)
--- NOTE | 2018-07-13 12:43 | CP.PCM.PN ---
Subjective - Date & Time of Evaluation Date of Evaluation: 07/13/18 Time of Evaluation: 10:15 - Subjective Subjective: 87-year-old female seen bedside in no acute distress. Today she complains of lack of appetite and abdominal pain associated with cough. Vitally stable; hypotension overnight resolved with NS bolus. Afebrile. Denies dizziness, headache, change in vision, palpitations and vomiting. Objective - Vital Signs/Intake and Output Vital Signs (last 24 hours): Temp Pulse Resp BP Pulse Ox 98.6 F 83 19 123/90 98 07/13/18 10:54 07/13/18 10:54 07/13/18 10:54 07/13/18 10:54 07/13/18 10:54 - Medications Medications: Current Medications Clopidogrel Bisulfate (Plavix) 75 mg PO DAILY [facility] Last Admin: 07/13/18 10:32 Dose: 75 mg Ceftriaxone Sodium 1 gm/ (Sodium Chloride) 100 mls @ 100 mls/hr IVPB DAILY [facility]; Protocol Last Admin: 07/13/18 10:28 Dose: 100 mls/hr Sodium Chloride (Sodium Chloride 0.9%) 1,000 mls @ 100 mls/hr IV .Q10H [facility] Stop: 07/13/18 18:26 Last Admin: 07/13/18 10:34 Dose: 100 mls/hr Azithromycin 500 mg/ Sodium (Chloride) 250 mls @ 250 mls/hr IVPB DAILY [facility] Last Admin: 07/13/18 09:17 Dose: 250 mls/hr Sodium Chloride (Sodium Chloride 0.45%) 500 mls @ 999 mls/hr IV .Q31M [facility] Stop: 07/14/18 03:31 Last Admin: 07/13/18 04:14 Dose: 999 mls/hr Levothyroxine Sodium (Synthroid) 150 mcg PO DAILY@0630 [facility] Last Admin: 07/13/18 10:32 Dose: 150 mcg Metoclopramide HCl (Reglan) 5 mg PO Q8 PRN PRN Reason: Nausea/Vomiting Montelukast Sodium (Singulair) 10 mg PO HS [facility] Last Admin: 07/13/18 10:33 Dose: 10 mg Oxybutynin Chloride (Ditropan Tab) 5 mg PO DAILY [facility] Last Admin: 07/13/18 10:33 Dose: 5 mg Pantoprazole Sodium (Protonix Ec Tab) 40 mg PO DAILY [facility] Sucralfate (Carafate Tab) 1 gm PO Q8 PRN PRN Reason: Heartburn - Labs Labs: 07/13/18 06:25 07/13/18 06:00 PT 14.1 Seconds (9.8-13.1) H 07/12/18 14:28 INR 1.2 07/12/18 14:28 APTT 22.6 Seconds (25.6-37.1) L 07/12/18 14:28 - Constitutional Appears: Non-toxic, No Acute Distress, Chronically Ill - Head Exam Head Exam: NORMAL INSPECTION - Eye Exam Eye Exam: Normal appearance - ENT Exam ENT Exam: Mucous Membranes Moist - Neck Exam Neck Exam: Normal Inspection - Respiratory Exam Respiratory Exam: Decreased Breath Sounds, Rhonchi (mild), NORMAL BREATHING PATTERN - Cardiovascular Exam Cardiovascular Exam: REGULAR RHYTHM, +S1, +S2 - GI/Abdominal Exam GI & Abdominal Exam: Soft. absent: Guarding, Tenderness - Exam Additional comments: Patient incontinent - Neurological Exam Neurological Exam: Alert, Awake, Oriented x3 - Psychiatric Exam Psychiatric exam: Normal Affect - Skin Skin Exam: Intact, Normal Color, Warm Assessment and Plan - Assessment and Plan (Free Text) Assessment: 87-year-old female with PMH of COPD, CHF, recurrent UTI with hemorrhagic cystitis, diverticulitis, CAD (stent x2, 10 years [employer]), and colon cancer presents with daughter bedside for productive cough and weakness/shaking for 3 days. CXR shows infiltrates, on IVF ceftriaxone and azithromycin. Plan: Sepsis likely secondary to bilateral pneumonia - Infiltrates on CXR - Ceftriaxone 1gm - Azithromycin 500 mg - ABG admission: pH 7.3, Lactic Acid: 3.2 - WBC 12.5 (13.2 yesterday) UTI - UA indicative of UTI - F/U urine culture Acute kidney Injury on Chronic Kidney Disease IV - Bicarb 13, (16 yesterday) - 2018 CO2 range: 16-25 - 2018 BUN/Cr range: 17-40/1.7-2.6 - Cr today 3.0 (3.6 yesterday) - Baseline GFR <20 - NS @ 100 mls/hour Hypocalcemia - Ca 6.2 s/p Calcium Gluconate 4.6 mEq - Ca 7.6 yesterday COPD - Singulair 10 mg PO HS Hx of HTN - Stable Hx of CAD - Continue with home medication - Plavix 75 mg daily - BMP elevated 8460 - ECHO: EF 55% (2016) - F/U ECHO GERD - Dexilant 60 mg daily - Reglan 5mg Q8H PRN - Carafate 1 gm PO Q8H PRN Hypothyroidism - Continue with home medication - Synthroid 150 mcg daily - TSH 0.74 DVT Prophylaxis - Plavix (home med)
[2018-07-13] MEDS: Albuterol-Ipratrop 3 mg / 0.5 (3 ml) UD INH PRN (19:27)
[2018-07-13] MEDS ORDERED: Calcium Gluconate 4.65 mEq/10 ml Inj IV STA (20:14)
[2018-07-13] MEDS ORDERED: Calcium Gluconate 4.6 MEQ in Sodium Chloride 0.9% 100 ML IV ONE (20:30)
[2018-07-13] MEDS: guaiFENesin 600 mg ER Tab PO SCH (21:30)
--- NOTE | 2018-07-14 01:43 | CARD ---
APPROVED REPORT Date of service: 07/13/2018 EXAM: Two-dimensional and M-mode echocardiogram with Doppler and color Doppler. Other Information Quality : AverageRhythm : NSR Technically limited study due to Poor [place] windows. INDICATION Dyspnea 2D DIMENSIONS IVSd0.91 (0.7-1.1cm)LVDd3.87 (3.9-5.9cm) LVOT Diameter1.93 (1.8-2.4cm)PWd0.62 (0.7-1.1cm) IVSs0.98 (0.8-1.2cm)LVDs2.57 (2.5-4.0cm) FS (%) 33.5 %PWs1.02 (0.8-1.2cm) Aortic Valve AoV Peak Uremehds129.6cm/sAoV VTI27.8cmAO Peak GR.9mmHg LVOT Peak Koxthllg24.1cm/sLVOT VTI18.17cmAO Mean GR.5mmHg ALIZA (VMAX)1.97ea7VID (VTI)1.13cm2 Mitral Valve MV E Fflyfcgi18.8cm/sMV DECEL [id number] A Urggpahn07.9cm/s MV QSC03qkQ/A ratio0.9MVA (PHT)4.07cm2 TDI Lateral E' Peak V10.27cm/sMedial E' Peak V4.81cm/sE/Lateral E'8.4 E/Medial E'17.8 LEFT VENTRICLE The left ventricle is normal size. There is normal left ventricular wall thickness. The left ventricular systolic function is normal. The estimated ejection fraction is 50-55% No regional wall motion abnormalities noted.. Transmitral Doppler flow pattern is Grade I-abnormal relaxation pattern. No left ventricle thrombus noted on this study. There is no ventricular septal defect visualized. There is no left ventricular aneurysm. There is no mass noted in the left ventricle. RIGHT VENTRICLE The right ventricle is normal size. There is normal right ventricular wall thickness. The right ventricular systolic function is normal. ATRIA The left atrium is borderline dilated. The right atrium size is normal. The interatrial septum is intact with no evidence for an atrial septal defect. AORTIC VALVE The aortic valve is normal in structure. No aortic regurgitation is present. There is no aortic valvular stenosis. There is no aortic valvular vegetation. MITRAL VALVE The mitral valve is normal in structure. There is no evidence of mitral valve prolapse. There is no mitral valve stenosis. There is no mitral valve regurgitation noted. TRICUSPID VALVE The tricuspid valve is normal in structure. There is trace tricuspid valve regurgitation noted. There is no tricuspid valve prolapse or vegetation. There is no tricuspid valve stenosis. PULMONIC VALVE The pulmonary valve is normal in structure. There is no pulmonic valvular regurgitation. There is no pulmonic valvular stenosis. GREAT VESSELS The aortic root is normal in size. The ascending aorta is normal in size. The pulmonary artery is normal. The IVC is normal in size and collapses >50% with inspiration. PERICARDIAL EFFUSION There is no pericardial effusion. There is no pleural effusion. <Conclusion> The estimated ejection fraction is 50-55% Transmitral Doppler flow pattern is Grade I-abnormal relaxation pattern. The left atrium is borderline dilated. There is trace tricuspid valve regurgitation noted.
[2018-07-14] MEDS: Levothyroxine 150 MCG TAB PO SCH (05:39)
[2018-07-14] MEDS: guaiFENesin 600 mg ER Tab PO SCH ×3 (08:56→21:17)
[2018-07-14] MEDS: Pantoprazole 40 mg EC Tab PO SCH (08:56)
[2018-07-14 09:23] LABS: ALBUMIN 2.4 g/dL (3.5-5.0)
[2018-07-14 09:55] LABS: CALCIUM 6.6 mg/dL (8.4-10.2)
[2018-07-14] MEDS ORDERED: Magnesium Sulfate 2 GM in Sodium Chloride 0.9% 100 ML IVPB SCH (10:15)
[2018-07-14] MEDS: Azithromycin 500 MG in Sodium Chloride 0.9% 250 ML IVPB SCH (10:32)
[2018-07-14 12:13] LABS: SQUAMOUS EPITHIAL 2 /hpf (0-5); URINE BACTERIA OCC (<OCC); URINE BILIRUBIN NEGATIVE (NEGATIVE); URINE BLOOD MODERATE (NEGATIVE); URINE CLARITY CLOUDY (Clear); URINE COLOR YELLOW (YELLOW); URINE GLUCOSE (UA) NEG (NEGATIVE); URINE LEUKOCYTE ESTERASE LARGE Leu/uL (Negative); URINE PROTEIN 30 mg/dL (NEGATIVE); URINE UROBILINOGEN 0.2-1.0 mg/dL (0.2-1.0)
[2018-07-14] MEDS: Magnesium Sulfate 2 gm/50 ml 2 GM/50 ML BAG IV SCH ×2 (12:14→16:41)
[2018-07-14] MEDS: Dextrose 5%/0.45% NS 1,000 ML IV SCH (13:03)
[2018-07-14] MEDS: Albuterol-Ipratrop 3 mg / 0.5 (3 ml) UD INH PRN (13:42)
--- NOTE | 2018-07-14 15:40 | CP.PCM.PN ---
Subjective - Date & Time of Evaluation Date of Evaluation: 07/14/18 Time of Evaluation: 11:30 - Subjective Subjective: 87-year-old female seen bedside in no acute distress. She reports feeling better today however is "too exhausted for any more tests" and refused renal ultrasound. BP stable, afebrile, tachycardic (HR range 97-110). Denies dizziness, headache, change in vision, palpitations and vomiting. Objective - Vital Signs/Intake and Output Vital Signs (last 24 hours): Temp Pulse Resp BP Pulse Ox 97.2 F L 110 H 20 132/53 L 97 07/14/18 12:42 07/14/18 12:42 07/14/18 12:42 07/14/18 12:42 07/14/18 12:42 - Medications Medications: Current Medications Albuterol/Ipratropium (Duoneb 3 Mg/0.5 Mg (3 Ml) Ud) 3 ml INH RQ6 PRN PRN Reason: Shortness of Breath Last Admin: 07/14/18 13:42 Dose: 3 ml Clopidogrel Bisulfate (Plavix) 75 mg PO DAILY [facility] Last Admin: 07/14/18 08:57 Dose: 75 mg Guaifenesin (Mucinex La) 600 mg PO Q12 [facility] Last Admin: 07/14/18 08:56 Dose: 600 mg Ceftriaxone Sodium 1 gm/ (Sodium Chloride) 100 mls @ 100 mls/hr IVPB DAILY [facility]; Protocol Last Admin: 07/14/18 08:57 Dose: 100 mls/hr Azithromycin 500 mg/ Sodium (Chloride) 250 mls @ 250 mls/hr IVPB DAILY [facility] Last Admin: 07/14/18 10:32 Dose: 250 mls/hr Dextrose/Sodium Chloride (Dextrose 5%/0.45% Ns 1000 Ml) 1,000 mls @ 100 mls/hr IV .Q10H [facility] Stop: 07/15/18 12:11 Last Admin: 07/14/18 13:03 Dose: 100 mls/hr Levothyroxine Sodium (Synthroid) 150 mcg PO DAILY@0630 [facility] Last Admin: 07/14/18 05:39 Dose: 150 mcg Metoclopramide HCl (Reglan) 5 mg PO Q8 PRN PRN Reason: Nausea/Vomiting Montelukast Sodium (Singulair) 10 mg PO HS [facility] Last Admin: 07/13/18 22:42 Dose: 10 mg Nystatin (Nystop Topical Powder) 1 applic TOP TID [facility] Last Admin: 07/14/18 12:15 Dose: 1 applic Oxybutynin Chloride (Ditropan Tab) 5 mg PO DAILY [facility] Last Admin: 07/14/18 08:55 Dose: 5 mg Pantoprazole Sodium (Protonix Ec Tab) 40 mg PO DAILY [facility] Last Admin: 07/14/18 08:56 Dose: 40 mg Sodium Bicarbonate (Sodium Bicarbonate Tab) 650 mg PO Q6 [facility] Last Admin: 07/14/18 09:00 Dose: 650 mg Sucralfate (Carafate Tab) 1 gm PO Q8 PRN PRN Reason: Heartburn - Labs Labs: 07/13/18 06:25 07/14/18 09:45 PT 14.1 Seconds (9.8-13.1) H 07/12/18 14:28 INR 1.2 07/12/18 14:28 APTT 22.6 Seconds (25.6-37.1) L 07/12/18 14:28 - Constitutional Appears: Non-toxic, Chronically Ill - Head Exam Head Exam: NORMAL INSPECTION - Eye Exam Eye Exam: Normal appearance - ENT Exam ENT Exam: Normal Exam - Respiratory Exam Respiratory Exam: Clear to Ausculation Bilateral, NORMAL BREATHING PATTERN. absent: Wheezes Additional comments: productive cough - Cardiovascular Exam Cardiovascular Exam: Tachycardia, +S1, +S2 - GI/Abdominal Exam GI & Abdominal Exam: Soft. 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 CXR shows infiltrates, on IVF ceftriaxone and azithromycin. Plan: Sepsis likely secondary to bilateral pneumonia - Infiltrates on CXR - Ceftriaxone 1gm - Azithromycin 500 mg - ABG admission: pH 7.3, Lactic Acid: 3.2 - WBC 12.5 yesterday, 13.2 on admission UTI - UA indicative of UTI - F/U urine culture Acute kidney Injury on Chronic Kidney Disease IV - Bicarb 14, (13 yesterday) - 2018 CO2 range: 16-25 - 2018 BUN/Cr range: 17-40/1.7-2.6 - Cr trending down - today 2.7 (3.0 yesterday) - Baseline GFR <20 - NS @ 100 mls/hour - Nephrology consult requested, recommendations appreciated Hypocalcemia - Ca 6.6 today - s/p Calcium Gluconate 4.6 mEq (Ca 6.2 yesterday) Hypomagnesia - Mg 0.8 today - Mg Sulfate 2gm given - Follow-up repeat Mg Vitamin D Deficiency - Vit D 12 <12.8 - 13.9 (2016) COPD - Singulair 10 mg PO HS Hx of HTN - Stable Hx of CAD - Continue with home medication - Plavix 75 mg daily - BMP elevated 8460 - ECHO: EF 55% (2015) - F/U ECHO GERD - Dexilant 60 mg daily - Reglan 5mg Q8H PRN - Carafate 1 gm PO Q8H PRN Hypothyroidism - Continue with home medication - Synthroid 150 mcg daily - TSH 0.74 DVT Prophylaxis - Plavix (home med)
[2018-07-14] MEDS ORDERED: Digoxin 500 mcg/2ml (0.5 mg/2ml) Inj IVP STA (18:15)
[2018-07-14 18:33] VITALS: PULSE 149
--- NOTE | 2018-07-14 18:36 | PQF ---
PROVIDER RESPONSE TEXT: Compensated , normal EF heart failure REVIEWER QUERY TEXT: Heart Failure Acuity and Type Documentation of a history of Congestive Heart Failure. Please document the type and acuity (includes probable or suspected) Such as: Type: -- Combined systolic and diastolic (heart failure with reduced ejection fraction and diastolic) dysfu nction -- Diastolic (HFpEF) -- Systolic (HFrEF) -- Left heart failure -- Right heart failure -- Right heart failure due to left heart failure -- High output failure -- End stage heart failure -- Other, please specify Acuity: -- Acute -- Chronic -- Acute on chronic -- Other, please specify The patient's Clinical Indicators include: ECHO: EF 50-55%, Transmitral Doppler flow pattern is Grade I-abnormal relaxation pattern. The left atrium is borderline dilated.There is trace tricuspid valve regurgitation noted. Query created by: Katya Hooper on 07/14/2018 11:06 AM Electronically signed by: Bella Sanchez 07/14/2018 6:32 PM
--- NOTE | 2018-07-14 18:36 | PQF ---
PROVIDER RESPONSE TEXT: Provider was unable to determine a response for this query. REVIEWER QUERY TEXT: Pneumonia Specificity Bilateral Pneumonia is documented in the Medical Record. Please specify the type of pneumonia and the causative organism (includes probable or suspected) after work-up. CAP, HAP and HCAP merely represe nt the method of acquisition and not the specific type of pneumonia. Such as: Type: -- Aspiration pneumonia (please also specify the aspirate) -- Bacterial (please document suspected or probable organism) -- Bronchopneumonia (please document suspected or probable organism) -- Interstitial pneumonia -- Organizing pneumonia / BOOP -- Viral -- Other, please specify The patient's Clinical Indicators include: C/O Cough and SOB. WBC 13.2 L shift, TEMP 99 CXR: Confluent airspace disease in the lower lobes, worse on the left may represent subsegmental atel ectasis however superimposed pneumonia cannot be excluded, especially aspiration pneumonitis is a co nsideration. Rx: Zithromax, Rocephin Query created by: Katya Hooper on 07/14/2018 11:12 AM Electronically signed by: Bella Sanchez 07/14/2018 6:32 PM
[2018-07-14] MEDS: Cholecalciferol 1,000 INTLU TAB PO SCH (19:45)
--- NOTE | 2018-07-14 23:07 | CARD ---
APPROVED REPORT Date of service: 07/14/2018 EKG Measurement Heart [id number] <Conclusion> Sinus tachycardia Low voltage QRS Nonspecific ST and T wave abnormality Abnormal ECG
[2018-07-15] MEDS: Albuterol-Ipratrop 3 mg / 0.5 (3 ml) UD INH PRN ×2 (00:55→11:29)
[2018-07-15] MEDS: Dextrose 5%/0.45% NS 1,000 ML IV SCH ×2 (01:22→09:57)
[2018-07-15] MEDS: guaiFENesin 600 mg ER Tab PO SCH ×3 (01:44→22:13)
[2018-07-15] MEDS: Levothyroxine 150 MCG TAB PO SCH (05:37)
[2018-07-15 05:46] LABS: HEMOGLOBIN 9.8 g/dL (12.0-16.0); MEAN CELL VOLUME 89.8 fl (81.0-99.0); MEAN CORPUSCULAR HEMOGLOBIN 29.4 pg (27.0-31.0); MEAN CORPUSCULAR HGB CONC 32.7 g/dL (33.0-37.0); RBC 3.34 Mil/uL (3.80-5.20); RED CELL DISTRIBUTION WIDTH 16.9 % (11.5-14.5); WHITE BLOOD COUNT 16.8 K/uL (4.8-10.8)
[2018-07-15 05:48] LABS: IRON 12 ug/dL (37-170)
[2018-07-15 05:49] LABS: CALCIUM 6.8 mg/dL (8.4-10.2)
[2018-07-15 05:58] LABS: % IRON SATURATION 6 % (20-55); TOTAL IRON BINDING CAPACITY 182 ug/dL (250-450)
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
[2018-07-15] MEDS ORDERED: Potassium Chloride 20 mEq ER Tab PO ONE ×2 (08:25→13:01)
[2018-07-15 08:41] LABS: ALBUMIN 2.4 g/dL (3.5-5.0)
[2018-07-15] MEDS ORDERED: Ergocalciferol 50,000 Intl Units Cap PO SCH (09:00)
[2018-07-15] MEDS: Azithromycin 500 MG in Sodium Chloride 0.9% 250 ML IVPB SCH (09:46)
[2018-07-15] MEDS: Enoxaparin 30 mg Syringe SC SCH (09:52)
[2018-07-15] MEDS: Pantoprazole 40 mg EC Tab PO SCH (09:52)
[2018-07-15] MEDS: Cholecalciferol 1,000 INTLU TAB PO SCH (09:53)
[2018-07-15] MEDS ORDERED: Sodium Bicarbonate 8.4% 150 MEQ in Dextrose 5% In Water 1,000 ML IV SCH ×2 (11:45→13:05)
--- NOTE | 2018-07-15 12:13 | CP.PCM.PN ---
<Kiana Gallegos - Last Filed: 07/15/18 13:23> Subjective - Date & Time of Evaluation Date of Evaluation: 07/15/18 Time of Evaluation: 09:00 - Subjective Subjective: Patient seen and examined at bedside. Appears drowsy and lethargic but responds to verbal and physical stimulation. States "I feel fine, I'm just tired, I didn't sleep well". Pulse ox checked using forehead sensor, O2 sat 95%. Patient has productive cough with a weak cough reflex,was given some chest physiotherapy and able to expectorate minimally. Follows commands to move all extremities. AAO x 3. Nurse at bedside confirmed no medications were given that could have made patient drowsy. Patient had an episode of Afib last night, was administered Digoxin 0.25mg IV, is now back in normal sinus rhythm with a heart of 93. Denies chest pain, SOB, weakness or dizziness. Objective - Vital Signs/Intake and Output Vital Signs (last 24 hours): Temp Pulse Resp BP Pulse Ox 98.4 F 94 H 20 101/43 L 93 L 07/15/18 07:54 07/15/18 07:54 07/15/18 07:54 07/15/18 07:54 07/15/18 07:54 - Medications Medications: Current Medications Albuterol/Ipratropium (Duoneb 3 Mg/0.5 Mg (3 Ml) Ud) 3 ml INH RQ6 PRN PRN Reason: Shortness of Breath Last Admin: 07/15/18 11:29 Dose: 3 ml Calcium Carbonate (Oscal) 500 mg PO Q6 [facility] Cholecalciferol (Vitamin D) 2,000 intlu PO DAILY [facility] Last Admin: 07/15/18 09:53 Dose: 2,000 intlu Clopidogrel Bisulfate (Plavix) 75 mg PO DAILY [facility] Last Admin: 07/15/18 09:52 Dose: 75 mg Enoxaparin Sodium (Lovenox) 30 mg SC DAILY [facility]; Protocol Last Admin: 07/15/18 09:52 Dose: 30 mg Ergocalciferol (Drisdol 50,000 Intl Units Cap) 1 cap PO Q7D [facility] Last Admin: 07/15/18 09:53 Dose: 1 cap Guaifenesin (Mucinex La) 600 mg PO Q12 [facility] Last Admin: 01/05/19 09:52 Dose: 600 mg Ceftriaxone Sodium 1 gm/ (Sodium Chloride) 100 mls @ 100 mls/hr IVPB DAILY [facility]; Protocol Last Admin: 07/15/18 09:46 Dose: 100 mls/hr Azithromycin 500 mg/ Sodium (Chloride) 250 mls @ 250 mls/hr IVPB DAILY [facility] Last Admin: 07/15/18 09:46 Dose: 250 mls/hr Sodium Bicarbonate 150 meq/ (Dextrose) 1,150 mls @ 60 mls/hr IV .[id number] [facility] Stop: 07/16/18 06:54 Iron Sucrose 100 mg/ Sodium (Chloride) 105 mls @ 105 mls/hr IVPB DAILY [facility] Stop: 07/19/18 09:59 Levothyroxine Sodium (Synthroid) 150 mcg PO DAILY@0630 [facility] Last Admin: 07/15/18 05:37 Dose: 150 mcg Metoclopramide HCl (Reglan) 5 mg PO Q8 PRN PRN Reason: Nausea/Vomiting Metoprolol Succinate (Toprol Xl) 25 mg PO DAILY [facility] Montelukast Sodium (Singulair) 10 mg PO HS [facility] Last Admin: 07/14/18 23:25 Dose: Not Given Nystatin (Nystop Topical Powder) 1 applic TOP TID [facility] Last Admin: 07/15/18 09:54 Dose: 1 applic Oxybutynin Chloride (Ditropan Tab) 5 mg PO DAILY [facility] Last Admin: 07/15/18 09:54 Dose: 5 mg Pantoprazole Sodium (Protonix Ec Tab) 40 mg PO DAILY [facility] Last Admin: 07/15/18 09:52 Dose: 40 mg Potassium Chloride (K-Dur 20 Meq Er Tab) 20 meq PO BID [facility] Sodium Bicarbonate (Sodium Bicarbonate Tab) 650 mg PO Q6 [facility] Last Admin: 07/15/18 09:52 Dose: 650 mg Sucralfate (Carafate Tab) 1 gm PO Q8 PRN PRN Reason: Heartburn - Labs Labs: 07/15/18 04:30 07/15/18 04:30 PT 14.1 Seconds (9.8-13.1) H 07/12/18 14:28 INR 1.2 07/12/18 14:28 APTT 22.6 Seconds (25.6-37.1) L 07/12/18 14:28 - Constitutional Appears: Cachectic, Chronically Ill - Head Exam Head Exam: ATRAUMATIC, NORMOCEPHALIC - Eye Exam Eye Exam: EOMI - ENT Exam ENT Exam: Mucous Membranes Moist - Respiratory Exam Respiratory Exam: Rhonchi. absent: NORMAL BREATHING PATTERN (mouth breathing, shallow breaths) - Cardiovascular Exam Cardiovascular Exam: +S1, +S2 - GI/Abdominal Exam GI & Abdominal Exam: Soft. absent: Tenderness - Extremities Exam Extremities Exam: absent: Calf Tenderness, Pedal Edema - Neurological Exam Neurological Exam: absent: Alert, Awake (drowsy and somnolent but arousable, follows commands) - Psychiatric Exam Psychiatric exam: Flat Affect - Skin Skin Exam: Warm (ecchymosis on bilateral LE) Assessment and Plan - Assessment and Plan (Free Text) Assessment: 87-year-old female admitted for sepsis likely secondary to bilateral pneumonia and UTI with PMHx of Afib, COPD, CHF, recurrent UTI with hemorrhagic cystitis, diverticulitis, CAD (stent x2, 10 years [employer]), and colon cancer. Patient has had intermittent episodes of Afib. On IV ceftriaxone and azithromycin, Plan: 1. Sepsis likely secondary to bilateral pneumonia -acute -CXR on admission: confluent airspace disease, consider aspiration pnuemonitis and possible superimposed pneumonia - continue Ceftriaxone 1gm (Day 4) , Azithromycin 500 mg (Day 4) - ABG admission: pH 7.3, Lactic Acid: 3.2; BCx negative x 2 x 48hrs -Leukocytosis worsened to 16.8 today (was 12.5 on 07/13/17 and 13.2 on admission) -f/u repeat chest xray -start Chest Physiotherapy, Duoneb INH Q6, mucinex 2. UTI - acute, Large leukocyte esterase and high WBC on UA - Urine culture: < 10,000 Gram positive cocci -patient on Ceftriaxone 1 gm 3. Acute kidney Injury on Chronic Kidney Disease Stage IV - Bicarb 12, (14 yesterday) - 2018 CO2 range: 16-25 - 2018 BUN/Cr range: 17-40/1.7-2.6 - Cr trending down - today 2.4 (2.7 yesterday) - Baseline GFR <20 - D5 with 150 meq of sodium bicarb at 40 mls/hour - Nephrology on consult, recommendations appreciated 4. Hypocalcemia - Ca 6.8 today, albumin 2.4; corrected calcium = 7.7 -start Calcium carbonate 500mg PO Q6 -monitor calcium 5. Hypomagnesia -improved, Mag today 2.3 -s/p Mag supplement yesterday -f/u next day Mag 6. Vitamin D Deficiency - Vit D 12 <12.8 - 13.9 (2016) -continue Cholecalciferol 2,000 IU PO QD 7. COPD -chronic -continue Singulair 10 mg PO HS 8. Anemia of chronic disease -stable, acute on chronic, H/H today 9.8/30.0 -likely secondary to CKD and poor PO intake -per nephro, Venofer 100mg IV QD x 5 days -f/u CBC next day 9. Hx of HTN - Stable without medications -monitor BP 10. Hx of CAD - chronic, stable -Continue with home medication (Plavix 75 mg PO daily) - BMP elevated 8460 - ECHO: EF 55% (2015) - F/U ECHO 11. GERD - Dexilant 60 mg daily - Reglan 5mg Q8H PRN - Carafate 1 gm PO Q8H PRN 12. Hypothyroidism - Continue with home medication - Synthroid 150 mcg daily - TSH 0.74 13. DVT Prophylaxis - Plavix (home med) <Kimberlee Waters - Last Filed: 07/15/18 16:09> Objective - Vital Signs/Intake and Output Vital Signs (last 24 hours): Temp Pulse Resp BP Pulse Ox 98.0 F 98 H 20 135/75 98 07/15/18 16:05 07/15/18 16:05 07/15/18 16:05 07/15/18 16:05 07/15/18 16:05 - Medications Medications: Current Medications Albuterol/Ipratropium (Duoneb 3 Mg/0.5 Mg (3 Ml) Ud) 3 ml INH RQ6 [facility] Last Admin: 07/15/18 15:37 Dose: Not Given Calcium Carbonate (Oscal) 500 mg PO Q6 [facility] Cholecalciferol (Vitamin D) 2,000 intlu PO DAILY [facility] Last Admin: 07/15/18 09:53 Dose: 2,000 intlu Clopidogrel Bisulfate (Plavix) 75 mg PO DAILY [facility] Last Admin: 07/15/18 09:52 Dose: 75 mg Enoxaparin Sodium (Lovenox) 30 mg SC DAILY [facility]; Protocol Last Admin: 07/15/18 09:52 Dose: 30 mg Ergocalciferol (Drisdol 50,000 Intl Units Cap) 1 cap PO Q7D [facility] Last Admin: 07/15/18 09:53 Dose: 1 cap Guaifenesin (Mucinex La) 600 mg PO Q12 [facility] Last Admin: 07/15/18 09:52 Dose: 600 mg Ceftriaxone Sodium 1 gm/ (Sodium Chloride) 100 mls @ 100 mls/hr IVPB DAILY [facility]; Protocol Last Admin: 07/15/18 09:46 Dose: 100 mls/hr Azithromycin 500 mg/ Sodium (Chloride) 250 mls @ 250 mls/hr IVPB DAILY [facility] Last Admin: 07/15/18 09:46 Dose: 250 mls/hr Iron Sucrose 100 mg/ Sodium (Chloride) 105 mls @ 105 mls/hr IVPB DAILY [facility] Stop: 07/19/18 09:59 Sodium Bicarbonate 150 meq/ (Dextrose) 1,150 mls @ 40 mls/hr IV .Q24H [facility] Stop: 07/16/18 13:04 Last Admin: 07/15/18 13:37 Dose: 40 mls/hr Levothyroxine Sodium (Synthroid) 150 mcg PO DAILY@0630 [facility] Last Admin: 07/15/18 05:37 Dose: 150 mcg Metoclopramide HCl (Reglan) 5 mg PO Q8 PRN PRN Reason: Nausea/Vomiting Metoprolol Succinate (Toprol Xl) 25 mg PO DAILY [facility] Montelukast Sodium (Singulair) 10 mg PO HS [facility] Last Admin: 07/14/18 23:25 Dose: Not Given Nystatin (Nystop Topical Powder) 1 applic TOP TID [facility] Last Admin: 07/15/18 13:38 Dose: 1 applic Oxybutynin Chloride (Ditropan Tab) 5 mg PO DAILY [facility] Last Admin: 07/15/18 09:54 Dose: 5 mg Pantoprazole Sodium (Protonix Ec Tab) 40 mg PO DAILY [facility] Last Admin: 07/15/18 09:52 Dose: 40 mg Potassium Chloride (K-Dur 20 Meq Er Tab) 20 meq PO BID [facility] Sodium Bicarbonate (Sodium Bicarbonate Tab) 650 mg PO Q6 [facility] Last Admin: 07/15/18 09:52 Dose: 650 mg Sucralfate (Carafate Tab) 1 gm PO Q8 PRN PRN Reason: Heartburn - Labs Labs: 07/15/18 04:30 07/15/18 04:30 PT 14.1 Seconds (9.8-13.1) H 07/12/18 14:28 INR 1.2 07/12/18 14:28 APTT 22.6 Seconds (25.6-37.1) L 07/12/18 14:28 Attending/Attestation - Attestation I have personally seen and examined this patient.: Yes I have fully participated in the care of the patient.: Yes I have reviewed all pertinent clinical information, including history, physical exam and plan: Yes
--- NOTE | 2018-07-15 13:14 | PCM.RRT ---
<Jose Hendrickson - Last Filed: 07/15/18 13:23> ADMINISTRATIVE PROFESSIONAL Nurse Assessment - Situation ADMINISTRATIVE PROFESSIONAL Responder Arrival Time: 12:44 ADMINISTRATIVE PROFESSIONAL Reason for Call: Respiratory Distress - IV IV Inserted during ADMINISTRATIVE PROFESSIONAL?: No - Respiratory Oxygen Delivery Method: Mask I.Reason for ADMINISTRATIVE PROFESSIONAL - A) Acute Change in Patient: (Select all that apply): Staff member or family is worried about patient Subjective: 87-year-old female with PMH of COPD, CHF, recurrent UTI with hemorrhagic cystitis, diverticulitis, CAD (stent x2, 10 years [employer]IST), and colon cancer admitted for cough and weakness/shaking for 3 days. ADMINISTRATIVE PROFESSIONAL called in radiology at 12:42pm Due to shortness of breath. ADMINISTRATIVE PROFESSIONAL team arrived with Dr. Waters. Patient put on nonrebreather mask with improvement in respiratory distress. Patient brought to her room due to vital signs monitor not available. In room, initial vitals BP 148/83, O2 99% on oxymask, RR 18, HR 102. Patient coughed up brownish sputum. On physical exam patient alert, awake, oriented. Lungs: +rhonchi and transmitted upper airway sounds. heart: RRR, S1S2 present. EKG ordered stat showed Sinus tachycardia. CXR reviewed showed B/L pleural effusion. Lasix 20 mg IV and KCL 40 meq given. D5 with Na bicarb reduced from 60 to 40 ml/hr and Duoneb Q6hr PRN to scheduled. Patient to remain in telemetry for further monitoring. - Neurological Status (Select all that apply): Alert, Responsive, Oriented, Verbal, Follows Commands, Weakness. absent: Disoriented, Confused, Lethargic, Aggressive - Respiratory Oxygen Delivery Method: Non Rebreather @% - Constitutional Appears: In Acute Distress - Head Head Exam: ATRAUMATIC, NORMOCEPHALIC - Eyes Eye Exam: EOMI, Normal appearance - Respiratory Exam Respiratory Exam: Rhonchi, Respiratory Distress. absent: Decreased Breath Sounds, Rales, Wheezes - Cardiovascular Exam Cardiovascular Exam: Tachycardia, +S1, +S2 - Neurological Exam Neurological Exam: Alert, Awake, Oriented x3 Plan - Assessment of Findings&Treatment Plan 87-year-old female with PMH of COPD, CHF, recurrent UTI with hemorrhagic cystitis, diverticulitis, CAD (stent x2, 10 years [employer]IST), and colon cancer admitted for cough and weakness/shaking for 3 days. ADMINISTRATIVE PROFESSIONAL called in radiology at 12:42pm Due to respiratory distress. -Pt on nonrebreather mask -Initial vitals BP 148/83, O2 99% on oxymask, RR 18, HR 102. -Physical exam patient alert, awake, oriented. Lungs: +rhonchi and transmitted upper airway sounds. heart: RRR, S1S2 present. -EKG stat showed Sinus tachycardia. -CXR reviewed showed B/L pleural effusion. -Lasix 20 mg IV STAT -KCL 40 meq STAT -D5 with Na bicarb reduced from 60 to 40 ml/hr -Duoneb Q6hr PRN to scheduled -Continue other Mx as ordered. -Patient to remain in telemetry for further monitoring. Case discussed with Dr. Waters <Kimberlee Waters - Last Filed: 07/15/18 16:08> Attending/Attestation - Attestation I have personally seen and examined this patient.: Yes I have fully participated in the care of the patient.: Yes I have reviewed all pertinent clinical information, including history, physical exam and plan: Yes
[2018-07-15] MEDS: Metoprolol Succinate 25 mg XL Tab PO SCH (14:00)
[2018-07-15 14:25] LABS: SQUAMOUS EPITHIAL 1 /hpf (0-5); URINE BACTERIA MOD (<OCC); URINE BILIRUBIN NEGATIVE (NEGATIVE); URINE BLOOD LARGE (NEGATIVE); URINE CLARITY SLIGHTY-CLOUDY (Clear); URINE COLOR YELLOW (YELLOW); URINE GLUCOSE (UA) NEG (NEGATIVE); URINE LEUKOCYTE ESTERASE LARGE Leu/uL (Negative); URINE PROTEIN 30 mg/dL (NEGATIVE); URINE UROBILINOGEN 0.2-1.0 mg/dL (0.2-1.0)
[2018-07-15] MEDS: Albuterol-Ipratrop 3 mg / 0.5 (3 ml) UD INH SCH ×3 (15:36→19:43)
[2018-07-15] MEDS ORDERED: Potassium Chloride 20 mEq ER Tab PO SCH (21:00)
[2018-07-15] MEDS ORDERED: Nystatin 100,000 Units/ml Oral Susp 5 ml UD PO SCH (22:00)
--- NOTE | 2018-07-15 22:40 | CP.PCM.PN ---
Subjective - Date & Time of Evaluation Date of Evaluation: 07/15/18 Time of Evaluation: 15:00 - Subjective Subjective: [employer] [place] [employer] noted today after patient complained of dyspnea but with normal O2 sat; otherwise, not eating much per nursing staff; Objective - Vital Signs/Intake and Output Vital Signs (last 24 hours): Temp Pulse Resp BP Pulse Ox 97.9 F 84 20 139/70 98 07/15/18 20:36 07/15/18 20:36 07/15/18 20:36 07/15/18 20:36 07/15/18 20:36 - Medications Medications: Current Medications Albuterol/Ipratropium (Duoneb 3 Mg/0.5 Mg (3 Ml) Ud) 3 ml INH RQ6 [facility] Last Admin: 07/15/18 19:43 Dose: 3 ml Calcium Carbonate (Oscal) 500 mg PO Q6 [facility] Last Admin: 07/15/18 22:01 Dose: 500 mg Cholecalciferol (Vitamin D) 2,000 intlu PO DAILY [facility] Last Admin: 07/15/18 09:53 Dose: 2,000 intlu Clopidogrel Bisulfate (Plavix) 75 mg PO DAILY [facility] Last Admin: 07/15/18 09:52 Dose: 75 mg Clotrimazole (Mycelex Chu) 10 mg MT 5XD [facility]AY Last Admin: 07/15/18 22:03 Dose: 10 mg Enoxaparin Sodium (Lovenox) 30 mg SC DAILY [facility]; Protocol Last Admin: 07/15/18 09:52 Dose: 30 mg Ergocalciferol (Drisdol 50,000 Intl Units Cap) 1 cap PO Q7D [facility]AY Last Admin: 07/15/18 09:53 Dose: 1 cap Guaifenesin (Mucinex La) 600 mg PO Q12 [facility] Last Admin: 07/15/18 22:13 Dose: 600 mg Ceftriaxone Sodium 1 gm/ (Sodium Chloride) 100 mls @ 100 mls/hr IVPB DAILY [facility]; Protocol Last Admin: 07/15/18 09:46 Dose: 100 mls/hr Azithromycin 500 mg/ Sodium (Chloride) 250 mls @ 250 mls/hr IVPB DAILY [facility] Last Admin: 07/15/18 09:46 Dose: 250 mls/hr Iron Sucrose 100 mg/ Sodium (Chloride) 105 mls @ 105 mls/hr IVPB DAILY [facility] Stop: 07/19/18 09:59 Last Admin: 07/15/18 17:42 Dose: 105 mls/hr Sodium Bicarbonate 150 meq/ (Dextrose) 1,150 mls @ 40 mls/hr IV .Q24H [facility] Stop: 07/16/18 13:04 Last Admin: 07/15/18 13:37 Dose: 40 mls/hr Levothyroxine Sodium (Synthroid) 150 mcg PO DAILY@0630 [facility] Last Admin: 07/15/18 05:37 Dose: 150 mcg Metoclopramide HCl (Reglan) 5 mg PO Q8 PRN PRN Reason: Nausea/Vomiting Metoprolol Succinate (Toprol Xl) 25 mg PO DAILY [facility] Last Admin: 07/15/18 14:00 Dose: 25 mg Montelukast Sodium (Singulair) 10 mg PO HS [facility] Last Admin: 07/15/18 22:03 Dose: 10 mg Nystatin (Nystop Topical Powder) 1 applic TOP TID [facility] Last Admin: 07/15/18 17:41 Dose: 1 applic Oxybutynin Chloride (Ditropan Tab) 5 mg PO DAILY [facility] Last Admin: 07/15/18 09:54 Dose: 5 mg Pantoprazole Sodium (Protonix Ec Tab) 40 mg PO DAILY [facility] Last Admin: 07/15/18 09:52 Dose: 40 mg Potassium Chloride (K-Dur 20 Meq Er Tab) 20 meq PO BID [facility] Sodium Bicarbonate (Sodium Bicarbonate Tab) 650 mg PO Q6 [facility] Last Admin: 07/15/18 22:06 Dose: 650 mg Sucralfate (Carafate Tab) 1 gm PO Q8 PRN PRN Reason: Heartburn - Labs Labs: 07/15/18 04:30 07/15/18 04:30 PT 14.1 Seconds (9.8-13.1) H 07/12/18 14:28 INR 1.2 07/12/18 14:28 APTT 22.6 Seconds (25.6-37.1) L 07/12/18 14:28 - Constitutional Appears: Non-toxic, No Acute Distress - Eye Exam Eye Exam: Normal appearance. absent: Scleral icterus - Respiratory Exam Respiratory Exam: Clear to Ausculation Bilateral. absent: Respiratory Distress Additional comments: some decreased sounds at bases; - Cardiovascular Exam Cardiovascular Exam: RRR, +S1, +S2. absent: Gallop, Rubs - GI/Abdominal Exam GI & Abdominal Exam: Soft. absent: Distended - Extremities Exam Additional comments: no significant leg edema; - Neurological Exam Neurological Exam: Alert, Awake - Psychiatric Exam Psychiatric exam: absent: Agitated - Skin Skin Exam: Warm. absent: Cyanosis Assessment and Plan (1) Acute kidney injury Assessment & Plan: ARLENE on CKD IV; appears to be pre-renal etiology, possibly due to poor PO intake; resolving with IVF though still well above baseline (serum creatine 1.7 in January 2018); otherwise, still with profound metabolic acidosis due to renal failure (mostly non-gap), not improved on PO bicarb; new CXR finding of pleural effusion noted; -will continue bicarb drip for 1 bag total to help correct acidosis (may help offset any tachypnea); continue PO bicarb; -still needs renal US to assess hydronephrosis (given previous history, although utility is limited in this elderly patient with dementia/delirium who is not very amenable to intervention); -avoid nephrotoxic agents; Status: Acute (2) Chronic kidney disease-mineral and bone disorder Assessment & Plan: 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
[2018-07-16] MEDS: Albuterol-Ipratrop 3 mg / 0.5 (3 ml) UD INH SCH ×3 (00:59→13:16)
[2018-07-16 05:14] VITALS: RESP 20
[2018-07-16] MEDS: Levothyroxine 150 MCG TAB PO SCH (06:19)
[2018-07-16 06:49] LABS: BASO % 0.3 % (0.0-2.0); EOS # 0.1 K/uL (0.0-0.7); EOS % 0.7 % (0.0-4.0); HEMOGLOBIN 10.2 g/dL (12.0-16.0); LYMPH # 0.7 K/uL (1.0-4.3); MEAN CORPUSCULAR HGB CONC 32.9 g/dL (33.0-37.0); MEAN PLATELET VOLUME 8.1 fl (7.2-11.7); MONO # 0.7 K/uL (0.0-0.8); MONO % 5.5 % (0.0-10.0); NEUT # 10.8 K/uL (1.8-7.0); NEUT % 87.5 % (50.0-75.0); PLATELET COUNT 140 K/uL (130-400); RBC 3.51 Mil/uL (3.80-5.20); RED CELL DISTRIBUTION WIDTH 16.4 % (11.5-14.5); WHITE BLOOD COUNT 12.3 K/uL (4.8-10.8)
[2018-07-16 07:36] LABS: ALB/GLOB RATIO 0.7 (1.0-2.1); ALBUMIN 2.4 g/dL (3.5-5.0); CALCIUM 7.3 mg/dL (8.4-10.2)
[2018-07-16] MEDS ORDERED: Potassium Chloride 20 mEq ER Tab PO SCH ×2 (09:00)
[2018-07-16 09:51] LABS: LYMPHOCYTE 5 % (20-50); MONOCYTE 4 % (0-10); NEUTROPHIL 91 % (42-75); PLATELET ESTIMATE NORMAL (NORMAL); TOTAL CELLS COUNTED 100
--- NOTE | 2018-07-16 09:51 | RAD ---
Date of service: 07/15/2018 HISTORY: follow up COMPARISON: No prior. TECHNIQUE: Chest PA and lateral FINDINGS: LUNGS: Bilateral interstitial infiltrates and effusions. PLEURA: No pneumothorax apparent. CARDIOVASCULAR: No aortic atherosclerotic calcification present. Normal cardiac size. No pulmonary vascular congestion. OSSEOUS STRUCTURES: No significant abnormalities. VISUALIZED UPPER ABDOMEN: Normal. OTHER FINDINGS: Right TLC coiled in the right SVC and innominate vein. IMPRESSION: Bilateral interstitial infiltrates and effusions. Right TLC coiled in the right SVC and innominate vein.
[2018-07-16 09:52] LABS: ANISOCYTOSIS SLIGHT
[2018-07-16 09:53] LABS: HYPOCHROMIC SLIGHT; OVALOCYTES SLIGHT; SCHISTOCYTES SLIGHT
[2018-07-16 10:07] LABS: ACANTHOCYTES MODERATE
[2018-07-16 10:08] LABS: TOXIC GRANULATION PRESENT
[2018-07-16] MEDS: Cholecalciferol 1,000 INTLU TAB PO SCH (11:03)
[2018-07-16] MEDS: Metoprolol Succinate 25 mg XL Tab PO SCH (11:04)
[2018-07-16] MEDS: Enoxaparin 30 mg Syringe SC SCH (11:05)
[2018-07-16] MEDS: Pantoprazole 40 mg EC Tab PO SCH (11:05)
[2018-07-16] MEDS: guaiFENesin 600 mg ER Tab PO SCH (11:06)
[2018-07-16] MEDS: Azithromycin 500 MG in Sodium Chloride 0.9% 250 ML IVPB SCH (11:09)
--- NOTE | 2018-07-16 11:15 | RAD ---
Date of service: 07/16/2018 HISTORY: pneumonia COMPARISON: No prior. FINDINGS: LUNGS: Bibasilar infiltrates. PLEURA: No significant pleural effusion identified, no pneumothorax apparent. CARDIOVASCULAR: Aortic calcifications. Normal cardiac size. No pulmonary vascular congestion. OSSEOUS STRUCTURES: No significant abnormalities. VISUALIZED UPPER ABDOMEN: Normal. OTHER FINDINGS: None. IMPRESSION: Bibasilar infiltrates.
--- NOTE | 2018-07-16 11:23 | US ---
Date of service: 07/16/2018 PROCEDURE: Ultrasound of the Kidneys HISTORY: f/u hydronephrosis COMPARISON: 04/30/2018 CT. TECHNIQUE: Sonogram of the kidneys. FINDINGS: RIGHT KIDNEY: Measures: 7.8 cm. Normal in size, contour and echogenicity. Mild right hydronephrosis. LEFT KIDNEY: Measures: 8.1 cm. Normal in size, contour and echogenicity. No stone, solid mass lesion or hydronephrosis visualized. OTHER FINDINGS: None. IMPRESSION: Mild right hydronephrosis.
--- NOTE | 2018-07-16 11:36 | CP.PCM.DIS ---
<Bernadette Resendez - Last Filed: 07/16/18 11:36> Provider - Provider Date of Admission: 07/12/18 16:11 Attending physician: Bella Sanchez MD Consults: 07/13/18 18:26 Case Management Referral Routine Comment: Physician Instructions: Reason For Exam: Reason for Referral: Discharge Planning Nursing Referral for Palliative Care Routine Comment: Consulting Provider: Rere Blair Physician Instructions: Reason For Exam: Nursing assessement Nursing Referral for Wound Care Routine Comment: Sacrum and upper back redness Physician Instructions: Reason For Exam: Bilateral lower ext purplish discolorateion 07/13/18 20:21 Nephrology Consult Routine Comment: Consulting Provider: Jarek Kemp Consulting Physician: Jarek Kemp Reason for Consult: please evaluate ARLENE on CKD and metabolic acidosis Time Spent in preparation of Discharge (in minutes): 25 Hospital Course - Lab Results Lab Results: Micro Results 07/12/18 13:19 Blood-Venous Blood Culture - Preliminary NO GROWTH AFTER 3 DAYS 07/12/18 13:15 Blood-Venous Blood Culture - Preliminary NO GROWTH AFTER 3 DAYS 07/14/18 11:15 Urine Urine Culture - Final Gram Positive Cocci Most Recent Lab Values WBC 12.3 K/uL (4.8-10.8) H 07/16/18 05:20 RBC 3.51 Mil/uL (3.80-5.20) L 07/16/18 05:20 Hgb 10.2 g/dL (12.0-16.0) L 07/16/18 05:20 Hct 30.9 % (34.0-47.0) L 07/16/18 05:20 MCV 88.0 fl (81.0-99.0) 07/16/18 05:20 MCH 29.0 pg (27.0-31.0) 07/16/18 05:20 MCHC 32.9 g/dL (33.0-37.0) L 07/16/18 05:20 RDW 16.4 % (11.5-14.5) H 07/16/18 05:20 Plt Count 140 K/uL (130-400) 07/16/18 05:20 MPV 8.1 fl (7.2-11.7) 07/16/18 05:20 Neut % (Auto) 87.5 % (50.0-75.0) H 07/16/18 05:20 Lymph % (Auto) 6.0 % (20.0-40.0) L 07/16/18 05:20 Gordon % (Auto) 5.5 % (0.0-10.0) 07/16/18 05:20 Eos % (Auto) 0.7 % (0.0-4.0) 07/16/18 05:20 Baso % (Auto) 0.3 % (0.0-2.0) 07/16/18 05:20 Neut # (Auto) 10.8 K/uL (1.8-7.0) H 07/16/18 05:20 Lymph # (Auto) 0.7 K/uL (1.0-4.3) L 07/16/18 05:20 Gordon # (Auto) 0.7 K/uL (0.0-0.8) 07/16/18 05:20 Eos # (Auto) 0.1 K/uL (0.0-0.7) 07/16/18 05:20 Baso # (Auto) 0.0 K/uL (0.0-0.2) 07/16/18 05:20 Neutrophils % (Manual) 91 % (42-75) H 07/16/18 05:20 Band Neutrophils % 8 % (0-2) H 07/12/18 13:18 Lymphocytes % (Manual) 5 % (20-50) L 07/16/18 05:20 Monocytes % (Manual) 4 % (0-10) 07/16/18 05:20 Toxic Granulation Present 07/16/18 05:20 Platelet Estimate Normal (NORMAL) 07/16/18 05:20 Hypochromasia (manual) Slight 07/16/18 05:20 Poikilocytosis (manual Slight 07/12/18 13:18 Anisocytosis (manual) Slight 07/16/18 05:20 Ovalocytes Slight 07/16/18 05:20 Acanthocytes (Spur) Moderate 07/16/18 05:20 Schistocytes Slight 07/16/18 05:20 PT 14.1 Seconds (9.8-13.1) H 07/12/18 14:28 INR 1.2 07/12/18 14:28 APTT 22.6 Seconds (25.6-37.1) L 07/12/18 14:28 pCO2 27 mm/Hg (35-45) L 07/12/18 16:43 pO2 75 mm/Hg (80-100) L 07/12/18 16:43 HCO3 15.8 mmol/L (21-28) L 07/12/18 16:43 ABG pH 7.30 (7.35-7.45) L 07/12/18 16:43 ABG Total CO2 14.1 mmol/L (22-28) L 07/12/18 16:43 ABG O2 Saturation 96.6 % (95-98) 07/12/18 16:43 ABG Base Excess -11.5 mmol/L (-2.0-3.0) L 07/12/18 16:43 Pablo Test Yes 07/12/18 16:43 ABG Potassium 4.0 mmol/L (3.6-5.2) 07/12/18 16:43 A-a O2 Difference 41.0 mm/Hg 07/12/18 16:43 Sodium 133.0 mmol/L (132-148) 07/12/18 16:43 Chloride 108.0 mmol/L (98-107) H 07/12/18 16:43 Glucose 105 mg/dL (65-105) 07/12/18 16:43 Lactate 1.3 mmol/L (0.7-2.1) 07/12/18 16:43 FiO2 21.0 % 07/12/18 16:43 Sodium 141 mmol/l (132-148) 07/16/18 05:20 Potassium 3.8 MMOL/L (3.6-5.0) 07/16/18 05:20 Chloride 112 mmol/L (98-107) H 07/16/18 05:20 Carbon Dioxide 16 mmol/L (22-30) L 07/16/18 05:20 Anion Gap 17 (10-20) 07/16/18 05:20 BUN 36 mg/dl (7-17) H 07/16/18 05:20 Creatinine 2.3 mg/dl (0.7-1.2) H 07/16/18 05:20 Est GFR ( Amer) 24 07/16/18 05:20 Est GFR (Non-Af Amer) 07/16/18 05:20 Random Glucose 138 mg/dL (65-105) H 07/16/18 05:20 Lactic Acid 3.2 MMOL/L (0.7-2.1) H 07/12/18 16:40 Calcium 7.3 mg/dL (8.4-10.2) L 07/16/18 05:20 Phosphorus 4.1 mg/dl (2.5-4.5) 07/14/18 09:03 Magnesium 2.0 MG/DL (1.6-2.3) 07/16/18 05:20 Iron 12 ug/dL (37-170) L 07/15/18 04:30 TIBC 182 ug/dL (250-450) L 07/15/18 04:30 % Saturation 6 % (20-55) L 07/15/18 04:30 Ferritin 155.0 ng/Ml (11.1-264.0) 07/15/18 04:30 Total Bilirubin 0.4 mg/dl (0.2-1.3) 07/16/18 05:20 AST 20 U/L (14-36) 07/16/18 05:20 ALT 17 U/L (9-52) 07/16/18 05:20 Alkaline Phosphatase 111 U/L (38-126) 07/16/18 05:20 Troponin I < 0.0120 ng/mL (0.00-0.120) 07/14/18 18:46 NT-Pro-B Natriuret Pep 8460 pg/ml (0-900) H 07/12/18 13:18 Total Protein 5.7 G/DL (6.3-8.2) L 07/16/18 05:20 Albumin 2.4 g/dL (3.5-5.0) L 07/16/18 05:20 Globulin 3.4 gm/dL (2.2-3.9) 07/16/18 05:20 Albumin/Globulin Ratio 0.7 (1.0-2.1) L 07/16/18 05:20 25-OH Vitamin D Total < 12.8 NG/ML (30.0-100.0) L 07/14/18 09:03 TSH 3rd Generation 0.74 mIU/ML (0.46-4.68) 07/13/18 06:25 Arterial Blood Potassium 4.0 mmol/L (3.6-5.2) 07/12/18 16:43 Urine Color Yellow (YELLOW) 07/15/18 14:00 Urine Clarity Slighty-cloudy (Clear) 07/15/18 14:00 Urine pH 5.0 (5.0-8.0) 07/15/18 14:00 Ur Specific [place] 1.012 (1.003-1.030) 07/15/18 14:00 Urine Protein 30 mg/dL (NEGATIVE) 07/15/18 14:00 Urine Glucose (UA) Neg mg/dL (NEGATIVE) 07/15/18 14:00 Urine Ketones Negative mg/dL (NEGATIVE) 07/15/18 14:00 Urine Blood Large (NEGATIVE) 07/15/18 14:00 Urine Nitrate Negative (NEGATIVE) 07/15/18 14:00 Urine Bilirubin Negative (NEGATIVE) 07/15/18 14:00 Urine Urobilinogen 0.2-1.0 mg/dL (0.2-1.0) 07/15/18 14:00 Ur Leukocyte Esterase Large Ingrid/uL (Negative) 07/15/18 14:00 Urine RBC (Auto) 3 /hpf (0-3) 07/15/18 14:00 Urine Microscopic WBC 20 /hpf (0-5) H 07/15/18 14:00 Ur Squamous Epith Cells 1 /hpf (0-5) 07/15/18 14:00 Urine Bacteria Mod (<OCC) H 07/15/18 14:00 Urine Yeast (Budding) Few /hpf (NEGATIVE) H 07/15/18 14:00 Urine Osmolality 319 mosm/kg (300-1000) 07/14/18 11:15 Ur Random Creatinine 40.0 mg/dL 07/14/18 11:15 Ur Random Sodium 64 meq/L 07/14/18 11:15 Ur Random Potassium 15.4 mmol/L 07/14/18 11:15 Influenza Typ A,B (EIA) Negative for flu a/b (NEGATIVE) 07/12/18 13:15 Discharge Exam - Head Exam Head Exam: ATRAUMATIC, NORMOCEPHALIC Discharge Plan - Follow Up Plan Condition: FAIR Disposition: TRANSF TO SNF Instructions: Pneumonia, Adult (DC) <Kimberlee Waters - Last Filed: 07/16/18 16:21> Provider - Provider Date of Admission: 07/12/18 16:11 Attending physician: Bella Sanchez MD Consults: 07/13/18 18:26 Case Management Referral Routine Comment: Physician Instructions: Reason For Exam: Reason for Referral: Discharge Planning Nursing Referral for Palliative Care Routine Comment: Consulting Provider: Rere Blair Physician Instructions: Reason For Exam: Nursing assessement Nursing Referral for Wound Care Routine Comment: Sacrum and upper back redness Physician Instructions: Reason For Exam: Bilateral lower ext purplish discolorateion 07/13/18 20:21 Nephrology Consult Routine Comment: Consulting Provider: Jarek Kemp Consulting Physician: Jarek Kemp Reason for Consult: please evaluate ARLENE on CKD and metabolic acidosis Hospital Course - Lab Results Lab Results: Micro Results 07/12/18 13:19 Blood-Venous Blood Culture - Preliminary NO GROWTH AFTER 3 DAYS 07/12/18 13:15 Blood-Venous Blood Culture - Preliminary NO GROWTH AFTER 3 DAYS 07/14/18 11:15 Urine Urine Culture - Final Gram Positive Cocci Most Recent Lab Values WBC 12.3 K/uL (4.8-10.8) H 07/16/18 05:20 RBC 3.51 Mil/uL (3.80-5.20) L 07/16/18 05:20 Hgb 10.2 g/dL (12.0-16.0) L 07/16/18 05:20 Hct 30.9 % (34.0-47.0) L 07/16/18 05:20 MCV 88.0 fl (81.0-99.0) 07/16/18 05:20 MCH 29.0 pg (27.0-31.0) 07/16/18 05:20 MCHC 32.9 g/dL (33.0-37.0) L 07/16/18 05:20 RDW 16.4 % (11.5-14.5) H 07/16/18 05:20 Plt Count 140 K/uL (130-400) 07/16/18 05:20 MPV 8.1 fl (7.2-11.7) 07/16/18 05:20 Neut % (Auto) 87.5 % (50.0-75.0) H 07/16/18 05:20 Lymph % (Auto) 6.0 % (20.0-40.0) L 07/16/18 05:20 Gordon % (Auto) 5.5 % (0.0-10.0) 07/16/18 05:20 Eos % (Auto) 0.7 % (0.0-4.0) 07/16/18 05:20 Baso % (Auto) 0.3 % (0.0-2.0) 07/16/18 05:20 Neut # (Auto) 10.8 K/uL (1.8-7.0) H 07/16/18 05:20 Lymph # (Auto) 0.7 K/uL (1.0-4.3) L 07/16/18 05:20 Gordon # (Auto) 0.7 K/uL (0.0-0.8) 07/16/18 05:20 Eos # (Auto) 0.1 K/uL (0.0-0.7) 07/16/18 05:20 Baso # (Auto) 0.0 K/uL (0.0-0.2) 07/16/18 05:20 Neutrophils % (Manual) 91 % (42-75) H 07/16/18 05:20 Band Neutrophils % 8 % (0-2) H 07/12/18 13:18 Lymphocytes % (Manual) 5 % (20-50) L 07/16/18 05:20 Monocytes % (Manual) 4 % (0-10) 07/16/18 05:20 Toxic Granulation Present 07/16/18 05:20 Platelet Estimate Normal (NORMAL) 07/16/18 05:20 Hypochromasia (manual) Slight 07/16/18 05:20 Poikilocytosis (manual Slight 07/12/18 13:18 Anisocytosis (manual) Slight 07/16/18 05:20 Ovalocytes Slight 07/16/18 05:20 Acanthocytes (Spur) Moderate 07/16/18 05:20 Schistocytes Slight 07/16/18 05:20 PT 14.1 Seconds (9.8-13.1) H 07/12/18 14:28 INR 1.2 07/12/18 14:28 APTT 22.6 Seconds (25.6-37.1) L 07/12/18 14:28 pCO2 27 mm/Hg (35-45) L 07/12/18 16:43 pO2 75 mm/Hg (80-100) L 07/12/18 16:43 HCO3 15.8 mmol/L (21-28) L 07/12/18 16:43 ABG pH 7.30 (7.35-7.45) L 07/12/18 16:43 ABG Total CO2 14.1 mmol/L (22-28) L 07/12/18 16:43 ABG O2 Saturation 96.6 % (95-98) 07/12/18 16:43 ABG Base Excess -11.5 mmol/L (-2.0-3.0) L 07/12/18 16:43 Pablo Test Yes 07/12/18 16:43 ABG Potassium 4.0 mmol/L (3.6-5.2) 07/12/18 16:43 A-a O2 Difference 41.0 mm/Hg 07/12/18 16:43 Sodium 133.0 mmol/L (132-148) 07/12/18 16:43 Chloride 108.0 mmol/L (98-107) H 07/12/18 16:43 Glucose 105 mg/dL (65-105) 07/12/18 16:43 Lactate 1.3 mmol/L (0.7-2.1) 07/12/18 16:43 FiO2 21.0 % 07/12/18 16:43 Sodium 141 mmol/l (132-148) 07/16/18 05:20 Potassium 3.8 MMOL/L (3.6-5.0) 07/16/18 05:20 Chloride 112 mmol/L (98-107) H 07/16/18 05:20 Carbon Dioxide 16 mmol/L (22-30) L 07/16/18 05:20 Anion Gap 17 (10-20) 07/16/18 05:20 BUN 36 mg/dl (7-17) H 07/16/18 05:20 Creatinine 2.3 mg/dl (0.7-1.2) H 07/16/18 05:20 Est GFR ( Amer) 24 07/16/18 05:20 Est GFR (Non-Af Amer) 07/16/18 05:20 Random Glucose 138 mg/dL (65-105) H 07/16/18 05:20 Lactic Acid 3.2 MMOL/L (0.7-2.1) H 07/12/18 16:40 Calcium 7.3 mg/dL (8.4-10.2) L 07/16/18 05:20 Phosphorus 4.1 mg/dl (2.5-4.5) 07/14/18 09:03 Magnesium 2.0 MG/DL (1.6-2.3) 07/16/18 05:20 Iron 12 ug/dL (37-170) L 07/15/18 04:30 TIBC 182 ug/dL (250-450) L 07/15/18 04:30 % Saturation 6 % (20-55) L 07/15/18 04:30 Ferritin 155.0 ng/Ml (11.1-264.0) 07/15/18 04:30 Total Bilirubin 0.4 mg/dl (0.2-1.3) 07/16/18 05:20 AST 20 U/L (14-36) 07/16/18 05:20 ALT 17 U/L (9-52) 07/16/18 05:20 Alkaline Phosphatase 111 U/L (38-126) 07/16/18 05:20 Troponin I < 0.0120 ng/mL (0.00-0.120) 07/14/18 18:46 NT-Pro-B Natriuret Pep 8460 pg/ml (0-900) H 07/12/18 13:18 Total Protein 5.7 G/DL (6.3-8.2) L 07/16/18 05:20 Albumin 2.4 g/dL (3.5-5.0) L 07/16/18 05:20 Globulin 3.4 gm/dL (2.2-3.9) 07/16/18 05:20 Albumin/Globulin Ratio 0.7 (1.0-2.1) L 07/16/18 05:20 25-OH Vitamin D Total < 12.8 NG/ML (30.0-100.0) L 07/14/18 09:03 TSH 3rd Generation 0.74 mIU/ML (0.46-4.68) 07/13/18 06:25 Arterial Blood Potassium 4.0 mmol/L (3.6-5.2) 07/12/18 16:43 Urine Color Yellow (YELLOW) 07/15/18 14:00 Urine Clarity Slighty-cloudy (Clear) 07/15/18 14:00 Urine pH 5.0 (5.0-8.0) 07/15/18 14:00 Ur Specific [place] 1.012 (1.003-1.030) 07/15/18 14:00 Urine Protein 30 mg/dL (NEGATIVE) 07/15/18 14:00 Urine Glucose (UA) Neg mg/dL (NEGATIVE) 07/15/18 14:00 Urine Ketones Negative mg/dL (NEGATIVE) 07/15/18 14:00 Urine Blood Large (NEGATIVE) 07/15/18 14:00 Urine Nitrate Negative (NEGATIVE) 07/15/18 14:00 Urine Bilirubin Negative (NEGATIVE) 07/15/18 14:00 Urine Urobilinogen 0.2-1.0 mg/dL (0.2-1.0) 07/15/18 14:00 Ur Leukocyte Esterase Large Ingrid/uL (Negative) 07/15/18 14:00 Urine RBC (Auto) 3 /hpf (0-3) 07/15/18 14:00 Urine Microscopic WBC 20 /hpf (0-5) H 07/15/18 14:00 Ur Squamous Epith Cells 1 /hpf (0-5) 07/15/18 14:00 Urine Bacteria Mod (<OCC) H 07/15/18 14:00 Urine Yeast (Budding) Few /hpf (NEGATIVE) H 07/15/18 14:00 Urine Osmolality 319 mosm/kg (300-1000) 07/14/18 11:15 Ur Random Creatinine 40.0 mg/dL 07/14/18 11:15 Ur Random Sodium 64 meq/L 07/14/18 11:15 Ur Random Potassium 15.4 mmol/L 07/14/18 11:15 Influenza Typ A,B (EIA) Negative for flu a/b (NEGATIVE) 07/12/18 13:15 Attending/Attestation - Attestation I have personally seen and examined this patient.: Yes I have fully participated in the care of the patient.: Yes I have reviewed all pertinent clinical information, including history, physical exam and plan: Yes Notes (Text): 1. Sepsis likely secondary to bilateral pneumonia -CXR on admission: confluent airspace disease, consider aspiration pnuemonitis and possible superimposed pneumonia - continue Ceftriaxone 1gm and Azithromycin 500 mg - ABG admission: pH 7.3, Lactic Acid: 3.2; BCx negative x 2 x 48hrs - Chest Physiotherapy, Duoneb INH Q6, mucinex 2. UTI - acute, Large leukocyte esterase and high WBC on UA - Urine culture: < 10,000 Gram positive cocci -patient on Ceftriaxone 1 gm 3. Acute kidney Injury on Chronic Kidney Disease Stage IV - 2017 CO2 range: 16-25 - 2017 BUN/Cr range: 17-40/1.7-2.6 - Cr trending down - Baseline GFR <20 - Nephrology on consult, recommendations appreciated - cont Bicarb tabs 4. Hypocalcemia - Ca 6.8 , albumin 2.4; corrected calcium = 7.7 -start Calcium carbonate 500mg PO Q6 -monitor calcium 5. Hypomagnesia -improved, Mag today 2.3 -s/p Mag supplement yesterday -f/u next day Mag 6. A Fib Paroxysmal -started on Metoprolol - not candidate for anticoag due to GI bleed 7. COPD -chronic -continue Singulair 10 mg PO HS - Duoneb tx 8. Anemia of chronic disease -stable, acute on chronic, H/H today 9.8/30.0 -likely secondary to CKD and poor PO intake -per nephro, Venofer 100mg IV QD x 5 days 9. Hx of HTN - Stable without medications -monitor BP 10. Hx of CAD - chronic, stable -Continue with home medication (Plavix 75 mg PO daily) - BMP elevated 8460 - ECHO: EF 55% (2016) 11. GERD - Dexilant 60 mg daily 12. Hypothyroidism - Continue with home medication - Synthroid 150 mcg daily - TSH 0.74 13. DVT Prophylaxis Heparin 07/16/18 16:21
[2018-07-16 12:06] VITALS: BP 154/85; PULSE 85; TEMP 97.4; O2SAT 95
[2018-07-16] MEDS ORDERED: Influenza Vaccine 60 MCG/0.5 ML SYR (3 yr & up) IM ONE (13:06)
--- NOTE | 2018-07-17 13:49 | CARD ---
APPROVED REPORT Date of service: 07/15/2018 EKG Measurement Heart [id number] <Conclusion> Sinus tachycardia Otherwise normal ECG
== END 2018-07-16 15:10 | DRG 871 ==
LOC: H.EDDOWN 12:32 → H.ERHOLD 16:11 → H.TEL 07-13 17:27
PROVIDERS: ADMIT Hospitalist; ATTEND Hospitalist
DX: A41.9 Sepsis, unspecified organism (principal); J18.9 Pneumonia, unspecified organism; N17.9 Acute kidney failure, unspecified; N18.4 Chronic kidney disease, stage 4 (severe); I50.30 Unspecified diastolic (congestive) heart failure; I13.0 Hypertensive heart and chronic kidney disease with heart failure and stage 1 through stage 4 chronic kidney disease, or unspecified chronic kidney disease; N25.81 Secondary hyperparathyroidism of renal origin; N39.0 Urinary tract infection, site not specified; E87.2 Acidosis; J44.0 Chronic obstructive pulmonary disease with (acute) lower respiratory infection; J44.9 Chronic obstructive pulmonary disease, unspecified; D63.1 Anemia in chronic kidney disease; E61.1 Iron deficiency; E78.00 Pure hypercholesterolemia, unspecified; E83.42 Hypomagnesemia; E83.51 Hypocalcemia; E86.0 Dehydration; F03.90 Unspecified dementia, unspecified severity, without behavioral disturbance, psychotic disturbance, mood disturbance, and anxiety; F41.9 Anxiety disorder, unspecified; H91.90 Unspecified hearing loss, unspecified ear; I25.10 Atherosclerotic heart disease of native coronary artery without angina pectoris; I48.0 Paroxysmal atrial fibrillation; K21.9 Gastro-esophageal reflux disease without esophagitis; M89.9 Disorder of bone, unspecified; Z79.02 Long term (current) use of antithrombotics/antiplatelets; Z85.038 Personal history of other malignant neoplasm of large intestine; Z87.440 Personal history of urinary (tract) infections; Z87.891 Personal history of nicotine dependence; Z90.49 Acquired absence of other specified parts of digestive tract; Z95.5 Presence of coronary angioplasty implant and graft; F32.9 Major depressive disorder, single episode, unspecified; K29.70 Gastritis, unspecified, without bleeding; K59.00 Constipation, unspecified; M19.90 Unspecified osteoarthritis, unspecified site; Z79.899 Other long term (current) drug therapy; I95.9 Hypotension, unspecified; R00.0 Tachycardia, unspecified; R06.03 Acute respiratory distress; Z87.19 Personal history of other diseases of the digestive system

== ENCOUNTER 2018-07-16 12:49 | Inpatient (IN) | payer OTHER ==
[2018-07-16 15:19] VITALS: BMI 22.8
[2018-07-16] MEDS ORDERED: Lidocaine 5% Patch TD PRN (16:45)
[2018-07-16] MEDS: Ergocalciferol 50,000 Intl Units Cap PO SCH (17:47)
[2018-07-17] MEDS: Albuterol-Ipratrop 3 mg / 0.5 (3 ml) UD INH PRN ×2 (00:43→23:54)
[2018-07-17] MEDS: Levothyroxine 150 MCG TAB PO SCH (07:17)
[2018-07-17] MEDS: Metoprolol Succinate 25 mg XL Tab PO SCH (08:12)
[2018-07-17] MEDS ORDERED: Cholecalciferol 1,000 INTLU TAB PO SCH (09:00)
[2018-07-17] MEDS: Azithromycin 500 MG in Sodium Chloride 0.9% 250 ML IVPB SCH ×2 (09:28→12:15)
--- NOTE | 2018-07-17 13:28 | CP.PCM.HP ---
History of Present Illness - History of Present Illness History of Present Illness: 87-year-old female well known to our service with PMHx of transient Afib, COPD, CKD, CHF, recurrent UTI with hemorrhagic cystitis, diverticulitis, CAD (stent x2, 10 years [employer]), and colon cancer was admitted for sepsis likely secondary to pneumonia and ARLENE on chronic CKD. She was started on IVF, Rocephin and Zithromax IV. Hypotension episode responded to IVF. Initial CXR showed bilateral infiltrates, repeat CXR shows bibasilar infiltrates improved from admission. Blood culture negative, urine culture E.coli <10,000 CFU. Given Digoxin PO for paroxysmal afib. NSR resumed. BUN/Cr, WBC trended down, patient saturating >96%, still complains of cough and decreased appetite but clinically improved and medically cleared for discharge to TCU for physical therapy and continuation of IV antibiotics for medical optimization. Present on Admission - Present on Admission Any Indicators Present on Admission: No Review of Systems - Constitutional Constitutional: Anorexia (decreased appetite), Fatigue. absent: Fever, Headache - Cardiovascular Cardiovascular: absent: Chest Pain at Rest, Leg Edema - Respiratory Respiratory: Cough, Pain with Coughing. absent: Hemoptysis - Gastrointestinal Gastrointestinal: Abdominal Pain (with coughing) - Genitourinary Genitourinary: absent: Dysuria - Musculoskeletal Musculoskeletal: Muscle Weakness. absent: Joint Swelling - Neurological Neurological: absent: Dizziness Past Patient History - Infectious Disease Hx of Infectious Diseases: None - Tetanus Immunizations Tetanus Immunization: Unknown - Past Medical History & Family History Past Medical History?: Yes - Past Social History Smoking Status: Former Smoker - CARDIAC Hx Cardiac Disorders: Yes Hx Congestive Heart Failure: Yes Hx Hypercholesterolemia: Yes Hx Hypertension: Yes - PULMONARY Hx Respiratory Disorders: Yes Hx Asthma: Yes Hx Chronic Obstructive Pulmonary Disease (COPD): Yes - NEUROLOGICAL Hx Neurological Disorder: No - HEENT Hx HEENT Problems: Yes - RENAL Hx Chronic Kidney Disease: Yes Hx Renal Failure: Yes - ENDOCRINE/METABOLIC Hx Endocrine Disorders: Yes Hx Hypothyroidism: Yes - HEMATOLOGICAL/ONCOLOGICAL Hx Blood Disorders: Yes Hx AIDS: No Hx Anemia: Yes Hx Human Immunodeficiency Virus (HIV): No - INTEGUMENTARY Hx Dermatological Problems: No - MUSCULOSKELETAL/RHEUMATOLOGICAL Hx Musculoskeletal Disorders: Yes Hx Arthritis: Yes Hx Falls: No - GASTROINTESTINAL Hx Gastrointestinal Disorders: Yes Hx Diverticulitis: Yes Hx Gastritis: Yes - GENITOURINARY/GYNECOLOGICAL Hx Genitourinary Disorders: No - PSYCHIATRIC Hx Psychophysiologic Disorder: Yes Hx Anxiety: Yes Hx Depression: Yes Hx Substance Use: No - SURGICAL HISTORY Hx Surgeries: Yes Hx Appendectomy: Yes Hx Cholecystectomy: Yes 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, 10 years [employer]) Hx 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: Yes - ANESTHESIA Hx Anesthesia: Yes Hx Anesthesia Reactions: No Hx Malignant Hyperthermia: No Meds Allergies/Adverse Reactions: Allergies Allergy/AdvReac Type Severity Reaction Status Date / Time No Known Allergies Allergy Verified 07/16/18 13:30 Physical Exam - Constitutional Appears: Non-toxic, No Acute Distress, Chronically Ill - Head Exam Head Exam: NORMAL INSPECTION - Eye Exam Eye Exam: Normal appearance - ENT Exam ENT Exam: Mucous Membranes Dry - Respiratory Exam Respiratory Exam: Decreased Breath Sounds, Wheezes, NORMAL BREATHING PATTERN. absent: Chest Wall Tenderness Additional comments: cough - Cardiovascular Exam Cardiovascular Exam: Tachycardia (90's) - GI/Abdominal Exam GI & Abdominal Exam: Soft. absent: Tenderness - Extremities Exam Additional comments: ecchymosis bilaterally lower extremity Results - Vital Signs Recent Vital Signs: Last Vital Signs Temp 98.4 F 07/17/18 08:12 Pulse 93 H 07/17/18 08:12 Resp 18 07/17/18 08:12 BP 171/79 H 07/17/18 08:12 Pulse Ox 96 07/17/18 08:12 Assessment & Plan - Assessment and Plan (Free Text) Plan: 1. Sepsis likely secondary to bilateral pneumonia - Acute - CXR on admission: confluent airspace disease, consider aspiration pnuemonitis and possible superimposed pneumonia - Ceftriaxone 1gm (Day 4) , Azithromycin 500 mg (Day 4) - ABG admission: pH 7.3, Lactic Acid: 3.2; BCx negative x 2 x 48hrs - Leukocytosis improving, 12.3 from 16.8 - Chest Physiotherapy, Duoneb INH Q6, mucinex 2. UTI - Acute, resolved - Large leukocyte esterase and high WBC on UA - Urine culture: < 10,000 Gram positive cocci - Ceftriaxone 1 gm 3. Acute kidney Injury on Chronic Kidney Disease Stage IV - Bicarb 12, (14 yesterday) - 2018 CO2 range: 16-25 - 2018 BUN/Cr range: 17-40/1.7-2.6 - Cr trending down - 2.3 (3.6 admission) - Baseline GFR <20 - D5 with 150 meq of sodium bicarb at 40 mls/hour 4. Hypocalcemia - Ca 7.3 today, albumin 2.4 - Calcium carbonate 500mg PO Q6 5. Hypomagnesia - Improved, Mag 2.0 - s/p Mag supplement / 6. Vitamin D Deficiency - Vit D 12 <12.8 - 13.9 (2017) - Continue Cholecalciferol 2,000 IU PO QD 7. COPD - Chronic - Continue Singulair 10 mg PO HS 8. Anemia of chronic disease - Stable, acute on chronic - Likely secondary to CKD and poor PO intake - Per nephro, Venofer 100mg IV QD x 5 days 9. Hx of HTN - Stable without medications - Monitor BP 10. Hx of CAD - Chronic, stable - Continue with home medication (Plavix 75 mg PO daily) - BMP elevated 8460 - ECHO: EF 55% (2015) 11. GERD - Dexilant 60 mg daily - Reglan 5mg Q8H PRN - Carafate 1 gm PO Q8H PRN 12. Hypothyroidism - Continue with home medication - Synthroid 150 mcg daily - TSH 0.74 13. DVT Prophylaxis - Plavix (home med)
[2018-07-17] MEDS: guaiFENesin 600 mg ER Tab PO SCH (20:47)
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
[2018-07-18] MEDS: Levothyroxine 150 MCG TAB PO SCH (05:37)
[2018-07-18] MEDS: Azithromycin 500 MG in Sodium Chloride 0.9% 250 ML IVPB SCH ×2 (08:04→20:25)
[2018-07-18] MEDS: guaiFENesin 600 mg ER Tab PO SCH ×2 (08:57→20:46)
[2018-07-18] MEDS: Metoprolol Succinate 25 mg XL Tab PO SCH (08:57)
[2018-07-18] MEDS: Albuterol-Ipratrop 3 mg / 0.5 (3 ml) UD INH PRN (16:55)
[2018-07-19] MEDS: Levothyroxine 150 MCG TAB PO SCH (05:48)
[2018-07-19] MEDS: guaiFENesin 600 mg ER Tab PO SCH ×2 (09:45→22:31)
[2018-07-19] MEDS: Metoprolol Succinate 25 mg XL Tab PO SCH (09:46)
[2018-07-19] MEDS: SILVASORB ANTIMICROBIAL WOUND GEL TP SCH (09:46)
--- NOTE | 2018-07-19 12:54 | CP.PCM.CON ---
History of Present Illness - History of Present Illness History of Present Illness: Psychiatry consult CC: Patient unwilling to talk w/ marine underwriter; consult requested to evaluate for depression HPI: Translator Interpreter attempted to talk to patient, but she would not respond to any of the writers questions despite being awake, alert and responding to the nurses questions about food and drink. History from chart: 87-year-old female well known to our service with PMHx of transient Afib, COPD, CKD, CHF, recurrent UTI with hemorrhagic cystitis, diverticulitis, CAD (stent x2, 10 years [employer]), and colon cancer was admitted for sepsis likely secondary to pneumonia and ARLENE on chronic CKD. She was started on IVF, Rocephin and Zithromax IV. Hypotension episode responded to IVF. Initial CXR showed bilateral infiltrates, repeat CXR shows bibasilar infiltrates improved from admission. Blood culture negative, urine culture E.coli <10,000 CFU. Given Digoxin PO for paroxysmal afib. NSR resumed. BUN/Cr, WBC trended down, patient saturating >96%, still complains of cough and decreased appetite but clinically improved and medically cleared for discharge to TCU for physical therapy and continuation of IV antibiotics for medical optimization. Impression: 87 yo female, unwilling to talk w/ marine underwriter at this time. Patient could have worsening neurocognitive impairment vs adjustment disorder. -If patient expresses depressed mood w/ sleep and appetite disturbances to family or staff, can consider treatment with Remeron 7.5 mg PO HS, if patient's family is agreeable -Patient does not meet criteria for inpatient psychiatric admission at this time Past Patient History - Infectious Disease Hx of Infectious Diseases: None - Tetanus Immunizations Tetanus Immunization: Unknown - Past Medical History & Family History Past Medical History?: Yes - Past Social History Smoking Status: Former Smoker - CARDIAC Hx Cardiac Disorders: Yes (AF, CAD, PTCA) Hx Congestive Heart Failure: Yes - PULMONARY Hx Chronic Obstructive Pulmonary Disease (COPD): Yes - NEUROLOGICAL Hx Neurological Disorder: No - HEENT Hx HEENT Problems: Yes - RENAL Hx Chronic Kidney Disease: Yes Hx Renal Failure: Yes - ENDOCRINE/METABOLIC Hx Endocrine Disorders: Yes Hx Hypothyroidism: Yes - HEMATOLOGICAL/ONCOLOGICAL Hx Blood Disorders: Yes Hx AIDS: No Hx Anemia: Yes Hx Human Immunodeficiency Virus (HIV): No - INTEGUMENTARY Hx Dermatological Problems: No - MUSCULOSKELETAL/RHEUMATOLOGICAL Hx Musculoskeletal Disorders: Yes Hx Arthritis: Yes Hx Falls: No - GASTROINTESTINAL Hx Gastrointestinal Disorders: Yes Hx Diverticulitis: Yes Hx Gastritis: Yes - GENITOURINARY/GYNECOLOGICAL Hx Genitourinary Disorders: No - PSYCHIATRIC Hx Psychophysiologic Disorder: Yes Hx Anxiety: Yes Hx Depression: Yes Hx Substance Use: No - SURGICAL HISTORY Hx Surgeries: Yes Hx Appendectomy: Yes Hx Cholecystectomy: Yes 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, 10 years [employer]) Hx 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: Yes - ANESTHESIA Hx Anesthesia: Yes Hx Anesthesia Reactions: No Hx Malignant Hyperthermia: No Meds Allergies/Adverse Reactions: Allergies Allergy/AdvReac Type Severity Reaction Status Date / Time No Known Allergies Allergy Verified 07/16/18 13:30 - Medications Medications: Current Medications Albuterol/Ipratropium (Duoneb 3 Mg/0.5 Mg (3 Ml) Ud) 3 ml INH RQ6 PRN PRN Reason: Shortness of Breath Last Admin: 07/18/18 16:55 Dose: 3 ml Atorvastatin Calcium (Lipitor) 10 mg PO DAILY@2100 [facility] Last Admin: 07/18/18 20:46 Dose: 10 mg Benzonatate (Tessalon Perles) 100 mg PO Q8 PRN PRN Reason: Cough Calcium Carbonate (Oscal) 500 mg PO BIDWM [facility] Last Admin: 07/19/18 09:45 Dose: 500 mg Clopidogrel Bisulfate (Plavix) 75 mg PO DAILY [facility] Last Admin: 07/19/18 09:45 Dose: 75 mg Ergocalciferol (Drisdol 50,000 Intl Units Cap) 1 cap PO Q7D [facility] Last Admin: 07/16/18 17:47 Dose: Not Given Furosemide (Lasix) 20 mg PO DAILY [facility] Last Admin: 07/19/18 09:45 Dose: 20 mg Guaifenesin (Mucinex La) 600 mg PO Q12 [facility] Last Admin: 07/19/18 09:45 Dose: 600 mg Heparin Sodium (Porcine) (Heparin) 5,000 units SC Q12 [facility]; Protocol Last Admin: 07/19/18 09:44 Dose: 5,000 units Ceftriaxone Sodium 1 gm/ (Sodium Chloride) 100 mls @ 100 mls/hr IVPB DAILY@1700 [facility]; Protocol Last Admin: 07/18/18 16:05 Dose: 100 mls/hr Iron Sucrose 100 mg/ Sodium (Chloride) 105 mls @ 105 mls/hr IVPB DAILY@1700 [facility] Stop: 07/20/18 17:59 Last Admin: 07/18/18 16:04 Dose: 105 mls/hr Azithromycin 500 mg/ Sodium (Chloride) 250 mls @ 250 mls/hr IVPB DAILY@2100 [facility]; Protocol Last Admin: 07/18/18 20:25 Dose: 250 mls/hr Levothyroxine Sodium (Synthroid) 150 mcg PO DAILY@0630 [facility] Last Admin: 07/19/18 05:48 Dose: 150 mcg Metoprolol Succinate (Toprol Xl) 25 mg PO DAILY [facility] Last Admin: 07/19/18 09:46 Dose: 25 mg Montelukast Sodium (Singulair) 10 mg PO HS [facility] Last Admin: 07/18/18 21:00 Dose: 10 mg Nystatin (Nystop Topical Powder) 1 applic TOP TID [facility] Last Admin: 07/19/18 12:34 Dose: Not Given Sodium Bicarbonate (Sodium Bicarbonate Tab) 1,300 mg PO Q8 [facility] Last Admin: 07/19/18 09:46 Dose: 1,300 mg Sucralfate (Carafate Tab) 1 gm PO Q8 PRN PRN Reason: Indigestion Last Admin: 07/17/18 08:12 Dose: 1 gm Results - Vital Signs Recent Vital Signs: Last Vital Signs Temp 100.1 F H 07/19/18 09:50 Pulse 81 07/19/18 09:50 Resp 20 07/19/18 09:50 BP 167/76 H 07/19/18 09:50 Pulse Ox 90 L 07/19/18 09:50 - Labs Result Diagrams: 07/19/18 13:14 07/19/18 13:14
[2018-07-19 13:32] LABS: ABG ALLEN TEST YES; ARTERIAL BLOOD GAS HCO3 28.6 mmol/L (21-28); ARTERIAL BLOOD GAS HEMOGLOBIN 10.5 g/dL (11.7-17.4); ARTERIAL BLOOD GAS O2 CAPACITY 14.5 mL/dL (16-24); ARTERIAL BLOOD GAS O2 CONTENT 13.7 ML/dL (15-23); ARTERIAL BLOOD GAS O2 SAT 94.2 % (95-98); ARTERIAL BLOOD GAS PCO2 35 mm/Hg (35-45); ARTERIAL BLOOD GAS PH 7.51 (7.35-7.45); ARTERIAL BLOOD GAS PO2 63 mm/Hg (80-100)
[2018-07-19 13:47] LABS: BASO % 0.1 % (0.0-2.0); EOS # 0.1 K/uL (0.0-0.7); EOS % 1.1 % (0.0-4.0); HEMOGLOBIN 10.7 g/dL (12.0-16.0); LYMPH # 1.6 K/uL (1.0-4.3); LYMPH % 15.8 % (20.0-40.0); MEAN CELL VOLUME 89.3 fl (81.0-99.0); MEAN CORPUSCULAR HEMOGLOBIN 29.2 pg (27.0-31.0); MEAN CORPUSCULAR HGB CONC 32.7 g/dL (33.0-37.0); MEAN PLATELET VOLUME 8.6 fl (7.2-11.7); MONO # 0.8 K/uL (0.0-0.8); MONO % 7.8 % (0.0-10.0); NEUT # 7.8 K/uL (1.8-7.0); NEUT % 75.2 % (50.0-75.0); NRBC % 0.1 % (0.0-0.0); RBC 3.67 Mil/uL (3.80-5.20); RED CELL DISTRIBUTION WIDTH 15.9 % (11.5-14.5); WHITE BLOOD COUNT 10.4 K/uL (4.8-10.8)
[2018-07-19 14:05] LABS: ALB/GLOB RATIO 0.8 (1.0-2.1); ALT/SGPT 41 U/L (9-52); AST/SGOT 82 U/L (14-36); BLOOD UREA NITROGEN 23 mg/dl (7-17); CALCIUM 8.1 mg/dL (8.4-10.2); GFR NON-AFRICAN AMERICAN 31
[2018-07-19] MEDS ORDERED: DEXILANT 60 MG PO SCH (15:29)
[2018-07-19] MEDS ORDERED: Albuterol 0.083% Inhal Sol (2.5 mg/3 mL) UD INH PRN (16:00)
[2018-07-19] MEDS ORDERED: Potassium Chloride 20 mEq ER Tab PO ONE (16:02)
[2018-07-19] MEDS: Albuterol-Ipratrop 3 mg / 0.5 (3 ml) UD INH SCH (19:20)
[2018-07-19] MEDS: DEXILANT 60 MG PO SCH (22:33)
[2018-07-19] MEDS: Azithromycin 500 MG in Sodium Chloride 0.9% 250 ML IVPB SCH (22:42)
[2018-07-20] MEDS: Albuterol-Ipratrop 3 mg / 0.5 (3 ml) UD INH SCH ×4 (01:00→19:49)
[2018-07-20] MEDS: guaiFENesin DM 100 mg-10 mg/5 ml UD PO PRN (01:36)
[2018-07-20] MEDS ORDERED: guaiFENesin DM 100 mg-10 mg/5 ml UD PO SCH (04:00)
[2018-07-20] MEDS: Levothyroxine 150 MCG TAB PO SCH (05:32)
[2018-07-20] MEDS: SILVASORB ANTIMICROBIAL WOUND GEL TP SCH (10:27)
[2018-07-20] MEDS: DEXILANT 60 MG PO SCH (10:28)
[2018-07-20] MEDS: guaiFENesin 600 mg ER Tab PO SCH ×2 (10:30→21:24)
[2018-07-20] MEDS: Metoprolol Succinate 25 mg XL Tab PO SCH ×2 (10:34→10:40)
--- NOTE | 2018-07-20 13:28 | CP.PCM.PN ---
<Bernadette Resendez - Last Filed: 07/20/18 13:39> Subjective - Date & Time of Evaluation Date of Evaluation: 07/20/18 Time of Evaluation: 13:28 - Subjective Subjective: 87-year-old female with multiple co-morbidities seen bedside in TCU for continuation of IV antibiotics and physical therapy. Today she was alert and oriented and reported feeling better however did not want to answer any further questions. She has been participating in therapy and leaving her room via wheelchair. Objective - Vital Signs/Intake and Output Vital Signs (last 24 hours): Temp Pulse Resp BP Pulse Ox 100.6 F H 95 H 22 150/72 92 L 07/20/18 09:00 07/20/18 11:47 07/20/18 09:00 07/20/18 11:47 07/20/18 11:47 - Medications Medications: Current Medications Acetaminophen (Tylenol 650 Mg Supp) 625 mg [place] Q6 PRN PRN Reason: Temperature Last Admin: 07/20/18 10:27 Dose: 625 mg Albuterol Sulfate (Albuterol 0.083% Inhal [place] (2.5 Mg/3 Ml) Ud) 2.5 mg INH RQ4 PRN PRN Reason: Shortness of Breath Albuterol/Ipratropium (Duoneb 3 Mg/0.5 Mg (3 Ml) Ud) 3 ml INH RQ6 [facility] Last Admin: 07/20/18 13:06 Dose: 3 ml Atorvastatin Calcium (Lipitor) 10 mg PO DAILY@2100 [facility] Last Admin: 07/19/18 22:32 Dose: 10 mg Benzonatate (Tessalon Perles) 100 mg PO Q8 PRN PRN Reason: Cough Calcium Carbonate (Oscal) 500 mg PO BIDWM [facility] Last Admin: 07/20/18 10:28 Dose: Not Given Clopidogrel Bisulfate (Plavix) 75 mg PO DAILY [facility] Last Admin: 07/20/18 10:28 Dose: Not Given Ergocalciferol (Drisdol 50,000 Intl Units Cap) 1 cap PO Q7D [facility] Last Admin: 07/16/18 17:47 Dose: Not Given Furosemide (Lasix) 20 mg PO DAILY [facility] Last Admin: 07/20/18 10:41 Dose: Not Given Guaifenesin (Mucinex La) 600 mg PO Q12 [facility] Last Admin: 07/20/18 10:30 Dose: 600 mg Guaifenesin/Dextromethorphan (Robitussin Dm) 5 ml PO Q6 PRN PRN Reason: Cough Last Admin: 07/20/18 01:36 Dose: 5 ml Heparin Sodium (Porcine) (Heparin) 5,000 units SC Q12 [facility]; Protocol Last Admin: 07/20/18 10:30 Dose: Not Given Home Med (Patient's Own Medication) 1 unit PO DAILY [facility] Last Admin: 07/20/18 10:28 Dose: Not Given Ceftriaxone Sodium 1 gm/ (Sodium Chloride) 100 mls @ 100 mls/hr IVPB DAILY@1700 [facility]; Protocol Last Admin: 07/19/18 16:17 Dose: 100 mls/hr Iron Sucrose 100 mg/ Sodium (Chloride) 105 mls @ 105 mls/hr IVPB DAILY@1700 [facility] Stop: 07/20/18 17:59 Last Admin: 07/19/18 16:19 Dose: 105 mls/hr Azithromycin 500 mg/ Sodium (Chloride) 250 mls @ 250 mls/hr IVPB DAILY@2100 [facility]; Protocol Last Admin: 07/19/18 22:42 Dose: 250 mls/hr Levothyroxine Sodium (Synthroid) 150 mcg PO DAILY@0630 [facility] Last Admin: 07/20/18 05:32 Dose: Not Given Metoprolol Succinate (Toprol Xl) 25 mg PO DAILY [facility] Last Admin: 07/20/18 10:40 Dose: Not Given Montelukast Sodium (Singulair) 10 mg PO HS [facility] Last Admin: 07/19/18 22:34 Dose: 10 mg Nystatin (Nystop Topical Powder) 1 applic TOP TID [facility] Last Admin: 07/20/18 10:33 Dose: 1 applic Sodium Bicarbonate (Sodium Bicarbonate Tab) 650 mg PO BID [facility] Sucralfate (Carafate Tab) 1 gm PO Q8 PRN PRN Reason: Indigestion Last Admin: 07/17/18 08:12 Dose: 1 gm - Labs Labs: 07/19/18 13:14 07/19/18 13:14 - Constitutional Appears: Non-toxic, No Acute Distress, Cachectic - Head Exam Head Exam: NORMAL INSPECTION - Eye Exam Eye Exam: Normal appearance - ENT Exam ENT Exam: Mucous Membranes Moist - Respiratory Exam Respiratory Exam: Rhonchi (minimal lower lobes), NORMAL BREATHING PATTERN - Cardiovascular Exam Cardiovascular Exam: REGULAR RHYTHM - GI/Abdominal Exam GI & Abdominal Exam: Soft. absent: Tenderness - Neurological Exam Neurological Exam: Alert, Awake - Psychiatric Exam Psychiatric exam: Depressed - Skin Skin Exam: Dry, Normal Color Assessment and Plan - Assessment and Plan (Free Text) Plan: 1. Sepsis likely secondary to bilateral pneumonia - Improving - CXR on admission: confluent airspace disease, consider aspiration pnuemonitis and possible superimposed pneumonia - Ceftriaxone 1gm (Day 7), Azithromycin 500 mg (Day 7) - ABG admission: pH 7.3, Lactic Acid: 3.2; BCx negative x 2 x 48hrs - Leukocytosis improving, 10.4 from 16.8 - Chest Physiotherapy, Duoneb INH Q6, mucinex 2. UTI - Acute, resolved - Large leukocyte esterase and high WBC on UA - Urine culture: < 10,000 Gram positive cocci - Ceftriaxone 1 gm 3. Acute kidney Injury on Chronic Kidney Disease Stage IV - Improving, BUN/Cr 23/1.6 - Bicarb 27, (14 yesterday) - 2018 CO2 range: 16-25 - 2018 BUN/Cr range: 17-40/1.7-2.6 - Cr trending down - 2.3 (3.6 admission) - Baseline GFR <20 - D5 with 150 meq of sodium bicarb at 40 mls/hour 4. Hypocalcemia - Ca 8.1 today, albumin 3.0 - Calcium carbonate 500mg PO Q6 5. Hypomagnesia - Improved, Mag 2.0 1 - s/p Mag supplement 1/ 6. Vitamin D Deficiency - Vit D 12 <12.8 - 13.9 (2016) - Continue Cholecalciferol 2,000 IU PO QD 7. COPD - Chronic - Continue Singulair 10 mg PO HS 8. Anemia of chronic disease - Stable, acute on chronic - Likely secondary to CKD and poor PO intake - Per nephro, Venofer 100mg IV QD x 5 days 9. Hx of HTN - Stable without medications - Monitor BP 10. Hx of CAD - Chronic, stable - Continue with home medication (Plavix 75 mg PO daily) - BMP elevated 8460 - ECHO: EF 55% (2015) 11. GERD - Dexilant 60 mg daily - Reglan 5mg Q8H PRN - Carafate 1 gm PO Q8H PRN 12. Hypothyroidism - Continue with home medication - Synthroid 150 mcg daily - TSH 0.74 13. DVT Prophylaxis - Plavix (home med) <Clinton Almanzar D - Last Filed: 07/20/18 13:46> Objective - Vital Signs/Intake and Output Vital Signs (last 24 hours): Temp Pulse Resp BP Pulse Ox 100.6 F H 95 H 22 150/72 92 L 07/20/18 09:00 07/20/18 11:47 07/20/18 09:00 07/20/18 11:47 07/20/18 11:47 - Medications Medications: Current Medications Acetaminophen (Tylenol 650 Mg Supp) 625 mg [place] Q6 PRN PRN Reason: Temperature Last Admin: 07/20/18 10:27 Dose: 625 mg Albuterol Sulfate (Albuterol 0.083% Inhal [place] (2.5 Mg/3 Ml) Ud) 2.5 mg INH RQ4 PRN PRN Reason: Shortness of Breath Albuterol/Ipratropium (Duoneb 3 Mg/0.5 Mg (3 Ml) Ud) 3 ml INH RQ6 [facility] Last Admin: 07/20/18 13:06 Dose: 3 ml Atorvastatin Calcium (Lipitor) 10 mg PO DAILY@2100 [facility] Last Admin: 07/19/18 22:32 Dose: 10 mg Benzonatate (Tessalon Perles) 100 mg PO Q8 PRN PRN Reason: Cough Calcium Carbonate (Oscal) 500 mg PO BIDWM [facility] Last Admin: 07/20/18 10:28 Dose: Not Given Clopidogrel Bisulfate (Plavix) 75 mg PO DAILY [facility] Last Admin: 07/20/18 10:28 Dose: Not Given Ergocalciferol (Drisdol 50,000 Intl Units Cap) 1 cap PO Q7D [facility] Last Admin: 07/16/18 17:47 Dose: Not Given Furosemide (Lasix) 20 mg PO DAILY [facility] Last Admin: 07/20/18 10:41 Dose: Not Given Guaifenesin (Mucinex La) 600 mg PO Q12 [facility] Last Admin: 07/20/18 10:30 Dose: 600 mg Guaifenesin/Dextromethorphan (Robitussin Dm) 5 ml PO Q6 PRN PRN Reason: Cough Last Admin: 07/20/18 01:36 Dose: 5 ml Heparin Sodium (Porcine) (Heparin) 5,000 units SC Q12 [facility]; Protocol Last Admin: 07/20/18 10:30 Dose: Not Given Home Med (Patient's Own Medication) 1 unit PO DAILY [facility] Last Admin: 07/20/18 10:28 Dose: Not Given Ceftriaxone Sodium 1 gm/ (Sodium Chloride) 100 mls @ 100 mls/hr IVPB DAILY@1700 [facility]; Protocol Last Admin: 07/19/18 16:17 Dose: 100 mls/hr Iron Sucrose 100 mg/ Sodium (Chloride) 105 mls @ 105 mls/hr IVPB DAILY@1700 [facility] Stop: 07/20/18 17:59 Last Admin: 07/19/18 16:19 Dose: 105 mls/hr Azithromycin 500 mg/ Sodium (Chloride) 250 mls @ 250 mls/hr IVPB DAILY@2100 [facility]; Protocol Last Admin: 07/19/18 22:42 Dose: 250 mls/hr Levothyroxine Sodium (Synthroid) 150 mcg PO DAILY@0630 [facility] Last Admin: 07/20/18 05:32 Dose: Not Given Metoprolol Succinate (Toprol Xl) 25 mg PO DAILY [facility] Last Admin: 07/20/18 10:40 Dose: Not Given Montelukast Sodium (Singulair) 10 mg PO HS [facility] Last Admin: 07/19/18 22:34 Dose: 10 mg Nystatin (Nystop Topical Powder) 1 applic TOP TID [facility] Last Admin: 07/20/18 10:33 Dose: 1 applic Sodium Bicarbonate (Sodium Bicarbonate Tab) 650 mg PO BID [facility] Sucralfate (Carafate Tab) 1 gm PO Q8 PRN PRN Reason: Indigestion Last Admin: 07/17/18 08:12 Dose: 1 gm - Labs Labs: 07/19/18 13:14 07/19/18 13:14 Attending/Attestation - Attestation I have personally seen and examined this patient.: Yes I have fully participated in the care of the patient.: Yes I have reviewed all pertinent clinical information, including history, physical exam and plan: Yes Notes (Text): 07/20/18 13:45 Patient seen and examined with resident. Case discussed and agreed with assessment.
[2018-07-20 18:58] LABS: URINE BACTERIA MANY (<OCC); URINE BILIRUBIN NEGATIVE (NEGATIVE); URINE BLOOD LARGE (NEGATIVE); URINE CLARITY TURBID (Clear); URINE COLOR YELLOW (YELLOW); URINE GLUCOSE (UA) NEG (NEGATIVE); URINE LEUKOCYTE ESTERASE LARGE Leu/uL (Negative); URINE PROTEIN 100 mg/dL (NEGATIVE); URINE UROBILINOGEN 0.2-1.0 mg/dL (0.2-1.0); WBC CLUMPS MANY /hpf
[2018-07-20] MEDS: Azithromycin 500 MG in Sodium Chloride 0.9% 250 ML IVPB SCH (21:16)
--- NOTE | 2018-07-20 23:44 | CP.PCM.PN ---
Subjective - Date & Time of Evaluation Date of Evaluation: 07/20/18 Time of Evaluation: 13:00 - Subjective Subjective: Patient not having PO intake or meds; not reporting any pain; spiked fever; Objective - Vital Signs/Intake and Output Vital Signs (last 24 hours): Temp Pulse Resp BP Pulse Ox 99.1 F 69 20 172/66 H 96 07/20/18 21:15 07/20/18 21:15 07/20/18 21:15 07/20/18 21:15 07/20/18 21:15 - Medications Medications: Current Medications Acetaminophen (Tylenol 650 Mg Supp) 650 mg [place] Q6 PRN PRN Reason: Temperature Albuterol Sulfate (Albuterol 0.083% Inhal [place] (2.5 Mg/3 Ml) Ud) 2.5 mg INH RQ4 PRN PRN Reason: Shortness of Breath Albuterol/Ipratropium (Duoneb 3 Mg/0.5 Mg (3 Ml) Ud) 3 ml INH RQ6 [facility] Last Admin: 07/20/18 19:49 Dose: 3 ml Atorvastatin Calcium (Lipitor) 10 mg PO DAILY@2100 [facility] Last Admin: 07/20/18 21:21 Dose: 10 mg Benzonatate (Tessalon Perles) 100 mg PO Q8 PRN PRN Reason: Cough Calcium Carbonate (Oscal) 500 mg PO BIDWM [facility] Last Admin: 07/20/18 16:39 Dose: 500 mg Clopidogrel Bisulfate (Plavix) 75 mg PO DAILY [facility] Last Admin: 07/20/18 10:28 Dose: Not Given Ergocalciferol (Drisdol 50,000 Intl Units Cap) 1 cap PO Q7D [facility] Last Admin: 07/16/18 17:47 Dose: Not Given Furosemide (Lasix) 20 mg PO DAILY [facility] Last Admin: 07/20/18 10:41 Dose: Not Given Guaifenesin (Mucinex La) 600 mg PO Q12 [facility] Last Admin: 07/20/18 21:24 Dose: 600 mg Guaifenesin/Dextromethorphan (Robitussin Dm) 5 ml PO Q6 PRN PRN Reason: Cough Last Admin: 07/20/18 01:36 Dose: 5 ml Heparin Sodium (Porcine) (Heparin) 5,000 units SC Q12 [facility]; Protocol Last Admin: 07/20/18 21:22 Dose: 5,000 units Home Med (Patient's Own Medication) 1 unit PO DAILY [facility] Last Admin: 07/20/18 10:28 Dose: Not Given Ceftriaxone Sodium 1 gm/ (Sodium Chloride) 100 mls @ 100 mls/hr IVPB DAILY@1700 [facility]; Protocol Last Admin: 07/20/18 16:37 Dose: 100 mls/hr Azithromycin 500 mg/ Sodium (Chloride) 250 mls @ 250 mls/hr IVPB DAILY@2100 [facility]; Protocol Last Admin: 07/20/18 21:16 Dose: 250 mls/hr Levothyroxine Sodium (Synthroid) 150 mcg PO DAILY@0630 [facility] Last Admin: 07/20/18 05:32 Dose: Not Given Metoprolol Succinate (Toprol Xl) 25 mg PO DAILY [facility] Last Admin: 07/20/18 10:40 Dose: Not Given Montelukast Sodium (Singulair) 10 mg PO HS [facility] Last Admin: 07/20/18 21:21 Dose: 10 mg Nystatin (Nystop Topical Powder) 1 applic TOP TID [facility] Last Admin: 07/20/18 16:39 Dose: 1 applic Sodium Bicarbonate (Sodium Bicarbonate Tab) 650 mg PO BID [facility] Last Admin: 07/20/18 16:40 Dose: 650 mg Sucralfate (Carafate Tab) 1 gm PO Q8 PRN PRN Reason: Indigestion Last Admin: 07/17/18 08:12 Dose: 1 gm - Labs Labs: 07/19/18 13:14 07/19/18 13:14 - Constitutional Appears: Non-toxic, No Acute Distress - Eye Exam Eye Exam: Normal appearance - Respiratory Exam Respiratory Exam: absent: Respiratory Distress Additional comments: some diminished sounds at bases - Cardiovascular Exam Cardiovascular Exam: RRR, +S1, +S2 - GI/Abdominal Exam GI & Abdominal Exam: Soft. absent: Distended, Tenderness - Extremities Exam Additional comments: no leg edema - Neurological Exam Neurological Exam: Alert, Awake - Psychiatric Exam Psychiatric exam: absent: Agitated - Skin Skin Exam: Warm. absent: Cyanosis Assessment and Plan (1) Acute on chronic kidney failure Assessment & Plan: ARLENE on CKD IIIB, resolved; stable electrolyte status on labs yesterday; euvolemic on exam; however, with minimal PO intake and with low grade fever; repeat UA showing evidence of UTI despite being on antibiotics; previous urine culture grew gram pos cocci and wasn't speciated as colony count low but was taken with patient already on antibiotics; may have organism resistant to ceftriaxone; -If patient continues to have decreased PO intake, suggest to start maintenance IVF w/ LR at 40 cc/hr; -decreasing sodium bicarb to 650 mg bid; -avoid nephrotoxic agents; -f/u repeat urine culture; dose antibiotics for CrCl ~30 ml/min; Status: Acute (2) Sepsis Assessment & Plan: see above Status: Acute (3) Hypertension Assessment & Plan: Holding diuretic in the setting of decreased PO intake; continue metoprolol XL; Status: Chronic
[2018-07-21] MEDS: Albuterol-Ipratrop 3 mg / 0.5 (3 ml) UD INH SCH ×4 (01:59→19:56)
[2018-07-21] MEDS: Levothyroxine 150 MCG TAB PO SCH (07:32)
[2018-07-21] MEDS: Lactated Ringer's 1,000 ML IV SCH (09:17)
[2018-07-21] MEDS: SILVASORB ANTIMICROBIAL WOUND GEL TP SCH (09:20)
[2018-07-21] MEDS: Metoprolol Succinate 25 mg XL Tab PO SCH (09:21)
[2018-07-21] MEDS: DEXILANT 60 MG PO SCH (09:22)
[2018-07-21] MEDS: guaiFENesin 600 mg ER Tab PO SCH ×2 (10:15→22:34)
[2018-07-21] MEDS: guaiFENesin DM 100 mg-10 mg/5 ml UD PO PRN (18:48)
[2018-07-21] MEDS: Azithromycin 500 MG in Sodium Chloride 0.9% 250 ML IVPB SCH (21:17)
[2018-07-22] MEDS: Albuterol-Ipratrop 3 mg / 0.5 (3 ml) UD INH SCH ×4 (00:59→19:14)
[2018-07-22] MEDS: guaiFENesin DM 100 mg-10 mg/5 ml UD PO PRN ×2 (02:13→21:07)
[2018-07-22] MEDS: Levothyroxine 150 MCG TAB PO SCH (06:28)
[2018-07-22] MEDS: SILVASORB ANTIMICROBIAL WOUND GEL TP SCH (09:13)
[2018-07-22] MEDS: guaiFENesin 600 mg ER Tab PO SCH ×2 (09:13→22:13)
[2018-07-22] MEDS: Metoprolol Succinate 25 mg XL Tab PO SCH (09:16)
[2018-07-22] MEDS: DEXILANT 60 MG PO SCH (09:16)
[2018-07-22] MEDS: Lactated Ringer's 1,000 ML IV SCH (09:17)
--- NOTE | 2018-07-22 18:49 | CP.PCM.PN ---
Subjective - Date & Time of Evaluation Date of Evaluation: 07/22/18 Time of Evaluation: 18:49 - Subjective Subjective: I D NOTE PATIENT c ESBL E.COLI IN URINE HAS WHAT IS CHRONIC UTI PATIENT c pneumonia HAVE SWITCHED TO MEROPENEM AND CONTINUE ZITHROMAX Objective - Vital Signs/Intake and Output Vital Signs (last 24 hours): Temp Pulse Resp BP Pulse Ox 98.5 F 81 20 158/75 H 94 L 07/22/18 17:00 07/22/18 17:00 07/22/18 17:00 07/22/18 17:00 07/22/18 17:00 - Medications Medications: Current Medications Acetaminophen (Tylenol 650 Mg Supp) 650 mg [place] Q6 PRN PRN Reason: Temperature Albuterol Sulfate (Albuterol 0.083% Inhal [place] (2.5 Mg/3 Ml) Ud) 2.5 mg INH RQ4 PRN PRN Reason: Shortness of Breath Last Admin: 07/22/18 15:37 Dose: 2.5 mg Albuterol/Ipratropium (Duoneb 3 Mg/0.5 Mg (3 Ml) Ud) 3 ml INH RQ6 [facility] Last Admin: 07/22/18 14:16 Dose: Not Given Atorvastatin Calcium (Lipitor) 10 mg PO DAILY@2100 [facility] Last Admin: 07/21/18 21:20 Dose: 10 mg Benzonatate (Tessalon Perles) 100 mg PO Q8 PRN PRN Reason: Cough Last Admin: 07/21/18 21:23 Dose: 100 mg Calcium Carbonate (Oscal) 500 mg PO BIDWM [facility] Last Admin: 07/22/18 17:00 Dose: Not Given Clopidogrel Bisulfate (Plavix) 75 mg PO DAILY [facility] Last Admin: 07/22/18 09:13 Dose: 75 mg Ergocalciferol (Drisdol 50,000 Intl Units Cap) 1 cap PO Q7D [facility] Last Admin: 07/16/18 17:47 Dose: Not Given Furosemide (Lasix) 20 mg PO DAILY [facility] Last Admin: 07/20/18 10:41 Dose: Not Given Guaifenesin (Mucinex La) 600 mg PO Q12 [facility] Last Admin: 07/22/18 09:13 Dose: 600 mg Guaifenesin/Dextromethorphan (Robitussin Dm) 5 ml PO Q6 PRN PRN Reason: Cough Last Admin: 07/22/18 02:13 Dose: 5 ml Heparin Sodium (Porcine) (Heparin) 5,000 units SC Q12 [facility]; Protocol Last Admin: 07/22/18 09:11 Dose: 5,000 units Home Med (Patient's Own Medication) 1 unit PO DAILY [facility] Last Admin: 07/22/18 09:16 Dose: 1 unit Azithromycin 500 mg/ Sodium (Chloride) 250 mls @ 250 mls/hr IVPB DAILY@2100 [facility]; Protocol Last Admin: 07/21/18 21:17 Dose: 250 mls/hr Lactated Ringer's (Lactated Ringer's) 1,000 mls @ 40 mls/hr IV .Q24H [facility] Last Admin: 07/22/18 09:17 Dose: 40 mls/hr Meropenem 500 mg/ Sodium (Chloride) 100 mls @ 100 mls/hr IVPB Q12 [facility]; Protocol Levothyroxine Sodium (Synthroid) 150 mcg PO DAILY@0630 [facility] Last Admin: 07/22/18 06:28 Dose: 150 mcg Metoprolol Succinate (Toprol Xl) 25 mg PO DAILY [facility] Last Admin: 07/22/18 09:16 Dose: 25 mg Montelukast Sodium (Singulair) 10 mg PO HS [facility] Last Admin: 07/21/18 21:18 Dose: 10 mg Nystatin (Nystop Topical Powder) 1 applic TOP TID [facility] Last Admin: 07/22/18 17:17 Dose: Not Given Sodium Bicarbonate (Sodium Bicarbonate Tab) 650 mg PO BID [facility] Last Admin: 07/22/18 17:00 Dose: 650 mg Sucralfate (Carafate Tab) 1 gm PO Q8 PRN PRN Reason: Indigestion Last Admin: 07/21/18 21:19 Dose: 1 gm - Labs Labs: 07/19/18 13:14 07/19/18 13:14
[2018-07-22] MEDS: Meropenem 500 MG in Sodium Chloride 0.9% 100 ML IVPB SCH (19:59)
[2018-07-22] MEDS: Azithromycin 500 MG in Sodium Chloride 0.9% 250 ML IVPB SCH (20:10)
--- NOTE | 2018-07-22 20:53 | CP.PCM.PN ---
Subjective - Date & Time of Evaluation Date of Evaluation: 07/22/18 Time of Evaluation: 15:00 - Subjective Subjective: Still with poor PO intake per nursing staff; not really answering questions; Objective - Vital Signs/Intake and Output Vital Signs (last 24 hours): Temp Pulse Resp BP Pulse Ox 98.9 F 59 L 20 155/70 H 99 07/22/18 19:41 07/22/18 19:41 07/22/18 19:41 07/22/18 19:41 07/22/18 19:41 - Medications Medications: Current Medications Acetaminophen (Tylenol 650 Mg Supp) 650 mg [place] Q6 PRN PRN Reason: Temperature Albuterol Sulfate (Albuterol 0.083% Inhal [place] (2.5 Mg/3 Ml) Ud) 2.5 mg INH RQ4 PRN PRN Reason: Shortness of Breath Last Admin: 07/22/18 15:37 Dose: 2.5 mg Albuterol/Ipratropium (Duoneb 3 Mg/0.5 Mg (3 Ml) Ud) 3 ml INH RQ6 [facility] Last Admin: 07/22/18 19:14 Dose: 3 ml Atorvastatin Calcium (Lipitor) 10 mg PO DAILY@2100 [facility] Last Admin: 07/21/18 21:20 Dose: 10 mg Benzonatate (Tessalon Perles) 100 mg PO Q8 PRN PRN Reason: Cough Last Admin: 07/21/18 21:23 Dose: 100 mg Calcium Carbonate (Oscal) 500 mg PO BIDWM [facility] Last Admin: 07/22/18 17:00 Dose: Not Given Clopidogrel Bisulfate (Plavix) 75 mg PO DAILY [facility] Last Admin: 07/22/18 09:13 Dose: 75 mg Ergocalciferol (Drisdol 50,000 Intl Units Cap) 1 cap PO Q7D [facility] Last Admin: 07/16/18 17:47 Dose: Not Given Furosemide (Lasix) 20 mg PO DAILY [facility] Last Admin: 07/20/18 10:41 Dose: Not Given Guaifenesin (Mucinex La) 600 mg PO Q12 [facility] Last Admin: 07/22/18 09:13 Dose: 600 mg Guaifenesin/Dextromethorphan (Robitussin Dm) 5 ml PO Q6 PRN PRN Reason: Cough Last Admin: 07/22/18 02:13 Dose: 5 ml Heparin Sodium (Porcine) (Heparin) 5,000 units SC Q12 [facility]; Protocol Last Admin: 07/22/18 09:11 Dose: 5,000 units Home Med (Patient's Own Medication) 1 unit PO DAILY [facility] Last Admin: 07/22/18 09:16 Dose: 1 unit Azithromycin 500 mg/ Sodium (Chloride) 250 mls @ 250 mls/hr IVPB DAILY@2100 [facility]; Protocol Last Admin: 07/22/18 20:10 Dose: 250 mls/hr Lactated Ringer's (Lactated Ringer's) 1,000 mls @ 40 mls/hr IV .Q24H [facility] Last Admin: 07/22/18 09:17 Dose: 40 mls/hr Meropenem 500 mg/ Sodium (Chloride) 100 mls @ 100 mls/hr IVPB Q12 [facility]; Protocol Last Admin: 07/22/18 19:59 Dose: 100 mls/hr Levothyroxine Sodium (Synthroid) 150 mcg PO DAILY@0630 [facility] Last Admin: 07/22/18 06:28 Dose: 150 mcg Metoprolol Succinate (Toprol Xl) 25 mg PO DAILY [facility] Last Admin: 07/22/18 09:16 Dose: 25 mg Montelukast Sodium (Singulair) 10 mg PO HS [facility] Last Admin: 07/21/18 21:18 Dose: 10 mg Nystatin (Nystop Topical Powder) 1 applic TOP TID [facility] Last Admin: 07/22/18 17:17 Dose: Not Given Sodium Bicarbonate (Sodium Bicarbonate Tab) 650 mg PO BID [facility] Last Admin: 07/22/18 17:00 Dose: 650 mg Sucralfate (Carafate Tab) 1 gm PO Q8 PRN PRN Reason: Indigestion Last Admin: 07/21/18 21:19 Dose: 1 gm - Labs Labs: 07/19/18 13:14 07/19/18 13:14 - Constitutional Appears: Non-toxic, No Acute Distress - Respiratory Exam Respiratory Exam: absent: Respiratory Distress Additional comments: some rales - Cardiovascular Exam Cardiovascular Exam: RRR, +S1, +S2 - GI/Abdominal Exam GI & Abdominal Exam: Soft. absent: Distended - Extremities Exam Additional comments: no leg edema; - Neurological Exam Neurological Exam: Alert, Awake - Psychiatric Exam Psychiatric exam: absent: Agitated - Skin Skin Exam: Warm. absent: Cyanosis Assessment and Plan (1) Acute on chronic kidney failure Assessment & Plan: ARLENE resolved; has underlying CKD in the setting of unilateral chronic hydronephrosis; -continue gentle IVF for maintenance with LR at 40 cc/hr; -avoid nephrotoxic agents; Status: Acute (2) Sepsis Assessment & Plan: With UTI, culture growing E coli ESBL; abx changed to meropenem; should monitor renal function and adjust dose accordingly; Status: Acute (3) Hypertension Assessment & Plan: BP has been elevated; will avoid aggressive control in this elderly patient; goal <150/90; continue toprol XL 25 daily; Status: Chronic
[2018-07-23] MEDS: Albuterol-Ipratrop 3 mg / 0.5 (3 ml) UD INH SCH ×4 (01:08→19:14)
[2018-07-23] MEDS: Levothyroxine 150 MCG TAB PO SCH (06:14)
[2018-07-23] MEDS: Meropenem 500 MG in Sodium Chloride 0.9% 100 ML IVPB SCH ×2 (08:57→20:14)
[2018-07-23] MEDS: DEXILANT 60 MG PO SCH (09:00)
[2018-07-23] MEDS: guaiFENesin 600 mg ER Tab PO SCH ×2 (09:01→20:16)
[2018-07-23] MEDS: guaiFENesin DM 100 mg-10 mg/5 ml UD PO PRN (09:01)
[2018-07-23] MEDS: Metoprolol Succinate 25 mg XL Tab PO SCH (09:03)
[2018-07-23] MEDS: SILVASORB ANTIMICROBIAL WOUND GEL TP SCH (10:28)
[2018-07-23] MEDS: Ergocalciferol 50,000 Intl Units Cap PO SCH (16:46)
[2018-07-23] MEDS ORDERED: Azithromycin 500 MG in Sodium Chloride 0.9% 250 ML IVPB SCH (17:00)
[2018-07-24] MEDS: Albuterol-Ipratrop 3 mg / 0.5 (3 ml) UD INH SCH ×3 (01:11→13:04)
[2018-07-24] MEDS: Levothyroxine 150 MCG TAB PO SCH (06:15)
[2018-07-24] MEDS: Meropenem 500 MG in Sodium Chloride 0.9% 100 ML IVPB SCH (09:39)
[2018-07-24 09:47] LABS: ALB/GLOB RATIO 0.7 (1.0-2.1); ALBUMIN 2.4 g/dL (3.5-5.0); CALCIUM 7.6 mg/dL (8.4-10.2)
[2018-07-24 10:06] LABS: BASO # 0.1 K/uL (0.0-0.2); BASO % 1.4 % (0.0-2.0); EOS # 0.3 K/uL (0.0-0.7); EOS % 3.9 % (0.0-4.0); HEMOGLOBIN 9.2 g/dL (12.0-16.0); LYMPH # 1.6 K/uL (1.0-4.3); LYMPH % 19.4 % (20.0-40.0); MEAN CELL VOLUME 92.7 fl (81.0-99.0); MEAN CORPUSCULAR HEMOGLOBIN 29.8 pg (27.0-31.0); MEAN CORPUSCULAR HGB CONC 32.2 g/dL (33.0-37.0); MONO # 0.7 K/uL (0.0-0.8); MONO % 8.6 % (0.0-10.0); NEUT # 5.5 K/uL (1.8-7.0); NEUT % 66.7 % (50.0-75.0); NRBC % 0.1 % (0.0-0.0); RBC 3.09 Mil/uL (3.80-5.20); WHITE BLOOD COUNT 8.2 K/uL (4.8-10.8)
[2018-07-24] MEDS: DEXILANT 60 MG PO SCH (12:30)
[2018-07-24] MEDS: Metoprolol Succinate 25 mg XL Tab PO SCH (12:30)
[2018-07-24] MEDS: guaiFENesin 600 mg ER Tab PO SCH (12:30)
[2018-07-24] MEDS ORDERED: Potassium Chloride 20 mEq/15 ml LIQ UD PO ONE (13:43)
--- NOTE | 2018-07-24 14:08 | CP.PCM.DIS ---
Provider - Provider Date of Admission: 07/16/18 15:44 Attending physician: Clinton Almanzar MD Primary care physician: Dr. Haddad Consults: 07/16/18 17:09 Nephrology Consult Routine Comment: Consulting Provider: Jarek Kemp Consulting Physician: Jarek Kemp Reason for Consult: arlene on CKD 07/16/18 19:54 Case Management Referral Routine Comment: Physician Instructions: Reason For Exam: new admission Reason for Referral: Discharge Planning Nursing Referral for Wound Care Routine Comment: scab and purple discoloration to right manjarrez Physician Instructions: Reason For Exam: NEW ADMISSION FROM [facility]; stage II upper back 07/19/18 12:42 Psychiatry Consult Routine Comment: Consulting Provider: Rody Bernal Consulting Physician: Rody Bernal Reason for Consult: early onset dementia, depression 07/22/18 12:40 Infectious Disease Consult Routine Comment: Consulting Provider: Benitez Reveles Consulting Physician: Benitez Reveles Reason for Consult: ESBL E coli in urine Time Spent in preparation of Discharge (in minutes): 20 Hospital Course - Lab Results Lab Results: Micro Results 07/20/18 14:24 Urine,Catheterized Urine Culture - Final Escherichia Coli Most Recent Lab Values WBC 8.2 K/uL (4.8-10.8) 07/24/18 09:46 RBC 3.09 Mil/uL (3.80-5.20) L 07/24/18 09:46 Hgb 9.2 g/dL (12.0-16.0) L 07/24/18 09:46 Hct 28.6 % (34.0-47.0) L 07/24/18 09:46 MCV 92.7 fl (81.0-99.0) D 07/24/18 09:46 MCH 29.8 pg (27.0-31.0) 07/24/18 09:46 MCHC 32.2 g/dL (33.0-37.0) L 07/24/18 09:46 RDW 16.0 % (11.5-14.5) H 07/24/18 09:46 Plt Count 253 K/uL (130-400) 07/24/18 09:46 MPV 8.0 fl (7.2-11.7) 07/24/18 09:46 Neut % (Auto) 66.7 % (50.0-75.0) 07/24/18 09:46 Lymph % (Auto) 19.4 % (20.0-40.0) L 07/24/18 09:46 [place] % (Auto) 8.6 % (0.0-10.0) 07/24/18 09:46 Eos % (Auto) 3.9 % (0.0-4.0) 07/24/18 09:46 Baso % (Auto) 1.4 % (0.0-2.0) 07/24/18 09:46 Neut # (Auto) 5.5 K/uL (1.8-7.0) 07/24/18 09:46 Lymph # (Auto) 1.6 K/uL (1.0-4.3) 07/24/18 09:46 [place] # (Auto) 0.7 K/uL (0.0-0.8) 07/24/18 09:46 Eos # (Auto) 0.3 K/uL (0.0-0.7) 07/24/18 09:46 Baso # (Auto) 0.1 K/uL (0.0-0.2) 07/24/18 09:46 pCO2 35 mm/Hg (35-45) 07/19/18 13:06 pO2 63 mm/Hg (80-100) L 07/19/18 13:06 HCO3 28.6 mmol/L (21-28) H 07/19/18 13:06 ABG pH 7.51 (7.35-7.45) H 07/19/18 13:06 ABG Total CO2 29.0 mmol/L (22-28) H 07/19/18 13:06 ABG O2 Saturation 94.2 % (95-98) L 07/19/18 13:06 ABG O2 Content 13.7 ML/dL (15-23) L 07/19/18 13:06 ABG Base Excess 4.8 mmol/L (-2.0-3.0) H 07/19/18 13:06 ABG Hemoglobin 10.5 g/dL (11.7-17.4) L 07/19/18 13:06 ABG Carboxyhemoglobin 1.2 % (0.5-1.5) 07/19/18 13:06 POC ABG HHb (Measured) 5.7 % (0.0-5.0) H 07/19/18 13:06 ABG Methemoglobin 0.5 % (0.0-3.0) 07/19/18 13:06 ABG O2 Capacity 14.5 mL/dL (16-24) L 07/19/18 13:06 Pablo Test Yes 07/19/18 13:06 A-a O2 Difference 43.0 mm/Hg 07/19/18 13:06 Hgb O2 Saturation 92.6 % (95.0-98.0) L 07/19/18 13:06 FiO2 21.0 % 07/19/18 13:06 Sodium 134 mmol/l (132-148) 07/24/18 09:07 Potassium 3.4 MMOL/L (3.6-5.0) L 07/24/18 09:07 Chloride 100 mmol/L (98-107) 07/24/18 09:07 Carbon Dioxide 29 mmol/L (22-30) 07/24/18 09:07 Anion Gap 8 (10-20) L 07/24/18 09:07 BUN 12 mg/dl (7-17) 07/24/18 09:07 Creatinine 1.3 mg/dl (0.7-1.2) H 07/24/18 09:07 Est GFR ( Amer) 47 07/24/18 09:07 Est GFR (Non-Af Amer) 39 07/24/18 09:07 Random Glucose 97 mg/dL (65-105) 07/24/18 09:07 Calcium 7.6 mg/dL (8.4-10.2) L 07/24/18 09:07 Phosphorus 2.5 mg/dl (2.5-4.5) 07/24/18 09:07 Magnesium 1.6 MG/DL (1.6-2.3) 07/24/18 09:07 Total Bilirubin 0.5 mg/dl (0.2-1.3) 07/24/18 09:07 AST 73 U/L (14-36) H 07/24/18 09:07 ALT 46 U/L (9-52) 07/24/18 09:07 Alkaline Phosphatase 97 U/L (38-126) 07/24/18 09:07 Total Protein 5.9 G/DL (6.3-8.2) L 07/24/18 09:07 Albumin 2.4 g/dL (3.5-5.0) L 07/24/18 09:07 Globulin 3.5 gm/dL (2.2-3.9) 07/24/18 09:07 Albumin/Globulin Ratio 0.7 (1.0-2.1) L 07/24/18 09:07 Vitamin B12 > 1000 pg/mL (239-931) H 07/19/18 13:14 Urine Color Yellow (YELLOW) 07/20/18 14:24 Urine Clarity Turbid (Clear) 07/20/18 14:24 Urine pH 6.0 (5.0-8.0) 07/20/18 14:24 Ur Specific [place] 1.012 (1.003-1.030) 07/20/18 14:24 Urine Protein 100 mg/dL (NEGATIVE) 07/20/18 14:24 Urine Glucose (UA) Neg mg/dL (NEGATIVE) 07/20/18 14:24 Urine Ketones Negative mg/dL (NEGATIVE) 07/20/18 14:24 Urine Blood Large (NEGATIVE) 07/20/18 14:24 Urine Nitrate Negative (NEGATIVE) 07/20/18 14:24 Urine Bilirubin Negative (NEGATIVE) 07/20/18 14:24 Urine Urobilinogen 0.2-1.0 mg/dL (0.2-1.0) 07/20/18 14:24 Ur Leukocyte Esterase Large Ingrid/uL (Negative) 07/20/18 14:24 Urine RBC (Auto) 71 /hpf (0-3) H 07/20/18 14:24 Urine WBC Clumps (Auto) Many /hpf (NONE) H 07/20/18 14:24 Urine Microscopic WBC 880 /hpf (0-5) H 07/20/18 14:24 Urine Bacteria Many (<OCC) H 07/20/18 14:24 - Hospital Course Hospital Course: 87-year-old female well known to our service with PMHx of transient Afib, COPD, CKD, CHF, recurrent UTI with hemorrhagic cystitis, diverticulitis, CAD (stent x2, 10 years [employer]), and colon cancer was admitted for sepsis likely secondary to pneumonia and ARLENE on chronic CKD. She was started on IVF, Rocephin and Zithromax IV. Initial CXR showed bilateral infiltrates, repeat CXR shows bibasilar infiltrates improved from admission. Blood cultures were negative, urine culture E.coli <10,000 CFU. She improved clinically and medically cleared for discharge to TCU for physical therapy and continuation of IV antibiotics for medical optimization. At present in TCU , receiving IV antibiotics and participating with PT. family requesting for continuation of PT since patient is showing improvement . Will d/c today to [facility] 1. Sepsis likely secondary to bilateral pneumonia Improved CXR on admission: confluent airspace disease, consider aspiration pnemonitis and possible superimposed pneumonia Received rocephin and Zithromax and now switched to Meropenem and Zithromax as per ID Continue Duoneb INH Q6, mucinex Will continue Meropenem and Zithromax for 7 more days 2. UTI Acute Large leukocyte esterase and high WBC on UA urine cx positive for ESBL E. Coli. ID consulted and started on Meropenem IV 07/22/18 . will continue for 10 days total 3. Acute kidney Injury on Chronic Kidney Disease Stage IV nephro consulted improved to her baseline started on bicarb PO , calcium carbonate, Vitamin D,Venofer 4. Hypocalcemia started Calcium carbonate 500mg PO Q6 5. Hypomagnesia Improved with magnesium supplements 6. Vitamin D Deficiency on Cholecalciferol 2,000 IU PO QD 7. COPD Chronic, stable Continue Singulair 10 mg PO HS 8. Anemia of chronic disease Stable Likely secondary to CKD and poor PO intake Per nephro, Venofer 100mg IV QD x 5 days 9. Hx of HTN Stable on Toprol 25 mg po 10. Hx of CAD Chronic, stable Continue Plavix 75 mg PO daily ECHO: EF 55% (2016) 11. GERD Dexilant 60 mg daily Reglan 5mg Q8H PRN Carafate 1 gm PO Q8H PRN 12. Hypothyroidism Synthroid 150 mcg daily 13. AMS with episodes of confusion and memory problems Will need further evaluation from neurologist for possible dementia as out patient once infection is treated Discharge Exam - Head Exam Head Exam: ATRAUMATIC, NORMAL INSPECTION - Eye Exam Eye Exam: EOMI, PERRL Pupil Exam: NORMAL ACCOMODATION - ENT Exam ENT Exam: Normal Exam - Neck Exam Neck exam: Full Rom, Normal Inspection - Respiratory Exam Respiratory Exam: Clear to PA & Lateral, NORMAL BREATHING PATTERN. absent: Rhonchi, Wheezes, Respiratory Distress - Cardiovascular Exam Cardiovascular Exam: REGULAR RHYTHM, RRR, +S1, +S2. absent: JVD - GI/Abdominal Exam GI & Abdominal Exam: Normal Bowel Sounds, Soft. absent: Distended, Guarding, Rebound, Tenderness - Rectal Exam Rectal Exam: Deferred - Extremities Exam Extremities exam: normal capillary refill, normal inspection, pedal pulses present - Neurological Exam Neurological exam: Alert, CN II-XII Intact, Oriented x3 - Psychiatric Exam Psychiatric exam: Flat Affect - Skin Skin Exam: Dry, Pallor, Warm Discharge Plan - Follow Up Plan Condition: IMPROVED Disposition: TRANSF TO SNF Instructions: Preventing Falls in the Older Adult, Pneumonia, Adult (DC), Extended-Spectrum Beta Lactamase Infection Referrals: Sivan Haddad MD [Family Provider] -
[2018-07-24] MEDS: SILVASORB ANTIMICROBIAL WOUND GEL TP SCH (14:22)
[2018-07-24 16:52] VITALS: BP 146/69; PULSE 66; RESP 18; TEMP 98.7; O2SAT 95
== END 2018-07-24 16:40 | DRG 871 ==
LOC: H.ERHOLD 15:44 → H.TCU 15:52
PROC: 3E03329 Introduction of Other Anti-infective into Peripheral Vein, Percutaneous Approach (ICD-10-PCS; principal; 2018-07-17)
PROC: 3E0F7GC Introduction of Other Therapeutic Substance into Respiratory Tract, Via Natural or Artificial Opening (ICD-10-PCS; 2018-07-17)
PROC: F08Z4FZ Home Management Treatment using Assistive, Adaptive, Supportive or Protective Equipment (ICD-10-PCS; 2018-07-17)
PROC: F07M6FZ Therapeutic Exercise Treatment of Musculoskeletal System - Whole Body using Assistive, Adaptive, Supportive or Protective Equipment (ICD-10-PCS; 2018-07-18)
DX: A41.9 Sepsis, unspecified organism (principal); J18.9 Pneumonia, unspecified organism; E87.2 Acidosis; I50.30 Unspecified diastolic (congestive) heart failure; I13.0 Hypertensive heart and chronic kidney disease with heart failure and stage 1 through stage 4 chronic kidney disease, or unspecified chronic kidney disease; J44.0 Chronic obstructive pulmonary disease with (acute) lower respiratory infection; N17.9 Acute kidney failure, unspecified; N18.4 Chronic kidney disease, stage 4 (severe); B96.20 Unspecified Escherichia coli [E. coli] as the cause of diseases classified elsewhere; D50.9 Iron deficiency anemia, unspecified; D63.1 Anemia in chronic kidney disease; E03.9 Hypothyroidism, unspecified; E55.9 Vitamin D deficiency, unspecified; E78.00 Pure hypercholesterolemia, unspecified; I25.10 Atherosclerotic heart disease of native coronary artery without angina pectoris; I48.0 Paroxysmal atrial fibrillation; K21.9 Gastro-esophageal reflux disease without esophagitis; Z79.02 Long term (current) use of antithrombotics/antiplatelets; Z79.899 Other long term (current) drug therapy; Z85.038 Personal history of other malignant neoplasm of large intestine; Z87.440 Personal history of urinary (tract) infections; Z87.891 Personal history of nicotine dependence; Z90.49 Acquired absence of other specified parts of digestive tract; Z95.5 Presence of coronary angioplasty implant and graft; F32.9 Major depressive disorder, single episode, unspecified; F41.9 Anxiety disorder, unspecified; K29.70 Gastritis, unspecified, without bleeding; M19.90 Unspecified osteoarthritis, unspecified site; I95.9 Hypotension, unspecified; R41.82 Altered mental status, unspecified

== ENCOUNTER 2018-07-18 10:05 | Day surgery (SDC) | payer MEDICARE, OTHER ==
[2018-07-18 10:59] VITALS: RESP 18
[2018-07-18 11:23] VITALS: BMI 21.0
[2018-07-18] MEDS ORDERED: Lidocaine 1% Inj (20ml) ONE (13:49)
--- NOTE | 2018-07-18 14:33 | CP.SDSHP ---
Same Day Surgery H & P - History Proposed Procedure: PICC Placement Pre-Op Diagnosis: UTI - Allergies Allergies: Allergies No Known Allergies Allergy (Verified 07/16/18 13:30) - Physical Exam Vital Signs: Vital Signs 07/18/18 07/18/18 07/18/18 10:57 11:03 13:39 Temperature 98.6 F 98.7 F Pulse Rate 69 69 64 Respiratory 18 Rate Blood Pressure 142/65 129/69 O2 Sat by Pulse 95 Oximetry Mental Status: Confused - Impression Impression: Pt with infection requiring PICC for abx. Plan PICC placement. Pt. Evaluated Today:Candidate for Anesthesia & Procedure: No Short Stay Discharge - Short Stay Discharge Admitting Diagnosis/Reason for Visit: IV ABT Disposition: HOME/ ROUTINE
--- NOTE | 2018-07-18 14:34 | PCM.SURG1 ---
Surgeon's Initial Post Op Note - Surgeon's Notes Surgeon: Kasi Aragon MD Company Truck Driver: NONE Type of Anesthesia: Local Pre-Operative Diagnosis: INfection Operative Findings: US showed patent left basilic vein Post-Operative Diagnosis: Infection Operation Performed: Single lumen picc placement left arm, 42 CM. Specimen/Specimens Removed: nONE Estimated Blood Loss: EBL {In ML}: 2 Blood Products Given: N/A Drains Used: No Drains Post-Op Condition: Fair Date of Surgery/Procedure: 07/18/18 Time of Surgery/Procedure: 14:30
[2018-07-18 15:05] VITALS: BP 166/66; PULSE 66; TEMP 99.6; O2SAT 96
--- NOTE | 2018-07-19 14:32 | VASCULAR ---
PROCEDURE: Date of procedure: 07/18/2018 Procedure: 1. Placement of a left arm PICC with ultrasound and fluoroscopic guidance, CPT 73013 2. PICC tip confirmation with spot radiograph and is in the superior vena cava Medications: 1 percent lidocaine Total Fluoro time: 1.2 Seconds Radiation: 0.18 MGy EBL: 3 cc HISTORY: Infection requiring long-term IV antibiotics TECHNIQUE: Following informed consent and procedure time-out, the patient placed supine on the interventional table and the left arm prepped and draped in the usual sterile fashion. Ultrasound showed a patent and compressible left basilic vein. After the skin was anesthetized with lidocaine, the basilic vein was accessed with micro micropuncture technique using ultrasound guidance. A guidewire was then advanced under fluoroscopic guidance into the superior vena cava. An image documenting ultrasound guidance for vascular access was permanently saved. The length of a single-lumen 4 [place] PICC was trimmed to 42 cm and advanced through a peel-away sheath. The PICC was position with tip of PICC confirm a spot radiograph the superior vena cava. The PICC was secured to the patient's skin. The PICC was flushed. A biopatch and sterile dressing was applied. IMPRESSION: Placement of a single-lumen 4 [place]ian PICC left basilic vein trimmed to 42 cm. The tip of the PICC is confirmed with spot radiograph and is in the superior vena cava.
== END 2018-07-18 15:05 | disposition still patient (30) ==
LOC: H.OPSURG 10:05
PROVIDERS: ATTEND Hospitalist
DX: N39.0 Urinary tract infection, site not specified (principal); Z45.2 Encounter for adjustment and management of vascular access device
CPT/HCPCS: 36569; 76937; 77001; A4310; C1751

== ENCOUNTER 2018-09-30 19:36 | Inpatient (IN) | payer MEDICARE, OTHER ==
[2018-09-30 19:36] VITALS: PULSE 149; BMI 21.0
--- NOTE | 2018-09-30 20:07 | ED PDOC ---
HPI: Altered Mental Status Time Seen by Provider: 09/30/18 19:44 Chief Complaint (Nursing): Altered Mental Status Chief Complaint (Provider): Altered Mental Status History Per: Patient, EMS History/Exam Limitations: Clinical Condition Onset/Duration Of Symptoms: Unknown Current Symptoms Are (Timing): Still Present Additional Complaint(s): 87 y/o female brought in by BLS for evaluation of altered mental status as per EMS. As per triage note and nurse, patient's son reported patient had a change in behavior today and is currently being treated for a UTI. As per nurse, patient brought here from [facility] after just being discharged from [facility]. Upon interview, patient complaining of abdominal pain and a headache associated with nausea. Patient declining labs and scans at this time only requesting we have an EKG performed. Of note, patient's son is on his way. History from patient limited due to patient's clinical condition. PMD: Inga Haddad Past Medical History Reviewed: Historical Data, Nursing Documentation, Vital Signs Vital Signs: Last Vital Signs Temp 98.1 F 09/30/18 19:37 Pulse 49 L 09/30/18 19:37 Resp 18 09/30/18 19:37 BP 127/56 L 09/30/18 19:37 Pulse Ox - Medical History PMH: Anemia, Anxiety, Arthritis, Asthma, CAD, CHF, COPD, Depression, Diverticulitis, Gastritis, GERD, HTN, Hypercholesterolemia, Hypothyroidism, Malignancy (Colon Cancer), Pneumonia, Chronic Kidney Disease Denies: HIV - Surgical History Surgical History: Appendectomy, Cholecystectomy, 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, 10 years [employer]), 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 - Family History Family History: States: Unknown Family Hx - Immunization History Hx Tetanus Toxoid Vaccination: No Hx Influenza Vaccination: Yes (04/2014) Hx Pneumococcal Vaccination: Yes (2010) - Home Medications Home Medications: Ambulatory Orders Medication Instructions Recorded Acetaminophen/Oxycodone Hydr 1 tab PO Q6H 07/16/18 [Percocet 10/325 mg Tab] Clopidogrel [Plavix] 75 mg PO DAILY 07/16/18 Dexlansoprazole [Dexilant] 60 mg PO DAILY 07/16/18 LORazepam [Ativan] 1 mg PO HS 07/16/18 Levothyroxine [Synthroid] 1 tab PO DAILY 07/16/18 Lidocaine 5% [Lidoderm] 1 patch TOP DAILY PRN 07/16/18 Metoclopramide HCl [Reglan] 5 mg PO Q8 PRN 07/16/18 Montelukast Sodium [Singulair] 10 mg PO HS 07/16/18 Nystatin [Nystop Topical Powder] 1 applic TOP TID bottle 07/16/18 Oxybutynin [Ditropan Tab] 1 tab PO DAILY 07/16/18 Sucralfate [Carafate Tab] 1 gm PO Q8 PRN 07/16/18 oxyCODONE [oxyCODONE Immediate 10 mg PO Q6 PRN 07/16/18 Release Tab] Azithromycin [Zithomax 500mg IV] 500 mg IVPB DAILY #7 pds 07/24/18 Benzonatate [Tessalon Perles] 100 mg PO Q8 PRN 30 Days tab 07/24/18 Calcium Carbonate [Calcium] 500 mg PO BID #60 tablet 07/24/18 Ergocalciferol (Vitamin D2) 50,000 unit PO QWK #4 capsule 07/24/18 [Drisdol] Guaifenesin [Mucinex ER] 600 mg PO BID #60 ter 07/24/18 Iron Sucrose [Venofer] 100 mg IVP DAILY #5 vial 07/24/18 MEROPENEM 500 MG in NS [Merrem IV 500 mg IV Q12 #14 bag 07/24/18 500 MG/NS 50 ML] Metoprolol Succinate XL [Toprol XL] 25 mg PO DAILY #30 tab 07/24/18 - Allergies Allergies/Adverse Reactions: Allergies Allergy/AdvReac Type Severity Reaction Status Date / Time No Known Allergies Allergy Verified 09/30/18 19:37 Review of Systems ROS Statement: Except As Marked, All Systems Reviewed And Found Negative Gastrointestinal: Positive for: Nausea, Abdominal Pain Neurological: Positive for: Altered Mental Status, Headache Physical Exam - Reviewed Nursing Documentation Reviewed: Yes Vital Signs Reviewed: Yes - Physical Exam Appears: Positive for: No Acute Distress Head Exam: Positive for: ATRAUMATIC, NORMOCEPHALIC Skin: Positive for: Normal Color, Warm, Dry Eye Exam: Positive for: Normal appearance Neck: Positive for: Normal, Painless ROM Cardiovascular/Chest: Positive for: Regular Rate, Rhythm. Negative for: Murmur Respiratory: Positive for: Normal Breath Sounds. Negative for: Respiratory Distress Gastrointestinal/Abdominal: Positive for: Tenderness (Suprapubic and LLQ Tenderness) Back: Positive for: Normal Inspection Extremity: Positive for: Normal ROM Neurological/Psych: Positive for: Awake, Alert. Negative for: Motor/Sensory Deficits - Laboratory Results Result Diagrams: 09/30/18 21:20 09/30/18 21:20 Medical Decision Making Medical Decision Making: Time: 1944 A/P: Workup for altered mental status secondary to UTI. -- Rule out hospital acquired pneumonia due to recent hospitalization. Plan: -- VBG -- EKG -- BNP -- CMP -- Troponin I -- CBC with Differentials -- CXR Portable -- Blood Culture -- Urine Culture -- Influenza A B -- Urinalysis Time:2229 -- Spoke with family at bedside who state patient has had decreasing in mental status for the past two days as well as coughing yellow, thick mucous and foul smelling urine. -- Labs demonstrate BUN over 3,000. -- Patient unable to give urine, will do a prince straight catheter. -- Prince Urinary Catheter -- CXR as read by me demonstrates infiltrates (worse on the left lung). Possible fluid overload vs. pneumonia. Difficult read as patient was poorly positioned. Time: 2232 -- Urinalysis shows large nitrate, RBCs and WBCs as well as moderate leukocyte esterase. Patient started on Cefepime and Azithromycin for UTI and pneumonia. -- Patient to be admitted to Hospitalist's service. Spoke to Hospitalist's service who will be accepting the patient for admission with a diagnosis of altered mental status. -- Patient seen by Dr. Bishop and family practice residents -- Lasix 40 mg IVP -- Cefepime 2 gm Sodium Chloride 0.9% 100 ml IVPB -- Sodium Chloride 0.9% 1000 ml IV 250 mls/hr -- Azithromycin 500 mg Sodium Chloride 0.9% 250 ml IVPB Scribe Attestation: Documented by Camilo Amezcua, acting as a scribe Iman Dawson MD. Provider Scribe Attestation: All medical record entries made by the Scribe were at my direction and personally dictated by me. I have reviewed the chart and agree that the record accurately reflects my personal performance of the history, physical exam, medical decision making, and the department course for this patient. I have also personally directed, reviewed, and agree with the discharge instructions and disposition. Disposition - Clinical Impression Clinical Impression: Urinary tract infection, Pneumonia - Patient ED Disposition Is Patient to be Admitted: Yes Counseled Patient/Family Regarding: Studies Performed, Diagnosis - Disposition Disposition Time: 22:32 Condition: FAIR - Pt Status Changed To: Hospital Disposition Of: Inpatient - Admit Certification Admit to Inpatient:: After my assessment, the patient will require hospitalizati on for at least two midnights. This is because of the severity of symptoms shown, intensity of services needed, and/or the medical risk in this patient being treated as an outpatient.
[2018-09-30 21:27] LABS: BASO # 0.1 K/uL (0.0-0.2); BASO % 0.6 % (0.0-2.0); EOS # 0.2 K/uL (0.0-0.7); EOS % 1.6 % (0.0-4.0); HEMOGLOBIN 12.5 g/dL (12.0-16.0); LYMPH # 3.1 K/uL (1.0-4.3); LYMPH % 32.3 % (20.0-40.0); MEAN CORPUSCULAR HEMOGLOBIN 31.8 pg (27.0-31.0); MEAN CORPUSCULAR HGB CONC 33.1 g/dL (33.0-37.0); MONO # 0.9 K/uL (0.0-0.8); MONO % 9.5 % (0.0-10.0); NEUT # 5.3 K/uL (1.8-7.0); NRBC % 0.1 % (0.0-0.0); RBC 3.94 Mil/uL (3.80-5.20); WHITE BLOOD COUNT 9.5 K/uL (4.8-10.8)
[2018-09-30 21:28] LABS: VENOUS BLOOD GAS BASE EXCESS -8.8 mmol/L (0.0-2.0); VENOUS BLOOD GAS PCO2 41 mmHg (40-60); VENOUS BLOOD GAS PO2 17 mm/Hg (30-55); VENOUS BLOOD PH 7.25 (7.32-7.43)
[2018-09-30 21:54] LABS: ALBUMIN 4.2 g/dL (3.5-5.0); ALT/SGPT 15 U/L (9-52); AST/SGOT 26 U/L (14-36); B-TYPE NATRIURETIC PEPTIDE 3090 pg/ml (0-900); BLOOD UREA NITROGEN 52 mg/dl (7-17); GFR NON-AFRICAN AMERICAN 12
[2018-09-30] MEDS ORDERED: Sodium Chloride 0.9% 1,000 ML IV STA (22:28)
[2018-09-30] MEDS ORDERED: Cefepime 2 GM in Sodium Chloride 0.9% 100 ML IVPB STA (22:58)
[2018-09-30] MEDS ORDERED: Azithromycin 500 MG in Sodium Chloride 0.9% 250 ML IVPB STA (22:59)
[2018-09-30 23:32] LABS: SQUAMOUS EPITHIAL < 1 /hpf (0-5); URINE BILIRUBIN NEGATIVE (NEGATIVE); URINE BLOOD LARGE (NEGATIVE); URINE CLARITY CLOUDY (Clear); URINE COLOR AMBER (YELLOW); URINE GLUCOSE (UA) NEG (NEGATIVE); URINE LEUKOCYTE ESTERASE MOD Leu/uL (Negative); URINE PROTEIN 100 mg/dL (NEGATIVE)
--- NOTE | 2018-09-30 23:58 | CP.PCM.HP ---
<Amy Barragan - Last Filed: 10/01/18 00:47> History of Present Illness - History of Present Illness History of Present Illness: CC: lower abdominal pain HPI: 87 YO Female with PMHx of COPD, CHF, recurrent UTI with hemorrhagic cystitis, diverticulitis, CAD (stent x2, 10 years [employer]), and colon cancer, dementia presents to [facility] for AMS. Pt was recently sent to the [facility] for pneumonia and UTI. She was discharged from [facility] earlier this month. In the past week, pt states that she has not been feeling well and endorses lower abdominal pain with raditaion to her sides. Denies chest pain, fever, chills, n/v/d/c, back pain, dysuria. PMD: Dr. Nguyen Cardiology: Dr Patton PMH: COPD, CHF, recurrent UTI with hemorrhagic cystitis, diverticulitis, CAD (stent x2, 10 years [employer]), colon cancer, hypothyroidism, and CKD PSH: Cholecystectomy, Thyroidectomy, 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, 10 years [employer]) SH: Former Smoker (2 packs a day x 10 years, quit > 20yrs ago); No illegal drug use; No Alcohol FH: Unknown Family Hx Allergies: NKDA Pt is altered and has dementia, information obtained from review of records Present on Admission - Present on Admission Any Indicators Present on Admission: No Review of Systems - Constitutional Constitutional: absent: Chills, Fever - Cardiovascular Cardiovascular: absent: Chest Pain, Dyspnea, Palpitations - Respiratory Respiratory: absent: Cough, Dyspnea - Gastrointestinal Gastrointestinal: Abdominal Pain. absent: Nausea, Vomiting - Genitourinary Genitourinary: absent: Dysuria Past Patient History - Infectious Disease Hx of Infectious Diseases: None - Tetanus Immunizations Tetanus Immunization: Unknown - Past Medical History & Family History Past Medical History?: Yes - Past Social History Smoking Status: Former Smoker Home Situation {Lives}: With Family - CARDIAC Hx Congestive Heart Failure: Yes Hx Hypercholesterolemia: Yes Hx Hypertension: Yes - PULMONARY Hx Asthma: Yes Hx Chronic Obstructive Pulmonary Disease (COPD): Yes Hx Pneumonia: Yes - NEUROLOGICAL Hx Neurological Disorder: No - HEENT Hx HEENT Problems: Yes - RENAL Hx Chronic Kidney Disease: Yes - ENDOCRINE/METABOLIC Hx Hypothyroidism: Yes - HEMATOLOGICAL/ONCOLOGICAL Hx Anemia: Yes Hx Human Immunodeficiency Virus (HIV): No - INTEGUMENTARY Hx Dermatological Problems: No - MUSCULOSKELETAL/RHEUMATOLOGICAL Hx Arthritis: Yes - GASTROINTESTINAL Hx Diverticulitis: Yes Hx Gastritis: Yes - GENITOURINARY/GYNECOLOGICAL Hx Genitourinary Disorders: No - PSYCHIATRIC Hx Anxiety: Yes Hx Depression: Yes - SURGICAL HISTORY Hx Appendectomy: Yes Hx Cholecystectomy: Yes 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, 10 years [employer]) Hx 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: Yes - ANESTHESIA Hx Anesthesia: Yes Hx Anesthesia Reactions: No Hx Malignant Hyperthermia: No Meds Allergies/Adverse Reactions: Allergies Allergy/AdvReac Type Severity Reaction Status Date / Time No Known Allergies Allergy Verified 09/30/18 19:37 Physical Exam - Constitutional Appears: Agitated, Confused - Head Exam Head Exam: NORMAL INSPECTION, NORMOCEPHALIC - Eye Exam Eye Exam: EOMI - ENT Exam ENT Exam: Mucous Membranes Dry - Respiratory Exam Respiratory Exam: Clear to Auscultation Bilateral, NORMAL BREATHING PATTERN. absent: Rales, Wheezes - Cardiovascular Exam Cardiovascular Exam: REGULAR RHYTHM, +S1, +S2 - GI/Abdominal Exam Additional comments: Patient did not allow this resident to examine her abdomen - Back Exam Back exam: absent: CVA tenderness (L), CVA tenderness (R) - Neurological Exam Neurological exam: Alert Additional comments: Agitated, alert, oriented to person only - Psychiatric Exam Psychiatric exam: Agitated - Skin Skin Exam: Dry, Normal Color Results - Vital Signs Recent Vital Signs: Last Vital Signs Temp 98.1 F 09/30/18 19:37 Pulse 61 09/30/18 23:06 Resp 17 09/30/18 23:06 BP 121/57 L 09/30/18 23:06 Pulse Ox 97 09/30/18 23:06 - Labs Result Diagrams: 09/30/18 21:20 09/30/18 21:20 Labs: Laboratory Results - last 24 hr 09/30/18 09/30/18 09/30/18 21:20 21:20 21:20 WBC 9.5 RBC 3.94 Hgb 12.5 D Hct 37.8 MCV 96.0 D MCH 31.8 H MCHC 33.1 RDW 16.0 H Plt Count 286 MPV 7.0 L Neut % (Auto) 56.0 Lymph % (Auto) 32.3 Frontier % (Auto) 9.5 Eos % (Auto) 1.6 Baso % (Auto) 0.6 Neut # (Auto) 5.3 Lymph # (Auto) 3.1 Frontier # (Auto) 0.9 H Eos # (Auto) 0.2 Baso # (Auto) 0.1 pO2 VBG pH VBG pCO2 VBG HCO3 VBG Total CO2 VBG O2 Sat (Calc) VBG Base Excess VBG Potassium Glucose Lactate FiO2 Sodium 139 Potassium 5.7 H Chloride 105 Carbon Dioxide 17 L Anion Gap 23 H BUN 52 H Creatinine 3.7 H Est GFR ( Amer) 14 Est GFR (Non-Af Amer) 12 Random Glucose 85 Calcium 10.0 Total Bilirubin 0.5 AST 26 ALT 15 Alkaline Phosphatase 91 Troponin I < 0.0120 NT-Pro-B Natriuret Pep 3090 H Total Protein 8.4 H Albumin 4.2 Globulin 4.2 H Albumin/Globulin Ratio 1.0 Venous Blood Potassium Urine Color Urine Clarity Urine pH Ur Specific Kyle Urine Protein Urine Glucose (UA) Urine Ketones Urine Blood Urine Nitrate Urine Bilirubin Urine Urobilinogen Ur Leukocyte Esterase Urine RBC (Auto) Urine Microscopic WBC Ur Squamous Epith Cells Influenza Typ A,B (EIA) Negative for flu a/b 09/30/18 09/30/18 21:25 23:22 WBC RBC Hgb Hct MCV MCH MCHC RDW Plt Count MPV Neut % (Auto) Lymph % (Auto) Frontier % (Auto) Eos % (Auto) Baso % (Auto) Neut # (Auto) Lymph # (Auto) Frontier # (Auto) Eos # (Auto) Baso # (Auto) pO2 17 L VBG pH 7.25 L VBG pCO2 41 VBG HCO3 15.9 VBG Total CO2 19.3 L VBG O2 Sat (Calc) 28.6 L VBG Base Excess -8.8 L VBG Potassium 5.7 H Glucose 86 Lactate 1.0 FiO2 21.0 Sodium 132.0 Potassium Chloride 103.0 Carbon Dioxide Anion Gap BUN Creatinine Est GFR ( Amer) Est GFR (Non-Af Amer) Random Glucose Calcium Total Bilirubin AST ALT Alkaline Phosphatase Troponin I NT-Pro-B Natriuret Pep Total Protein Albumin Globulin Albumin/Globulin Ratio Venous Blood Potassium 5.7 H Urine Color Colleen Urine Clarity Cloudy Urine pH 6.0 Ur Specific Kyle 1.017 Urine Protein 100 Urine Glucose (UA) Neg Urine Ketones Negative Urine Blood Large Urine Nitrate Positive H Urine Bilirubin Negative Urine Urobilinogen 4.0 H Ur Leukocyte Esterase Mod Urine RBC (Auto) 243 H Urine Microscopic WBC 1032 H Ur Squamous Epith Cells < 1 Influenza Typ A,B (EIA) Assessment & Plan - Assessment and Plan (Free Text) Assessment: Assessment/Plan: 87 YO Female with PMHx of COPD, CHF, recurrent UTI with hemorrhagic cystitis, diverticulitis, CAD (stent x2, 10 years [employer]), and colon cancer, dementia is admitted for AMS, UTI, ARLENE, and CHF. UTI -multiples episodes of UTI in the past -Per chart; ESBL in 07/2018 -sensitivities reviewed -UA pos, pending Ucx -will treat with stacey and cipro at this time (renal dosing) -consider ID consult AMS -multifactorial -likely 2/2 to demantia and infection -unknown baseline -c/w IVF and Abx Acute kidney Injury -acute on chronic -Chronic Kidney Disease Stage IV, GFR <15 -creatinine clearance 9 -c/w IVFs CHF -acute on chronic -asymptomatic, hx of recent treated pneumonia -CXR reviewed, pending reading -Echo 07/2018: EF 50-55% -pro-BNP 3000+ -1x dose of IV lasix Hyperkalemia -acute -1x dose of lasix -EKG pending, no changes noted on forming acid dumper -follow up AM labs Hx of pneumonia -treated recently -currently asymptomatic, breathing comfortably in RA -CXR questionable infiltrate noted, old VS new -follow up official CXR reading -COPD -Chronic -C/w home meds Hx of CAD -Chronic -C/w home meds Hypothyroidism -Continue with home medication -f/u TSH DVT Prophylaxis -SCDs <Jabari Bishop A - Last Filed: 10/01/18 08:38> Results - Vital Signs Recent Vital Signs: Last Vital Signs Temp 98.1 F 09/30/18 19:37 Pulse 49 L 10/01/18 06:44 Resp 19 10/01/18 06:44 BP 126/51 L 10/01/18 06:44 Pulse Ox 97 10/01/18 06:44 - Labs Result Diagrams: 09/30/18 21:20 09/30/18 21:20 Labs: Laboratory Results - last 24 hr 09/30/18 09/30/18 09/30/18 21:20 21:20 21:20 WBC 9.5 RBC 3.94 Hgb 12.5 D Hct 37.8 MCV 96.0 D MCH 31.8 H MCHC 33.1 RDW 16.0 H Plt Count 286 MPV 7.0 L Neut % (Auto) 56.0 Lymph % (Auto) 32.3 Frontier % (Auto) 9.5 Eos % (Auto) 1.6 Baso % (Auto) 0.6 Neut # (Auto) 5.3 Lymph # (Auto) 3.1 Frontier # (Auto) 0.9 H Eos # (Auto) 0.2 Baso # (Auto) 0.1 pO2 VBG pH VBG pCO2 VBG HCO3 VBG Total CO2 VBG O2 Sat (Calc) VBG Base Excess VBG Potassium Glucose Lactate FiO2 Sodium 139 Potassium 5.7 H Chloride 105 Carbon Dioxide 17 L Anion Gap 23 H BUN 52 H Creatinine 3.7 H Est GFR ( Amer) 14 Est GFR (Non-Af Amer) 12 POC Glucose (mg/dL) Random Glucose 85 Calcium 10.0 Total Bilirubin 0.5 AST 26 ALT 15 Alkaline Phosphatase 91 Troponin I < 0.0120 NT-Pro-B Natriuret Pep 3090 H Total Protein 8.4 H Albumin 4.2 Globulin 4.2 H Albumin/Globulin Ratio 1.0 Venous Blood Potassium Urine Color Urine Clarity Urine pH Ur Specific Kyle Urine Protein Urine Glucose (UA) Urine Ketones Urine Blood Urine Nitrate Urine Bilirubin Urine Urobilinogen Ur Leukocyte Esterase Urine RBC (Auto) Urine Microscopic WBC Ur Squamous Epith Cells Influenza Typ A,B (EIA) Negative for flu a/b 09/30/18 09/30/18 10/01/18 21:25 23:22 06:44 WBC RBC Hgb Hct MCV MCH MCHC RDW Plt Count MPV Neut % (Auto) Lymph % (Auto) Frontier % (Auto) Eos % (Auto) Baso % (Auto) Neut # (Auto) Lymph # (Auto) Frontier # (Auto) Eos # (Auto) Baso # (Auto) pO2 17 L VBG pH 7.25 L VBG pCO2 41 VBG HCO3 15.9 VBG Total CO2 19.3 L VBG O2 Sat (Calc) 28.6 L VBG Base Excess -8.8 L VBG Potassium 5.7 H Glucose 86 Lactate 1.0 FiO2 21.0 Sodium 132.0 Potassium Chloride 103.0 Carbon Dioxide Anion Gap BUN Creatinine Est GFR ( Amer) Est GFR (Non-Af Amer) POC Glucose (mg/dL) 88 Random Glucose Calcium Total Bilirubin AST ALT Alkaline Phosphatase Troponin I NT-Pro-B Natriuret Pep Total Protein Albumin Globulin Albumin/Globulin Ratio Venous Blood Potassium 5.7 H Urine Color Colleen Urine Clarity Cloudy Urine pH 6.0 Ur Specific Kyle 1.017 Urine Protein 100 Urine Glucose (UA) Neg Urine Ketones Negative Urine Blood Large Urine Nitrate Positive H Urine Bilirubin Negative Urine Urobilinogen 4.0 H Ur Leukocyte Esterase Mod Urine RBC (Auto) 243 H Urine Microscopic WBC 1032 H Ur Squamous Epith Cells < 1 Influenza Typ A,B (EIA) Attending/Attestation - Attestation I have personally seen and examined this patient.: Yes I have fully participated in the care of the patient.: Yes I have reviewed all pertinent clinical information: Yes Notes (Text): 10/01/18 08:28 I saw, examined and discussed this patient with Dr Barragan. I agree with the Assessment and plan outlined. This is an 82 years old female last discharged on 07/24/18 with diagnosis of ESBL E. Coli UTI and on antibiotics to finish 10 days of treatment. She is brought to the ED today because of Altgered Mental Status lower abdominal pain , nausea and headache. The urine analysis indicate UTI and with the Pelvic pain this patient probably has Cystitis. There is new elevation in creatinine and BUN along with Hyperkalemia. We will treat the UTI with Meropenem and Cipro both of which the previous E Coli was sensitive. IV Fluids for The Acute on Chronic Kidney Disease. 50% dextrose with IV Regular insulin, Sodium bicarbonate and Kayexalate for the Hyperkalemia Teat COPD and Hypothyroidism Jabari Bishop MD
[2018-10-01] MEDS ORDERED: Azithromycin 500 MG IV IVPB ONE (01:34)
[2018-10-01] MEDS: Meropenem 500 MG in Sodium Chloride 0.9% 100 ML IVPB SCH ×2 (04:12→18:17)
[2018-10-01] MEDS ORDERED: Dextrose 50% SYRINGE Inj (50 ml) IVP ONE (08:11)
[2018-10-01] MEDS ORDERED: Insulin Regular 100 units/ml SC STA (08:12)
[2018-10-01] MEDS ORDERED: Sodium Bicarbonate (8.4%) 50 Meq Syringe IVP STA (08:15)
[2018-10-01] MEDS ORDERED: Sod Polystyrene Sulf 15 gm/60 ml Susp PO ONE (08:15)
[2018-10-01] MEDS: Levothyroxine 150 MCG TAB PO SCH (08:27)
[2018-10-01] MEDS ORDERED: DRONABINOL PO SCH (09:00)
[2018-10-01] MEDS ORDERED: Ciprofloxacin 400mg/200ml D5W 400 MG/200 ML BAG IVPB SCH (09:00)
[2018-10-01] MEDS ORDERED: Metoprolol Succinate 25 mg XL Tab PO SCH (09:00)
[2018-10-01] MEDS ORDERED: Dextrose 50% SYRINGE Inj (50 ml) ONE (09:55)
[2018-10-01] MEDS ORDERED: Insulin Regular 100 units/ml ONE (09:56)
[2018-10-01] MEDS: Sodium Chloride 0.9% 1,000 ML IV SCH ×2 (10:02→18:21)
[2018-10-01] MEDS ORDERED: Ciprofloxacin 400mg/200ml D5W 400 MG/200 ML BAG IVPB ONE (10:36)
[2018-10-01] MEDS ORDERED: Sodium Bicarbonate (8.4%) 50 Meq Syringe ONE (10:36)
--- NOTE | 2018-10-01 11:02 | CP.PCM.PN ---
Subjective - Date & Time of Evaluation Date of Evaluation: 10/01/18 Time of Evaluation: 08:00 - Subjective Subjective: Patient is seen and examined at bedside today. Patient have no acute event overnight. She still complainin of abdominal pain in the umbilical area, with no change. Denies chest pain, fever, chills, n/v/d/c, back pain, dysuria. Objective - Vital Signs/Intake and Output Vital Signs (last 24 hours): Temp Pulse Resp BP Pulse Ox 98.1 F 56 L 19 152/76 H 98 09/30/18 19:37 10/01/18 10:03 10/01/18 10:03 10/01/18 10:03 10/01/18 10:03 - Medications Medications: Current Medications Acetaminophen (Tylenol 325mg Tab) 650 mg PO Q6 PRN PRN Reason: Pain, moderate (4-7) Last Admin: 10/01/18 09:56 Dose: 650 mg Acetaminophen (Tylenol 325mg Tab) 650 mg PO Q6 PRN PRN Reason: Fever >100.4 F Atorvastatin Calcium (Lipitor) 10 mg PO HS [facility] Calcium Carbonate (Oscal) 500 mg PO BID [facility] Last Admin: 10/01/18 10:10 Dose: 500 mg Clopidogrel Bisulfate (Plavix) 75 mg PO DAILY [facility] Last Admin: 10/01/18 10:39 Dose: 75 mg Famotidine (Pepcid) 20 mg PO BID [facility] Last Admin: 10/01/18 10:10 Dose: 20 mg Home Med (Dronabinol [Marinol]) 1 cap PO BID [facility] Ciprofloxacin (Cipro 400mg/200ml Dsw) 400 mg in 200 mls @ 200 mls/hr IVPB DAILY [facility]; Protocol Last Admin: 10/01/18 10:40 Dose: 200 mls/hr Meropenem 500 mg/ Sodium (Chloride) 100 mls @ 100 mls/hr IVPB Q12H [facility]; Protocol Stop: 10/01/18 14:59 Last Admin: 10/01/18 04:12 Dose: 100 mls/hr Sodium Chloride (Sodium Chloride 0.9%) 1,000 mls @ 100 mls/hr IV .Q10H [facility] Stop: 10/02/18 04:14 Last Admin: 10/01/18 10:02 Dose: 100 mls/hr Levothyroxine Sodium (Synthroid) 150 mcg PO DAILY@0630 [facility] Last Admin: 10/01/18 08:27 Dose: 150 mcg Lorazepam (Ativan) 1 mg PO HS [facility] Metoprolol Succinate (Toprol Xl) 25 mg PO DAILY [facility] Montelukast Sodium (Singulair) 10 mg PO HS [facility] - Labs Labs: 09/30/18 21:20 09/30/18 21:20 - Constitutional Appears: Well, Non-toxic, No Acute Distress - Head Exam Head Exam: ATRAUMATIC, NORMAL INSPECTION, NORMOCEPHALIC - Eye Exam Eye Exam: EOMI, Normal appearance, PERRL Pupil Exam: NORMAL ACCOMODATION, PERRL - ENT Exam ENT Exam: Mucous Membranes Moist, Normal Exam - Neck Exam Neck Exam: Full ROM, Normal Inspection - Respiratory Exam Respiratory Exam: Clear to Ausculation Bilateral, NORMAL BREATHING PATTERN - Cardiovascular Exam Cardiovascular Exam: REGULAR RHYTHM, +S1, +S2 - GI/Abdominal Exam GI & Abdominal Exam: Soft, Normal Bowel Sounds - Extremities Exam Extremities Exam: Full ROM, Normal Capillary Refill, Normal Inspection - Back Exam Back Exam: NORMAL INSPECTION - Neurological Exam Neurological Exam: Alert, Awake, Oriented x3 - Psychiatric Exam Psychiatric exam: Normal Affect, Normal Mood - Skin Skin Exam: Dry, Intact, Normal Color, Warm Assessment and Plan - Assessment and Plan (Free Text) Assessment: 87 yo female with PMH of COPD< CHF, hx of recurrent UTI with hemorrhagic cystitis, diverticulitis, CAD (stent x2, 10 years [employer]), and colon cancer, dementia is admitted for AMS, UTI, ARLENE, and CHF. UTI -multiples episodes of UTI in the past -Per chart; ESBL in 07/2018 -sensitivities reviewed -UA pos, F/U Culture - meropenom day 2 -Cipro at this time (renal dosing) day 2 -consider ID consult Hyperkalemia potassium of 5.7 Start Kayexilate Calcium carbonate F/U BMP AMS -multifactorial -likely 2/2 to demantia and infection -unknown baseline -continue fluid and Abx Acute kidney Injury -acute on chronic BUN/Cr 52/3.7 -Chronic Kidney Disease Stage IV, GFR <15 -creatinine clearance 9 -Continue IVFs F/U BMP CHF -acute on chronic -asymptomatic, hx of recent treated pneumonia -CXR reviewed, pending reading -Echo 07/2018: EF 50-55% -pro-BNP 3000+ -1x dose of IV lasix Hx of pneumonia -treated recently -currently asymptomatic, breathing comfortably in RA -CXR questionable infiltrate noted, old VS new -follow up official CXR reading -COPD -Chronic -Continue home meds Hx of CAD -Chronic -Continue home meds Hypothyroidism -Continue with home medication -f/u TSH DVT Prophylaxis -SCDs
--- NOTE | 2018-10-01 11:53 | RAD ---
Date of service: 09/30/2018 HISTORY: Possible admission COMPARISON: Comparison chest 07/16/2018 TECHNIQUE: 1 view obtained. FINDINGS: LUNGS: Previously noted bibasilar atelectasis/infiltrates improved there may be some residual atelectasis and or scarring right lung base. The interstitial markings are increased and coarsened; rule out sequela of reactive/inflammatory airway disease or viral illness. PLEURA: No significant pleural effusion identified, no pneumothorax apparent. CARDIOVASCULAR: Suspect minor aortic atherosclerotic calcification present. Normal cardiac size. No pulmonary vascular congestion. OSSEOUS STRUCTURES: No significant abnormalities. VISUALIZED UPPER ABDOMEN: Normal. OTHER FINDINGS: None. IMPRESSION: Previously noted bibasilar atelectasis/infiltrates improved there may be some residual atelectasis and or scarring right lung base. The interstitial markings are increased and coarsened; rule out sequela of reactive/inflammatory airway disease or viral illness.
--- NOTE | 2018-10-01 14:24 | CP.PCM.CON ---
History of Present Illness - History of Present Illness History of Present Illness: 87 y/o female brought in by BLS for evaluation of altered mental status Her son reported patient had a change in behavior today and is currently being treated for a UTI. 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), 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 Bilat TKR Review of Systems - Review of Systems All systems: reviewed and no additional remarkable complaints except - Constitutional Constitutional: As Per HPI - EENT Eyes: absent: As Per HPI, Blind Spots, Blurred Vision, Change in Vision, Decreased Night Vision, Diplopia, Discharge, Dry Eye, Exophthalmos, Floaters, Irritation, Itchy Eyes, Loss of Peripheral Vision, Pain, Photophobia, Requires Corrective Lenses, Sees Flashes, Spots in Vision, Tunnel Vision, Other Visual Disturbances, Loss of Vision, Other Ears: absent: As Per HPI, Decreased Hearing, Ear Discharge, Ear Pain, Tinnitus, Abnormal Hearing, Disequilibrium, Dizziness, Other Nose/Mouth/Throat: absent: As Per HPI, Epistaxis, Nasal Congestion, Nasal Discharge, Nasal Obstruction, Nasal Trauma, Nose Pain, Post Nasal Drip, Sinus Pain, Sinus Pressure, Bleeding Gums, Change in Voice, Dental Pain, Dry Mouth, Dysphagia, Halitosis, Hoarsness, Lip Swelling, Mouth Lesions, Mouth Pain, Odynophagia, Sore Throat, Throat Swelling, Tongue Swelling, Facial Pain, Neck Pain, Neck Mass, Other - Breasts Breasts: absent: As Per HPI, Change in Shape, Mass, Pain, Nipple Discharge, Nipple Inversion, Skin Changes, Swelling, Other - Cardiovascular Cardiovascular: absent: As Per HPI, Acrocyanosis, Chest Pain, Chest Pain at Rest, Chest Pain with Activity, Claudication, Diaphoresis, Dyspnea, Dyspnea on Exertion, Edema, Irregular Heart Rhythm, Pain Radiating to Arm/Neck/Jaw, Leg Edema, Leg Ulcers, Lightheadedness, Orthopnea, Palpitations, Paroxysmal Nocturnal Dyspnea, Pedal Edema, Radiating Pain, Rapid Heart Rate, Slow Heart Rate, Syncope, Other - Respiratory Respiratory: absent: As Per HPI, Cough, Dyspnea, Hemoptysis, Dyspnea on Exertion, Wheezing, Snoring, Stridor, Pain on Inspiration, Chest Congestion, Excessive Mucous Production, Change in Mucous Color, Pain with Coughing, Other - Gastrointestinal Gastrointestinal: absent: As Per HPI, Abdominal Pain, Belching, Bloating, Change in Bowel Habits, Change in Stool Character, Coffee Ground Emesis, Constipation, Cramping, Diarrhea, Dyspepsia, Dysphagia, Early Satiety, Excessive Flatus, Fecal Incontinence, Heartburn, Hematemesis, Hematochezia, Loose Stools, Melena, Nausea, Odynophagia, Temesmus, Vomiting, Other - Genitourinary Genitourinary: As Per HPI - Reproductive: Female Reproductive:Female: absent: As Per HPI, Amenorrhea, Amenorrhea/ Control, Currently Menstual, Cycle <21 Days, Cycle >35 Days, Cycle Variable, Menses 1-7 Days, Menses >/= 8 Days, Menses Variable, Cycle > 4 Weeks Between, No Menses for 6 Months, Heavy Menses, Light Menses, Normal Menses, Spotting Between Cycles, S/P Hysterectomy, Menopausal, Post Menopausal, Premenarche, Abnormal Vaginal Bleeding, Dysmenorrhea, Dyspareunia, Genital Lesions, Genital Pruritis, Pelvic Pain, Prolapse Symptoms, Sexual Dysfunction, Vaginal Discharge, Vaginal Dryness, Vaginal Odor, Vaginal Pruritis, Other - Menstruation Menstruation: absent: As Per HPI, Amenorrhea, Amenorrhea/ Control, Currently Menstual, Cycle <21 Days, Cycle >35 Days, Cycle Variable, Menses 1-7 Days, Menses >/= 8 Days, Menses Variable, Cycle > 4 Weeks Between, No Menses for 6 Months, Heavy Menses, Light Menses, Normal Menses, Spotting Between Cycles, S/P Hysterectomy, Menopausal, Post Menopausal, Premenarche, Abnormal Vaginal Bleeding, Dysmenorrhea, Other - Musculoskeletal Musculoskeletal: absent: As Per HPI, Abnormal Gait, Arthralgias, Atrophy, Back Pain, Deformity, Joint Swelling, Limited Range of Motion, Loss of Height, Muscle Cramps, Muscle Weakness, Myalgias, Neck Pain, Numbness, Radiating Pain into Limb, Stiffness, Tingling, Other - Integumentary Integumentary: absent: As Per HPI, Acne, Alopecia, Bleeding Lesions, Change in Hair, Change in Nails, Change in Pigmentation, Changing Lesions, Dry Skin, Erythema, Furuncle, Hirsutism, Lesions, New Lesions, Non-Healing Lesions, Photosensitivity, Pruritus, Rash, Skin Pain, Skin Ulcer, Sores, Striae, Swelling, Unusual Bruising, Wounds, Jaundice, Other - Neurological Neurological: As Per HPI - Psychiatric Psychiatric: absent: As Per HPI, Abnormal Sleep Pattern, Anhedonia, Anxiety, Auditory Hallucinations, Behavioral Changes, Change in Appetite, Change in Libido, Confusion, Depression, Difficulty Concentrating, Hallucinations, Homicidal Ideation, Hopelessness, Irritability, Memory Loss, Mood Swings, Panic Attacks, Paranoia, Suicidal Ideation, Visual Hallucinations, Tactile Hallucinations, Other - Endocrine Endocrine: absent: As Per HPI, Change in Body Appearance, Change in Libido, Cold Intolorance, Deepening of Voice, Excessive Sweating, Fatigue, Flushing, Heat Intolorance, Increase in Ring/Shoe/Hat Size, Palpitations, Polydipsia, Polyphagia, Polyuria, Other - Hematologic/Lymphatic Hematologic: absent: As Per HPI, Easy Bleeding, Easy Bruising, Lymphadenopathy, Other Past Patient History - Infectious Disease Hx of Infectious Diseases: None - Tetanus Immunizations Tetanus Immunization: Unknown - Past Medical History & Family History Past Medical History?: Yes - Past Social History Smoking Status: Former Smoker Home Situation {Lives}: With Family - CARDIAC Hx Congestive Heart Failure: Yes Hx Hypercholesterolemia: Yes Hx Hypertension: Yes - PULMONARY Hx Asthma: Yes Hx Chronic Obstructive Pulmonary Disease (COPD): Yes Hx Pneumonia: Yes - NEUROLOGICAL Hx Neurological Disorder: No - HEENT Hx HEENT Problems: Yes - RENAL Hx Chronic Kidney Disease: Yes - ENDOCRINE/METABOLIC Hx Hypothyroidism: Yes - HEMATOLOGICAL/ONCOLOGICAL Hx Anemia: Yes Hx Human Immunodeficiency Virus (HIV): No - INTEGUMENTARY Hx Dermatological Problems: No - MUSCULOSKELETAL/RHEUMATOLOGICAL Hx Arthritis: Yes - GASTROINTESTINAL Hx Diverticulitis: Yes Hx Gastritis: Yes - GENITOURINARY/GYNECOLOGICAL Hx Genitourinary Disorders: No - PSYCHIATRIC Hx Anxiety: Yes Hx Depression: Yes - SURGICAL HISTORY Hx Appendectomy: Yes Hx Cholecystectomy: Yes 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, 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) Hx 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: Yes - ANESTHESIA Hx Anesthesia: Yes Hx Anesthesia Reactions: No Hx Malignant Hyperthermia: No Meds Allergies/Adverse Reactions: Allergies Allergy/AdvReac Type Severity Reaction Status Date / Time No Known Allergies Allergy Verified 09/30/18 19:37 - Medications Medications: Current Medications Acetaminophen (Tylenol 325mg Tab) 650 mg PO Q6 PRN PRN Reason: Pain, moderate (4-7) Last Admin: 10/01/18 09:56 Dose: 650 mg Acetaminophen (Tylenol 325mg Tab) 650 mg PO Q6 PRN PRN Reason: Fever >100.4 F Atorvastatin Calcium (Lipitor) 10 mg PO HS [facility] Calcium Carbonate (Oscal) 500 mg PO BID [facility] Last Admin: 10/01/18 10:10 Dose: 500 mg Clopidogrel Bisulfate (Plavix) 75 mg PO DAILY [facility] Last Admin: 10/01/18 10:39 Dose: 75 mg Famotidine (Pepcid) 20 mg PO BID [facility] Last Admin: 10/01/18 10:10 Dose: 20 mg Home Med (Dronabinol [Marinol]) 1 cap PO BID [facility] Ciprofloxacin (Cipro 400mg/200ml Dsw) 400 mg in 200 mls @ 200 mls/hr IVPB DAILY [facility]; Protocol Last Admin: 10/01/18 10:40 Dose: 200 mls/hr Meropenem 500 mg/ Sodium (Chloride) 100 mls @ 100 mls/hr IVPB Q12H [facility]; Protocol Stop: 10/01/18 14:59 Last Admin: 10/01/18 04:12 Dose: 100 mls/hr Sodium Chloride (Sodium Chloride 0.9%) 1,000 mls @ 100 mls/hr IV .Q10H [facility] Stop: 10/02/18 04:14 Last Admin: 10/01/18 10:02 Dose: 100 mls/hr Levothyroxine Sodium (Synthroid) 150 mcg PO DAILY@0630 [facility] Last Admin: 10/01/18 08:27 Dose: 150 mcg Lorazepam (Ativan) 1 mg PO HS [facility] Metoprolol Succinate (Toprol Xl) 25 mg PO DAILY [facility] Montelukast Sodium (Singulair) 10 mg PO HS [facility] Physical Exam - Constitutional Appears: Non-toxic, No Acute Distress, Confused, Cachectic, Chronically Ill - Head Exam Head Exam: ATRAUMATIC, NORMAL INSPECTION, NORMOCEPHALIC - Eye Exam Eye Exam: absent: Scleral icterus - ENT Exam ENT Exam: Mucous Membranes Dry, Normal External Ear Exam, Normal Oropharynx - Neck Exam Neck exam: Negative for: Lymphadenopathy, Thyromegaly - Respiratory Exam Respiratory Exam: Decreased Breath Sounds, Clear to Auscultation Bilateral - Cardiovascular Exam Cardiovascular Exam: REGULAR RHYTHM, +S1, +S2 - GI/Abdominal Exam GI & Abdominal Exam: Diminished Bowel Sounds, Soft. absent: Tenderness - Rectal Exam Rectal Exam: Deferred - Exam Exam: NORMAL INSPECTION - Extremities Exam Extremities exam: Positive for: pedal pulses present. Negative for: calf tenderness, pedal edema, tenderness - Back Exam Back exam: absent: CVA tenderness (L), CVA tenderness (R), paraspinal tenderness - Neurological Exam Neurological exam: Alert, CN II-XII Intact, Oriented x3 - Psychiatric Exam Psychiatric exam: Depressed - Skin Skin Exam: Dry, Intact Results - Vital Signs Recent Vital Signs: Last Vital Signs Temp 98.1 F 09/30/18 19:37 Pulse 56 L 10/01/18 10:03 Resp 19 10/01/18 10:03 BP 152/76 H 10/01/18 10:03 Pulse Ox 98 10/01/18 10:03 - Labs Result Diagrams: 09/30/18 21:20 09/30/18 21:20 Labs: Laboratory Results - last 24 hr 09/30/18 09/30/18 09/30/18 21:20 21:20 21:20 WBC 9.5 RBC 3.94 Hgb 12.5 D Hct 37.8 MCV 96.0 D MCH 31.8 H MCHC 33.1 RDW 16.0 H Plt Count 286 MPV 7.0 L Neut % (Auto) 56.0 Lymph % (Auto) 32.3 [place] % (Auto) 9.5 Eos % (Auto) 1.6 Baso % (Auto) 0.6 Neut # (Auto) 5.3 Lymph # (Auto) 3.1 [place] # (Auto) 0.9 H Eos # (Auto) 0.2 Baso # (Auto) 0.1 pO2 VBG pH VBG pCO2 VBG HCO3 VBG Total CO2 VBG O2 Sat (Calc) VBG Base Excess VBG Potassium Glucose Lactate FiO2 Sodium 139 Potassium 5.7 H Chloride 105 Carbon Dioxide 17 L Anion Gap 23 H BUN 52 H Creatinine 3.7 H Est GFR ( Amer) 14 Est GFR (Non-Af Amer) 12 POC Glucose (mg/dL) Random Glucose 85 Calcium 10.0 Total Bilirubin 0.5 AST 26 ALT 15 Alkaline Phosphatase 91 Troponin I < 0.0120 NT-Pro-B Natriuret Pep 3090 H Total Protein 8.4 H Albumin 4.2 Globulin 4.2 H Albumin/Globulin Ratio 1.0 Venous Blood Potassium Urine Color Urine Clarity Urine pH Ur Specific [place] Urine Protein Urine Glucose (UA) Urine Ketones Urine Blood Urine Nitrate Urine Bilirubin Urine Urobilinogen Ur Leukocyte Esterase Urine RBC (Auto) Urine Microscopic WBC Ur Squamous Epith Cells Influenza Typ A,B (EIA) Negative for flu a/b 09/30/18 09/30/18 10/01/18 21:25 23:22 06:44 WBC RBC Hgb Hct MCV MCH MCHC RDW Plt Count MPV Neut % (Auto) Lymph % (Auto) [place] % (Auto) Eos % (Auto) Baso % (Auto) Neut # (Auto) Lymph # (Auto) [place] # (Auto) Eos # (Auto) Baso # (Auto) pO2 17 L VBG pH 7.25 L VBG pCO2 41 VBG HCO3 15.9 VBG Total CO2 19.3 L VBG O2 Sat (Calc) 28.6 L VBG Base Excess -8.8 L VBG Potassium 5.7 H Glucose 86 Lactate 1.0 FiO2 21.0 Sodium 132.0 Potassium Chloride 103.0 Carbon Dioxide Anion Gap BUN Creatinine Est GFR ( Amer) Est GFR (Non-Af Amer) POC Glucose (mg/dL) 88 Random Glucose Calcium Total Bilirubin AST ALT Alkaline Phosphatase Troponin I NT-Pro-B Natriuret Pep Total Protein Albumin Globulin Albumin/Globulin Ratio Venous Blood Potassium 5.7 H Urine Color [place] Urine Clarity Cloudy Urine pH 6.0 Ur Specific [place] 1.017 Urine Protein 100 Urine Glucose (UA) Neg Urine Ketones Negative Urine Blood Large Urine Nitrate Positive H Urine Bilirubin Negative Urine Urobilinogen 4.0 H Ur Leukocyte Esterase Mod Urine RBC (Auto) 243 H Urine Microscopic WBC 1032 H Ur Squamous Epith Cells < 1 Influenza Typ A,B (EIA) Assessment & Plan (1) UTI (urinary tract infection) Status: Acute (2) Acute on chronic kidney failure Status: Acute (3) Pneumonia Status: Acute - Assessment and Plan (Free Text) Assessment: 87 y/o female brought in by BLS for evaluation of altered mental status Her son reported patient had a change in behavior today and is currently being treated for a UTI. ID consulted for antibiotic management- Hx of ESBL UTI in past Started on IV Merrem cultures pending
--- NOTE | 2018-10-01 16:35 | CARD ---
APPROVED REPORT Date of service: 10/01/2018 EKG Measurement Heart [id number] <Conclusion> Sinus bradycardia Otherwise normal ECG
--- NOTE | 2018-10-02 06:59 | CP.PCM.PN ---
Subjective - Date & Time of Evaluation Date of Evaluation: 10/02/18 Time of Evaluation: 06:58 - Subjective Subjective: Patient seen and examined at bedside. No acute event overnight. Patient refusing medication, treatment, blood withdraw this is likely due to her dementia. information taken from nurse, no event overnight overnight. Spoke with son Joseph today, he is in denial of patient condition, I explained that patient have dementia, and no sign of infection noted. Patient can be discharged home or be sent for correction. Her son understand and will think about it. Objective - Vital Signs/Intake and Output Vital Signs (last 24 hours): Temp Pulse Resp BP Pulse Ox 98.4 F 71 20 102/58 L 93 L 10/02/18 00:47 10/02/18 00:47 10/02/18 00:47 10/02/18 00:47 10/02/18 00:47 - Medications Medications: Current Medications Acetaminophen (Tylenol 325mg Tab) 650 mg PO Q6 PRN PRN Reason: Pain, moderate (4-7) Last Admin: 10/01/18 09:56 Dose: 650 mg Acetaminophen (Tylenol 325mg Tab) 650 mg PO Q6 PRN PRN Reason: Fever >100.4 F Atorvastatin Calcium (Lipitor) 10 mg PO HS [facility] Last Admin: 10/01/18 21:03 Dose: 10 mg Calcium Carbonate (Oscal) 500 mg PO BID [facility] Last Admin: 10/01/18 17:57 Dose: 500 mg Clopidogrel Bisulfate (Plavix) 75 mg PO DAILY [facility] Last Admin: 10/01/18 10:39 Dose: 75 mg Famotidine (Pepcid) 20 mg PO BID [facility] Last Admin: 10/01/18 17:58 Dose: 20 mg Home Med (Dronabinol [Marinol]) 1 cap PO BID [facility] Ciprofloxacin (Cipro 400mg/200ml Dsw) 400 mg in 200 mls @ 200 mls/hr IVPB DAILY [facility]; Protocol Meropenem 500 mg/ Sodium (Chloride) 100 mls @ 100 mls/hr IVPB Q12 [facility]; Protocol Stop: 10/02/18 21:59 Levothyroxine Sodium (Synthroid) 150 mcg PO DAILY@0630 [facility] Last Admin: 10/01/18 08:27 Dose: 150 mcg Lorazepam (Ativan) 1 mg PO HS [facility] Last Admin: 10/01/18 21:03 Dose: 1 mg Metoprolol Succinate (Toprol Xl) 25 mg PO DAILY [facility] Montelukast Sodium (Singulair) 10 mg PO HS [facility] Last Admin: 10/01/18 21:04 Dose: 10 mg - Labs Labs: 09/30/18 21:20 09/30/18 21:20 - Constitutional Appears: Well, No Acute Distress - Eye Exam Eye Exam: EOMI, Normal appearance, PERRL Pupil Exam: NORMAL ACCOMODATION, PERRL - Respiratory Exam Respiratory Exam: Clear to Ausculation Bilateral, NORMAL BREATHING PATTERN - Cardiovascular Exam Cardiovascular Exam: REGULAR RHYTHM, +S1, +S2 - GI/Abdominal Exam GI & Abdominal Exam: Soft, Normal Bowel Sounds - Neurological Exam Neurological Exam: Altered - Skin Skin Exam: Dry, Intact, Normal Color, Warm Assessment and Plan - Assessment and Plan (Free Text) Assessment: 87 yo female with PMH of COPD< CHF, hx of recurrent UTI with hemorrhagic cystitis, diverticulitis, 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 UTI resolved/chronic bacteriuria Culture Gram positive cocci multiples episodes of UTI in the past sensitivities reviewed - meropenom day 3 -Cipro(renal dosing) day 3 -consider ID consult Hyperkalemia potassium 5.7 Unable to Collect blood due to patient combative and refusing AMS -multifactorial -likely 2/2 to demantia = Acute kidney Injury -acute on chronic BUN/Cr 52/3.7 -Chronic Kidney Disease Stage IV, GFR <15 -creatinine clearance 9 -Continue IVFs -unable to collect blood due to refusing CHF -acute on chronic -asymptomatic, hx of recent treated pneumonia -CXR reviewed, pending reading -Echo 07/2018: EF 50-55% -pro-BNP 3000+ -1x dose of IV lasix Hx of pneumonia -treated recently -currently asymptomatic, breathing comfortably in RA -CXR questionable infiltrate noted, old VS new -follow up official CXR reading -COPD -Chronic -Continue home meds Hx of CAD -Chronic -Continue home meds Hypothyroidism -Continue with home medication -unable to collect blood DVT Prophylaxis -SCDs
[2018-10-02] MEDS: Meropenem 500 MG in Sodium Chloride 0.9% 100 ML IVPB SCH ×2 (09:48→20:20)
[2018-10-02] MEDS ORDERED: Ciprofloxacin 400mg/200ml D5W 400 MG/200 ML BAG IVPB SCH (10:00)
--- NOTE | 2018-10-02 18:15 | PQF ---
PROVIDER RESPONSE TEXT: No pneumonia this admission . Patient has UTI and AMS Refer to PMD documentation please REVIEWER QUERY TEXT: Conflicting Documentation Clarification A single mention or documentation of multiple diagnoses for the same clinical presentation appears in the record. Please clarify if the diagnosis of Pneumonia is currently treated for this admission. ER: DX: UTI, Pneumonia ID: UTI, Acute on chronic kidney failure, Pneumonia Please also document if the condition is: -- Confirmed and current -- Confirmed, treated and resolved -- Ruled out -- Other, please specify The patient's Clinical Indicators include: Admitted with AMS, headache, abdominal pain, headache and productive cough. ER: DX: UTI, Pneumonia ID: UTI, Acute on chronic kidney failure, Pneumonia WBC 9.5, afebrile. CXR: Previously noted bibasilar atelectasis/infiltrates improved there may be some residual atelectas is and or scarring right lung base. The nterstitial markings are increased and coarsened; rule out se quela of reactive/inflammatory airway disease or viral illness. Rx: ER: [facility] Rx: Victoria Waterman Query created by: Katya Hooper on 10/02/2018 10:13 AM Electronically signed by: 10/02/2018 6:12 PM
--- NOTE | 2018-10-02 18:56 | PQF ---
PROVIDER RESPONSE TEXT: Most likely diastolic dysfunction REVIEWER QUERY TEXT: CHF Acuity and Type Acute on Chronic Congestive Heart Failure is documented in the Medical Record. Pro BNP 3090. Lasix IV given in the ER x 1. Please document the typeSuch as: Type: -- Systolic -- Diastolic -- Combined -- Other, please specify The patient's Clinical Indicators include: Admitted with AMS, abdominal pain, nausea, productive cough and headache. Pro BNP 3090 CXR: Previously noted bibasilar atelectasis/infiltrates improved there may be some residual atelectas is and or scarring right lung base. The interstitial markings are increased and coarsened; rule out sequela of reactive/inflammatory airway disease or viral illness. OLD ECHO from 07/12/2018: EF 50-55%, Grade I abnormal relaxation pattern. Rx: ER IV Lasix Query created by: Katya Hooper on 10/02/2018 10:00 AM Electronically signed by: 10/02/2018 6:53 PM
[2018-10-03] MEDS: Levothyroxine 150 MCG TAB PO SCH ×2 (06:06→06:08)
--- NOTE | 2018-10-03 14:14 | CP.PCM.PN ---
<Jed Winn - Last Filed: 10/03/18 14:11> Subjective - Date & Time of Evaluation Date of Evaluation: 10/03/18 Time of Evaluation: 07:00 - Subjective Subjective: Patient seen and examined at bedside. No acute event overnight patient still confused with dementia. As per nurse no new complains. Patient have no symptoms of concern. Objective - Vital Signs/Intake and Output Vital Signs (last 24 hours): Temp Pulse Resp BP Pulse Ox 97.7 F 59 L 20 122/62 98 10/03/18 08:58 10/03/18 08:58 10/03/18 08:58 10/03/18 08:58 10/03/18 08:58 - Medications Medications: Current Medications Acetaminophen (Tylenol 325mg Tab) 650 mg PO Q6 PRN PRN Reason: Pain, moderate (4-7) Last Admin: 10/01/18 09:56 Dose: 650 mg Acetaminophen (Tylenol 325mg Tab) 650 mg PO Q6 PRN PRN Reason: Fever >100.4 F Atorvastatin Calcium (Lipitor) 10 mg PO [facility] Last Admin: 10/02/18 21:49 Dose: 10 mg Calcium Carbonate (Oscal) 500 mg PO BID [facility] Last Admin: 10/03/18 09:03 Dose: Not Given Clopidogrel Bisulfate (Plavix) 75 mg PO DAILY [facility] Last Admin: 10/03/18 09:04 Dose: Not Given Famotidine (Pepcid) 20 mg PO BID [facility] Last Admin: 10/03/18 09:04 Dose: Not Given Levothyroxine Sodium (Synthroid) 150 mcg PO DAILY@0630 [facility] Last Admin: 10/03/18 06:08 Dose: Not Given Lorazepam (Ativan) 1 mg PO [facility] Last Admin: 10/02/18 21:49 Dose: 1 mg Metoprolol Succinate (Toprol Xl) 25 mg PO DAILY [facility] Montelukast Sodium (Singulair) 10 mg PO [facility] Last Admin: 10/02/18 21:49 Dose: 10 mg - Labs Labs: 09/30/18 21:20 09/30/18 21:20 - Constitutional Appears: Well, Non-toxic, No Acute Distress - Head Exam Head Exam: ATRAUMATIC, NORMAL INSPECTION, NORMOCEPHALIC - Eye Exam Eye Exam: EOMI, Normal appearance, PERRL Pupil Exam: NORMAL ACCOMODATION, PERRL - ENT Exam ENT Exam: Mucous Membranes Moist, Normal Exam - Neck Exam Neck Exam: Full ROM, Normal Inspection - Respiratory Exam Respiratory Exam: Clear to Ausculation Bilateral, NORMAL BREATHING PATTERN - Cardiovascular Exam Cardiovascular Exam: REGULAR RHYTHM, +S1, +S2 - GI/Abdominal Exam GI & Abdominal Exam: Soft, Normal Bowel Sounds - Neurological Exam Neurological Exam: Altered, Awake - Psychiatric Exam Psychiatric exam: Normal Affect, Normal Mood Assessment and Plan - Assessment and Plan (Free Text) Assessment: Assessment: 87 yo female with PMH of COPD< CHF, hx of recurrent UTI with hemorrhagic cystitis, diverticulitis, 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 AMS -multifactorial -likely 2/2 to demantia -Spoke to son, and gave him the new, son unsure if able to take care of her at home - Palliative care on case -PT evaluation pending UTI resolved/chronic bacteriuria Culture Gram positive cocci multiples episodes of UTI in the past sensitivities reviewed - meropenom day 4 -Cipro(renal dosing) day 5 -consider ID consult follow up recc Hyperkalemia potassium 5.7 Unable to Collect blood due to patient combative and refusing Acute kidney Injury -acute on chronic BUN/Cr 52/3.7 -Chronic Kidney Disease Stage IV, GFR <15 -creatinine clearance 9 -Continue IVFs -unable to collect blood due to refusing CHF -acute on chronic -asymptomatic, hx of recent treated pneumonia -CXR reviewed, pending reading -Echo 07/2018: EF 50-55% -pro-BNP 3000+ -1x dose of IV lasix Hx of pneumonia -treated recently -currently asymptomatic, breathing comfortably in RA -CXR questionable infiltrate noted, old VS new -follow up official CXR reading -COPD -Chronic -Continue home meds Hx of CAD -Chronic -Continue home meds Hypothyroidism -Continue with home medication -unable to collect blood DVT Prophylaxis -SCDs <Kimberlee Waters - Last Filed: 10/03/18 14:30> Objective - Vital Signs/Intake and Output Vital Signs (last 24 hours): Temp Pulse Resp BP Pulse Ox 97.7 F 59 L 20 122/62 98 10/03/18 08:58 10/03/18 08:58 10/03/18 08:58 10/03/18 08:58 10/03/18 08:58 - Medications Medications: Current Medications Acetaminophen (Tylenol 325mg Tab) 650 mg PO Q6 PRN PRN Reason: Pain, moderate (4-7) Last Admin: 10/01/18 09:56 Dose: 650 mg Acetaminophen (Tylenol 325mg Tab) 650 mg PO Q6 PRN PRN Reason: Fever >100.4 F Atorvastatin Calcium (Lipitor) 10 mg PO HS [facility] Last Admin: 10/02/18 21:49 Dose: 10 mg Calcium Carbonate (Oscal) 500 mg PO BID [facility] Last Admin: 10/03/18 09:03 Dose: Not Given Clopidogrel Bisulfate (Plavix) 75 mg PO DAILY [facility] Last Admin: 10/03/18 09:04 Dose: Not Given Famotidine (Pepcid) 20 mg PO BID [facility] Last Admin: 10/03/18 09:04 Dose: Not Given Dextrose/Sodium Chloride (Dextrose 5%/0.45% Ns 1000 Ml) 1,000 mls @ 70 mls/hr IV .[id number] [facility] Stop: 10/04/18 14:26 Levothyroxine Sodium (Synthroid) 150 mcg PO DAILY@0630 [facility] Last Admin: 10/03/18 06:08 Dose: Not Given Lorazepam (Ativan) 1 mg PO [facility] Last Admin: 10/02/18 21:49 Dose: 1 mg Metoprolol Succinate (Toprol Xl) 25 mg PO DAILY [facility] Montelukast Sodium (Singulair) 10 mg PO [facility] Last Admin: 10/02/18 21:49 Dose: 10 mg - Labs Labs: 09/30/18 21:20 09/30/18 21:20 Attending/Attestation - Attestation I have personally seen and examined this patient.: Yes I have fully participated in the care of the patient.: Yes I have reviewed all pertinent clinical information, including history, physical exam and plan: Yes Notes (Text): UTI - Enterococcus faecalis Dementia, prob Alzheimers ARLENE on CKD Stage IV Hyperkalemia - pt refuses rpt labs - refusing PO meds and poor PO intake -cont IV Meropenem -IVF hydration
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
[2018-10-03] MEDS: Dextrose 5%/0.45% NS 1,000 ML IV SCH (16:39)
[2018-10-04] MEDS: Dextrose 5%/0.45% NS 1,000 ML IV SCH (04:25)
[2018-10-04] MEDS: Levothyroxine 150 MCG TAB PO SCH (05:46)
[2018-10-04] MEDS: Lactobacillus Acidophilus 500 MU Cap PO SCH ×2 (10:25→16:58)
--- NOTE | 2018-10-04 11:34 | CP.PCM.PN ---
Subjective - Date & Time of Evaluation Date of Evaluation: 10/04/18 Time of Evaluation: 09:00 - Subjective Subjective: doing well 'afebrile 'in NAD Objective - Vital Signs/Intake and Output Vital Signs (last 24 hours): Temp Pulse Resp BP Pulse Ox 97.9 F 83 19 141/65 95 10/04/18 07:39 10/04/18 07:39 10/04/18 07:39 10/04/18 07:39 10/04/18 07:39 - Medications Medications: Current Medications Acetaminophen (Tylenol 325mg Tab) 650 mg PO Q6 PRN PRN Reason: Pain, moderate (4-7) Last Admin: 10/01/18 09:56 Dose: 650 mg Acetaminophen (Tylenol 325mg Tab) 650 mg PO Q6 PRN PRN Reason: Fever >100.4 F Atorvastatin Calcium (Lipitor) 10 mg PO [facility] Last Admin: 10/03/18 21:31 Dose: 10 mg Calcium Carbonate (Oscal) 500 mg PO BID [facility] Last Admin: 10/04/18 10:20 Dose: Not Given Clopidogrel Bisulfate (Plavix) 75 mg PO DAILY [facility] Last Admin: 10/04/18 10:20 Dose: Not Given Famotidine (Pepcid) 20 mg PO BID [facility] Last Admin: 10/04/18 10:19 Dose: Not Given Dextrose/Sodium Chloride (Dextrose 5%/0.45% Ns 1000 Ml) 1,000 mls @ 70 mls/hr IV .[id number] [facility] Stop: 10/04/18 14:26 Last Admin: 10/04/18 04:25 Dose: 70 mls/hr Ampicillin Sodium/Sulbactam (Sodium 1.5 gm/ Sodium Chloride) 100 mls @ 100 mls/hr IVPB DAILY [facility]; Protocol Last Admin: 10/04/18 10:25 Dose: 100 mls/hr Lactobacillus Acidophilus (Bacid Acidophilus) 1 cap PO BID [facility] Last Admin: 10/04/18 10:25 Dose: Not Given Levothyroxine Sodium (Synthroid) 150 mcg PO DAILY@0630 [facility] Last Admin: 10/04/18 05:46 Dose: 150 mcg Lorazepam (Ativan) 1 mg PO [facility] Last Admin: 10/03/18 21:31 Dose: 1 mg Metoprolol Succinate (Toprol Xl) 25 mg PO DAILY [facility] Montelukast Sodium (Singulair) 10 mg PO HS [facility] Last Admin: 10/03/18 21:31 Dose: 10 mg - Labs Labs: 09/30/18 21:20 09/30/18 21:20 - Constitutional Appears: Confused, Cachectic, Chronically Ill - Head Exam Head Exam: ATRAUMATIC, NORMAL INSPECTION, NORMOCEPHALIC - Eye Exam Eye Exam: EOMI, Normal appearance, PERRL Pupil Exam: NORMAL ACCOMODATION, PERRL - ENT Exam ENT Exam: Mucous Membranes Moist, Normal Exam - Neck Exam Neck Exam: Full ROM, Normal Inspection. absent: Lymphadenopathy - Respiratory Exam Respiratory Exam: Clear to Ausculation Bilateral, NORMAL BREATHING PATTERN - Cardiovascular Exam Cardiovascular Exam: REGULAR RHYTHM, +S1, +S2. absent: Murmur - GI/Abdominal Exam GI & Abdominal Exam: Soft, Normal Bowel Sounds. absent: Tenderness - Rectal Exam Rectal Exam: Deferred - Exam Exam: NORMAL INSPECTION - Extremities Exam Extremities Exam: Full ROM, Normal Capillary Refill, Normal Inspection. absent: Joint Swelling, Pedal Edema - Back Exam Back Exam: NORMAL INSPECTION - Neurological Exam Neurological Exam: Alert, Awake, CN II-XII Intact. absent: Normal Gait, Oriented x3 - Psychiatric Exam Psychiatric exam: Depressed - Skin Skin Exam: Dry, Intact, Normal Color, Warm Assessment and Plan (1) UTI (urinary tract infection) Status: Acute (2) Acute on chronic kidney failure Status: Acute (3) Pneumonia Status: Acute - Assessment and Plan (Free Text) Assessment: cont IV then PO antibiotics
--- NOTE | 2018-10-04 13:13 | CP.PCM.DIS ---
Provider - Provider Date of Admission: 09/30/18 22:34 Attending physician: Jabari Bishop Consults: 10/01/18 08:34 Infectious Disease Consult Routine Comment: Consulting Provider: Ben Bahena Consulting Physician: Ben Bahena Reason for Consult: recurrent UTI 10/02/18 09:00 Wound Care [Nursing Referral for Wound Care] Routine Comment: incontinent of urine Physician Instructions: Reason For Exam: redness to lorena-area 10/03/18 11:58 Palliative Care [Nursing Referral for Palliative Care] Routine Comment: Consulting Provider: Melanie Mccrary Physician Instructions: Reason For Exam: dementia Hospital Course - Lab Results Lab Results: Micro Results 09/30/18 07:30 Blood-Venous Blood Culture - Preliminary NO GROWTH AFTER 3 DAYS 09/30/18 21:20 Blood-Venous Blood Culture - Preliminary NO GROWTH AFTER 3 DAYS 09/30/18 07:00 Urine,Clean Catch Urine Culture - Final Enterococcus Faecalis Most Recent Lab Values WBC 9.5 K/uL (4.8-10.8) 09/30/18 21:20 RBC 3.94 Mil/uL (3.80-5.20) 09/30/18 21:20 Hgb 12.5 g/dL (12.0-16.0) D 09/30/18 21:20 Hct 37.8 % (34.0-47.0) 09/30/18 21:20 MCV 96.0 fl (81.0-99.0) D 09/30/18 21:20 MCH 31.8 pg (27.0-31.0) H 09/30/18 21:20 MCHC 33.1 g/dL (33.0-37.0) 09/30/18 21:20 RDW 16.0 % (11.5-14.5) H 09/30/18 21:20 Plt Count 286 K/uL (130-400) 09/30/18 21:20 MPV 7.0 fl (7.2-11.7) L 09/30/18 21:20 Neut % (Auto) 56.0 % (50.0-75.0) 09/30/18 21:20 Lymph % (Auto) 32.3 % (20.0-40.0) 09/30/18 21:20 Loíza % (Auto) 9.5 % (0.0-10.0) 09/30/18 21:20 Eos % (Auto) 1.6 % (0.0-4.0) 09/30/18 21:20 Baso % (Auto) 0.6 % (0.0-2.0) 09/30/18 21:20 Neut # (Auto) 5.3 K/uL (1.8-7.0) 09/30/18 21:20 Lymph # (Auto) 3.1 K/uL (1.0-4.3) 09/30/18 21:20 Loíza # (Auto) 0.9 K/uL (0.0-0.8) H 09/30/18 21:20 Eos # (Auto) 0.2 K/uL (0.0-0.7) 09/30/18 21:20 Baso # (Auto) 0.1 K/uL (0.0-0.2) 09/30/18 21:20 pO2 17 mm/Hg (30-55) L 09/30/18 21:25 VBG pH 7.25 (7.32-7.43) L 09/30/18 21:25 VBG pCO2 41 mmHg (40-60) 09/30/18 21:25 VBG HCO3 15.9 mmol/L 09/30/18 21:25 VBG Total CO2 19.3 mmol/L (22-28) L 09/30/18 21:25 VBG O2 Sat (Calc) 28.6 % (40-65) L 09/30/18 21:25 VBG Base Excess -8.8 mmol/L (0.0-2.0) L 09/30/18 21:25 VBG Potassium 5.7 mmol/L (3.6-5.2) H 09/30/18 21:25 Sodium 132.0 mmol/L (132-148) 09/30/18 21:25 Chloride 103.0 mmol/L (98-107) 09/30/18 21:25 Glucose 86 mg/dL (65-105) 09/30/18 21:25 Lactate 1.0 mmol/L (0.7-2.1) 09/30/18 21:25 FiO2 21.0 % 09/30/18 21:25 Sodium 139 mmol/l (132-148) 03/23/19 21:20 Potassium 5.7 MMOL/L (3.6-5.0) H 09/30/18 21:20 Chloride 105 mmol/L (98-107) 09/30/18 21:20 Carbon Dioxide 17 mmol/L (22-30) L 09/30/18 21:20 Anion Gap 23 (10-20) H 09/30/18 21:20 BUN 52 mg/dl (7-17) H 09/30/18 21:20 Creatinine 3.7 mg/dl (0.7-1.2) H 09/30/18 21:20 Est GFR ( Amer) 14 09/30/18 21:20 Est GFR (Non-Af Amer) 12 09/30/18 21:20 POC Glucose (mg/dL) 106 mg/dL (65-110) 10/01/18 09:49 Random Glucose 85 mg/dL (65-105) 09/30/18 21:20 Calcium 10.0 mg/dL (8.4-10.2) 09/30/18 21:20 Total Bilirubin 0.5 mg/dl (0.2-1.3) 09/30/18 21:20 AST 26 U/L (14-36) 09/30/18 21:20 ALT 15 U/L (9-52) 09/30/18 21:20 Alkaline Phosphatase 91 U/L (38-126) 09/30/18 21:20 Troponin I < 0.0120 ng/mL (0.00-0.120) 09/30/18 21:20 NT-Pro-B Natriuret Pep 3090 pg/ml (0-900) H 09/30/18 21:20 Total Protein 8.4 G/DL (6.3-8.2) H 09/30/18 21:20 Albumin 4.2 g/dL (3.5-5.0) 09/30/18 21:20 Globulin 4.2 gm/dL (2.2-3.9) H 09/30/18 21:20 Albumin/Globulin Ratio 1.0 (1.0-2.1) 09/30/18 21:20 Venous Blood Potassium 5.7 mmol/L (3.6-5.2) H 09/30/18 21:25 Urine Color Colleen (YELLOW) 09/30/18 23:22 Urine Clarity Cloudy (Clear) 09/30/18 23:22 Urine pH 6.0 (5.0-8.0) 09/30/18 23:22 Ur Specific Chandler 1.017 (1.003-1.030) 09/30/18 23:22 Urine Protein 100 mg/dL (NEGATIVE) 09/30/18 23:22 Urine Glucose (UA) Neg mg/dL (NEGATIVE) 09/30/18 23:22 Urine Ketones Negative mg/dL (NEGATIVE) 09/30/18 23:22 Urine Blood Large (NEGATIVE) 09/30/18 23:22 Urine Nitrate Positive (NEGATIVE) H 09/30/18 23:22 Urine Bilirubin Negative (NEGATIVE) 09/30/18 23: Urine Urobilinogen 4.0 mg/dL (0.2-1.0) H 09/30/18 23:22 Ur Leukocyte Esterase Mod Ingrid/uL (Negative) 09/30/18 23:22 Urine RBC (Auto) 243 /hpf (0-3) H 09/30/18 23:22 Urine Microscopic WBC 1032 /hpf (0-5) H 09/30/18 23:22 Ur Squamous Epith Cells < 1 /hpf (0-5) 09/30/18 23:22 Influenza Typ A,B (EIA) Negative for flu a/b (NEGATIVE) 09/30/18 21:20 Discharge Exam - Head Exam Head Exam: ATRAUMATIC, NORMAL INSPECTION, NORMOCEPHALIC Discharge Plan - Discharge Medications Prescriptions: AMPicillin [Ampicillin] 500 mg PO TID #30 cap - Follow Up Plan Condition: FAIR Disposition: HOME/ ROUTINE Instructions: Urinary Tract Infection, Adult (DC), Community-Acquired Pneumonia, Adult (DC) Referrals: Ben Bahena MD [Staff Provider] - Sivan Haddad MD [Medical Doctor] -
--- NOTE | 2018-10-04 13:26 | CP.PCM.PN ---
<Jed Winn - Last Filed: 10/04/18 13:28> Subjective - Date & Time of Evaluation Date of Evaluation: 10/04/18 Time of Evaluation: 08:00 - Subjective Subjective: Patient seen and examined today at bedside. No acute event overnight. mental status same, she still refusing treatment and blood labs. Today it was able to feed her. Otherwise no new complains. Objective - Vital Signs/Intake and Output Vital Signs (last 24 hours): Temp Pulse Resp BP Pulse Ox 97.9 F 83 19 141/65 95 10/04/18 07:39 10/04/18 07:39 10/04/18 07:39 10/04/18 07:39 10/04/18 07:39 - Medications Medications: Current Medications Acetaminophen (Tylenol 325mg Tab) 650 mg PO Q6 PRN PRN Reason: Pain, moderate (4-7) Last Admin: 10/01/18 09:56 Dose: 650 mg Acetaminophen (Tylenol 325mg Tab) 650 mg PO Q6 PRN PRN Reason: Fever >100.4 F Atorvastatin Calcium (Lipitor) 10 mg PO HS [facility] Last Admin: 10/03/18 21:31 Dose: 10 mg Calcium Carbonate (Oscal) 500 mg PO BID [facility] Last Admin: 10/04/18 10:20 Dose: Not Given Clopidogrel Bisulfate (Plavix) 75 mg PO DAILY [facility] Last Admin: 10/04/18 10:20 Dose: Not Given Famotidine (Pepcid) 20 mg PO BID [facility] Last Admin: 10/04/18 10:19 Dose: Not Given Dextrose/Sodium Chloride (Dextrose 5%/0.45% Ns 1000 Ml) 1,000 mls @ 70 mls/hr IV .[id number] [facility] Stop: 10/04/18 14:26 Last Admin: 10/04/18 04:25 Dose: 70 mls/hr Ampicillin Sodium/Sulbactam (Sodium 1.5 gm/ Sodium Chloride) 100 mls @ 100 mls/hr IVPB DAILY [facility]; Protocol Last Admin: 10/04/18 10:25 Dose: 100 mls/hr Lactobacillus Acidophilus (Bacid Acidophilus) 1 cap PO BID [facility] Last Admin: 10/04/18 10:25 Dose: Not Given Levothyroxine Sodium (Synthroid) 150 mcg PO DAILY@0630 [facility] Last Admin: 10/04/18 05:46 Dose: 150 mcg Lorazepam (Ativan) 1 mg PO [facility] Last Admin: 10/03/18 21:31 Dose: 1 mg Metoprolol Succinate (Toprol Xl) 25 mg PO DAILY [facility] Montelukast Sodium (Singulair) 10 mg PO HS [facility] Last Admin: 10/03/18 21:31 Dose: 10 mg - Labs Labs: 09/30/18 21:20 09/30/18 21:20 - Constitutional Appears: Well, Non-toxic, No Acute Distress - Head Exam Head Exam: ATRAUMATIC, NORMAL INSPECTION, NORMOCEPHALIC - Eye Exam Eye Exam: EOMI, Normal appearance, PERRL Pupil Exam: NORMAL ACCOMODATION, PERRL - ENT Exam ENT Exam: Mucous Membranes Moist, Normal Exam - Neck Exam Neck Exam: Full ROM, Normal Inspection - Respiratory Exam Respiratory Exam: Clear to Ausculation Bilateral, NORMAL BREATHING PATTERN - Cardiovascular Exam Cardiovascular Exam: REGULAR RHYTHM, +S1, +S2 - GI/Abdominal Exam GI & Abdominal Exam: Soft, Normal Bowel Sounds - Neurological Exam Neurological Exam: Awake - Skin Skin Exam: Dry, Intact, Normal Color, Warm Assessment and Plan - Assessment and Plan (Free Text) Assessment: 87 yo female with PMH of COPD< CHF, hx of recurrent UTI with hemorrhagic cystitis, diverticulitis, CAD (stent x2, 10 years [employer]), and colon cancer, dementia is admitted for AMS, UTI, ARLENE, and CHF. AMS -multifactorial -likely 2/2 to demantia -Son is notified -Palliative care on case -Patient refused to be evaluated by PT UTI resolved/chronic bacteriuria Culture Gram positive cocci multiples episodes of UTI in the past sensitivities reviewed s/p meropenom , Cipro(renal dosing) started ampicillin -consider ID consult follow up recc Hyperkalemia potassium 5.7 Unable to Collect blood due to patient combative and refusing Acute kidney Injury -acute on chronic BUN/Cr 52/3.7 -Chronic Kidney Disease Stage IV, GFR <15 -creatinine clearance 9 -Continue IVFs -unable to collect blood due to refusing CHF -acute on chronic -asymptomatic, hx of recent treated pneumonia -CXR reviewed, pending reading -Echo 07/2018: EF 50-55% -pro-BNP 3000+ -1x dose of IV lasix Hx of pneumonia -treated recently -currently asymptomatic, breathing comfortably in RA -CXR questionable infiltrate noted, old VS new -follow up official CXR reading -COPD -Chronic -Continue home meds Hx of CAD -Chronic -Continue home meds Hypothyroidism -Continue with home medication -unable to collect blood DVT Prophylaxis -SCDs <Kimberlee Waters - Last Filed: 10/04/18 16:21> Objective - Vital Signs/Intake and Output Vital Signs (last 24 hours): Temp Pulse Resp BP Pulse Ox 98.1 F 61 20 118/67 97 10/04/18 16:06 10/04/18 16:06 10/04/18 16:06 10/04/18 16:06 10/04/18 16:06 - Medications Medications: Current Medications Acetaminophen (Tylenol 325mg Tab) 650 mg PO Q6 PRN PRN Reason: Pain, moderate (4-7) Last Admin: 10/01/18 09:56 Dose: 650 mg Acetaminophen (Tylenol 325mg Tab) 650 mg PO Q6 PRN PRN Reason: Fever >100.4 F Atorvastatin Calcium (Lipitor) 10 mg PO HS [facility] Last Admin: 10/03/18 21:31 Dose: 10 mg Calcium Carbonate (Oscal) 500 mg PO BID [facility] Last Admin: 10/04/18 10:20 Dose: Not Given Clopidogrel Bisulfate (Plavix) 75 mg PO DAILY [facility] Last Admin: 10/04/18 10:20 Dose: Not Given Famotidine (Pepcid) 20 mg PO BID [facility] Last Admin: 10/04/18 10:19 Dose: Not Given Ampicillin Sodium/Sulbactam (Sodium 1.5 gm/ Sodium Chloride) 100 mls @ 100 mls/hr IVPB DAILY [facility]; Protocol Last Admin: 10/04/18 10:25 Dose: 100 mls/hr Lactobacillus Acidophilus (Bacid Acidophilus) 1 cap PO BID [facility] Last Admin: 10/04/18 10:25 Dose: Not Given Levothyroxine Sodium (Synthroid) 150 mcg PO DAILY@0630 [facility] Last Admin: 10/04/18 05:46 Dose: 150 mcg Lorazepam (Ativan) 1 mg PO HS [facility] Last Admin: 10/03/18 21:31 Dose: 1 mg Metoprolol Succinate (Toprol Xl) 25 mg PO DAILY [facility] Montelukast Sodium (Singulair) 10 mg PO HS [facility] Last Admin: 10/03/18 21:31 Dose: 10 mg - Labs Labs: 09/30/18 21:20 09/30/18 21:20 Attending/Attestation - Attestation I have personally seen and examined this patient.: Yes I have fully participated in the care of the patient.: Yes I have reviewed all pertinent clinical information, including history, physical exam and plan: Yes Notes (Text): UTI - Enterococcus faecalis Neurocognitive Disorder/Dementia, prob Alzheimers ARLENE on CKD Stage IV Hyperkalemia - Urine c/s : Enterococcus - sensitive to Ampicillin - Meropenem d/c - pt refuses rpt labs - refusing PO meds and poor PO intake--IVF hydration -PT consulted - pt refused PT - Palliative Care consulted-pt has multiple hospital readmissions, refusing any further work up, treatment
[2018-10-05] MEDS: Levothyroxine 150 MCG TAB PO SCH (05:34)
[2018-10-05 08:39] VITALS: BP 123/70; PULSE 60; RESP 20; TEMP 97.9; O2SAT 96
--- NOTE | 2018-10-05 14:01 | CP.PCM.DIS ---
Provider - Provider Date of Admission: 09/30/18 22:34 Attending physician: Jabari Bishop Consults: 10/01/18 08:34 Infectious Disease Consult Routine Comment: Consulting Provider: Ben Bahena Consulting Physician: Ben Bahena Reason for Consult: recurrent UTI 10/02/18 09:00 Wound Care [Nursing Referral for Wound Care] Routine Comment: incontinent of urine Physician Instructions: Reason For Exam: redness to lorena-area 10/03/18 11:58 Palliative Care [Nursing Referral for Palliative Care] Routine Comment: Consulting Provider: Melanie Mccrary Physician Instructions: Reason For Exam: dementia 10/05/18 07:54 Psychiatry Consult Routine Comment: Consulting Provider: Rody Bernal Consulting Physician: Rody Bernal Reason for Consult: decision making, dementia Time Spent in preparation of Discharge (in minutes): 20 Diagnosis - Discharge Diagnosis (1) CHF (congestive heart failure) Status: Chronic (2) UTI (urinary tract infection) Status: Acute (3) Acute on chronic kidney failure Status: Acute Hospital Course - Lab Results Lab Results: Micro Results 09/30/18 07:30 Blood-Venous Blood Culture - Preliminary NO GROWTH AFTER 4 DAYS 09/30/18 21:20 Blood-Venous Blood Culture - Preliminary NO GROWTH AFTER 4 DAYS 09/30/18 07:00 Urine,Clean Catch Urine Culture - Final Enterococcus Faecalis Most Recent Lab Values WBC 9.5 K/uL (4.8-10.8) 09/30/18 21:20 RBC 3.94 Mil/uL (3.80-5.20) 09/30/18 21:20 Hgb 12.5 g/dL (12.0-16.0) D 09/30/18 21:20 Hct 37.8 % (34.0-47.0) 09/30/18 21:20 MCV 96.0 fl (81.0-99.0) D 09/30/18 21:20 MCH 31.8 pg (27.0-31.0) H 09/30/18 21:20 MCHC 33.1 g/dL (33.0-37.0) 09/30/18 21:20 RDW 16.0 % (11.5-14.5) H 09/30/18 21:20 Plt Count 286 K/uL (130-400) 09/30/18 21:20 MPV 7.0 fl (7.2-11.7) L 09/30/18 21:20 Neut % (Auto) 56.0 % (50.0-75.0) 09/30/18 21:20 Lymph % (Auto) 32.3 % (20.0-40.0) 09/30/18 21:20 Davison % (Auto) 9.5 % (0.0-10.0) 09/30/18 21:20 Eos % (Auto) 1.6 % (0.0-4.0) 09/30/18 21:20 Baso % (Auto) 0.6 % (0.0-2.0) 09/30/18 21: Neut # (Auto) 5.3 K/uL (1.8-7.0) 09/30/18 21:20 Lymph # (Auto) 3.1 K/uL (1.0-4.3) 09/30/18 21: Davison # (Auto) 0.9 K/uL (0.0-0.8) H 09/30/18 21:20 Eos # (Auto) 0.2 K/uL (0.0-0.7) 09/30/18 21: Baso # (Auto) 0.1 K/uL (0.0-0.2) 09/30/18 21:20 pO2 17 mm/Hg (30-55) L 09/30/18 21:25 VBG pH 7.25 (7.32-7.43) L 09/30/18 21:25 VBG pCO2 41 mmHg (40-60) 09/30/18 21:25 VBG HCO3 15.9 mmol/L 09/30/18 21:25 VBG Total CO2 19.3 mmol/L (22-28) L 09/30/18 21:25 VBG O2 Sat (Calc) 28.6 % (40-65) L 09/30/18 21:25 VBG Base Excess -8.8 mmol/L (0.0-2.0) L 09/30/18 21:25 VBG Potassium 5.7 mmol/L (3.6-5.2) H 09/30/18 21:25 Sodium 132.0 mmol/L (132-148) 09/30/18 21:25 Chloride 103.0 mmol/L (98-107) 09/30/18 21:25 Glucose 86 mg/dL (65-105) 09/30/18 21:25 Lactate 1.0 mmol/L (0.7-2.1) 09/30/18 21:25 FiO2 21.0 % 09/30/18 21:25 Sodium 139 mmol/l (132-148) 09/30/18 21:20 Potassium 5.7 MMOL/L (3.6-5.0) H 09/30/18 21:20 Chloride 105 mmol/L (98-107) 09/30/18 21:20 Carbon Dioxide 17 mmol/L (22-30) L 09/30/18 21:20 Anion Gap 23 (10-20) H 09/30/18 21:20 BUN 52 mg/dl (7-17) H 09/30/18 21:20 Creatinine 3.7 mg/dl (0.7-1.2) H 09/30/18 21:20 Est GFR ( Amer) 14 09/30/18 21:20 Est GFR (Non-Af Amer) 12 09/30/18 21:20 POC Glucose (mg/dL) 106 mg/dL (65-110) 10/01/18 09:49 Random Glucose 85 mg/dL (65-105) 09/30/18 21:20 Calcium 10.0 mg/dL (8.4-10.2) 09/30/18 21:20 Total Bilirubin 0.5 mg/dl (0.2-1.3) 09/30/18 21:20 AST 26 U/L (14-36) 09/30/18 21:20 ALT 15 U/L (9-52) 09/30/18 21:20 Alkaline Phosphatase 91 U/L (38-126) 09/30/18 21:20 Troponin I < 0.0120 ng/mL (0.00-0.120) 09/30/18 21:20 NT-Pro-B Natriuret Pep 3090 pg/ml (0-900) H 09/30/18 21:20 Total Protein 8.4 G/DL (6.3-8.2) H 09/30/18 21:20 Albumin 4.2 g/dL (3.5-5.0) 09/30/18 21:20 Globulin 4.2 gm/dL (2.2-3.9) H 09/30/18 21:20 Albumin/Globulin Ratio 1.0 (1.0-2.1) 09/30/18 21:20 Venous Blood Potassium 5.7 mmol/L (3.6-5.2) H 09/30/18 21:25 Urine Color Colleen (YELLOW) 09/30/18 23:22 Urine Clarity Cloudy (Clear) 09/30/18 23:22 Urine pH 6.0 (5.0-8.0) 09/30/18 23:22 Ur Specific [place] 1.017 (1.003-1.030) 09/30/18 23:22 Urine Protein 100 mg/dL (NEGATIVE) 09/30/18 23:22 Urine Glucose (UA) Neg mg/dL (NEGATIVE) 09/30/18 23:22 Urine Ketones Negative mg/dL (NEGATIVE) 09/30/18 23:22 Urine Blood Large (NEGATIVE) 09/30/18 23:22 Urine Nitrate Positive (NEGATIVE) H 09/30/18 23:22 Urine Bilirubin Negative (NEGATIVE) 09/30/18 23:22 Urine Urobilinogen 4.0 mg/dL (0.2-1.0) H 09/30/18 23:22 Ur Leukocyte Esterase Mod Ingrid/uL (Negative) 09/30/18 23:22 Urine RBC (Auto) 243 /hpf (0-3) H 09/30/18 23:22 Urine Microscopic WBC 1032 /hpf (0-5) H 09/30/18 23:22 Ur Squamous Epith Cells < 1 /hpf (0-5) 09/30/18 23:22 Influenza Typ A,B (EIA) Negative for flu a/b (NEGATIVE) 09/30/18 21:20 - Hospital Course Hospital Course: 87 yo female with PMHx of COPD, CHF, recurrent UTI with hemorrhagic cystitis, diverticulitis, CAD (stent x2, 10 years [employer]), and colon cancer, dementia presents to [facility] for AMS. Admitted for AMS, UTI, ARLENE, and CHF P During her stay patient was placed on Meropenem and cipro for UTI. She also received IV Fluid for acute on chronic kidney injury. Patient recieved Lasix once for CHF treated for hyperkalemia During her stay patient became refusing all blood withdraw, some days will also refuse taking her medication, and food. She was re-oriented. Patient urine culture was positive for enterococcus faecalis and its sensitive for Ampicillin 500mg. Patient dementia have improved, back to baseline. Patient medically stable and can be discharged home. Family were educated about patient symptoms and explained that the dementia is part of her baseline and not acute disease related. Patient currently stable and can be managed as outpatient Patient should follow up with PCP Discharge patient on Ampicillin 500mg Discharge Exam - Head Exam Head Exam: ATRAUMATIC, NORMAL INSPECTION, NORMOCEPHALIC - Eye Exam Eye Exam: EOMI, Normal appearance, PERRL Pupil Exam: NORMAL ACCOMODATION, PERRL - Respiratory Exam Respiratory Exam: Clear to PA & Lateral, NORMAL BREATHING PATTERN, UNREMARKABLE - Cardiovascular Exam Cardiovascular Exam: REGULAR RHYTHM, +S1, +S2 - GI/Abdominal Exam GI & Abdominal Exam: Normal Bowel Sounds, Unremarkable - Extremities Exam Extremities exam: normal inspection - Back Exam Back exam: NORMAL INSPECTION - Neurological Exam Neurological exam: Alert - Skin Skin Exam: Dry, Intact, Normal Color, Warm Discharge Plan - Discharge Medications Prescriptions: AMPicillin [Ampicillin] 500 mg PO TID #30 cap - Follow Up Plan Condition: FAIR Disposition: HOME/ ROUTINE Instructions: Urinary Tract Infection, Adult (DC), Community-Acquired Pneumonia, Adult (DC) Additional Instructions: follow up with dr wise on tuesdayoctober 09 at 10:45am, please bring insurance card and photo ID Referrals: Ben Bahena MD [Staff Provider] - Sivan Wise MD [Medical Doctor] -
[2018-10-05] MEDS: Lactobacillus Acidophilus 500 MU Cap PO SCH (14:28)
--- NOTE | 2018-10-05 14:38 | CP.PCM.PN ---
Subjective - Date & Time of Evaluation Date of Evaluation: 10/05/18 Time of Evaluation: 13:45 - Subjective Subjective: Examined patient in bed with son at bedside. Not in acute distress, awaiting Discharge Objective - Vital Signs/Intake and Output Vital Signs (last 24 hours): Temp Pulse Resp BP Pulse Ox 97.9 F 60 20 123/70 96 10/05/18 08:38 10/05/18 08:38 10/05/18 08:38 10/05/18 08:38 10/05/18 08:38 - Medications Medications: Current Medications Acetaminophen (Tylenol 325mg Tab) 650 mg PO Q6 PRN PRN Reason: Pain, moderate (4-7) Last Admin: 10/01/18 09:56 Dose: 650 mg Acetaminophen (Tylenol 325mg Tab) 650 mg PO Q6 PRN PRN Reason: Fever >100.4 F Atorvastatin Calcium (Lipitor) 10 mg PO HS [facility] Last Admin: 10/04/18 21:17 Dose: 10 mg Calcium Carbonate (Oscal) 500 mg PO BID [facility] Last Admin: 10/05/18 10:33 Dose: 500 mg Clopidogrel Bisulfate (Plavix) 75 mg PO DAILY [facility] Last Admin: 10/05/18 10:34 Dose: 75 mg Famotidine (Pepcid) 20 mg PO BID [facility] Last Admin: 10/05/18 10:33 Dose: 20 mg Ampicillin Sodium/Sulbactam (Sodium 1.5 gm/ Sodium Chloride) 100 mls @ 100 mls/hr IVPB DAILY [facility]; Protocol Last Admin: 10/05/18 10:35 Dose: 100 mls/hr Lactobacillus Acidophilus (Bacid Acidophilus) 1 cap PO BID [facility] Last Admin: 10/04/18 16:58 Dose: Not Given Levothyroxine Sodium (Synthroid) 150 mcg PO DAILY@0630 [facility] Last Admin: 10/05/18 05:34 Dose: 150 mcg Lorazepam (Ativan) 1 mg PO [facility] Last Admin: 10/04/18 21:15 Dose: 1 mg Metoprolol Succinate (Toprol Xl) 25 mg PO DAILY [facility] Montelukast Sodium (Singulair) 10 mg PO HS [facility] Last Admin: 10/04/18 21:15 Dose: 10 mg - Labs Labs: 09/30/18 21:20 09/30/18 21:20 - Constitutional Appears: No Acute Distress, Cachectic, Chronically Ill - Head Exam Head Exam: ATRAUMATIC, NORMAL INSPECTION, NORMOCEPHALIC - Eye Exam Eye Exam: Normal appearance - ENT Exam ENT Exam: Mucous Membranes Moist - Respiratory Exam Respiratory Exam: Decreased Breath Sounds - Cardiovascular Exam Cardiovascular Exam: REGULAR RHYTHM - GI/Abdominal Exam GI & Abdominal Exam: Soft, Hypoactive Bowel Sounds - Neurological Exam Neurological Exam: Alert, Altered, Awake - Psychiatric Exam Psychiatric exam: Flat Affect - Skin Skin Exam: Dry, Warm Assessment and Plan - Assessment and Plan (Free Text) Assessment: Palliative Care -awake and alert, not oriented to place or time, follows some commands,has flat affect -non ambulatory, in bed all day -Breath sounds diminished, on ra -Hypoactive bowel sounds, patient refused both lunch and breakfast today -No complaints of pain at this time Goals of Care: Met with patient son who is decision maker today. He states that he would like limited treatment for his mother. He would like all treatments such as IV fluids and antibiotics. He would like to avoid patient having any major surgeries but is ok with smaller procedures. He was educated on treatment choice and verbalized understanding. POLST form outlining Goals of Care signed and placed in chart. Patient son received original copy. Primary RN made aware Patient sonBen states that at this moment he feels he is more than capable of taking proper care of his mom at home and will have the assistance of his and sister. He states he is aware of his mother's decline but expects her to get better. Code Status: As per blake Contreras, for future admissions patient should be DNI only. Resuscitation attempts are requested if ever needed. SonBen, educated on Code status and he verbalized understanding . POLST form outlining desired Code Status placed in chart, Original copy given to patient son. Primary RN made aware. Impression * UTI * Altered Mental Status * Loss of Appetitie * Decreased Mobility Suggestion * Reposition q2 hours * needs max assist with ADLs * Redirect and reorient as needed * encourage po feeds Palliative care can be reached at [phone] or ext [phone] Time Spent with patient 40 min
== END 2018-10-05 14:39 | disposition home health service (06) | DRG 689 ==
LOC: H.ER 19:36 → H.ERHOLD 22:34 → H.MEDSURG1 10-01 16:17
PROVIDERS: ADMIT Internal Medicine; ATTEND Internal Medicine
DX: N39.0 Urinary tract infection, site not specified (principal); I50.33 Acute on chronic diastolic (congestive) heart failure; N17.9 Acute kidney failure, unspecified; N18.4 Chronic kidney disease, stage 4 (severe); I13.0 Hypertensive heart and chronic kidney disease with heart failure and stage 1 through stage 4 chronic kidney disease, or unspecified chronic kidney disease; B95.2 Enterococcus as the cause of diseases classified elsewhere; E87.5 Hyperkalemia; I48.0 Paroxysmal atrial fibrillation; D63.1 Anemia in chronic kidney disease; F02.80 Dementia in other diseases classified elsewhere, unspecified severity, without behavioral disturbance, psychotic disturbance, mood disturbance, and anxiety; G30.9 Alzheimer's disease, unspecified; K57.92 Diverticulitis of intestine, part unspecified, without perforation or abscess without bleeding; I25.10 Atherosclerotic heart disease of native coronary artery without angina pectoris; E03.9 Hypothyroidism, unspecified; K21.9 Gastro-esophageal reflux disease without esophagitis; E78.00 Pure hypercholesterolemia, unspecified; J44.9 Chronic obstructive pulmonary disease, unspecified; Z51.5 Encounter for palliative care; Z74.01 Bed confinement status; Z85.038 Personal history of other malignant neoplasm of large intestine; Z86.19 Personal history of other infectious and parasitic diseases; Z87.01 Personal history of pneumonia (recurrent); Z87.440 Personal history of urinary (tract) infections; Z95.5 Presence of coronary angioplasty implant and graft; Z79.02 Long term (current) use of antithrombotics/antiplatelets; Z87.891 Personal history of nicotine dependence; F32.9 Major depressive disorder, single episode, unspecified; F41.9 Anxiety disorder, unspecified; M19.90 Unspecified osteoarthritis, unspecified site